=== PATIENT | female | born 1960 | race Caucasian/White ===

== ENCOUNTER 2021-02-01 15:35 | Emergency (ER) | payer MEDICAID, SELFPAY ==
[2021-02-01 15:39] VITALS: BP 164/86; PULSE 92; RESP 18; TEMP 36.6; O2SAT 98; BMI 28.1
--- NOTE | 2021-02-01 17:44 | ED_ITS ---
HPI - General Adult General Chief complaint: General Medical Stated complaint: Ear pain Time Seen by Provider: 02/01/21 17:18 Source: patient Mode of arrival: ambulatory Limitations: no limitations History of Present Illness HPI narrative: Patient presents to the ED for right ear earing being stuck in right ear for the past 6 months. patient states she put the wrong backing part into the earing and has been stuck ever since. patient denies any ear swelling, redness, fever, chills, loss of hearing, or ear pain. Related Data Allergies Allergy/AdvReac Type Severity Reaction Status Date / Time No Known Allergies Allergy Verified 02/01/21 17:23 Review of Systems Review of Systems: Yes all other systems are reviewed and are negative Constitutional: Constitutional: Reports as per HPI and Reports no additional constitutional complaints Eyes: Eyes: Reports as per HPI and Reports no additional eye complaints ENT: Reports system reviewed and no additional complaints, except as documented and Reports as per HPI Comments: RIgt earing stuck Cardiovascular: Cardiovascular: Reports as per HPI and Reports no additional cardiovascular complaints Respiratory: Respiratory: Reports as per HPI and Reports no additional respiratory complaints Gastrointestinal: Gastrointestinal: Reports as per HPI and Reports no additional gastrointestinal complaints Musculoskeletal: Musculoskeletal: Reports no additional musculoskeletal complaints and Reports as per HPI Integumentary/Breasts: Skin/Breast: Reports system reviewed and no additional complaints, except as docu and Reports as per HPI Neurologic: Reports system reviewed and no additional complaints, except as documented and Reports as per HPI Psychiatric: Psychiatric: Reports no additional psychiatric complaints and Reports as per HPI [facility] Past Medical History Medical History (Updated 02/01/21 @ 18:01 by MILY Marte) Diabetes Gastroparesis High cholesterol Tachycardia Social History Social History Advance Directives: No Advance Directives Information Provided: No Patient : No Physical Exam Vital Signs: Vital Signs: Last Vital Signs Temp 98 F 02/01/21 15:39 Pulse 92 02/01/21 15:39 Resp 18 02/01/21 15:39 BP 164/86 H 02/01/21 15:39 Pulse Ox 98 02/01/21 15:39 Body Mass Index 28.1 Const: General: cooperative, healthy appearing, comfortable, no acute distress, well developed, alert, awake and Physically active Orientation/consciousness: patient oriented x3 HENMT: Head: Yes normal to inspection, Yes No palpable skull fracture present, Yes normocephalic, Yes atraumatic and No abrasion Ears: hearing grossly normal bilaterally, external ears normal, TM's normal bilaterally, EAC's normal, mastoids normal and no periauricular adenopathy Outer ear/TM images: 1. Gold earing imbedded into ear. Back piece is visible. Negative for any erythema, swellling, tenderness, pus discharge, mastoid erythema/swelling, Eyes: General: appearance normal, both eyes and all related structures Neck: Neck: Yes normal visual inspection, Yes full ROM, Yes no lymphadenopathy , Yes no meningeal signs, Yes trachea midline, Yes supple and No tender Chest: Chest palpation & inspection: normal inspection of the chest and normal palpation of entire chest wall Resp: Effort & Inspection: normal respiratory effort and able to speak in complete sentences Auscultation: clear to auscultation bilaterally Cardio: Jugular venous distension: no JVD Heart sounds: S1 normal heart sound present and S2 normal heart sound present GI: Inspection: Yes normal to inspection and No abdominal wall ecchymosis Palpation (GI): Soft to palpation, not firm, nontender, no guarding and not rigid : General: No CVA tenderness and Yes no CVA tenderness Back/Spine/Pelvis: Back: no CVA tenderness, No CVA tenderness and No back tenderness Skin: General skin exam: no rashes or lesions noted and elasticity normal Neuro: General: patient oriented x3, gait normal, tone normal, no meningeal signs and CN's II-XI intact bilaterally Cranial nerves: Yes CN's II-XII intact bilaterally Extrem: General: Yes normal to inspection and Yes full ROM Psych: Appearance: grossly normal, well kempt and not disheveled Course Course Course Narrative: Earing stuck Reevaluation(s) Reevaluation #1: patient did not want any anesthesia injection. Earing and back piece was removed with foreceps. patient is satisfied. Medical Decision Making MDM Narrative Medical decision making narrative: earing removed Discharge Plan Discharge Clinical Impression: Embedded earring of right ear Patient Disposition: Home, Self-Care Instructions: Ear Foreign Body (ED) Additional Instructions: Your earring was successfully removed. Return to the ED immediately for any swelling, redness, pus discharge, foul odor, headache, fever, chills, ear pain, or any other concerning symptoms. Please follow-up with primary care provider Interventions: ED Discharge Assessment Last Done: 02/01/21 18:09 Discharge Date/Time: 02/01/21 18:19 Print Language: Azerbaijani
[2021-02-01] MEDS: Lidocaine HCl 2 % MPF 5 ML VIAL INFILTRATI ×2 (18:05→18:07)
--- NOTE | 2021-02-01 18:18 | PC.NURSE ---
RIGHT EAR EARING REMOVED BY MILY LOPES.
== END 2021-02-01 18:19 | disposition home or self-care (01) ==
PROVIDERS: Emergency Provider Emergency Medicine; PCP Internal Medicine
DX: T16.1XXA Foreign body in right ear, initial encounter (principal); M79.5 Residual foreign body in soft tissue; H92.01 Otalgia, right ear; X58.XXXA Exposure to other specified factors, initial encounter; Y93.9 Activity, unspecified; Y92.9 Unspecified place or not applicable; Y99.9 Unspecified external cause status
CPT/HCPCS: 69200; 99283

== ENCOUNTER 2024-02-04 18:59 | Emergency (ER) | payer MEDICARE, MEDICAID, SELFPAY ==
--- NOTE | ~2024-02-04 | CT_ITS ---
EXAMINATION: CT ABDOMEN AND PELVIS WITHOUT CONTRAST CLINICAL INFORMATION: Left-sided groin pain COMPARISON: None available. TECHNIQUE: Multidetector volumetric imaging was performed from the superior aspect of the liver through the pubic symphysis. Sagittal and coronal reformatted images were obtained on the technologist's workstation. This CT examination was performed using dose optimization techniques as appropriate, variously including the following: *Automated exposure control *Adjustment of mA and/or kV according to patient size (this includes techniques or standardized protocols for targeted exams where dose is matched to indication/reason for exam; i.e. extremities or head) *Use of iterative reconstruction technique DLP: 623 mGy-cm FINDINGS: LUNG BASES: The visualized lung bases are unremarkable. LIVER, GALLBLADDER, AND BILIARY TREE: The liver is enlarged measuring 19.4 cm in length with normal attenuation. No focal hepatic lesion or biliary ductal dilatation is present. Status post cholecystectomy PANCREAS: Unremarkable. SPLEEN: Unremarkable. ADRENAL GLANDS: Unremarkable. KIDNEYS AND URETERS: The kidneys are normal in size, shape, and attenuation. No hydronephrosis, hydroureter, or calculi seen. No perinephric stranding. BLADDER: Unremarkable. Tiny amount of air is seen in the bladder. There is no other evidence to suggest the presence of a colovesical fistula with a intact fat plane between the bladder and sigmoid best appreciated on coronal imaging. Please correlate with history of catheterization. GASTROINTESTINAL TRACT: In the proximal sigmoid colon there is an area of mucosal thickening, diverticula and pericolonic inflammatory change consistent with acute diverticulitis. No extraluminal air or pericolonic fluid collections are seen. The small and large bowel are otherwise unremarkable. The appendix is not seen but there is no evidence of appendicitis. ABDOMINAL WALL: No significant hernia is appreciated. LYMPH NODES: No retroperitoneal lymphadenopathy. VASCULAR: Unremarkable. PELVIC VISCERA: The uterus is not seen. An abnormal adnexal mass is not detected. No free intraperitoneal fluid is present. OSSEOUS STRUCTURES: Degenerative changes are seen at L3-L4. No bony destructive lesions. CT/CT abdomen pelvis wo IV con IMPRESSION: 1. Acute uncomplicated sigmoid diverticulitis. 2. Incidental note made of mild hepatomegaly, cholecystectomy and degenerative changes L3-L4. Fleischner guidelines were followed. Electronically signed by: Montrell Rashid MD 02/04/2024 08:55 PM EST RP
--- NOTE | 2024-02-04 19:14 | ED_ITS ---
HPI - Abdominal Pain General Chief Complaint: Abdominal Pain Stated Complaint: left side pain Time Seen by Provider: 02/04/24 19:41 Source: patient, family (Sister), RN notes reviewed and old records reviewed Mode of arrival: ambulatory Limitations: no limitations History of Present Illness ED Provider: Akilah HPI narrative: 63-year-old female with past medical history significant for poorly-controlled diabetes, history of pancreatitis, diverticulitis presents for evaluation of left lower abdominal pain. Patient reports her pain has been on and off for the last 3 days or so She denies any associated symptoms including nausea, vomiting, diarrhea. Denies any burning with urination, urinary frequency or blood in the urine. Her pain does radiate around to her left flank. Her pain is worse with lying down She denies any fevers, chills, sick contacts. Her pain is currently a 6/10 and is sharp The pain waxes and wanes Complaints or concerns at this time Related Data Allergies Allergy/AdvReac Type Severity Reaction Status Date / Time diazepam [From Valium] Allergy Anaphylaxis Verified 02/04/24 19:16 meperidine [From Demerol] Allergy Anaphylaxis Verified 02/04/24 19:16 Opioids - Morphine Analogues Allergy Anaphylaxis Verified 02/04/24 19:16 Penicillins [PCN] Allergy Unknown Verified 02/04/24 19:16 Sulfa (Sulfonamide Allergy Stomach Verified 02/04/24 19:16 Antibiotics) Upset Review of Systems Constitutional: Denies body ache(s), Denies chills and Denies headache(s) Eyes: Denies blurry vision Denies headache(s) and Denies sore throat Cardiovascular: Denies chest pain and Denies dyspnea Respiratory: Denies cough and Denies dyspnea Gastrointestinal: Reports abdominal pain, Denies nausea and Denies vomiting Musculoskeletal: Reports back pain Skin/Breast: Denies rash Denies headache(s) Psychiatric: Denies anxiety [facility] Past Medical History Medical History (Updated 02/04/24 @ 21:38 by Robin Isbell) High cholesterol Tachycardia Diabetes Gastroparesis Social History Social History Advance Directives: Yes Advance Directives Information Provided: No Advance Directives on File: No Do you have a plan to hurt others: No Plan Physical Exam ED Vital Signs: Vital Signs - 24 hr 02/04/24 19:16 02/04/24 20:04 Temperature 98.0 F 97.6 F Pulse Rate 113 H 111 H Respiratory Rate 20 16 Blood Pressure 178/90 H 173/72 H Pulse Oximetry 98 99 Oxygen Delivery Method Room Air Room Air BMI result Body Mass Index 28.9 Const General: healthy appearing, comfortable, no acute distress, alert and awake Nutritional Appearance: well nourished Orientation/consciousness: patient oriented x3 HENMT Head: Yes normocephalic and Yes atraumatic Eyes Eyelids: Yes eyelids normal Conjunctivae: conjunctivae normal Sclerae: sclerae normal Corneas: corneas normal Pupils: Equal, round and reactive pupils present EOM: EOMs intact bilaterally Neck Neck: Yes full ROM Resp Effort & Inspection: normal respiratory effort, able to speak in complete sentences and not labored Cardio Rate: regular rate Rhythm: regular rhythm GI Inspection: No distended Palpation (GI): Soft to palpation, not firm, Tenderness to palpation present (GI) (left flank tenderness) in the LLQ, no guarding and not rigid Auscultation: normoactive bowel sounds General: No CVA tenderness and Yes no CVA tenderness Back/Spine/Pelvis Other: There is tenderness in the left lumbosacral region. No vertebral tenderness, step-offs or deformities Back: no CVA tenderness and No CVA tenderness Skin General skin exam: elasticity normal Neuro General: patient oriented x3 Cranial nerves: Yes Equal, round and reactive pupils present and Yes Bilaterally intact EOM present Cognition (Neuro): normal cognition Extrem Other: Moving all extremities well without any obvious deformities Course Course Course Narrative: This is an RME done by MILY Hector: Additional HPI, ROS, PE not included below will be deferred to primary provider. 63 year old female hx DM, CKD, fibromyalgia, gastroparesis presents w/ left sided groin pain x 1 week worsening. Pain is sharp shooting, worse w/ laying down Plan- labs, urine, CT abd pelvis Reevaluation(s) Reevaluation #1: Patient's CT scan shows acute uncomplicated diverticulitis. The patient does have a history of this. She is quite well appearing with reassuring labs and vital signs. The patient was encouraged to treat with liquid diet and advance as tolerated. Antibiotics were discussed but ultimately deferred. Patient was given return precautions Time: 21:35 Medical Decision Making Medical Decision Making MDM Narrative: 63-year-old female with past medical history as documented above presents for evaluation of left lower abdominal pain. She denies associated his symptoms. The differential includes obstructive uropathy, UTI, inguinal hernia, constipation, diverticulitis. Plan for labs, urinalysis, CT scan of the abdomen pelvis without contrast Differential Diagnosis Differential Diagnoses: The differential diagnosis associated with the presentation includes As above Lab Data MDM Lab Attestation statement: I reviewed the patient's lab results. There is no leukocytosis. Have a mild normocytic anemia. He is, her BUN today is 30. Magnesium is low at 1.5 and will be repleted. The creatinine of 1.53, no labs for direct comparison. Her glucose is elevated to 537. There is no elevated anion gap and the CO2 is within normal limits. No evidence of DKA. Mild elevation of AST and ALT. 02/04/24 19:34 02/04/24 19:34 Labs: Lab Results 02/04/24 02/04/24 Range/Units 19:34 21:17 WBC 9.8 (4.8-10.8) X10*3/uL RBC 4.04 L (4.20-5.50) X10*6/uL Hgb 10.6 L (12.0-16.0) g/dl Hct 32.4 L (37.0-47.0) % MCV 80.2 (80.0-98.0) fL MCH 26.2 L (27.0-33.0) pg MCHC 32.7 (31.0-35.0) g/dl RDW 12.1 (11.0-16.0) % Plt Count 282 (160-400) X10*3/uL MPV 10.4 (9.4-12.3) fL Immature Gran % (Auto) 0.3 (0.0-0.4) % Neut % (Auto) 73.7 H (45-73) % Lymph % (Auto) 18.6 L (20-40) % Parke % (Auto) 5.8 (2-11) % Eos % (Auto) 1.3 (0-4) % Baso % (Auto) 0.3 (0-2) % Lymph # (Auto) 1.8 (1.2-4.9) X10*3/uL Parke # (Auto) 0.6 (0.1-1.2) X10*3/uL Eos # (Auto) 0.1 (0.0-0.4) X10*3/uL Baso # (Auto) 0.0 (0.0-0.2) X10*3/uL Abs Immat Gran (auto) 0.03 (0.00-0.03) X10*3/uL Absolute Neuts (auto) 7.2 (2.0-8.3) x10*3/uL Absolute Nucleated RBC 0.000 (0.0-0.012) X10*3/uL Nucleated RBC % (auto) 0.0 (0.0-0.2) /100WBC Sodium 139 (135-145) mmol/L Potassium 5.1 (3.3-5.1) mmol/L Chloride 100 (96-108) mmol/L Carbon Dioxide 27 (22-29) mmol/L Anion Gap 17 (12-20) BUN 33 H (9-16) mg/dL Creatinine 1.53 H (0.5-1.4) mg/dL Estim Creat Clear Calc 42.7 Estimated GFR 34 POC Glucose 389 H* (60-115) mg/dL Random Glucose 537 H* (60-115) mg/dL Calcium 9.6 (8.4-10.2) mg/dL Magnesium 1.5 L (1.6-2.6) mg/dL Total Bilirubin 0.1 (0.0-1.0) mg/dL AST 39 H (5-31) U/L ALT 57 H (0-31) U/L Alkaline Phosphatase 134 H (39-117) U/L Total Protein 7.2 (6.5-8.0) g/dL Albumin 4.3 (3.5-5.0) g/dL Lipase 14 (8-78) U/L Urine Color Yellow Urine Appearance Clear Urine pH 5.5 (5.0-9.0) Ur Specific [place] 1.025 (1.005-1.025) Urine Protein 30 (1+) H (Neg-Trace) mg/dL Urine Glucose (UA) >=1000 H (Negative) mg/dL Urine Ketones Negative (Negative) mg/dL Urine Blood Negative (Negative) Urine Nitrite Negative (Negative) Ur Leukocyte Esterase Negative (Negative) Urine RBC 0-2 (0-2) /HPF Urine WBC 0-5 (0-5) /HPF Ur Squamous Epith Cells 0-2 (0-2) /HPF Urine Bacteria None Seen (None Seen) Hyaline Casts 0-2 (0-2) /LPF Independent Interpretation I performed an independent interpretation of an: CT Scan Radiology Impression Discussion of test interpretation with radiology: I have reviewed the radiologist's reading. Radiologist Impression: FINDINGS: LUNG BASES: The visualized lung bases are unremarkable. LIVER, GALLBLADDER, AND BILIARY TREE: The liver is enlarged measuring 19.4 cm in length with normal attenuation. No focal hepatic lesion or biliary ductal dilatation is present. Status post cholecystectomy PANCREAS: Unremarkable. SPLEEN: Unremarkable. ADRENAL GLANDS: Unremarkable. KIDNEYS AND URETERS: The kidneys are normal in size, shape, and attenuation. No hydronephrosis, hydroureter, or calculi seen. No perinephric stranding. BLADDER: Unremarkable. Tiny amount of air is seen in the bladder. There is no other evidence to suggest the presence of a colovesical fistula with a intact fat plane between the bladder and sigmoid best appreciated on coronal imaging. Please correlate with history of catheterization. GASTROINTESTINAL TRACT: In the proximal sigmoid colon there is an area of mucosal thickening, diverticula and pericolonic inflammatory change consistent with acute diverticulitis. No extraluminal air or pericolonic fluid collections are seen. The small and large bowel are otherwise unremarkable. The appendix is not seen but there is no evidence of appendicitis. ABDOMINAL WALL: No significant hernia is appreciated. LYMPH NODES: No retroperitoneal lymphadenopathy. VASCULAR: Unremarkable. PELVIC VISCERA: The uterus is not seen. An abnormal adnexal mass is not detected. No free intraperitoneal fluid is present. OSSEOUS STRUCTURES: Degenerative changes are seen at L3-L4. No bony destructive lesions. CT/CT abdomen pelvis wo IV con IMPRESSION: 1. Acute uncomplicated sigmoid diverticulitis. 2. Incidental note made of mild hepatomegaly, cholecystectomy and degenerative changes L3-L4. Fleischner guidelines were followed. Electronically signed by: Montrell Rashid MD 02/04/2024 08:55 PM [facility] Medications Administered Discontinued Medications Generic Name Dose Route Start Last Admin Trade Name Freq PRN Reason Stop Dose Admin Hydromorphone HCl 0.5 mg 02/04/24 20:05 02/04/24 20:35 Hydromorphone Hcl 0.5 Mg/0.5 Ml Syringe IVPUSH 02/04/24 20:06 0.5 mg ONCE ONE Administration Protocol Sodium Chloride 1,000 mls @ 999 mls/hr 02/04/24 20:15 02/04/24 20:35 Ns IV 02/04/24 21:15 999 mls/hr .Q1H1M SCOTT Administration Insulin Human Regular 10 unit 02/04/24 20:05 02/04/24 20:34 Insulin Regular, Human 100 Unit/Ml 10 Ml Vial IVPUSH 02/04/24 20:06 10 unit ONCE ONE Administration Magnesium Oxide 800 mg 02/04/24 20:23 02/04/24 20:35 Magnesium Oxide 400 Mg Tablet PO 02/04/24 20:24 800 mg ONCE ONE Administration Ondansetron HCl 4 mg 02/04/24 20:05 02/04/24 20:35 Ondansetron Hcl 4 Mg/2 Ml Vial IVPUSH 02/04/24 20:06 4 mg ONCE ONE Administration Discharge Plan Discharge Clinical Impression: Diverticulitis Patient Disposition: Home, Self-Care Instructions: Diverticulitis (ED), Diverticulitis Diet (ED) Additional Instructions: Services your workup in the ER shows acute uncomplicated diverticulitis. You appear to have a mild case. I recommend a liquid diet for the next 2-3 days and You may advance as tolerated You may use ibuprofen/Tylenol for pain. Return for new or worsening symptoms, especially if you develop worsening pain, or unable to tolerate any oral intake or you develop a fever Follow-up with your primary doctor Print Language: Setswana
[2024-02-04 19:16] VITALS: BP 178/90; PULSE 113; RESP 20; TEMP 36.7; O2SAT 98; BMI 28.9
[2024-02-04 19:38] LABS: MANUAL DIFF FLAG NO
[2024-02-04 19:40] LABS: Appearance Urine Clear; Basophils Percent Auto 0.3 % (0-2); Color Urine Yellow; Eosinophils Absolute Auto 0.1 X10*3/uL (0.0-0.4); Eosinophils Percent Auto 1.3 % (0-4); Glucose Urine UA >=1000 mg/dL (Negative); Hematocrit 32.4 % (37.0-47.0); Hemoglobin 10.6 g/dl (12.0-16.0); Imm Gran Abs Auto 0.03 X10*3/uL (0.00-0.03); Imm Gran Pct Auto 0.3 % (0.0-0.4); Leukocyte Esterase Urine Negative (Negative); Lymphocytes Absolute Auto 1.8 X10*3/uL (1.2-4.9); Lymphocytes Percent Auto 18.6 % (20-40); Mean Corpuscular HGB Conc 32.7 g/dl (31.0-35.0); Mean Corpuscular Hemoglobin 26.2 pg (27.0-33.0); Mean Corpuscular Volume 80.2 fL (80.0-98.0); Mean Platelet Volume 10.4 fL (9.4-12.3); Monocytes Absolute Auto 0.6 X10*3/uL (0.1-1.2); Monocytes Percent Auto 5.8 % (2-11); Neutrophils Absolute Auto 7.2 x10*3/uL (2.0-8.3); Neutrophils Percent Auto 73.7 % (45-73); Nitrite Urine Negative (Negative); PH 5.5 (5.0-9.0); Platelet Count 282 X10*3/uL (160-400); Red Blood Count 4.04 X10*6/uL (4.20-5.50); Red Cell Distribution Width 12.1 % (11.0-16.0); Specific Gravity - Urine 1.025 (1.005-1.025); UMIC TRIGGER UACC YES; Urine Blood Negative (Negative); Urine Ketones Negative (Negative); Urine Protein 30 (1+) mg/dL (Neg-Trace); White Blood Count 9.8 X10*3/uL (4.8-10.8)
[2024-02-04 19:45] LABS: Bacteria Urine None Seen (None Seen); Hyaline Casts Urine 0-2 /LPF (0-2); RBC Urine 0-2 /HPF (0-2); Squamous Epithelial Cell Urine 0-2 /HPF (0-2); WBC Urine 0-5 /HPF (0-5)
[2024-02-04 19:55] LABS: Alanine Aminotransferase 57 U/L (0-31); Albumin Level 4.3 g/dL (3.5-5.0); Alkaline Phosphatase 134 U/L (39-117); Anion Gap 17 (12-20); Aspartate Amino Transferase 39 U/L (5-31); Bilirubin Total 0.1 mg/dL (0.0-1.0); Blood Urea Nitrogen 33 mg/dL (9-16); Calcium 9.6 mg/dL (8.4-10.2); Carbon Dioxide 27 mmol/L (22-29); Chloride 100 mmol/L (96-108); Creatinine Clr Calc Pharmacy 42.7; Estimated Glomerular Filt Rate 34; Glucose Random 537 mg/dL (60-115); Lipase 14 U/L (8-78); Magnesium 1.5 mg/dL (1.6-2.6); Potassium 5.1 mmol/L (3.3-5.1); Sodium 139 mmol/L (135-145); Total Protein 7.2 g/dL (6.5-8.0)
[2024-02-04 20:04] VITALS: BP 173/72; PULSE 111; RESP 16; TEMP 36.4; O2SAT 99
[2024-02-04] MEDS: Insulin Regular, Human 100 UNIT/ML 10 ML VIAL 10 UNIT IVPUSH (20:34)
[2024-02-04] MEDS: HYDROmorphone HCl 0.5 MG/0.5 ML SYRINGE IVPUSH (20:35)
[2024-02-04] MEDS: 0.9 % Sodium Chloride 1,000 ML 999 ML IV (20:35)
[2024-02-04] MEDS: ondansetron HCL 4 MG/2 ML VIAL IVPUSH (20:35)
[2024-02-04] MEDS: Magnesium Oxide 400 MG TABLET 800 MG PO (20:35)
--- NOTE | 2024-02-04 20:39 | PC.NURSE ---
Took over care from JACKSON Benton, medicated per may, pt awaiting CT Scan results
[2024-02-04 21:19] LABS: Glucose, Whole Blood 389 mg/dL (60-115)
[2024-02-04 21:39] VITALS: BP 142/65; PULSE 108; RESP 16; TEMP 36.6; O2SAT 99
--- NOTE | 2024-02-04 22:09 | PC.NURSE ---
Reviewed discharge instructions with pt, pt verbalized understanding, no sign of distress, Iv removed upon discharge , pt had a steady gait, discharged home.
[2024-02-04 22:11] VITALS: BP 142/65; PULSE 108; RESP 16; TEMP 36.6; O2SAT 99
== END 2024-02-04 22:12 | disposition home or self-care (01) ==
PROVIDERS: Physician Assistant; Emergency Provider Emergency Medicine; PCP Internal Medicine
DX: K57.92 Diverticulitis of intestine, part unspecified, without perforation or abscess without bleeding (principal); R10.32 Left lower quadrant pain; E11.9 Type 2 diabetes mellitus without complications; E78.5 Hyperlipidemia, unspecified
CPT/HCPCS: 36415; 74176; 80053; 81001; 82947; 83690; 83735; 85025; 96361; 96374; 96375; 99284; 99285; J1171; J2405

== ENCOUNTER 2024-07-18 11:10 | Outpatient (AMB) | payer MEDICARE, MEDICAID, SELFPAY ==
--- NOTE | 2024-07-18 11:23 | A.OFFVIS_ITS ---
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 Patient has neuropathy in her feet. She gets cramping , swelling, tiredness and pain. Right leg is worse. 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 She recounts episodes of leg weakness accompanied by dizziness, questioning if three past COVID-19 infections are contributory. There is significant hypoesthesia in her feet related to her 25-year history of Type 2 Diabetes Mellitus. The patient's ambulation is limited to 20 feet due to pain in both legs and feet, with the right leg typically giving out first. Previously believed to have strong pulses, recent assessments reveal diminished foot pulses. She has a documented family history of similar vascular issues, and her father's experience includes multiple surgical interventions. The patient denies smoking and confirms an allergy to aspirin. Current medication includes Lovastatin for lipid management. She now presents for vascular evaluation [facility] Medical History High cholesterol Tachycardia Diabetes Gastroparesis Review of Systems Const All systems reviewed & are unremarkable except as noted in HPI and below Reports no additional complaints ENT Reports Normal hearing present Card Denies chest pain, Denies chest pain at rest, Denies chest pain with activity and Denies pedal edema Resp Denies cough GI Denies abdominal pain Musc Denies abnormal gait, Denies muscle cramps and Denies radiating pain into limb Skin/Breast Denies skin ulcer and Denies wounds Neuro Reports Normal hearing present and Denies abnormal gait Psych Reports no additional complaints Physical Exam Const General: cooperative, healthy appearing and comfortable Orientation/consciousness: oriented to person, oriented to place and oriented to time HEENT Head: Yes normal to inspection Neck Neck: Yes normal visual inspection Carotids: no bruits Chest Chest palpation & inspection: normal inspection of the chest Resp Effort & Inspection: normal respiratory effort and able to speak in complete sentences Auscultation: clear to auscultation bilaterally, no crackles, no rales, no rhonchi and no wheezes Cardio Other: Palpable left lower extremity dorsalis pedis, right side DP signals Rate: regular rate Rhythm: regular rhythm Heart sounds: S1 normal heart sound present and S2 normal heart sound present Bruits: no carotid bruits GI Inspection: Yes normal to inspection Skin Wounds: no wounds Hair: normal Neuro General: oriented to person, oriented to place and oriented to time Cranial nerves: Yes CN's II-XII intact bilaterally and Yes Normal hearing present Cognition (Neuro): normal cognition Motor exam (neuro): 5/5 motor strength present throughout Extrem Other: venous exam: No significant superficial varicosities or spider telangiectasias, minimal edema General: No clubbing, No cyanosis and No edema Psych Appearance: grossly normal Mental Status: mental status grossly normal Speech and movement: Normal speech and movement present Assessment & Plan Assessment & Plan (1) PAD (peripheral artery disease): Code(s): I73.9 - Peripheral vascular disease, unspecified Category: Medical Plan: I discussed the importance of assessing the patient?s peripheral vascular status through a Doppler ultrasound, which will help determine the extent of any arterial compromise. Benefits of the ultrasound include its non-invasive nature and capacity to provide conclusive details regarding the vascular condition. The potential risks of delaying this investigation include deterioration in ambulation and potential complications related to ischemia. Plan Patient was informed and verbally consented to the use of an ambient scribe for clinic note documentation during this visit. Orders: Orders US arterial duplex LE BI 1 Week I73.9 - Peripheral vascular disease, unspecified Patient Instructions: - Follow up for an ultrasound of the lower extremities. - Continue taking Lovastatin for cholesterol management. - Monitor blood sugar levels regularly. - Report any worsening of symptoms or new symptoms promptly. Coding Level of Care Code New Pt Level 4 (80446) Complex EM visit Add On G2211 Diagnoses PAD (peripheral artery disease) I73.9
--- OUTSIDE RECORDS SUMMARY | 2024-07-18 13:26 | XMS_ITS | Clinical Summary ---
Author Organization [employer] Address [address] [place] [address] Care Team Providers Care Mortgage Underwriter Name Role Phone Massiel Jung MD Primary Care Provider [phone] Allergies Active Allergy Reactions Criticality Noted Date Comments Alcohol 01/08/2020 Other reaction(s): Unknown Aspirin Rash Low 02/07/2015 Other reaction(s): Unknown Bebtelovimab Rash,Angioedema Low 03/27/2022 Codeine Angioedema High 02/04/2015 Other reaction(s): Other (See Comments), Unknown Throat closing Throat closing Cyclopentolate 03/27/2022 Other reaction(s): prolonged eye dilation Diazepam Anaphylaxis,Angioede ma High 02/04/2015 Other reaction(s): Other (See Comments) Throat closing Throat closing Leann Anaphylaxis High 01/06/2019 Other reaction(s): Unknown Ibuprofen Rash Low 02/07/2015 Other reaction(s): Unknown Other reaction(s): unknown Ketorolac 03/27/2022 Other reaction(s): unknown Meperidine Angioedema High 02/04/2015 Other reaction(s): Other (See Comments) Throat closing Throat closing Other reaction(s): rash/throat closing Meperidine Hcl Angioedema,Rash Low 03/25/2022 Other reaction(s): Unknown Morphine 03/27/2022 Other reaction(s): rash, stomach pain, throat closing Naproxen 03/25/2022 Other reaction(s): Unknown Other reaction(s): unknown Oxycodone-Acetaminophen 03/27/2022 Other reaction(s): throat closing,rash Penicillins Rash Low 09/23/2017 Other reaction(s): Unknown Other reaction(s): hives Prochlorperazine Rash Low 02/07/2015 Other reaction(s): Unknown Salicylic Acid-Sulfur Nausea And Vomiting Low 12/27 Sulfa Antibiotics Rash,Shortness of breath,Anaphylaxis High 09/23/2017 Sulfadiazine 03/27/2022 Other reaction(s): rash Tropicamide 03/25/2022 Other reaction(s): Unknown Other reaction(s): unknown Medications * This document contains information received from the source organization and may not represent a complete record from that organization. cholecalciferol (Vitamin D-3) 25 MCG (1000 UT) tablet Take 1,000 Units by mouth in the morning. Active albuterol 108 (90 Base) MCG/ACT inhaler Inhale 2 puffs every 6 (six) hours if needed. Active metFORMIN XR (Glucophage-XR) 500 MG 24 hr tablet 2 tablets in the morning and 2 tablets in the evening. 0 Active esomeprazole (NexIUM) [address] capsule Take 40 mg by mouth in the morning and 40 mg in the evening. 2 Active cyanocobalamin (Vitamin B-12) 1000 MCG tablet Take 1,000 mcg by mouth in the morning. Active Multiple Vitamins-Minera ls (MULTIVITAMIN ADULT, MINERALS, PO) Take by mouth. A ctive glucose 4 g chewable tablet as directed Orally Active Continuous Blood Gluc Sensor (Dexcom G6 Sensor) [facility] [place] Active Insulin Disposable Pump (Omnipod 5 G6 Pod, Gen 5,) [facility] 2 Active BD Pen Needle Micro U/F 32G X 6 MM [facility] 2 Active ipratropium (Atrovent) 0.06 % nasal spray 2 Active melatonin 3 MG tablet Take 5 mg by mouth. 2 Active simethicone (Mylicon) 80 MG chewable tablet Chew 80 mg. 9 Active rosuvastatin (Crestor) 40 MG tablet 2 Active saccharomyces boulardii (Florastor) 250 MG capsule Take 250 mg by mouth. Active estradiol (Estrace) 0.1 MG/GM vaginal cream Insert 0.1 g into the vagina in the morning. 4 Active ezetimibe (Zetia) 10 MG tablet Take 10 mg by mouth in the morning. 3 Active fenofibrate micronized (Antara) 30 MG capsule Take 67 mg by mouth with breakfast. 2 Active Ferrous Fumarate 325 (106 Fe) MG tablet Take 325 mg by mouth in the morning. 0 Active HumaLOG 100 UNIT/ML solution Inject 30 mL under the skin. Has insulin pump 3 Active loratadine (Claritin) 5 MG chewable tablet Chew 5 mg in the morning. 3 Active anastrozole (Arimidex) 1 MG chemo tablet Take 1 mg by mouth in the morning. 4 Active Lantus SoloStar 100 UNIT/ML penIndications: Insulin dependent diabetes mellitus type IA (CMS/HCC) 36 units nightly 3 mL 11 4 Active buPROPion XL (Wellbutrin XL) 150 MG 24 hr tabletIndicatio ns:BMI 30.0-30.9,adult TAKE 1 TABLET BY MOUTH IN THE MORNING. DO NOT CRUSH, CHEW, OR SPLIT. 30 tablet 10 4 Active naltrexone (Depade) 50 MG tabletIndicatio ns:BMI 30.0-30.9,adult Take 1 tablet (50 mg) by mouth Once per day. 90 tablet 3 4 02/01/20 25 Active methocarbamol (Robaxin) 750 MG tablet TAKE ONE TABLET BY MOUTH TWO TIMES A DAY 52 tablet 5 Active Continuous Glucose Transmitter (Dexcom G6 transmitter) miscIndications :Insulin dependent diabetes mellitus type IA (CMS/HCC) USE DIRECTED CONTINUOUSLY 1 each 5 Active Continuous Glucose Detention Attendant (Dexcom G7 Detention Attendant) device 1 each Once per day. 5 Active Continuous Glucose Sensor (Dexcom G7 Sensor) mis Dexcom G7 Sensor, See Instructions, # 9 each, Refills 3, Tot. Refills 3, Maintenance, Use as directed for Diabetes Control. Change every 10 days, 05/24/24 3:23:00 PM EST, Supply, 173, cm, 04/20/24 9:13:00 EST, Height, 87.3, kg, 04/20/24 9:13:00 EST, Dry Weight 5 Active meclizine (Antivert) 25 MG tabletIndicatio ns:Vertigo TAKE 1 TABLET BY MOUTH EVERY MORNING, AT NOON TIME AND AT BEDTIME IF NEEDED FOR DIZZINESS 30 tablet 11 5 Active DULoxetine (Cymbalta) [address] capsule TAKE ONE CAPSULE BY MOUTH TWO TIMES A DAY, DO NOT CRUSH OR CHEW 60 capsule 10 5 Active Active Problems Problem Noted Date Diagnosed Date Situational depression 11/17/2023 Major depression 11/16/2023 Grief reaction with prolonged bereavement 2023 Abnormal MRI of the head 10/08/2023 Overview (10/08/2023): Impression: chronic small vessel disease, discussed with pt optimizing DM, HTN, HLD, no smoking no ETOH, pt aware that her PCP already referred her to neurology due to the double vision, also sees an Dr. Eliseo Verduzco opthalmalogist and recently got injections on Wed this d/t the diabetic retinopathy. Encouraged Laura to keep the phys therapy treatment referral visits that Dr. Jung referred for already as well as the neurologist. Pt agrees to plan and has no further questions/concerns at visit conclusion. Routed chart to PCP/referrals to please send the MRI report to the neurologist to inform patient's visit there, copying report to patient in her portal also. Type 2 diabetes mellitus, wi th long-term current use of insulin 10/08/2023 Assessment & Plan (10/08/2023 7:51 PM EDT): Laura encouraged to review her time in range history/graphs of glucose throughout the last several days regularly on her DEXCOM, all medication reviewed. Has multiple end organ effects of her longstanding diabetes including retinopathy, polyneuropathy, gastroparesis, CKD. Plans to f/up with neurologist as previously referred by her PCP as well as with physical therapy. Today we reviewed her MRI brain results with findings/impression of chronic small vessel disease with little progression since her last (2020) MRI. This was ordered by her PCP r/t recent double vision which Laura states has since improved a bit after getting her injections with her opthalmalogist on Wednesday this week. Chart routed to PCP and referrals r/t f/up with the neurologist and with physical therapy with request for imaging report to be shared with the specialists to inform Laura's followup care. Long COVID 07/05/2023 BMI 30.0-30.9,adult 07/05/2023 Class 1 obesity with serious comorbidity and body mass index (BMI) of 30.0 to 30.9 in adult 07/05/2023 Radiation dermatitis 05/28/2023 Assessment & Plan (05/28/2023 12:04 PM EST): No evidence of fungal infection at this time. Discussed typical course. Low-mid potency topical steroid cream BID for 14 days to reduce inflammation and irritation. Keep clean and dry. Return precautions advised COVID 01/07/2023 Assessment & Plan (01/12/2023 9:26 PM EDT): States is recovering, no fever/SOB but still fatigue, poor appetite cough and knows she is not drinking as much as she should with her diabetes and chronic kidney disease. Importance of staying well hydrated discussed and she will also be calling her manager android about insulin pump adjustments if needed during illness due to elevated glucose readings (see ER notes). Reviewed with Laura symptoms that warrant a return to ER rather than wait to see her specialist and she agrees to plan. Assessment & Plan (01/07/2023 6:34 PM EDT): PT with multiple chronic health conditions including uncontrolled insulin dependent diabetes, Stage 4 CKD per lab results in chart and current COVID 19 positive infection highly symptomatic, with adult daughter Verena present, encouraged to seek acute care setting evaluation now, this evening. Symptoms have persisted since last Wednesday and are not improving including productive cough, malaise, anosmia/ageusia, reports myalgias pain of 4 on 0-10 PAS, afebrile 02 sat RA of 90%. Pt and daughter agree to plan and state they are going to [facility] in [place] now. Daughter Verena will call [facility] in a.m. to report on her mother's status (if admitted or only treated in ER) and encouraged to have f/up with PCP once off COVID quarantine. See also new diagnosis of breast cancer for which pt is waiting to start treatment due to current COVID 19 infection. Skin lesions 01/07/2023 Overview (01/07/2023): Reports canker sores in mouth/tongue and now welts on buttocks near anus Is going to [facility] ER this evening for COVID 19 symptoms, likely labs and IV fluids and further evaluation/treatment. Advised to let the triage nurse know at intake about her concerns with the skin lesions that have developed during COVID 19 infection so provider in ER is aware, can examine. Infiltrating ductal carcinoma of left breast Overview (05/28/2023): Images from the original note were not included. 12/22/22 Jenelle SIMPSON S/p Radiation treatment, completed 04/16/23 On Arimidex 1 mg daily Assessment & Plan (01/12/2023 6:22 PM EDT): Going for imaging for evaluation of left breast known cancer - ordered by Dr. Montero and will be seeing her in early January 2023. Fibromyalgia 08/17/2022 Assessment & Plan (10/08/2023 7:40 PM EDT): Reviewed/reconciled all medications and allergies with pt and she states she thinks her diabetes is more disabling than her other conditions. Aware her PCP has already referred her to physical therapy r/t her dizziness but hasn't seen PT yet, would also like to be seen for help with strengthening/flexibility exercises within her ability as states doesn't get out to exercise. Referral entered and encouraged Laura to followup to be sure she schedules these phys therapy appointments for her benefit. Holosystolic murmur 03/25/2022 Small intestinal bacterial overgrowth 03/25/2022 Multinodular goiter 03/25/2022 Insomnia 03/25/2022 Ulcerative lesion 03/25/2022 Foot deformity 03/25/2022 Back pain with radiation 03/25/2022 Carpal tunnel syndrome 03/25/2022 Osteoarthritis 03/25/2022 Lipoma 03/25/2022 Hip pain 03/25/2022 Polyneuropathy in diseases classified elsewhere 03/25/2022 Alpha thalassemia trait 03/25/2022 Fecal urgency 03/25/2022 H/O abdominal hysterectomy 03/25/2022 Chronic fatigue 03/25/2022 History of NV (myocardial infarction) 03/25/2022 Female bladder prolapse 03/25/2022 Full incontinence of feces 03/25/2022 Hypercholesterolemia 06/18/2020 Diabetic neuropathy 06/18/2020 Insulin dependent diabetes mellitus type IA 05/28 Assessment & Plan (01/12/2023 6:20 PM EDT): Post COVID ER followup, per ER notes the readings on CGM were in the 500s but not in DKA per ER clinician - glucose at visit 319 - sees manager android at [facility] has Omnipod generation. States feeling better since ER but still extremely tired, poor appetite, trying to stay hydrated. States received call from nurse at ER and told Laura she had UTI and prescribed cephalexin. Will call her manager android to see if she can get in sooner than February 2023. Essential hypertension 04/10/2020 Assessment & Plan (01/12/2023 9:29 PM EDT): Encouraged Laura to take home daily bp/pulse readings and made her aware of how high her BP was at recent ER visit per notes, suboptimal HTN control and advised to discuss with PCP or audio recording engineer to address -- Laura states she has an appointment to see the lipidologist in early January. Encouraged her to start the bp/pulse self monitoring now and let her PCP know if readings are persistently elevated about 130/80 for initation of antihypertensive medication, especially since she also have diabetes and very high lipid levels, this is an enhanced CV risk. Laura agrees to plan. Assessment & Plan (05/07/2022 2:21 PM EST): Pt of Julieta Jung here today for BP recheck. Rx amlodipine was discontinued due to dizziness. Was initially started in the hospital. BP with home monitor 150s. Controlled in office and historically has been normal at prior visits. Will not restart antihypertensive and have pt do nurse BP next week to make sure it remains normal. Advised to call with any worsening sx Stage 3a chronic kidney disease 01/08/2020 Overview (03/25/2022): Update for Diagnosis Load Sleep apnea 02/03/2019 Overview (03/25/2022): CPAP nightly Hyperlipidemia 02/03/2019 Gastroparesis 02/03/2019 Diabetic retinopathy 02/03/2019 Anemia 02/03/2019 Non-alcoholic fatty liver disease 02/07/2015 Overview (03/25/2022): Non-alcoholic fatty liver Gastroesophageal reflux disease 02/07/2015 Overview (03/25/2022): Gastroesophageal reflux disease Irritable bowel syndrome 02/07/2015 Overview (03/25/2022): Irritable bowel syndrome Goiter 02/07/2015 Overview (03/25/2022): Goiter Colon polyp 02/07/2015 Overview (03/25/2022): Polyp of colon Coronary artery disease 02/07/2015 Overview (03/25/2022): Coronary arteriosclerosis Chronic diarrhea 02/07/2015 Overview (03/25/2022): Chronic diarrhea Abdominal pain 02/07/2015 Overview (02/19/2024): Patient with LLQ, RLQ abdominal pain. Nausea and vomiting, diarrhea. Seen in [facility] ED 02/04/24 and diagnosed with diverticulitis. No abx prescribed, clear liquid diet recommended. Symptoms initially got better but have worsened. Patient stable in office today, afebrile. Advised return to ED if symptoms worsen. Discussed low threshold for ED due to history of gastroparesis, colon polyp, risk for infection. Patient indicates understanding and is in agreement with plan. Discussed avoiding nuts, seeds for the time being. Advised clear liquid diet with advancement to soft foods if no nausea or vomiting x 24 hours. Peripheral vascular disease 02/07/2015 Overview (03/25/2022): Peripheral vascular disease Resolved Problems Problem Noted Date Diagnosed Date Resolved Date NV (myocardial infarction) 02/03/2019 1 Osteomyelitis 02/07/2015 03/27/2022 Overview (03/25/2022): Osteomyelitis Encounters * This document contains information received from the source organization and may not represent a complete record from that organization. Date Type Department Care Team Description 07/10/[address] [address] Massiel Jung MD [facility] program paperwork 07/06/2024 4:15 PM EDT Telemedicine [address] [address] Faviola Dill DO Acute diarrhea (Primary Dx) 06/26/2024 Orders Only [facility] [address] [place] [address] Massiel Jung MD 06/20/[address] [address] Massiel Jung MD Hospital Follow-up; stomach cramping 06/16/[address] [address] Massiel Jung MD Vertigo 06/09/2024 Orders Only [address] [address] Faviola Dill DO 06/09/[address] [address] Massiel Jung MD discuss x-ray results 06/09/2024 Population Health Risk Score [facility] ([facility]) Department [address] [place] [id number] Provider, Population Health Generic 06/08/2024 3:15 PM EDT Office Visit [address] [address] Faviola Dill DO Rib injury (Primary Dx); Fall, initial encounter 06/08/2024 Travel 05/12/[address] [address] Massiel Jung MD Insulin dependent diabetes mellitus type IA (CMS/HCC) 05/04/2024 11:30 AM EST Telemedicine [address] [address] Massiel Jnug MD Insulin dependent type 2 diabetes mellitus (CMS/HCC) (Primary Dx); Essential hypertension; Stage 3a chronic kidney disease (CMS/HCC); REA (obstructive sleep apnea); BMI 30.0-30.9,adult; Hyperlipidemia, unspecified hyperlipidemia type; Situational depression 05/04/[address] [address] Massiel Jung MD 05/04/[address] [address] Massiel Jung MD request for letter from PCP to personal gym 04/24/[address] [address] Massiel Jung MD Care Coordination; Paperwork/Forms from Last 3 Months Immunizations Name Administration Dates Next Due Influenza Injectable Quadriv alant Preservative Free IIV4 MDCK 03/18/2023 Influenza injectable quadriv alent preservative free 02/25/2022 Influenza, IIV3, injectable 12/27/2020,1 04/02/2019,04/08/2018,01/22,02/03/2016,02/08/2015,02/19/2014 ,01/20/2013 Influenza, Split (incl. jovanny fied surface antigen) 01/15/2012,01/21/2010 MMR 06/05/2015 Moderna Covid-19 Vaccine 12+ 02/01/2024,03/18/20 23 PPD Test 10/20/2023,04/08/2015,08/28/2009 Pfizer Covid-19 Vaccine 12+ 06/26/2021,0 06/26/2020,06/05/2020,05/29 Pneumococcal Polysaccharide PPSV23 04/08/2018,,12/28/2003 TD (adult), 2 Lf tetanus tox oid, preservative free, adsorbed 06/18/2021 Tdap 01/15/2012 Zoster, Recombinant 06/26/2023 Social History Tobacco Use Types Packs/Day Years Used Date Smoking Tobacco: Never Passive Smoke Exposure: Never Smokeless Tobacco: Never Tobacco Cessation:Counseling Given: Not Answered Alcohol Use Standard Drinks/Week Comments Never 0 (1 standard drink = 0.6 oz pur e alcohol) Alcohol Answer Date Recorded How often do you have a drink containing alcohol ? 0 05/28/2023 How many drinks containing a lcohol do you have on a typical day when you are drinking? 0 05/28/2023 How often do you have six or more drinks on one occasion? 0 05/28/2023 Depression Answer Date Recorded Patient Health Questionnaire-9 Score 4 11/16/2023 Patient Health Questionnaire-9 Score 4 11/16/2023 Last PHQ-9: Questionnaire Data Not on file 0 11/16/2023 Housing Stability Answer Date Recorded What is your housing situation today? I have reno chan 03/18/[address] you li ve. Do you have problems with any of the following? None of the above 03/18/2023 Food Insecurity Answer Date Recorded Within the past 12 months, y ou worried that your food would run out before you got money to buy more: Never True 03/18/2023 Within the past 12 months,th e food you bought just didn't last and you didn't have enough money to get more: Never True Transportation Answer Date Recorded In the past 12 months, has l ack of transportation kept you from medical appts, meetings, work or from getting things needed for daily living? No 03/18/2023 Intimate Partner Violence Answer Date R ecorded Within the last year, have y ou been afraid of your partner or ex-partner? 2 05/28/2023 Within the last year, have y ou been humiliated or emotionally abused in other ways by your partner or ex-partner? 2 Within the last year, have y ou been kicked, hit, slapped, or otherwise physically hurt by your partner or ex-partner? 2 05/28/2023 Within the last year, have y ou been raped or forced to have any kind of sexual activity by your partner or ex-partner? 2 05/28/2023 Utilities Answer Date Recorded In the past 12 months, has t he electric, gas, oil or water company threatened to shut off services in your home? No 03/18/2023 Depression Answer Date Recorded Patient Health Questionnaire-2 Score 1 11/16/2023 Internet Access Answer Date Recorded Internet Access Q1 Yes 02/19/2024 Internet Access Q2 I do not want or need it 01/28 Comments No Sex and Gender Information Value Date Recorded Sex Assigned at Female 03/26/2022 11:50 AM EST Legal Sex Female 8:36 PM EDT Gender Identity Female 03/26/2022 11:50 AM EST Sexual Orientation Don't know 04/29/2022 8: 18 AM EST Last Filed Vital Signs Vital Sign Reading Time Taken Comments Blood Pressure 101/65 06/08/2024 3:21 PM EDT Pulse 50 06/08/2024 3:21 PM EDT Temperature 36.3 ??C (97.3 ??F) 06/08/2024 3:21 PM ED T Respiratory Rate 16 02/01/2024 12:14 PM EST Oxygen Saturation 94% 06/08/2024 3:21 PM EDT Inhaled Oxygen Concentration - - Weight 80.7 kg (178 lb) 06/08/2024 3:21 PM EDT Height 172.7 cm (5' 8 ) 06/08/2024 3:21 PM EDT Body Mass Index 27.06 06/08/2024 3:21 PM EDT Plan of Treatment Upcoming Encounters Date Type Department Care Team (Late st Contact Info) Description 07/27/2024 2:00 PM EDT Office Visit [facility] [address] [place] [address] Massiel Jung MD [address] [place] [address] Health Maintenance Due Date Last Done Comments CT Colonography 1959 FIT DNA/Cologuard 1959 FIT 1959 FOBT 1959 HIV Screening 1959 Sigmoidoscopy 1959 Eye Exam 07/24/1969 Alcohol/Substance Use Screening 1971 Hepatitis C Screening 07/24/1977 Diabetes: Urine Protein Screening 07/24/1978 Hepatitis A Vaccines (1 of 2 - Risk 2-dose series) 07/24/1978 Pneumococcal Vaccine: 50+ Years (2 of 2 - PCV) 04/08/2019 04/08/2018, 03/13/2004, 12/28/2003 Hepatitis B Vaccines (1 of 3 - Risk 3-dose series) 2019 RSV Patients and Patients Aged 60 years or older (1 - Risk 60-74 years 1-dose series) 2019 Colonoscopy 04/25/2022 04/25/2012 Colorectal Cancer Screening 04/25/2022 Zoster Vaccines (2 of 2) 08/21/2023 06/26/2023 Influenza Vaccine (#1) 2023 , 02/25/2022, 12/27/2020, Additional history exists Mammogram 12/11/2023 12/10/2022, 11/27, 11/28/2022, Additional history exists Diabetes: Hemoglobin A1C 07/05/2024 025, 10/29/2023, 09/17/2023, Additional history exists Diabetes: Foot Exam 10/26/2024 10/27/2023 Lipid Panel 10/28/2024 10/29/2023, 09/26, 03/16/2023, Additional history exists Depression Screening 11/15/2024 11/16/2023, 11/16/19 24 SDOH Screening 02/18/2025 02/19/2024 Tobacco Screening 04/05/2025 04/05/2024 DTaP/Tdap/Td Vaccines (3 - Td or Tdap) 06/19/2031 06/18/2021, 01/15/2012 COVID-19 Vaccine Completed 02/01/2024, , 02/25/2022, Additional history exists HIB Vaccines Aged Out No longer eligi ble based on patient's age to complete this topic HPV Vaccines Aged Out No longer eligi ble based on patient's age to complete this topic IPV Vaccines Aged Out No longer eligi ble based on patient's age to complete this topic Meningococcal Vaccine Aged Out No pedro vivian eligible based on patient's age to complete this topic RSV under 20 months Aged Out No longe r eligible based on patient's age to complete this topic Rotavirus Vaccines Aged Out No longer eligible based on patient's age to complete this topic Procedures Procedure Name Priority Date/Time Associated Diagnosis Comments COMPREHENSIVE METABOLIC PANEL Routine 06/20/2024 9:[address] ABDOMEN PELVIS W CONTRAST Routine 06/20/2024 9:23 AM EDT XR CHEST 2 VIEWS Routine 06/20/2024 9:22 AM EDT XR RIBS W/ PA CHEST RIGHT Routine 06/09/2024 1:42 PM EDT XR RIBS 2 VIEWS RIGHT WITH CHEST ANTEROPOSTERIOR Routine 06/09/2024 Rib injury Fall, initial encounter HEMOGLOBIN A1C Routine 04/06/2024 4:51 PM EST Insulin dependent type 2 diabetes mellitus (CMS/HCC) LIPID PANEL, STANDARD Routine 10/29/2023 10:21 AM EDT Type 2 diabetes mellitus with other specified complication, with long-term current use of insulin (CMS/HCC) HP LINK DIABETIC FOOT EXAM Routine 10/27/2023 5:27 PM EDT BI US BREAST LIMITED LEFT Routine 12/10/2022 10:22 AM EDT COLONOSCOPY Routine 04/25/2012 12:00 AM EST from Last 3 Months or Most Recently Relevant to Health Maintenance Results * Comprehensive Metabolic Panel (06/20/2024 9:24 AM EDT) Blood Venous blood specimen / Unknown Massiel Jung MD LAB BLOOD ORDERABLES Final Resul t * CT Abdomen Pelvis w/ Contrast (06/20/2024 9:23 AM EDT) Anatomical Region Laterality Modality Body, Pelvis, Abdomen Computed T omography Massiel Jung MD IMG CT PROCEDURES Final Result * XR Chest 2 Views (06/20/2024 9:22 AM EDT) Anatomical Region Laterality Modality Chest Radiographic Marlen ging Massiel Jung MD IMG XR PROCEDURES Final Result * XR RIBS W/ PA CHEST RIGHT (06/09/2024 1:42 PM EDT) Anatomical Region Laterality Modality Rib, Abdomen Right Radiographic Marlen ging 06/09/2024 1:42 PM EDT Narrative 06/09/2024 7:41 PM EDT Ribs W/ PA Chest Right Reason: r o fracture COMPARISON: Chest x-ray 03/01/2023. TECHNIQUE: PA view of chest along with 4 views of the right ribs. FINDINGS: LINES AND TUBES: None. LUNGS AND PLEURA: The lungs are clear, and the pulmonary vascularity is normal. No effusion or pneumothorax. HEART, MEDIASTINUM AND JOSE: Heart size and mediastinal contours are normal. BONES: There is a marker placed at the site of clinical tenderness which is overlying the anterolateral aspects of the right eighth through 11th ribs. There is a subtle nondisplaced fracture involving the right eighth rib anteriorly on the fourth of 5 views. The fracture has been annotated. SOFT TISSUES: Status post left lumpectomy. Right upper quadrant cholecystectomy clips are present. IMPRESSION: Nondisplaced anterior right eighth rib fracture seen only on one view. No acute intrathoracic pathology. WSN: [id number] Ordering Physician: Faviola Dill Dictated By: ?Bronson SIMPSON, Daniel Kelley Dictated Date/Time: ?06/09/24 7:38 pm Reviewed By: ?Daniel Dobson MD Signed By: ? Daniel Dobson MD Signed Date/Time: ? 06/09/24 7:38 pm Transcribed By: ? CSB Transcribed Date/Time: ?06/09/24 7:30 pm Procedure Note Donotuseinterpreter, Image - 06/09/2024 Ribs W/ PA Chest Right Reason: r o fracture COMPARISON: Chest x-ray 03/01/2023. TECHNIQUE: PA view of chest along with 4 views of the right ribs. FINDINGS: LINES AND TUBES: None. LUNGS AND PLEURA: The lungs are clear, and the pulmonary vascularity is normal. No effusion or pneumothorax. HEART, MEDIASTINUM AND JOSE: Heart size and mediastinal contours are normal. BONES: There is a marker placed at the site of clinical tenderness which isoverlying the anterolateral aspects of the right eighth through 11th ribs. There is a subtle nondisplaced fracture involving the right eighth rib anteriorly on the fourth of 5 views. The fracture has been annotated. SOFT TISSUES: Status post left lumpectomy. Right upper quadrant cholecystectomy clips are present. IMPRESSION: Nondisplaced anterior right eighth rib fracture seen only on one view. No acute intrathoracic pathology. WSN: [id number] Ordering Physician: Faviola Dill Dictated By: Daniel Dobson MD Dictated Date/Time: 06/09/24 7:38 pm Reviewed By: Daniel Dobson MD Signed By: Daniel Dobson MD Signed Date/Time: 06/09/24 7:38 pm Transcribed By: NATHAN Transcribed Date/Time: 06/09/24 7:30 pm us Faviola Dill DO IMG XR PROCEDURES Final Result * XR Ribs 2 Views Right with Chest Anteroposterior (06/09/2024) Anatomical Region Laterality Modality Rib, Abdomen Right Radiographic Marlen ging Faviola Dill DO IMG XR PROCEDURES Final Result * (ABNORMAL) Hemoglobin A1c (04/06/2024 4:51 PM EST) Hemoglobin A1c 11.8(H) 4.8 - 5.6 % [facility] Comment: ? Prediabetes: 5.7 - 6.4 ? Diabetes: >6.4 ? Glycemic control for adults with diabetes: <7.0 Blood Venous blood specimen / Unknown 04/06/2024 4:51 PM EST 04/06/2024 Narrative [facility] - 04/07/2024 8:07 AM EST Performed at: ??01 - [facility] [address] ??[id number] Stunner And Shackler: Tierra Farmer MD, Phone: ??[phone] [facility] LAB BLOOD ORDERABLES Candelaria l Result [facility] * (ABNORMAL) Lipid Panel, Standard (10/29/2023 10:21 AM EDT) Cholesterol, Total 168 100 - 199 mg/dL [facility] Triglycerides 415(H) 0 - 149 mg/dL [facility] HDL Cholesterol 44 >39 mg/dL [facility] VLDL Cholesterol Hamzah 63(H) 5 - 40 mg/dL [facility] LDL Chol Calc (NIH) 61 0 - 99 mg/dL [facility] Blood Venous blood specimen / Unknown 10/29/2023 10:21 AM EDT 10/29/2023 Narrative [facility] - 10/30/2023 12:05 AM EDT Performed at: ??01 - [facility] [address] ??[id number] Stunner And Shackler: Tierra Farmer MD, Phone: ??[phone] Massiel Jung MD LAB BLOOD ORDERABLES Final Resul t [facility] * HP Diabetic Foot Exam (10/27/2023 5:27 PM EDT) us Historical Provider HEALTH MAINTENANCE Final Result * BI US Breast Limited Left (12/10/2022 10:22 AM EDT) Anatomical Region Laterality Modality Breast Left Ultrasound 12/10/2022 10:2 2 AM EDT Narrative 12/10/2022 10:53 AM EDT PROCEDURE: MM Digital Mammo Unilat Left, US Breast Left Limited INDICATION: Developing left breast mass COMPARISON: Prior mammograms dating back to 09/22/2012 TECHNIQUE: Digital diagnostic mammogram consisting of spot compression tomographic images of each breast in the CC and MLO projections. Computer-aided detection (CAD) was not utilized in the interpretation of this study. In addition, targeted high-resolution ultrasound of the left breast was performed FINDINGS: Support spot compression tomographic images of the left breast confirm the presence of a 0.7 x 1.0 x 1.0 cm noncalcified mass within the 1:00 axis of the central left breast which demonstrates irregular lobulated borders and mild surrounding architectural distortion. Targeted ultrasound evaluation of the left breast was performed centered from 12:30 to 1:00 at 5 cm from the nipple. In this location, a solid mass with lobulated borders and internal vascularity on color Doppler is seen which measures 1.0 x 0.8 x 0.7 cm and corresponds to the mammographic finding in terms of size and position. IMPRESSION: Suspicious mass in the 12:30-1:00 o'clock axis of the left breast Dr. Phillips discussed the findings and recommendations with the patient at the time of the exam. Patient was offered a biopsy appointment prior to leaving the facility. RECOMMENDATION: Ultrasound guided core biopsy left breast BI-RADS: 4 (Suspicious) Lay letter mailed to patient WSN: [id number] Ordering Physician: Massiel Jung Dictated By: ?Alan Patterson MD, Shay Patel Dictated Date/Time: ?12/10/22 10:50 a Reviewed By: ?Shay Phillips Jr, MD Signed By: ? Shay Phillips Jr, MD Signed Date/Time: ? 12/10/22 10:50 am Transcribed By: ? CSB Transcribed Date/Time: ?12/10/22 10:40 am Procedure Note Donotuseinterpreter, Image - 12/10/2022 PROCEDURE: MM Digital Mammo Unilat Left, US Breast Left Limited INDICATION: Developing left breast mass COMPARISON: Prior mammograms dating back to 09/22/2012 TECHNIQUE: Digital diagnostic mammogram consisting of spot compression tomographic images of each breast in the CC and MLO projections.Computer-aided detection (CAD) was not utilized in the interpretation of this study. In addition, targeted high-resolution ultrasound of the left breast was performed FINDINGS: Support spot compression tomographic images of the left breast confirmthe presence of a 0.7 x 1.0 x 1.0 cm noncalcified mass within the 1:00 axis ofthe central left breast which demonstrates irregular lobulated borders andmild surrounding architectural distortion. Targeted ultrasound evaluation of the left breast was performed centeredfrom 12:30 to 1:00 at 5 cm from the nipple. In this location, a solid masswith lobulated borders and internal vascularity on color Doppler is seenwhich measures 1.0 x 0.8 x 0.7 cm and corresponds to the mammographic finding interms of size and position. IMPRESSION: Suspicious mass in the 12:30-1:00 o'clock axis of the leftbreast Dr. Phillips discussed the findings and recommendations with the patientat the time of the exam. Patient was offered a biopsy appointment prior toleaving the facility. RECOMMENDATION: Ultrasound guided core biopsy left breast BI-RADS: 4 (Suspicious) Lay letter mailed to patient WSN: [id number] Ordering Physician: Massiel Jung Dictated By: Shay Phillips Jr, MD Dictated Date/Time: 12/10/22 10:50 a Reviewed By: Shay Phillips Jr, MD Signed By: Shay Phillips Jr, MD Signed Date/Time: 12/10/22 10:50 am Transcribed By: ANTHAN Transcribed Date/Time: 12/10/22 10:40 am Massiel Jung MD [facility] PROCEDURES Final Result * COLONOSCOPY (04/25/2012 12:00 AM EST) Anatomical Region Laterality Modality Endoscopy 04/25/2012 Narrative 04/25/2012 12:00 AM EST Refer to Fovea for result details [facility] Procedure: COLONOSCOPY Procedure Note ProviderRizwana MD - 07/23/2022 Refer to Fovea for result details Legacy Procedure: COLONOSCOPY Historical Provider ENDOSCOPY PROCEDURE ORDER EDUARDA Final Result from Last 3 Months or Most Recently Relevant to Health Maintenance Insurance [employer] MEDICARE REPLACEMENT [facility] Member Subscriber Plan / Payer (Ef fective 2024-Present) Name:Laura Lindsey Relation to Subscriber:Self Name:Laura Lindsey Payer ID:Not on file Group ID:Not on file Type:Medicaid Address: [facility] [id number] [place] [id number] Care Teams Mortgage Underwriter Relationship Specialty Start Date End Date Massiel Jung MD [address] [place] [id number] PCP - General Internal Medicine 03/04/22
--- OUTSIDE RECORDS SUMMARY | 2024-07-18 13:26 | XMS_ITS | Encounter Summary ---
Author Organization [employer] Address [address] 7[address] [place] [address] Care Team Providers Care Blending Coordinator Name Role Phone Massiel Jung MD Primary Care Provider [phone] Reason for Visit * Reason Onset Date Comments Referral 04/08/2023 Encounter Details Date Type Department Care Team (Late st Contact Info) Description 04/08/2023 Telephone [facility] MEDICAL [address] [place] [address] Massiel Jung MD [address] [place] [address] Referral Social History Tobacco Use Types Packs/Day Years Used Date Smoking Tobacco: Never Smokeless Tobacco: Never Alcohol Use Standard Drinks/Week Comments Never 0 (1 standard drink = 0.6 oz pur e alcohol) Housing Stability Answer Date Recorded What is your housing situation today? I have renodilan chan 03/18/[address] you [...] things needed for daily living? No 03/18/2023 Utilities Answer Date Recorded In the past 12 months, has t he electric, gas, oil or water [employer] threatened to shut off services in your home? No 03/18/2023 Depression Answer Date Recorded Patient Health Questionnaire-2 Score 1 03/18/2023 Comments Unknown Sex and Gender Information Value Date Recorded Sex Assigned at Female 03/26/2022 11:50 AM EST Legal Sex Female 8:36 PM EDT Gender Identity Female 03/26/2022 11:50 AM EST Sexual Orientation Don't know 04/29/2022 8: 18 AM EST documented as of this encounter Miscellaneous Notes * Telephone Encounter - Jayne Higgins - 04/09/2023 2:58 PM EST Faxed order with updated diagnosis: Bilateral Carpal Tunnel * Telephone Encounter - Allison Baeza - 04/08/2023 12:36 PM EST Julieth had called regarding patient requesting a diagnosis change on a referral. Instead of Elbow Pain it needs to be changed to: Bi-radial carpatanal Phone Number for any questions: [phone] documented in this encounter Plan of Treatment Upcoming Encounters Date Type Department Care Team (Late st Contact Info) Description 07/27/2024 2:00 PM EDT Office Visit [facility] MEDICAL [address] [place] [address] Massiel Jung MD [address] [place] [address] documented as of this encounter Visit Diagnoses Not on filedocumented in this encounter Care Teams Blending Coordinator Relationship Specialty Start Date End Date Massiel Jung MD [address] [place] [address] PCP - General Internal Medicine 03/04/22 documented as of this encounter
--- OUTSIDE RECORDS SUMMARY | 2024-07-18 13:26 | XMS_ITS | Encounter Summary ---
Author Organization [employer] Address [address] [facility] 7t [place] [address] Care Team Providers Care Outside Sales Advertising Executive Name Role Phone Massiel Jung MD Primary Care Provider [phone] Reason for Visit * Reason Onset Date Comments [facility] program paperwork 07/10/2024 Encounter Details Date Type Department Care Team (Late st Contact Info) Description 07/10/2024 Telephone [facility] MEDICAL [address] [place] [address] Massiel Jung MD [address] [place] [address] [facility] program paperwork Social History Tobacco Use Types Packs/Day Years Used Date Smoking Tobacco: Never Passive Smoke Exposure: Never Smokeless Tobacco: Never Alcohol Use Standard [...] encounter Miscellaneous Notes * Telephone Encounter - KOMAL Vasquez - 07/17/2024 1:57 PM EDT Completed paperwork faxed * Telephone Encounter - Massiel Jung MD - 07/14/2024 4:50 PM EDT E;ntered and danny.d * Telephone Encounter - KOMAL Vasquez - 07/10/2024 12:51 PM EDT Fax received from [facility] / annual PHS report for this patient - needs last physical exam and last ov Please review and enter dates documented in this encounter Plan of Treatment Upcoming Encounters Date Type Department Care Team (Late st Contact Info) Description 07/27/2024 2:00 PM EDT Office Visit [facility] MEDICAL [address] [place] [address] Massiel Jung MD [address] [place] [address] documented as of this encounter Visit Diagnoses Not on filedocumented in this encounter Additional Health Concerns Assessment Noted Time PHQ-9 Depression Total Score: 4 11/16/19 24 12:53 PM EDT documented as of this encounter Care Teams Outside Sales Advertising Executive Relationship Specialty Start Date End Date Massiel Jung MD [address] [place] [address] PCP - General Internal Medicine 03/04/22 documented as of this encounter
--- OUTSIDE RECORDS SUMMARY | 2024-07-18 13:26 | XMS_ITS | Encounter Summary ---
Author Organization [employer] Address [address] [facility] 7t [place] [address] Care Team Providers Care Heart Doctor Name Role Phone Massiel Jung MD Primary Care Provider [phone] Reason for Visit * Reason Onset Date Comments request for letter from PCP to [employer] 08/2024 Encounter Details Date Type Department Care Team (Late st Contact Info) Description 05/04/2024 Telephone [facility] MEDICAL [address] [place] [address] Massiel Jung MD [address] [place] [address] request for letter from PCP to [employer] Social History Tobacco Use Types Packs/Day Years [...] encounter Miscellaneous Notes * Telephone Encounter - Pat Velazquez LPN - 05/05/2024 12:06 PM EST Letter written and mailed per pt. Request. * Telephone Encounter - Rosalba Otto - 05/04/2024 2:52 PM EST Patient called stating she would like [facility] to write a letter to her personal gym [employer] in [place] to suspend membership due to health issues because I cannot walk or drive for at least 6 weeks plus follow up care until July 27, 2024. Patient states she would like a letter sent to [employer] at [address] [place] [phone]. TE sent to nursing. Please advise. Thank you! documented in this encounter Plan of Treatment Upcoming Encounters Date Type Department Care Team (Late st Contact Info) Description 07/27/2024 2:00 PM EDT Office Visit [facility] MEDICAL [address] [place] [address] Massiel Jung MD [address] [place] [address] documented as of this encounter Visit Diagnoses Not on filedocumented in this encounter Additional Health Concerns Assessment Noted Time PHQ-9 Depression Total Score: 4 11/16/19 24 12:53 PM EDT documented as of this encounter Care Teams Heart Doctor Relationship Specialty Start Date End Date Massiel Jung MD [address] [place] [address] PCP - General Internal Medicine 03/04/22 documented as of this encounter
--- OUTSIDE RECORDS SUMMARY | 2024-07-18 13:26 | XMS_ITS | Encounter Summary ---
Author Organization [employer] Address [address] 7[address] [place] [address] Care Team Providers Care Flooring Salesperson Name Role Phone Massiel Jung MD Primary Care Provider [phone] Encounter Details Date Type Department Care Team (Late st Contact Info) Description 04/05/2024 Orders Only [facility] [address] [place] [address] Massiel Jung MD [address] [place] [address] Social History Tobacco Use Types Packs/Day Years [...] the past 12 months, has t he [employer], gas, oil or water [employer] threatened to shut off services in your [...] AM EST documented as of this encounter Plan of Treatment Upcoming Encounters Date Type Department Care Team (Late st Contact Info) Description 07/27/2024 2:00 PM EDT Office Visit [facility] MEDICAL [address] [place] [address] Massiel Jung MD [address] [place] [address] documented as of this encounter Procedures Procedure Name Priority Date/Time Associated Diagnosis Comments CREATININE, SERUM Routine 03/02/2024 3:35 PM EST LIPID PANEL, STANDARD Routine 10/13/2023 3:36 PM EDT STRESS TEST WITH MYOCARDIAL PERFUSION Routine 06/14/2023 3:43 PM EDT documented in this encounter Results * Creatinine, Serum (03/02/2024 3:35 PM EST) Blood Result Kat Jung MD LAB BLOOD ORDERABLES Final Resul t * Lipid Panel, Standard (10/13/2023 3:36 PM EDT) Blood Venous blood specimen / Unknown Result Kat Jung MD LAB BLOOD ORDERABLES Final Resul t * Stress test with myocardial perfusion (06/14/2023 3:43 PM EDT) Result Kat Jung MD CV STRESS PROCEDURES Final Resul t documented in this encounter Visit Diagnoses Not on filedocumented in this encounter Additional Health Concerns Assessment Noted Time PHQ-9 Depression Total Score: 4 11/16/19 24 12:53 PM EDT documented as of this encounter Care Teams Flooring Salesperson Relationship Specialty Start Date End Date Massiel Jung MD [address] [place] [id number] PCP - General Internal Medicine 03/04/22 documented as of this encounter
--- OUTSIDE RECORDS SUMMARY | 2024-07-18 13:26 | XMS_ITS ---
Author Name [facility] Organization Unknown History of Medication Use Medication Directions Dispensed Refills Start Date End Date Stat us rivaroxaban (XARELTO) 10 MG tablet Take 1 tablet (10 mg total) by mouth daily. 04/24/2024 active traMADol (ULTRAM) 50 MG tablet Take 1 tablet (50 mg total) by mouth 3 times daily (every 8 hours) as needed for severe pain. 04/24/2024 active Problems Problem Status Onset Date Problem Type Date of Resoluti on Source Pain in right ankle and joints of right foot active EncounterDiagnosisAct CCT Encounters Encounter Type Encounter Reason Primary Diagnosis Location Date Ambulatory [facility] 06/02/2024 Ambulatory Pain in right ankle and joints of right foot Pain in right ankle and joints of right foot [facility] 06/02/2024 Ambulatory [facility] 05/16/2024 Ambulatory Pain in right ankle and joints of right foot Pain in right ankle and joints of right foot [facility] 05/16/2024 Ambulatory Post-op Post-op [facility] 05/02/2024 Ambulatory [facility] Pain due to inte rnal orthopedic prosthetic devices, implants and grafts, initial encounter [facility] 04/26/2024 Ambulatory Follow-up Follow-up [facility] 04/18/2024 Ambulatory [facility] 12/28/2023 Ambulatory Pain in right ankle and joints of right foot Pain in right ankle and joints of right foot [facility] 12/28/2023 Care Team Organization Name Specialty Phone Email Start Date End Da te [facility] 04/04/2024 [facility] Massiel Jung Primary Care 12/28/2023 [facility] Massiel Jung Primary Care 12/28/2023 [facility] 12/03/2023
--- OUTSIDE RECORDS SUMMARY | 2024-07-18 13:26 | XMS_ITS | Encounter Summary ---
Author Organization [facility] Address [address] [place] [phone] Phone Care Team Providers Care Industrial Waste Treatment Technician Name Role Phone Massiel Jung MD Primary Care Provider [phone] Encounter Details Date Type Department Care Team (Late Contact Info) Description 07/02/2021 Orders Only [facility] [address] [place] [address] Robin Ojeda MD Essential (primary) hypertension; Stage 3a chronic kidney disease (HCC) Social History Tobacco Use Types Packs/Day Years Used Date Smoking Tobacco: Never Smokeless Tobacco: Never Alcohol Use Standard Drinks/Week Comments Never 0 (1 standard drink = 0.6 oz pur e alcohol) AUDIT-C Answer Date Recorded Q1: How often do you have a drink containing alc ohol? Never 01/08/2020 Average Number of Drinks Not on file Frequency of Binge Drinking Not on file 12/27 Comments Unknown Sex and Gender Information Value Date Recorded Sex Assigned at Not on file Legal Sex Female 1:21 PM EDT Gender Identity Not on file Sexual Orientation Not on file documented as of this encounter Plan of Treatment Upcoming Encounters Date Type Department Care Team (Late st Contact Info) Description 01/17/2025 2:15 PM EDT Office Visit [facility] [address] [place] [address] Adin Stearns MD [address] [place] [address] [place] [address] documented as of this encounter Procedures Procedure Name Priority Date/Time Associated Diagnosis Comments RENAL FUNCTION PANEL Routine 06/24/2021 12:28 PM EDT Essential (primary) hypertension Stage 3a chronic kidney disease (HCC) documented in this encounter Results * (ABNORMAL) Renal function panel (06/24/2021 12:28 PM EDT) Glucose 95 (70-99) MG/DL [facility] BUN 31(H) (8-23) MG/DL [facility] Creatinine 1.2(H) (0.5-1.0) MG/DL [facility] Sodium 141 (133-145) MMOL/L [facility] Potassium 5.2 (3.6-5.2) MMOL/L [facility] Chloride 105 (98-107) MMOL/L [facility] Bicarbonate (CO2) 24 (22-29) MMOL/L [facility] Anion Gap 12 (4-17) [facility] Albumin 4.8 (3.4-4.8) GM/DL [facility] Calcium 9.8 (8.6-10.5) MG/DL [facility] Phosphorus, Serum 4.5 (2.5-4.5) MG/DL [facility] Est GFR Non 49 ML/MIN/1.7 3 M2 [facility] Comment: Creatinine based estimated glomerular filtration rate (eGFR) is calculated using the Chronic Kidney Disease Epidemiology Collaboration (CKD-EPI). The CKD-EPI calculation is not validated in children (<18 years), woman or in racial or ethnic subgroups. Testing performed or reported by [facility], a Service of [facility], [address] [place] [address] Carlene Vega MD, [employer] IA# [id number] Blood (Blood, Venous) 06/24/2021 12:28 PM EDT 06/24/2021 12:31 PM EDT us Robin Ojeda MD LAB BLOOD ORDERABLES Final Resul t [facility] documented in this encounter Visit Diagnoses Diagnosis Essential (primary) hypertension Stage 3a chronic kidney disease (HCC) documented in this encounter Care Teams Industrial Waste Treatment Technician Relationship Specialty Start Date End Date Massiel Jung MD [address] [place] [address] PCP - General Internal Medicine 12/11/19 documented as of this encounter
--- OUTSIDE RECORDS SUMMARY | 2024-07-18 13:26 | XMS_ITS | Encounter Summary ---
Author Organization [employer] Address [address] [place] [address] Care Team Providers Care Job Honer Name Role Phone Massiel Jung MD Primary Care Provider [phone] Encounter Details Date Type Department Care Team (Late st Contact Info) Description 03/24/2023 Orders Only [facility] [address] [place] [address] Massiel Jung MD [address] [place] [address] Social History Tobacco Use Types Packs/Day Years [...] Description 07/27/2024 2:00 PM EDT Office Visit [facility] MEDICAL [address] [place] [address] Massiel Jung MD [address] [place] [address] documented as of this encounter Procedures Procedure Name Priority Date/Time Associated Diagnosis Comments PATHOLOGY REPORT (HISTOPATHOLOGY) Routine 03/02/2023 documented in this encounter Results * Pathology Report (03/02/2023) Tissue us Massiel Jung MD LAB PATHOLOGY ORDERABLES Final R esult documented in this encounter Visit Diagnoses Not on filedocumented in this encounter Care Teams Job Honer Relationship Specialty Start Date End Date Massiel Jung MD [address] [place] [address] PCP - General Internal Medicine 03/04/22 documented as of this encounter
--- OUTSIDE RECORDS SUMMARY | 2024-07-18 13:26 | XMS_ITS | Encounter Summary ---
Author Organization [employer] Address [address] 7[address] [place] [address] Care Team Providers Care Concrete Engineer Name Role Phone Massiel Jung MD Primary Care Provider [phone] Encounter Details Date Type Department Care Team (Late st Contact Info) Description 06/26/2024 Orders Only [facility] [address] [place] [address] Massiel Jung MD [address] [place] [address] Social History Tobacco Use Types Packs/Day Years [...] the past 12 months, has t he [employer], gas, oil or water [employer] threatened to shut off services in your [...] Description 07/27/2024 2:00 PM EDT Office Visit [facility] [address] [place] [address] Massiel Jung MD [address] [place] [address] documented as of this encounter Procedures Procedure Name Priority Date/Time Associated Diagnosis Comments COMPREHENSIVE METABOLIC PANEL Routine 06/20/2024 9:[address] ABDOMEN PELVIS W CONTRAST Routine 06/20/2024 9:23 AM EDT XR CHEST 2 VIEWS Routine 06/20/2024 9:22 AM EDT documented in this encounter Results * Comprehensive Metabolic Panel (06/20/2024 9:24 AM EDT) Blood Venous blood specimen / Unknown us Massiel Jung MD LAB BLOOD ORDERABLES Final Resul t * CT Abdomen Pelvis w/ Contrast (06/20/2024 9:23 AM EDT) Anatomical Region Laterality Modality Body, Pelvis, Abdomen Computed T omography us Massiel Jung MD IMG CT PROCEDURES Final Result * XR Chest 2 Views (06/20/2024 9:22 AM EDT) Anatomical Region Laterality Modality Chest Radiographic Marlen ging us Massiel Jung MD IMG XR PROCEDURES Final Result documented in this encounter Visit Diagnoses Not on filedocumented in this encounter Additional Health Concerns Assessment Noted Time PHQ-9 Depression Total Score: 4 11/16/19 24 12:53 PM EDT documented as of this encounter Care Teams Concrete Engineer Relationship Specialty Start Date End Date Massiel Jung MD [address] [place] [id number] PCP - General Internal Medicine 03/04/22 documented as of this encounter
--- OUTSIDE RECORDS SUMMARY | 2024-07-18 13:26 | XMS_ITS | Clinical Summary ---
Author Organization [facility] Address [address] [place] [address] Care Team Providers Care Pocket Builder Name Role Phone Massiel Jung Primary Care Provider [phone] Allergies No known active allergies Family History Medical History Relation Name Comments Cancer (?Type) Father Cancer - Breast Other MAT COUSIN MATERNAL COU SIN - DIAGNOSED AT AGE 49 Relation Name Status Comments Father Other MAT COUSIN Alive M.COUSIN AGE 49 Social History Tobacco Use Types Packs/Day Years Used Date Smoking Tobacco: Never Assessed Comments No Sex and Gender Information Value Date Recorded Sex Assigned at Not on file Legal Sex Female 11:40 PM EDT Gender Identity Not on file Sexual Orientation Not on file Plan of Treatment Health Maintenance Due Date Last Done Comments Hepatitis C Screening 1960 Pap Smear 1975 DTaP/Tdap/Td (1 - Tdap) 07/24/1977 Pneumococcal 50+ years (1 of 1 - PCV) 07/24/2009 Zoster (Shingrix) (1 of 2) 07/24/2009 Mammogram/Breast Imaging 11/17/2015 015, 09/22/2012, 04/28/2012, Additional history exists COVID-19 Vaccine ( - 2023-25 season) 2023 Influenza (#1) 2023 RSV (1 - 1-dose 75+ series) 07/24/2034 HPV Vaccine Aged Out No longer eligi ble based on patient's age to complete this topic Hep A Aged Out No longer eligi ble based on patient's age to complete this topic Hep B Aged Out No longer eligi ble based on patient's age to complete this topic Hib Aged Out No longer eligi ble based on patient's age to complete this topic Meningococcal ACWY Aged Out No longer eligible based on patient's age to complete this topic Zoster (Zostavax) Discontinued Procedures * Due to [place] [employer] law, this organization might not be sharing negative HIV tests. Procedure Name Priority Date/Time Associated Diagnosis Comments MAMMOGRAM SCREENING TOMOSYNTHESIS, BILATERAL Routine 11/16/2014 11:19 AM EDT Other screening mammogram from Last 3 Months or Most Recently Relevant to Health Maintenance Results * Due to [place] [employer] law, this organization might not be sharing negative HIV tests. * MAMMOGRAM SCREENING TOMOSYNTHESIS, BILATERAL FC (11/16/2014 11:19 AM EDT) LETTER SENT A mammogram letter type B2 was mailed to patient Anatomical Region Laterality Modality BREAST Bilateral Mammography 11/19/2014 5:36 PM EDT Narrative 11/19/2014 5:36 PM EDT EXAMINATION: SCREENING MAMMOGRAM ??November 16, 2014: HISTORY: Screening. Family history, maternal cousin diagnosed age 49. TECHNIQUE: ??Digital Bilateral, CAD, tomosynthesis and generated 2D image. COMPARISON: ??Previous through August 2009. BREAST COMPOSITION: ??b. There are scattered areas of fibroglandular density. *#BDb#* FINDINGS: Two stable nodular densities are noted right breast. 1 probably benign intramammary lymph node. There is no dominant mass, new or enlarging density. There are no suspicious calcifications or developing architectural distortions. IMPRESSION: Benign findings. No evidence for malignancy. RECOMMENDATION: Annual screening mammography. BI-RADS: Category 2 - Benign Finding(s) *#B2#* RESULTS COMMUNICATED TO PATIENT: In a letter Procedure Note Montrell Tipton MD - 11/19/2014 EXAMINATION: SCREENING MAMMOGRAM November 16, 2014: HISTORY: Screening. Family history, maternal cousin diagnosed age 49. TECHNIQUE: Digital Bilateral, CAD, tomosynthesis and generated 2D image. COMPARISON: Previous through August 2009. BREAST COMPOSITION: b. There are scattered areas of fibroglandular density. *#BDb#* FINDINGS: Two stable nodular densities are noted right breast. 1 probably benign intramammary lymph node. There is no dominant mass, new or enlarging density. There are no suspicious calcifications or developing architectural distortions. IMPRESSION: Benign findings. No evidence for malignancy. RECOMMENDATION: Annual screening mammography. BI-RADS: Category 2 - Benign Finding(s) *#B2#* RESULTS COMMUNICATED TO PATIENT: In a letter Percy Valderrama MD IMG MAMMO ORDERABLES Final Re sult from Last 3 Months or Most Recently Relevant to Health Maintenance Insurance [facility] FEE FOR SERVICE O Care Teams Pocket Builder Relationship Specialty Start Date End Date Massiel Jung [facility] [address] [place] [id number] PCP - General Internal Medicine 09/19/14
--- OUTSIDE RECORDS SUMMARY | 2024-07-18 13:27 | XMS_ITS | Encounter Summary ---
Author Organization [employer] Address [address] [place] [address] Care Team Providers Care Etiology Teacher Name Role Phone Massiel Jung MD Primary Care Provider [phone] Encounter Details Date Type Department Care Team (Late st Contact Info) Description 11/01/2023 Orders Only [facility] [address] [place] [address] ProviderRizwana MD Social History Tobacco Use Types Packs/Day Years [...] Answer Date Recorded Patient Health Questionnaire-9 Score 13 07/13/2023 Patient Health Questionnaire-9 Score 13 07/13/2023 Last PHQ-9: Questionnaire Data Not on file 0 07/13/2023 Housing Stability Answer Date Recorded What is [...] Answer Date Recorded Patient Health Questionnaire-2 Score 4 07/13/2023 Comments No Sex and Gender Information Value [...] Description 07/27/2024 2:00 PM EDT Office Visit [facility] [address] [place] [address] Massiel Jung MD [address] [place] [address] documented as of this encounter Procedures Procedure Name Priority Date/Time Associated Diagnosis Comments HP LINK DIABETIC FOOT EXAM Routine 10/27/2023 5:27 PM EDT documented in this encounter Results * HP Diabetic Foot Exam (10/27/2023 5:27 PM EDT) Historical Provider HEALTH MAINTENANCE Final Result documented in this encounter Visit Diagnoses Not on filedocumented in this encounter Additional Health Concerns Assessment Noted Time PHQ-9 Depression Total Score: 13 024 2:55 PM EDT documented as of this encounter Care Teams Etiology Teacher Relationship Specialty Start Date End Date Massiel Jung MD [address] [place] [id number] PCP - General Internal Medicine 03/04/22 documented as of this encounter
--- OUTSIDE RECORDS SUMMARY | 2024-07-18 13:27 | XMS_ITS | Clinical Summary ---
Author Organization [facility], Address [address] [place] [address] [place] [address] Phone Care Team Providers Care Block Machine Operator Name Role Phone Massiel Jung MD Primary Care Provider [phone] Allergies Active Allergy Reactions Criticality Noted Date Comments Alcohol 01/08/2020 Aspirin Rash Low 02/07/2015 Codeine Other (see comments) High 02/04/2015 Throat closing Diazepam Other (see comments) High 02/04/2015 Throat closing Leann Anaphylaxis High 01/06/2019 Ibuprofen Rash Low 02/07/2015 Meperidine Other (see comments) High 02/04/2015 Throat closing Penicillins Rash Low 09/23/2017 Prochlorperazine Rash Low 02/07/2015 Sulfa Antibiotics Rash,Shortness of breath High 08/28 Medications insulin glargine (LANTUS) 100 UNIT/ML injection Inject under the skin every night Active insulin aspart (NovoLOG) 100 UNIT/ML injection Inject under the skin 3 (three) times a day before meals Active metFORMIN (GLUCOPHAGE) 500 MG tablet Take 500 mg by mouth 2 (two) times a day with meals Active cholestyramine (QUESTRAN) 4 g packet Take 1 packet by mouth 3 (three) times a day with meals Active Multiple Vitamins-Minera ls (MULTI FOR HER 50+ PO) Take by mouth Acti ve esomeprazole (NexIUM) [address] capsule Take 40 mg by mouth 1 (one) time each day before breakfast Do not open capsule. Active simethicone (MYLICON) 80 MG chewable tablet Chew 80 mg every 6 (six) hours if needed for flatulence Active Probiotic Product (PROBIOTIC DAILY PO) Take by mouth Active glucose blood test strip 1 each by Other route if needed Use as instructed Active glucose 4 g chewable tablet Chew 16 g if needed for low blood sugar Active meclizine (ANTIVERT) 25 MG tablet Take 25 mg by mouth 3 (three) times a day if needed for dizziness Active albuterol HFA (PROVENTIL HFA;VENTOLIN HFA) 108 (90 Base) MCG/ACT inhaler Inhale 2 puffs every 6 (six) hours if needed for wheezing Active traMADol (ULTRAM) 50 MG tablet Take 50 mg by mouth every 6 (six) hours if needed for moderate pain Active methocarbamol (ROBAXIN) 750 MG tablet Take 750 mg by mouth in the morning and 750 mg in the evening. Active rosuvastatin (CRESTOR) 20 MG tablet Take 20 mg by mouth daily 0 Active rosuvastatin (CRESTOR) 40 MG tablet Take 40 mg by mouth 1 (one) time each day 2 Active PARoxetine (PAXIL) 20 MG tablet Take 20 mg by mouth 1 (one) time each day 2 Active metFORMIN XR (GLUCOPHAGE-XR) 500 MG 24 hr tablet 2 Active Antara 30 MG capsule 2 Active nitrofurantoin (MACRODANTIN) 100 MG capsule Take 1 capsule by mouth in the morning and 1 capsule in the evening. Active Insulin Disposable Pump (Omnipod 5 G6 Pod, Gen 5,) [facility] 2 Active midodrine (PROAMATINE) 5 MG tablet Take 1 tablet (5 mg total) by mouth in the morning and 1 tablet (5 mg total) in the evening. 60 tablet 11 5 07/13/19 26 Active Active Problems Problem Noted Date Diagnosed Date Chronic kidney disease 06/17/2021 Essential (primary) hypertension 04/10/2020 Stage 3a chronic kidney disease 01/08/2020 Overview (04/01/2020): Update for Diagnosis Load Anemia 02/03/2019 Type 2 diabetes mellitus 02/07/2015 Overview (01/08/2020): Type 2 diabetes mellitus; retinopathy, insulin pump Encounters Date Type Department Care Team Description 07/12/2024 3:15 PM EDT Office Visit [facility], [address] [place] [phone] Adin Stearns MD 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); Persistent proteinuria; Hypertension; Stage 3a chronic kidney disease (HCC); Other iron deficiency anemia from Last 3 Months Social History Tobacco Use Types Packs/Day Years [...] on file Sexual Orientation Not on file Last Filed Vital Signs Vital Sign Reading Time Taken Comments Blood Pressure 98/50 07/12/2024 4:12 PM EDT Pulse - - Temperature - - Respiratory Rate - - Oxygen Saturation - - Inhaled Oxygen Concentration - - Weight - - Height - - Body Mass Index - - Plan of Treatment Upcoming Encounters Date Type Department Care Team (Late st Contact Info) Description 01/17/2025 2:15 PM EDT [facility] [address] [place] [phone] Adin Stearns MD [address] [place] [address] [place] [phone] Health Maintenance Due Date Last Done Comments Breast Cancer Screening 1960 Colorectal Cancer Screening: Annual FOBT 07/24/2008 Colorectal Cancer Screening: Colonoscopy 07/24/2008 Colorectal Cancer Screening: Sigmoidoscopy 07/24/2008 Pneumococcal Vaccine: 50+ Ye ars (3 of 3 - PCV) 04/08/2019 04/08/2018, 03/13/2004, 12/28/2003 Hepatitis B Vaccine (1 of 3 - Risk 3-dose series) 2019 Diabetes: Ophthalmology Exam 12/15/2019 Diabetes: Pedal Pulse Checked 12/15/2019 Diabetes: Sensory Foot Exam 12/15/2019 Diabetes: Visual Foot Exam 12/15/2019 Diabetes: Hemoglobin A1C 07/05/2024 025, 09/17/2023, 03/16/2023 Influenza Vaccine (Season Ended) 2024 03/18/2023, 02/25/2022, 01/15/2012, Additional history exists Pneumococcal Vaccine: Peds ( 0 to 5 Years) and At-Risk Patients (6 to 49 Years) Discontinued 04/08/2018, 03/13/2004, 12/28/2003 Insurance [employer] MCR Adv PPO ([id number]) Care Teams Block Machine Operator Relationship Specialty Start Date End Date Massiel Jung MD [address] [place] [address] PCP - General Internal Medicine 12/11/19
--- OUTSIDE RECORDS SUMMARY | 2024-07-18 13:27 | XMS_ITS | Encounter Summary ---
Author Organization [employer] Address [address] [facility] 7t [place] [address] Care Team Providers Care Physical Security Specialist Name Role Phone Massiel Jung MD Primary Care Provider [phone] Reason for Visit * Reason Comments Med Refill Encounter Details Date Type Department Care Team (Late st Contact Info) Description 02/25/[address] [facility] [address] [place] [address] Monie Eagle MD [address] [place] [address] Social History Tobacco Use Types Packs/Day Years [...] t he electric, gas, oil or water [employer] threatened to shut off services in your [...] encounter Miscellaneous Notes * Telephone Encounter - Lenny Mccartney CMA - 02/25/2024 4:29 PM EST Duplicate request documented in this encounter Plan of Treatment Upcoming Encounters Date Type Department Care Team (Late st Contact Info) Description 07/27/2024 2:00 PM EDT Office Visit [facility] [address] [place] [address] Massiel Jung MD [address] [place] [address] documented as of this encounter Visit Diagnoses Not on filedocumented in this encounter Additional Health Concerns Assessment Noted Time PHQ-9 Depression Total Score: 4 11/16/19 24 12:53 PM EDT documented as of this encounter Care Teams Physical Security Specialist Relationship Specialty Start Date End Date Massiel Jung MD [address] [place] [address] PCP - General Internal Medicine 03/04/22 documented as of this encounter
--- OUTSIDE RECORDS SUMMARY | 2024-07-18 13:27 | XMS_ITS | Clinical Summary ---
Author Organization [facility] Address [address] [place] [address] Care Team Providers Care Elementary Assistant Principal Name Role Phone Massiel Jung MD Primary Care Provider Allergies Active Allergy Reactions Criticality Noted Date Comments Aspirin GI Intolerance/Nausea/Vomiting Low 12/27 Meperidine Rash/Dermatitis Low 12/28/2023 Salicylic Acid-Sulfur GI Intolerance/Nausea/Vomiting Low 12/28/2023 Diazepam Rash/Dermatitis Low 12/28/2023 Medications traMADol (ULTRAM) 50 MG tabletIndication s:Pain in right ankle and joints of right foot Take 1 tablet (50 mg total) by mouth 3 times daily (every 8 hours) as needed for severe pain. 21 tablet 04/24/2024 Active rivaroxaban (XARELTO) 10 MG tabletIndication s:Pain in right ankle and joints of right foot Take 1 tablet (10 mg total) by mouth daily. 21 tablet 04/24/2024 Active Active Problems No known active problems Encounters Date Type Department Care Team Description 06/02/2024 1:15 PM EST [facility] [address] [address] 06/02/2024 1:00 PM [place] [address] Percy Kowalski MD Pain in right ankle and joints of right foot (Primary Dx) 05/16/2024 2:45 PM EST Office Visit [facility] [address] [address] Paola Villavicencio APRN Pain in right ankle and joints of right foot (Primary Dx) 05/16/2024 2:40 PM EST Ancillary Procedure [facility] [address] [address] 05/02/2024 1:45 PM EST [facility] [address] [address] Paola Villavicencio APRN Pain in right ankle and joints of right foot (Primary Dx) 04/26/2024 Scanned Document [facility] [address] [address] Percy Kowalski MD 04/24/2024 Orders Only [facility] [address] [address] Paola Villavicencio APRN Pain in right ankle and joints of right foot (Primary Dx); Serum potassium elevated from Last 3 Months Social History Tobacco Use Types Packs/Day Years Used Date Smoking Tobacco: Never Assessed Comments Unknown Sex and Gender Information Value Date Recorded Sex Assigned at Not on file Legal Sex Female 2:20 PM EDT Gender Identity Not on file Sexual Orientation Not on file Plan of Treatment Health Maintenance Due Date Last Done Comments Hepatitis C Virus Screening 1960 HIV Screening 07/24/1972 DTaP/Tdap/Td Vaccines (1 - Tdap) 07/24/1978 Pap Smear (Ages 21-65) 07/24/1980 Mammogram 1999 Colonoscopy 07/24/2004 Pneumococcal Vaccines 50+ (1 of 1 - PCV) 07/24/2009 Zoster (Shingles) Vaccine (1 of 2) 07/24/2009 RSV Vaccine 60 years and older and Patients (1 - Risk 60-74 years 1-dose series) 2019 Influenza Vaccine 10/28/2023 03/18/2023, , 12/27/2020, Additional history exists COVID-19 Vaccine Completed 02/01/2024, , 06/26/2021, Additional history exists Hepatitis B Vaccines Aged Out No long er eligible based on patient's age to complete this topic Procedures Procedure Name Priority Date/Time Associated Diagnosis Comments XR FOOT 3+ VIEWS-RIGHT Routine 06/02/2024 1:28 PM EST Pain in right ankle and joints of right foot XR FOOT 3+ VIEWS-RIGHT Routine 05/16/2024 2:50 PM EST Pain in right ankle and joints of right foot POTASSIUM Routine 04/24/2024 12:48 PM EST Serum potassium elevated from Last 3 Months Results * XR Foot 3+ views-Right (06/02/2024 1:28 PM EST) Only the most recent of2 resultswithin the time period is included. Narrative [facility] - 06/02/2024 1:28 PM EST This exam was performed in office at [facility] and images reviewed by orthopedic provider. ??Any findings are documented within ambulatory encounter note on date of service. us Percy Kowalski MD IMG DIAGNOSTIC IMAGING ORDERA BLES Final Result [facility] * Potassium (04/24/2024 12:48 PM EST) Potassium 5.0 3.5 - 5.3 mmol/L [employer] Blood Blood specimen / Unknown 04/24/2024 12:48 PM EST 04/24/2024 12:48 PM EST Narrative [facility] - 04/25/2024 5:29 AM EST FASTING:NO FASTING: NO Paola Villavicencio APRN LAB BLOOD ORDERABLES [facility] [employer] [address] [place] [phone] from Last 3 Months Insurance [employer] MGD MEDICARE Care Teams Elementary Assistant Principal Relationship Specialty Start Date End Date Massiel Jung MD [address] [place] [address] PCP - General Internal Medicine 12/28/23
--- OUTSIDE RECORDS SUMMARY | 2024-07-18 13:27 | XMS_ITS | Encounter Summary ---
Author Organization [employer] Address [address] [place] [address] Care Team Providers Care Group Chief Operator Name Role Phone Massiel Jung MD Primary Care Provider [phone] Encounter Details Date Type Department Care Team (Late st Contact Info) Description 02/02/2024 Orders Only [facility] [address] [place] [address] Massiel Jung MD [address] [place] [address] Social History Tobacco Use Types Packs/Day Years [...] Recorded Patient Health Questionnaire-2 Score 1 11/16/2023 Comments No Sex and Gender Information Value [...] Description 07/27/2024 2:00 PM EDT Office Visit [facility] [address] [place] [address] Massiel Jung MD [address] [place] [address] documented as of this encounter Procedures Procedure Name Priority Date/Time Associated Diagnosis Comments CBC WITH AUTO DIFFERENTIAL Routine 02/01/2024 2:54 PM EST documented in this encounter Results * CBC auto differential (02/01/2024 2:54 PM EST) Blood Venous blood specimen / Unknown us Massiel Jung MD LAB BLOOD ORDERABLES Final Resul t documented in this encounter Visit Diagnoses Not on filedocumented in this encounter Additional Health Concerns Assessment Noted Time PHQ-9 Depression Total Score: 4 11/16/19 24 12:53 PM EDT documented as of this encounter Care Teams Group Chief Operator Relationship Specialty Start Date End Date Massiel Jung MD [address] [place] [phone] PCP - General Internal Medicine 03/04/22 documented as of this encounter
--- OUTSIDE RECORDS SUMMARY | 2024-07-18 13:27 | XMS_ITS | Encounter Summary ---
Author Organization [employer] Address [address] [facility] 7t [place] [address] Care Team Providers Care Physician Name Role Phone Massiel Jung MD Primary Care Provider [phone] Encounter Details Date Type Department Care Team (Late st Contact Info) Description 11/02/2023 Orders Only [facility] [address] [place] [address] Massiel Jung MD [address] [place] [address] Loud snoring; Chronic fatigue Social History Tobacco Use Types Packs/Day Years [...] the past 12 months, has t he [employer], gas, oil or water company threatened to [...] 07/27/2024 2:00 PM EDT Office Visit [facility] [address] [place] [address] Massiel Jung MD [address] [place] [address] documented as of this encounter Procedures Procedure Name Priority Date/Time Associated Diagnosis Comments POLYSOMNOGRAM Routine 10/25/2023 Loud snoring Chronic fatigue documented in this encounter Results * Polysomnography (10/25/2023) us Massiel Jung MD [facility] ORDERABLES Final Re sult documented in this encounter Visit Diagnoses Diagnosis Loud snoring Chronic fatigue Other malaise and fatigue documented in this encounter Additional Health Concerns Assessment Noted Time PHQ-9 Depression Total Score: 13 024 2:55 PM EDT documented as of this encounter Care Teams Physician Relationship Specialty Start Date End Date Massiel Jung MD [address] [place] [phone] PCP - General Internal Medicine 03/04/22 documented as of this encounter
--- OUTSIDE RECORDS SUMMARY | 2024-07-18 13:27 | XMS_ITS | Clinical Summary ---
Author Organization [facility] Address [address] [place] [address] Care Team Providers Care Review Analyst Name Role Phone Massiel Jung MD Primary Care Provider [phone] Allergies Active Allergy Reactions Criticality Noted Date Comments Alcohol 01/08/2020 Other reaction(s): Unknown Aspirin Rash Low 02/07/2015 Other reaction(s): unknown Other reaction(s): Unknown Codeine High 02/04/2015 Other reaction(s): Angioedema, Other (See Comments), rash/vomiting Throat closing Throat closing Other reaction(s): Other (See Comments), Unknown Throat closing Throat closing rash/vomiting Cyclopentolate 03/27/2022 Other reaction(s): prolonged eye dilation Other reaction(s): prolonged eye dilation Diazepam Anaphylaxis High 02/04/2015 Other reaction(s): Angioedema, Other (See Comments), throat closing, upset stomach,rash Throat closing Throat closing Other reaction(s): Other (See Comments) Throat closing Throat closing Leann Anaphylaxis High 01/06/2019 Other reaction(s): Unknown Ibuprofen Rash Low 02/07/2015 Other reaction(s): unknown Other reaction(s): Unknown Other reaction(s): unknown Ketorolac 03/27/2022 Other reaction(s): unknown Other reaction(s): unknown Meperidine Rash High 02/04/2015 Other reaction(s): Angioedema, Other (See Comments), rash/throat closing Throat closing Throat closing Other reaction(s): Other (See Comments) Throat closing Throat closing Other reaction(s): rash/throat closing Other reaction(s): Unknown Morphine 03/27/2022 Other reaction(s): rash, stomach pain, throat closing Other reaction(s): rash, stomach pain, throat closing Naproxen 03/25/2022 Other reaction(s): unknown Other reaction(s): Unknown Other reaction(s): unknown Oxycodone-Acetaminophen 03/27/2022 Other reaction(s): throat closing,rash Other reaction(s): throat closing,rash Penicillins Rash Low 09/23/2017 Other reaction(s): hives Other reaction(s): Unknown Other reaction(s): hives Prochlorperazine Rash Low 02/07/2015 Other reaction(s): upset stomach Other reaction(s): Unknown Sulfa Antibiotics Anaphylaxis,Rash,Kinsey rtness Of Breath High 09/23/2017 Other reaction(s): rash Tropicamide 03/25/2022 Other reaction(s): unknown Other reaction(s): Unknown Other reaction(s): unknown Medications Medication Sig Dispensed Refills Start Date End Date Status albuterol 108 (90 Base) MCG/ACT inhaler Inhale 2 puffs into the lungs every 6 (six) hours as needed. 0 09/01/2021 Active anastrozole (ARIMIDEX) 1 MG tablet 0 04/13/2023 Active buPROPion (WELLBUTRIN XL) 150 MG 24 hr tablet 0 04/14/2023 Active Cholecalciferol 25 MCG (1000 UT) tablet Take 1,000 Units by mouth. 0 Active diphenhydrAMINE (BENADRYL) 25 mg capsule Take 1 capsule (25 mg total) by mouth. 0 09/01/2021 Active glucose 4 GM chewable tablet as directed Orally 0 Active DULoxetine (CYMBALTA) DR capsule 30 mg 0 04/14/2023 Active esomeprazole (NexIUM) 40 MG capsule Take 1 capsule (40 mg total) by mouth. 0 07/21/2021 Active ezetimibe (ZETIA) tablet 10 mg 0 04/16/2023 Active Fenofibrate Micronized 30 MG CAPS Take 67 mg by mouth. 0 05/27/2021 Active Ferrous Fumarate 325 (106 Fe) MG TABS Take 325 mg by mouth. 0 08/15/2019 Active insulin glargine (Lantus SoloStar) 100 UNIT/ML injection 0 02/13/2022 Active HumaLOG 100 UNIT/ML injection 0 03/19/2023 Active lidocaine (LMX) 4 % cream 0 03/19/2023 Active ipratropium (ATROVENT) 0.06 % nasal spray 0 09/01/2021 Active loratadine (Claritin) 5 MG chewable tablet 1 tablet (5 mg total). 0 01/27/2023 Active meclizine (ANTIVERT) 12.5 MG tablet 0 04/14/2023 Active melatonin 3 MG TABS tablet Take 5 mg by mouth. 0 09/01/2021 Activ e metFORMIN (GLUCOPHAGE-XR) ER 24 hr tablet 500 mg 0 04/14/2023 Active methocarbamol (ROBAXIN) 750 MG tablet 0 04/14/2023 Active metoprolol succinate (TOPROL-XL) 24 hr tablet 25 mg 0 04/14/2023 Active Multiple Vitamins-Minerals (Oncovite) TABS Take 1 tablet by mouth daily. 0 Active naltrexone (DEPADE) 50 MG tablet 0 04/14/2023 Active rosuvastatin (CRESTOR) tablet 40 mg 0 04/14/2023 Active saccharomyces boulardii (FLORASTOR) 250 MG capsule Take 1 capsule (250 mg total) by mouth. 0 Active Deep Sea Nasal [place] 0.65 % nasal spray 0 01/29/2023 Active simethicone (MYLICON) 80 MG chewable tablet Chew 1 tablet (80 mg total) by mouth. 0 05/20/2018 Active Vitamin E (Vitamin E/D-Alpha Natural) 268 MG (400 UNIT) CAPS Take 400 Units by mouth. 0 Active Active Problems Problem Noted Date Diagnosed Date Iron deficiency anemia 04/22/2023 Social History Tobacco Use Types Packs/Day Years Used Date Smoking Tobacco: Never Assessed Sex and Gender Information Value Date Recorded Sex Assigned at Female 04/19/2023 3:53 PM EST Gender Identity Not on file Sexual Orientation Not on file Job Start Date Occupation Industry Not on file Not on file Not on file Last Filed Vital Signs Vital Sign Reading Time Taken Comments Blood Pressure 134/75 04/29/2023 1:00 PM EST Pulse 103 04/29/2023 1:00 PM EST Temperature 36.1 ??C (97 ??F) 04/29/2023 1:00 PM EST Respiratory Rate 18 04/29/2023 1:00 PM EST Oxygen Saturation 99% 04/29/2023 1:00 PM EST Inhaled Oxygen Concentration - - Weight 87.1 kg (192 lb 0.3 oz) 04/23/2023 2:17 P M EST Height - - Body Mass Index - - Plan of Treatment Health Maintenance Due Date Last Done Comments Hepatitis C Screening 1959 Depression Screening 1971 Preventative Health Evaluation 07/24/1977 Cervical Cancer Screening (Pap Smear) 07/24/1980 Colon Cancer Screening (Colonoscopy) 07/24/2004 Breast Cancer Screening (Mammogram) 07/24/2009 Shingrix-Zoster Vaccine (1 of 2) 07/24/2009 DTap / Tdap / Td (2 - Td or Tdap) 01/14/2022 01/15/2012 COVID-19 Vaccine ( season) 2023 03/18/2023, 06/26/2021, 01/31/2021, Additional history exists Influenza Vaccine (#1) 2023 , 02/25/2022, 12/27/2020, Additional history exists Pneumococcal Vaccine (2 of 2 - PCV) 07/24/2024 04/08/2018, 03/13/2004, 12/28/2003 RSV Adult > 60+ Yrs or (1 - 1-dose 75+ series) 07/24/2034 Pneumococcal Vaccine Aged Out 04/08/2018, 03/13/2004, 12/28/2003 No longer eligible based on patient's age to complete this topic Hepatitis B Vaccines Aged Out No long er eligible based on patient's age to complete this topic RSV Ped < 20 months Aged Out No longe r eligible based on patient's age to complete this topic Care Teams Review Analyst Relationship Specialty Start Date End Date Massiel Jung MD [address] [place] [address] PCP - General Internal Medicine 05/21/16
--- OUTSIDE RECORDS SUMMARY | 2024-07-18 13:27 | XMS_ITS | Encounter Summary ---
Author Organization [facility] Address [address] [place] [phone] Phone Care Team Providers Care [place] Soundings Group Leader Name Role Phone Massiel Jung MD Primary Care Provider [phone] Encounter Details Date Type Department Care Team (Late Contact Info) Description 04/19/2023 Documentation Only [facility] [address] [place] [address] Iris Dotson [address] [place] [phone] Social History Tobacco Use Types Packs/Day Years Used Date Smoking Tobacco: Never Smokeless Tobacco: Never Alcohol Use Standard Drinks/Week Comments Never 0 (1 standard drink = 0.6 oz pur e alcohol) AUDIT-C Answer Date Recorded Q1: How often do you have a drink containing alc ohol? Never 01/08/2020 Average Number of Drinks Not on file 020 Frequency of Binge Drinking Not on file [...] Visit [facility] [address] [place] [phone] Adin Stearns MD [address] [place] [address] documented as of this encounter Visit Diagnoses Not on filedocumented in this encounter Care Teams [place] [employer] [place] [employer] Group Leader Relationship Specialty Start Date End Date Massiel Jung MD [address] [place] [address] PCP - General Internal Medicine 12/11/19 documented as of this encounter
--- OUTSIDE RECORDS SUMMARY | 2024-07-18 13:27 | XMS_ITS | Encounter Summary ---
Author Organization [facility] Address [address] [place] [address] Care Team Providers Care Core Analysis Operator Name Role Phone Massiel Jung MD Primary Care Provider [phone] Encounter Details Date Type Department Care Team ([facility] st Contact Info) Description 04/26/2024 Scanned Document [facility] [address] Percy Kowalski MD [address] [place] [address] Social History Tobacco Use Types Packs/Day Years Used Date Smoking Tobacco: Never Assessed Comments Unknown Sex and Gender Information Value Date Recorded Sex Assigned at Not on file Legal Sex Female 2:20 PM EDT Gender Identity Not on file Sexual Orientation Not on file documented as of this encounter Plan of Treatment Not on file documented as of this encounter Visit Diagnoses Not on filedocumented in this encounter Care Teams Core Analysis Operator Relationship Specialty Start Date End Date Massiel Jung MD [address] [place] [address] PCP - General Internal Medicine 12/28/23 documented as of this encounter
--- OUTSIDE RECORDS SUMMARY | 2024-07-18 13:27 | XMS_ITS | Encounter Summary ---
Author Organization [facility] Address [address] [place] [address] Care Team Providers Care Assembler Chassis Name Role Phone Massiel Jung MD Primary Care Provider [phone] Encounter Details Date Type Department Care Team (Late st Contact Info) Description 01/10/2024 Scanned Document [facility] [address] [place] [address] [address] [place] [address] Social History Tobacco Use Types Packs/Day Years [...] on filedocumented in this encounter Care Teams Assembler Chassis Relationship Specialty Start Date End Date Massiel Jung MD [address] [place] [address] PCP - General Internal Medicine 12/28/23 documented as of this encounter
--- OUTSIDE RECORDS SUMMARY | 2024-07-18 13:27 | XMS_ITS | Encounter Summary ---
Author Organization [employer] [facility] Address [address] [place] [address] Care Team Providers Care Internal Medicine Specialist Name Role Phone Massiel Jung MD Primary Care Provider [phone] Encounter Details Date Type Department Care Team (Late st Contact Info) Description 02/07/2024 Orders Only [facility] [address] [place] [address] Massiel Jung MD [address] [place] [address] Social History Tobacco Use Types Packs/Day Years [...] 07/27/2024 2:00 PM EDT Office Visit [facility] [address] [place] [address] Massiel Jung MD [address] [place] [address] documented as of this encounter Procedures Procedure Name Priority Date/Time Associated Diagnosis Comments CT ABDOMEN PELVIS WO CONTRAST Routine 02/04/2024 11:15 AM EST documented in this encounter Results * CT ABDOMEN PELVIS WO CONTRAST (02/04/2024 11:15 AM EST) Anatomical Region Laterality Modality Computed Tomogra phy Massiel Jung MD IMG CT PROCEDURES Final Result documented in this encounter Visit Diagnoses Not on filedocumented in this encounter Additional Health Concerns Assessment Noted Time PHQ-9 Depression Total Score: 4 11/16/19 24 12:53 PM EDT documented as of this encounter Care Teams Internal Medicine Specialist Relationship Specialty Start Date End Date Massiel Jung MD [address] [place] [address] PCP - General Internal Medicine 03/04/22 documented as of this encounter
--- OUTSIDE RECORDS SUMMARY | 2024-07-18 13:27 | XMS_ITS | Encounter Summary ---
Author Organization [facility] Address [address] [place] [phone] Phone Care Team Providers Care Store Associate Name Role Phone Massiel Jung MD Primary Care Provider [phone] Encounter Details Date Type Department Care Team (Late Contact Info) Description 04/19/2023 Documentation Only [facility] [address] [place] [address] [address]ris Dotson [address] [place] [phone] Social History Tobacco Use Types Packs/Day Years [...] Visit [facility] [address] [place] [phone] Adin Stearns MD [address] [place] [address] documented as of this encounter Visit Diagnoses Not on filedocumented in this encounter Care Teams Store Associate Relationship Specialty Start Date End Date Massiel Jung MD [address] [place] [address] PCP - General Internal Medicine 12/11/19 documented as of this encounter
== END 2024-07-18 11:59 | disposition home or self-care (01) ==
LOC: HO.HVS 11:11
PROVIDERS: PCP Internal Medicine; Visit Provider Surgery Vascular Surgery
DX: I73.9 Peripheral vascular disease, unspecified (principal)
CPT/HCPCS: 99204; G2211

== ENCOUNTER → 2024-07-18 11:10 | Outpatient (BNVA) | payer MEDICARE, MEDICAID, SELFPAY | PROVIDERS: PCP Internal Medicine; Visit Provider Surgery Vascular Surgery | DX: I73.9 Peripheral vascular disease, unspecified (principal) | CPT/HCPCS: 99202 ==

== ENCOUNTER 2024-08-16 13:06 | Outpatient (REF) | payer MEDICARE, SELFPAY ==
--- NOTE | ~2024-08-16 | US_ITS ---
EXAMINATION: Noninvasive assessment of the bilateral lower extremities with ARTERIAL DUPLEX, ANKLE BRACHIAL INDICES (ABIs), and PULSE VOLUME RECORDINGS (PVRs). CLINICAL INFORMATION: Peripheral vascular disease. TECHNIQUE: Duplex Doppler techniques with waveform analysis and measurement of velocities in the bilateral common femoral, profunda femoris, superficial femoral, popliteal and tibial arteries were performed. Additionally, ankle pulse volume recordings, ankle pressure measurements and ankle brachial indices were obtained of the lower extremity arterial system bilaterally. The study was performed only at rest. COMPARISON: None FINDINGS: DIRECT DUPLEX DOPPLER FINDINGS: RIGHT LEG: Common femoral artery: 100 cm/s, phasicity: Triphasic. Profunda femoris artery: 87 cm/s, phasicity: Triphasic. Superficial femoral artery (proximal): 56 cm/s, phasicity: Triphasic. Superficial femoral artery (mid): 75 cm/s, phasicity: Triphasic. Superficial femoral artery (distal): 90 cm/s, phasicity: [Triphasic. Popliteal artery: 104 cm/s, phasicity: Triphasic. Posterior tibial artery: 48 cm/s, phasicity: Biphasic. Peroneal artery: 71 cm/s, phasicity: Biphasic. Anterior tibial artery: 60 cm/s, phasicity: Biphasic. Dorsalis pedis artery: 57 cm/s, phasicity:Biphasic. LEFT LEG: Common femoral artery: 112 cm/s, phasicity: Triphasic. Profunda femoris artery: 60 cm/s, phasicity: Triphasic. Superficial femoral artery (proximal): 66 cm/s, phasicity: Biphasic. Superficial femoral artery (mid): 96 cm/s, phasicity: Biphasic. Superficial femoral artery (distal): 89 cm/s, phasicity: Biphasic. Popliteal artery: 63 cm/s, phasicity: Biphasic. Posterior tibial artery: 44 cm/s, phasicity: Biphasic. Peroneal artery: 46 cm/s, phasicity: Biphasic. Anterior tibial artery: 74 cm/s, phasicity: Biphasic. Dorsalis pedis artery: 33 cm/s, phasicity: Biphasic. BRACHIAL PRESSURES: Right: 182 Left: 169 ANKLE PRESSURES: Right: PT 180, DP 143 Left: PT 145, DP 137 ANKLE-BRACHIAL INDEX: Right: 0.99 Left: 0.80 ANKLE PVR WAVEFORMS: Right: Abnormal Left: Abnormal US/US arterial duplex BI w/ MATTHEW IMPRESSION: Right leg: Mild inflow disease below the knee to the ankle. Left leg: Mild inflow disease from the mid thigh to the ankle. MATTHEW Reference: - >1.4 = calcified vessels - 0.9 - 1.4 = normal - no significant arterial disease - 0.7 - 0.89 = mild peripheral arterial disease - 0.51 - 0.69 = moderate peripheral arterial disease - d 0.50 = severe peripheral arterial disease - < .30 = critical arterial disease Electronically signed by: Dandre Del Castillo MD 08/17/2024 07:47 AM EDT
--- OUTSIDE RECORDS SUMMARY | 2024-08-16 13:42 | XMS_ITS | Clinical Summary ---
Author Organization [facility] Address [address] [place] [address] Care Team Providers Care Locum Tenens Name Role Phone Massiel Jung MD Primary Care Provider [phone] Allergies Active Allergy Reactions Criticality Noted Date [...] 1:15 PM EST Ancillary [place] [address] 06/02/2024 1:00 PM EST [place] [address] Percy Kowalski MD Pain in right ankle and joints of right foot (Primary Dx) from Last 3 Months Social History Tobacco [...] - Risk 60-74 years 1-dose series) 2019 DXA Bone Density (Females,Ages 65 and older) 07/24/2024 COVID-19 Vaccine ( season) 2024 02/01/2024, 03/18/2023, 06/26/2021, Additional history exists Influenza Vaccine 10/27/2024 03/18/2023, , 12/27/2020, Additional history exists Hepatitis B Vaccines Aged Out No long er eligible based on patient's age to complete this topic Procedures Procedure Name Priority Date/Time Associated Diagnosis Comments XR FOOT 3+ VIEWS-RIGHT Routine 06/02/2024 1:28 PM EST Pain in right ankle and joints of right foot from Last 3 Months Results * XR Foot 3+ views-Right (06/02/2024 1:28 PM EST) Narrative OA - 06/02/2024 1:28 PM EST This exam was performed in office at [facility] and images reviewed by orthopedic provider. ??Any findings are documented within ambulatory encounter note on date of service. us Percy Kowalski MD IMG DIAGNOSTIC IMAGING ORDERA BLES Final Result [facility] from Last 3 Months Insurance [employer] MGD MEDICARE Care Teams Locum Tenens Relationship Specialty Start Date End Date Massiel Jung MD [address] [place] [address] PCP - General Internal Medicine 12/28/23
--- OUTSIDE RECORDS SUMMARY | 2024-08-16 13:42 | XMS_ITS | Encounter Summary ---
Author Organization [employer] Address [address] [place] [address] Care Team Providers Care Sales Engineering Manager Name Role Phone Massiel Jung MD Primary Care Provider [phone] Encounter Details Date Type Department Care Team (Late st Contact Info) Description 06/26/2024 Orders Only [facility] [address] [place] [address] Massiel Jung MD [address] [place] [address] Social History Tobacco Use Types Packs/Day Years [...] the past 12 months, has t he [employer], gas, oil or water company threatened to [...] Care Team (Late st Contact Info) Description 10/24/2024 12:00 PM EDT Office Visit [place] [facility] [address] [place] [address] Massiel Jung MD [address] [place] [address] documented as of this encounter Procedures Procedure [...] documented as of this encounter Care Teams Sales Engineering Manager Relationship Specialty Start Date End Date Massiel Jung MD [address] [place] [address] PCP - General Internal Medicine 03/04/22 documented as of this encounter
--- OUTSIDE RECORDS SUMMARY | 2024-08-16 13:42 | XMS_ITS | Encounter Summary ---
Author Organization [facility] Address [address] [place] [phone] Phone Care Team Providers Care Ophthalmic Technologist Name Role Phone Massiel Jung MD Primary Care Provider [phone] Encounter Details Date Type Department Care Team (Late Contact Info) Description 04/19/2023 Documentation Only [facility] [address] [place] [address] Iris Dotson [address] [place] [phone] Social History Tobacco Use Types Packs/Day Years [...] Visit [facility] [address] [place] [phone] Adin Stearns MD [address] [place] [address] documented as of this encounter Visit Diagnoses Not on filedocumented in this encounter Care Teams Ophthalmic Technologist Relationship Specialty Start Date End Date Massiel Jung MD [address] [place] [address] PCP - General Internal Medicine 12/11/19 documented as of this encounter
--- OUTSIDE RECORDS SUMMARY | 2024-08-16 13:42 | XMS_ITS | Encounter Summary ---
Author Organization [employer] Address [address] [facility] 7t [place] [address] Care Team Providers Care Certified Ophthalmic Medical Technician Name Role Phone Massiel Jung MD Primary Care Provider [phone] Encounter Details Date Type Department Care Team (Late st Contact Info) Description 11/02/2023 Orders Only [facility] [address] [place] [address] Massiel Jung MD [address] [place] [address] Loud snoring; Chronic fatigue Social History Tobacco [...] the past 12 months, has t he [employer], gas, oil or water [employer] threatened to shut off services in your [...] Description 10/24/2024 12:00 PM EDT Office Visit [facility] [address] [place] [address] Massiel Jung MD [address] [place] [address] documented as of this encounter Procedures Procedure [...] documented as of this encounter Care Teams Certified Ophthalmic Medical Technician Relationship Specialty Start Date End Date Massiel Jung MD [address] [place] [address] PCP - General Internal Medicine 03/04/22 documented as of this encounter
--- OUTSIDE RECORDS SUMMARY | 2024-08-16 13:42 | XMS_ITS | Continuity of Care Document ---
Author Organization [facility] Address [address] [place] [id number]- Care Team Providers Care Tele Marketing Executive Name Role Phone Massiel Jung MD Primary Care Physician [phone] En[place] [facility]): 04/19/24 - 08/11/24 [facility] [address] [place] [id number] Attending Physician: Rober Mendoza MD Encounter Type: Pre Office Visit Allergies, Adverse Reactions, Alerts Substance Criticality Severity Reaction Reaction Severity Status codeine 1 rash/vomiting Active sulfADIAZINE rash Active aspirin unknown Active ketorolac unknown Active morphine rash, stomach pain, throat closing Active penicillins hives Active sulfa drugs Unable to assess criticality Persistent Moderate Skin rash Active opioid-like analgesics upset stomach Active Motrin unknown Active Mydriacyl unknown Active Naprosyn unknown Active Cyclogyl prolonged eye dilation Active Valium throat closing, upset stomach,rash Active Compazine upset stomach Active Demerol HCl rash/throat closing Active Percocet 7.5/325 throat closing,rash Active Other Food Allergy throat cl osing Leann Active 1rash/vomiting Immunizations Given and Recorded Vaccine Date Status Refusal Reason SARS-CoV-2 (COVID-19) mRNA BNT-162b2 vac 01/31/21 Recorded SARS-CoV-2 (COVID-19) mRNA BNT-162b2 vac 06/26/20 Recorded SARS-CoV-2 (COVID-19) mRNA BNT-162b2 vac 06/05/20 Recorded Pneumococcal Vaccine (oldterm) 12/28/03 Given Medications anastrozole 1 mg oral tablet 1 tablet = 1 mg, By Mouth, Daily, # 90 tablet, 4 Refills, Maintenance, 06/28/23 11:36:00 AM EDT, Tablet, [facility], Partial fill upon patient request if the prescription is for a schedule II opioid drug., 171.9, cm, 06/24/23 11:20:00 EDT, Height, 85.6, kg, 06/24/23 11:20:00 EDT, DryWeight Start Date: 06/28/23 Stop Date: 09/20/24 Status: Ordered Quantity: 90.0 Unit: tablet Repeat number: 5 buPROPion 150 mg/24 hours (XL) oral tablet, extended release 1 tablet = 150 mg, By Mouth, Every 24 hours, # 30 tablet, 0 Refills, Maintenance, 04/20/24 9:33:00 AM EST, ER Tablet, Partial fill upon patient request if the prescription is for a schedule II opioid drug. Start Date: 04/20/24 Status: Ordered Quantity: 30.0 Unit: tablet Repeat number: 1 Dexcom G6 sensors Dexcom G6 sensors, See Instructions, # 3 each, Refills 5, Tot. Refills 5, Maintenance, Use to monitor blood sugars continuously for Type 2 DM E11.9, 06/22/24 9:36:00 AM EDT, Supply, 172, cm, 06/22/24 8:47:00 EDT, Height, 84.1, kg, 06/20/24 23:15:00 EDT, Dry Weight Start Date: 06/22/24 Status: Ordered Quantity: 3.0 Unit: each Repeat number: 6 duloxetine 30 mg oral enteric coated capsule 1 capsule = 30 mg, By Mouth, 2 times a day, 0 Refills, Maintenance, 01/27/23 11:25:00 AM EDT, Partial fill upon patient request if the prescription is for a schedule II opioid drug. Start Date: 01/27/23 Status: Ordered Repeat number: 1 Lantus Solostar Pen 100 units/mL subcutaneous solution See Instructions, INJECT 30 UNITS SUBCUTANEOUSLY AT BEDTIME IN CASE OF PUMP FAILURE, # 15 mL, 11 Refills, Maintenance, 03/10/24 3:49:00 PM EST, [facility], 173, cm, 03/02/24 16:10:00EST, Height, 86.5, kg, 01/25/24 14:38:00 EDT, Dry Weight Start Date: 03/10/24 Status: Ordered Quantity: 15.0 Unit: mL Repeat number: 1 meclizine 25 mg oral tablet 1 tablet = 25 mg, By Mouth, 3 times a day, # 12 tablet, 0 Refills, Maintenance, 04/20/24 9:32:00 AM EST, Tablet, Partial fill upon patient request if the prescription is for a schedule II opioid drug. Start Date: 04/20/24 Status: Ordered Quantity: 12.0 Unit: tablet Repeat number: 1 melatonin 3 mg oral tablet 3 tablet = 9 mg, By Mouth, Daily at bedtime, 0 Refills, Maintenance, 09/01/21 12:58:00 PM EDT, Partial fill upon patient request if the prescription is for a schedule II opioid drug. Start Date: 09/01/21 Status: Ordered Repeat number: 1 metFORMIN 500 mg oral tablet, extended release 2 tablet = 1,000 mg, By Mouth, 2 times a day, for diabetes controlled, # 360 tablet, 3 Refills, Maintenance, 01/13/24 3:13:00 PM EDT, [facility], Partial fill upon patient request ifthe prescription is for a schedule II opioid drug., 173, cm, 01/13/24 14:22:00 EDT, Height, 83.8, kg, 01/13/24 14:22:00 EDT, Dry Weight Start Date: 01/13/24 Stop Date: 01/07/25 Status: Ordered Quantity: 360.0 Unit: tablet Repeat number: 4 Indication: Type 2 diabetes mellitus without complications naltrexone 50 mg oral tablet 1 tablet = 50 mg, By Mouth, Daily, # 30 tablet, 0 Refills, Maintenance, 04/20/24 9:35:00 AM EST, Tablet, Partial fill upon patient request if the prescription is for a schedule II opioid drug. Start Date: 04/20/24 Status: Ordered Quantity: 30.0 Unit: tablet Repeat number: 1 NovoLOG 100 units/mL subcutaneous solution See Instructions, Subcutaneous Injection, For use in insulin pump via Subcutaneous Injection. MDD 65 units., # 30 mL, 5 Refills, Maintenance, 01/21/24 12:42:00 PM EDT, [facility], Partial fill upon patient request if the prescription is for a schedule II opioid drug., 173, cm, 01/13/24 14:22:00 EDT, Height, 83.8, kg, 01/13/24 14:22:00 EDT, Dry Weight Start Date: 01/21/24 Stop Date: 07/19/24 Status: Ordered Quantity: 30.0 Unit: mL Repeat number: 6 ProAir HFA 90 mcg/inh inhalation aerosol with adapter 1, puffs, Inhalation, Every 4 hours, PRN, # 8.5 Gm, Refills 0, Maintenance, 09/01/21 12:54:00 PM EDT,Aerosol Start Date: 09/01/21 Status: Ordered Quantity: 8.5 Unit: g Repeat number: 1 rosuvastatin 40 mg oral tablet 1 tablet, By Mouth, Daily, # 30 tablet, 11 Refills, Maintenance, 01/10/24 10:34:00 AM EDT, [facility], 173, cm, 12/01/23 14:00:00 EDT, Height, 82, kg, 12/01/23 14:00:00 EDT, Dry Weight Start Date: 01/10/24 Status: Ordered Quantity: 30.0 Unit: tablet Repeat number: 1 Vitamin B12 1000 mcg oral tablet 1 tablet = 1,000 mcg, By Mouth, Daily, # 30 tablet, 0 Refills, Maintenance, 04/20/24 9:34:00 AM EST,Tablet, Partial fill upon patient request if the prescription is for a schedule II opioid drug. Start Date: 04/20/24 Status: Ordered Quantity: 30.0 Unit: tablet Repeat number: 1 Vitamin D3 1000 intl units oral capsule 1 capsule = 25 mcg, By Mouth, Daily, # 75 capsule, 0 Refills, Maintenance, 09/01/21 12:57:00 PM EDT, Capsule, Partial fill upon patient request if the prescription is for a schedule II opioid drug. Start Date: 09/01/21 Status: Ordered Quantity: 75.0 Unit: capsule Repeat number: 1 Zetia 10 mg oral tablet 1 tablet = 10 mg, By Mouth, Daily, # 30 tablet, 11 Refills, Maintenance, 03/19/23 4:14:00 PM EST, Tablet, [facility], Partial fill upon patient request if the prescription is for a schedule II opioid drug., 173, cm, 03/17/23 11:08:00 EST, Height, 91.7, kg, 03/16/23 9:54:00 EST, DryWeight Start Date: 03/19/23 Status: Ordered Quantity: 30.0 Unit: tablet Repeat number: 12 Problem List Condition Confirmation Course Effective Dates Status H ealth Status Informant Anemia Confirmed Active CKD (chronic kidney disease) Confirmed Active COVID-19 1 Confirmed 01/08/23 Active Depression Confirmed Active Diabetes mellitus Confirmed Active Diverticulitis Confirmed Active Gastroparesis Confirmed Active Hyperlipidemia Confirmed Active HTN (hypertension) Confirmed Active Non-ulcer dyspepsia Confirmed Active REA (obstructive sleep apnea) Confirmed Active Pancreatitis Confirmed Active Thyroid nodule Confirmed Active URI (upper respiratory infection) Confirmed Active 1Problem added by Discern Expert Social History Social History Type Response Smoking Status Never (less than 100 in lifetime) entered on: 04/20/24 Sex Sex Representation Female (finding) Patient Care team information Care Team Personnel Name: Jazlyn Chen Position: [facility] Onco RN Member Role: Primary Care Nurse Name: Siri Tovar RN Position: [facility] RN Member Role: Primary Care Nurse Name: Jaki Loyd RN Position: [facility] RN Member Role: Primary Care Nurse Name: Massiel Jung MD Position: [facility] Physician - Pediatrics Member Role: PCP Address: [address] [place] [address] Telecom: Name: Frandy Downing RN Position: [facility] RN Member Role: Primary Care Nurse Name: Indigo Haro RN Position: [facility] RN Member Role: Primary Care Nurse Name: Jayne Dotson RN Position: [facility] RN Member Role: Primary Care Nurse Name: Rainer Mock RN Position: [facility] RN Member Role: Primary Care Nurse Name: Stephanie Marino RN Position: [facility] RN Member Role: Primary Care Nurse Name: Graciela Payne RN Position: [facility] AMB MA Member Role: Primary Care Nurse Name: Lissa Stover Position: [facility] Office Staff Member Role: Primary Care Nurse Name: Ladarius Sanabria Position: [facility] Outreach Member Role: Lifetime Consulting Physician Name: Monie Cardozo RN Position: [facility] RN Member Role: Primary Care Nurse Name: Pam Perry RN Position: [facility] RN Member Role: Primary Care Nurse Name: Estrella Ventura RN Position: [facility] RN Member Role: Primary Care Nurse Name: Viktoria Jennings RN Position: [facility] RN Member Role: Primary Care Nurse Name: Harish Schafer Position: [facility] Outreach Member Role: Lifetime Consulting Physician Name: Patrica Chambers RN Position: [facility] ED RN W/OE and Tasks Member Role: Primary Care Nurse Name: Anel Jacobson RN Position: [facility] AMB Nurse Member Role: Primary Care Nurse Name: Grisel Whalen RN Position: [facility] Onco RN Member Role: Primary Care Nurse Name: Lu Aguilar RN Position: [facility] Onco RN Member Role: Primary Care Nurse Name: Collin Appiah Position: [facility] RN Member Role: Primary Care Nurse Name: Maya Sotelo RN Position: [facility] RN Member Role: Primary Care Nurse Name: Johnson Ramos Position: [facility] Outreach Member Role: Lifetime Consulting Physician Name: Nancy Romano RN Position: [facility] RN Member Role: Primary Care Nurse Name: Estrella Hansen RN Position: [facility] Onco RN Member Role: Primary Care Nurse Name: Eli Vilchis RN Position: [facility] ED RN W/OE and Tasks Member Role: Primary Care Nurse Name: Selma Betancourt RN Position: [facility] RN Member Role: Primary Care Nurse Name: Ilene Mcdermott RN Position: [facility] RN Member Role: Primary Care Nurse Name: Leigha Lincoln RN Position: [facility] Onco RN Member Role: Primary Care Nurse Care Team Related Persons Name: TIMOTEO GOETZ Name: GRACE NAIR Name: JACOB RESENDIZ Name: JANIYA GOTTLIEB Name: DEMIAN LOPEZ Name: OSORIO SHORT Insurance Providers Guarantor name: BRAYAN SONIFREYAWALTER [facility] Information #: 2 Payer: [facility] Member Number: [id number] Policy Number: Group Number: Health Plan Information #: 1 Payer: NA Member Number: [id number] Policy Number: Group Number: [id number]
--- OUTSIDE RECORDS SUMMARY | 2024-08-16 13:42 | XMS_ITS | Encounter Summary ---
Author Organization [facility] Address [address] [place] [address] Care Team Providers Care Instructional Leader Name Role Phone Massiel Jung MD Primary Care Provider [phone] Encounter Details Date Type Department Care Team (Late st Contact Info) Description 01/10/2024 Scanned Document [facility] [address] [place] [address] Isaura Pires [address] [facility] [address] [place] [address] Social History Tobacco Use Types Packs/Day Years [...] on filedocumented in this encounter Care Teams Instructional Leader Relationship Specialty Start Date End Date Massiel Jung MD [address] [place] [address] PCP - General Internal Medicine 12/28/23 documented as of this encounter
--- OUTSIDE RECORDS SUMMARY | 2024-08-16 13:42 | XMS_ITS | Encounter Summary ---
Author Organization [employer] Address [address] [facility] 7t [place] [address] Care Team Providers Care Telephone Appointment Clerk Name Role Phone Massiel Jung MD Primary Care Provider [phone] Reason for Visit * Reason Comments Med Refill Encounter Details Date Type Department Care Team (Late st Contact Info) Description 02/25/2024 Refill [facility] [address] [place] [address] Monie Eagle MD [address] [place] [address] Social History Tobacco Use Types Packs/Day Years [...] t he electric, gas, oil or water [employer] threatened to shut off services in your [...] Description 10/24/2024 12:00 PM EDT Office Visit [facility] [address] [place] [address] Massiel Jung MD [address] [place] [address] documented as of this encounter Visit Diagnoses Not on filedocumented in this encounter Additional Health Concerns Assessment Noted Time PHQ-9 Depression Total Score: 4 11/16/19 24 12:53 PM EDT documented as of this encounter Care Teams Telephone Appointment Clerk Relationship Specialty Start Date End Date Massiel Jung MD [address] [place] [address] PCP - General Internal Medicine 03/04/22 documented as of this encounter
--- OUTSIDE RECORDS SUMMARY | 2024-08-16 13:42 | XMS_ITS | Encounter Summary ---
Author Organization [employer] Address [address] [facility] 7t [place] [address] Care Team Providers Care Methods Analyst Data Processing Name Role Phone Massiel Jung MD Primary Care Provider [phone] Encounter Details Date Type Department Care Team (Late st Contact Info) Description 02/07/2024 Orders Only [facility] [address] [place] [address] Massiel Jung MD [address] [place] [address] Social History Tobacco Use Types Packs/Day Years [...] your housing situation today? I have reno hcan 03/18/[address] you li [...] the past 12 months, has t he [employer], gas, oil or water company threatened to [...] Description 10/24/2024 12:00 PM EDT Office Visit [facility] [address] [place] [address] Massiel Jung MD [address] [place] [address] documented as of this encounter Procedures Procedure [...] documented as of this encounter Care Teams Methods Analyst Data Processing Relationship Specialty Start Date End Date Massiel Jung MD [address] [place] [address] PCP - General Internal Medicine 03/04/22 documented as of this encounter
--- OUTSIDE RECORDS SUMMARY | 2024-08-16 13:42 | XMS_ITS | Clinical Summary ---
Author Organization [employer] Address [address] [place] [address] 7t [place] [address] Care Team Providers Care Test Engine Mechanic Name Role Phone Massiel Jung MD Primary Care Provider [phone] Allergies Active Allergy Reactions Criticality Noted Date [...] Continuous Blood Gluc Sensor (Dexcom G6 Sensor) [facility] 2 Active Insulin Disposable Pump (Omnipod 5 G6 Pod, Gen 5,) [facility] 2 Active BD Pen Needle Micro U/F 32G X 6 MM [facility] 2 Active ipratropium (Atrovent) 0.06 % nasal [...] CONTINUOUSLY 1 each 5 Active Continuous Glucose Signaler (Dexcom G7 Signaler) device 1 each Once per day. 5 [...] OR CHEW 60 capsule 10 5 Active ondansetron (Zofran) 4 MG tabletIndicatio ns:Nausea Take 1 tablet (4 mg) by mouth every 8 (eight) hours if needed for nausea for up to 20 days. 20 tablet 2 5 08/17/19 25 Active Active Problems Problem Noted Date Diagnosed [...] and recently got injections on Wed this week d/t the diabetic retinopathy. Encouraged Laura to [...] and she will also be calling her motorcycle repair shop supervisor about insulin pump adjustments if needed during [...] plan and state they are going to [facility] in [place] now. Daughter Verena will call [facility] in a.m. to report on her mother's [...] on buttocks near anus Is going to [facility] ER this evening for COVID 19 [...] hysterectomy 03/25/2022 Chronic fatigue 03/25/2022 History of IL (myocardial infarction) 03/25/2022 Female bladder prolapse 03/25/2022 Full incontinence of feces 03/25/2022 Hypercholesterolemia 06/18/2020 Diabetic neuropathy 06/18/2020 Insulin dependent diabetes mellitus type IA 05/28 Assessment & Plan (01/12/2023 6:20 PM EDT): Post COVID ER followup, per ER notes the readings on CGM were in the 500s but not in DKA per ER clinician - glucose at visit 319 - sees motorcycle repair shop supervisor at [facility] has Omnipod generation. States feeling better since ER but still extremely tired, poor appetite, trying to stay hydrated. States received call from nurse at ER and told Laura she had UTI and prescribed cephalexin. Will call her motorcycle repair shop supervisor to see if she can get in sooner than February 2023. Essential hypertension 04/10/2020 Assessment & Plan (01/12/2023 9:29 PM EDT): Encouraged Laura to take home daily bp/pulse readings and made her aware of how high her BP was at recent ER visit per notes, suboptimal HTN control and advised to discuss with PCP or air transportation provider to address -- Laura states she has [...] pain. Nausea and vomiting, diarrhea. Seen in [facility] ED 02/04/24 and diagnosed with diverticulitis. No [...] Problem Noted Date Diagnosed Date Resolved Date IL (myocardial infarction) 02/03/2019 1 Osteomyelitis 02/07/2015 03/27/2022 Overview (03/25/2022): Osteomyelitis Encounters * This document contains information received from the source organization and may not represent a complete record from that organization. Date Type Department Care Team Description 07/28/[address] [address] Massiel Jung MD Medication Question 07/27/2024 2:00 PM EDT Telemedicine [address] [address] Massiel Jung MD Nausea (Primary Dx); Insulin dependent type 2 diabetes mellitus (CMS/HCC); BMI 30.0-30.9,adult; Essential hypertension; Stage 3a chronic kidney disease (CMS/HCC); Long COVID 07/10/[address] [address] Massiel Jung MD [facility] program paperwork 07/06/2024 4:15 PM EDT Telemedicine [address] [address] Faviola Dill DO Acute diarrhea (Primary Dx) 06/26/2024 Orders Only [facility] Information Management [address] [place] [address] Massiel Jung MD 06/20/[address] [address] Massiel Jung MD Hospital Follow-up; stomach cramping 06/16/[address] [address] Massiel Jung MD Vertigo 06/09/2024 Orders Only [address] [address] Faviola Dill DO 06/09/[address] [address] Massiel Jung MD discuss x-ray results 06/09/2024 Population Health Risk Score [facility] () Department [address] [place] [id number] Provider, Population Health Generic 06/08/2024 3:15 PM EDT Office Visit [address] [address] Faviola Dill DO Rib injury (Primary Dx); Fall, initial encounter 06/08/2024 Travel from Last 3 Months Immunizations Immunization Administration Dates Next Due Influenza Injectable Quadriv [...] 10/24/2024 12:00 PM EDT Office Visit [facility] [address] [place] [address] Massiel Jung MD [address] [place] [address] Health Maintenance Due Date Last Done Comments CT Colonography 1959 FIT DNA/Cologuard 1959 FIT 1959 FOBT 1959 Sigmoidoscopy 1959 Eye Exam 07/24/1969 Alcohol/Substance [...] 07/05/2024 025, 10/29/2023, 09/17/2023, Additional history exists COVID-19 Vaccine ( season) 2024 02/01/2024, 03/18/2023, 02/25/2022, Additional history exists Diabetes: Foot Exam 10/26/2024 10/27/2023 Lipid Panel 10/28/2024 10/29/2023, 09/26, 03/16/2023, Additional history exists Depression Screening 11/15/2024 11/16/2023, 11/16/19 24 SDOH Screening 02/18/2025 02/19/2024 Tobacco Screening 04/05/2025 04/05/2024 DTaP/Tdap/Td Vaccines (3 - Td or Tdap) 06/19/2031 06/18/2021, 01/15/2012 HIB Vaccines Aged Out No longer eligi ble based on patient's age to complete this topic HPV Vaccines Aged Out No longer eligi ble based on patient's age to complete this topic IPV Vaccines Aged Out No longer eligi ble based on patient's age to complete this topic Meningococcal B Vaccine Aged Out No l onger eligible based on patient's age to complete [...] one view. No acute intrathoracic pathology. WSN: [id number] Ordering Physician: Faviola Dill Dictated By: ?Daniel Dobson MD Dictated Date/Time: ?06/09/24 7:38 pm Reviewed By: ?Daniel Dobson MD Signed By: ? Daniel Dobson MD Signed Date/Time: ? 06/09/24 7:38 pm Transcribed By: ? NATHAN Transcribed Date/Time: ?06/09/24 7:30 pm Procedure Note [...] one view. No acute intrathoracic pathology. WSN: [id number] Ordering Physician: Faviola Dill Dictated By: Daniel [...] Modality Rib, Abdomen Right Radiographic Marlen ging us Faviola Dill DO IMG XR PROCEDURES [...] AM EST Performed at: ??01 - [facility] [address] ??[id number] Roll Former: Tierra Farmer MD, Phone: ??[phone] [facility] LAB BLOOD ORDERABLES Candelaria l Result Performing Organization Address [facility] de Phone Number [id number] * (ABNORMAL) Lipid Panel, Standard [...] AM EDT Performed at: ??01 - [facility] [address] ??[id number] Roll Former: Tierra Farmer MD, Phone: ??[phone] Massiel Jung MD LAB BLOOD ORDERABLES Final Resul t Performing Organization Address [facility] Co de Phone Number [id number] * HP Diabetic Foot Exam [...] (Suspicious) Lay letter mailed to patient WSN: [id number] Ordering Physician: Massiel Jung Dictated By: ?Shay Phillips Jr, MD Dictated Date/Time: ?12/10/22 10:50 a Reviewed By: ?Shay Phillips Jr, MD Signed By: ? Shay Phillips Jr, MD Signed Date/Time: ? 12/10/22 10:50 am Transcribed By: ? CSB Transcribed Date/Time: ?12/10/22 10:40 am Procedure Note Donotmacariointerpreter, Image - 12/10/2022 PROCEDURE: MM Digital Mammo [...] (Suspicious) Lay letter mailed to patient WSN: [id number] Ordering Physician: Massiel Jung Dictated By: Shay Phillips Jr, MD Dictated Date/Time: 12/10/22 10:50 a Reviewed By: Shay Phillips Jr, MD Signed By: Shay Phillips Jr, MD Signed Date/Time: 12/10/22 10:50 am Transcribed By: NATHAN Transcribed Date/Time: 12/10/22 10:40 am Massiel Jung MD [facility] [place] PROCEDURES Final Result * COLONOSCOPY (04/25/2012 12:00 AM EST) Anatomical Region Laterality Modality Endoscopy 04/25/2012 Narrative 04/25/2012 12:00 AM EST Refer to Fovea for result details [facility] Procedure: COLONOSCOPY Procedure Note Provider, MD Rizwana - 07/23/2022 Refer to Fovea for result details [facility] Procedure: COLONOSCOPY Historical Provider ENDOSCOPY PROCEDURE ORDER EDUARDA Final Result from Last 3 Months or Most Recently Relevant to Health Maintenance Insurance [place] [id number] Care Teams Test Engine Mechanic Relationship Specialty Start Date End Date Massiel Jung MD [address] [place] [address] PCP - General Internal Medicine 03/04/22
--- OUTSIDE RECORDS SUMMARY | 2024-08-16 13:42 | XMS_ITS | Encounter Summary ---
Author Organization [facility] Address [address] [place] [phone] Phone Care Team Providers Care Paraplanner Name Role Phone Massiel Jung MD Primary Care Provider [phone] Encounter Details Date Type Department Care Team (Late Contact Info) Description 07/02/2021 Orders Only [facility] [address] [place] [address] Robin Ojeda MD Essential (primary) [...] Visit [facility] [address] [place] [address] Adin Stearns MD [address] [place] [address] [place] [address] documented as of this encounter Procedures Procedure Name Priority Date/Time Associated Diagnosis Comments RENAL FUNCTION PANEL Routine 06/24/2021 12:28 PM EDT Essential (primary) hypertension Stage 3a chronic kidney disease (HCC) documented in this encounter Results * (ABNORMAL) Renal function panel (06/24/2021 12:28 PM EDT) Glucose 95 (70-99) MG/DL [facility] BUN 31(H) (8-23) MG/DL [facility] Creatinine 1.2(H) (0.5-1.0) MG/DL [facility] Sodium 141 (133-145) MMOL/L [facility] Potassium 5.2 (3.6-5.2) MMOL/L [facility] Chloride 105 (98-107) MMOL/L [facility] Bicarbonate (CO2) 24 (22-29) MMOL/L [facility] Anion Gap 12 (4-17) [facility] Albumin 4.8 (3.4-4.8) GM/DL [facility] Calcium 9.8 (8.6-10.5) MG/DL [facility] Phosphorus, Serum 4.5 (2.5-4.5) MG/DL [facility] Est GFR Non 49 ML/MIN/1.7 3 M2 [facility] Comment: Creatinine based estimated glomerular filtration rate (eGFR) is calculated using the Chronic Kidney Disease Epidemiology Collaboration (CKD-EPI). The CKD-EPI calculation is not validated in children (<18 years), woman or in racial or ethnic subgroups. Testing performed or reported by [facility], a Service of [facility], [address] [place] [address] Carlene Vega MD, [employer] Control Electronics Operator IA# [id number] Blood specimen (specimen) Venous blood / Unknown 06/24/2021 12:28 PM EDT 06/24/2021 12:31 PM EDT us Robin Ojeda MD LAB BLOOD ORDERABLES Final Resul t [facility] documented in this encounter Visit Diagnoses Diagnosis Essential (primary) hypertension Stage 3a chronic kidney disease (HCC) documented in this encounter Care Teams Paraplanner Relationship Specialty Start Date End Date Massiel Jung MD [address] [place] [address] PCP - General Internal Medicine 12/11/19 documented as of this encounter
--- OUTSIDE RECORDS SUMMARY | 2024-08-16 13:42 | XMS_ITS | Encounter Summary ---
Author Organization [email or web address] Address [address] [facility] 7t [place] [address] Care Team Providers Care River Rat Name Role Phone Massiel Jung MD Primary Care Provider [phone] Reason for Visit * Reason Onset Date Comments Referral 04/08/2023 Encounter Details Date Type Department Care Team (Late st Contact Info) Description 04/08/2023 Telephone [facility] [address] [place] [address] Massiel Jung MD [address] [place] [address] Referral Social History Tobacco Use Types Packs/Day Years Used Date Smoking Tobacco: Never Smokeless Tobacco: Never Alcohol Use Standard Drinks/Week Comments Never 0 (1 standard drink = 0.6 oz pur e alcohol) Housing Stability Answer Date Recorded What is your housing situation today? I have renodilan chna 03/18/[address] you li [...] Bi-radial carpatanal Phone Number for any questions: [phone] documented in this encounter Plan of Treatment Upcoming Encounters Date Type Department Care Team (Late st Contact Info) Description 10/24/2024 12:00 PM EDT Office Visit [facility] MED[facility] [address] [place] [address] Massiel Jung MD [address] [place] [address] documented as of this encounter Visit Diagnoses Not on filedocumented in this encounter Care Teams River Rat Relationship Specialty Start Date End Date Massiel Jung MD [address] [place] [address] PCP - General Internal Medicine 03/04/22 documented as of this encounter
--- OUTSIDE RECORDS SUMMARY | 2024-08-16 13:42 | XMS_ITS | Encounter Summary ---
Author Organization [employer] Address 75 [facility] 7t [place] [address] Care Team Providers Care Multicultural Manager Name Role Phone Massiel Jung MD Primary Care Provider [phone] Encounter Details Date Type Department Care Team (Late st Contact Info) Description 04/05/2024 Orders Only [place] [facility] [address] [place] [address] Massiel Jung MD [address] [place] [address] Social History Tobacco Use Types Packs/Day Years [...] the past 12 months, has t he [employer], gas, oil or water company threatened to [...] 10/24/2024 12:00 PM EDT Office Visit [facility] [address] [place] [address] Massiel Jung MD [address] [place] [address] documented as of this encounter Procedures Procedure [...] documented as of this encounter Care Teams Multicultural Manager Relationship Specialty Start Date End Date Massiel Jung MD [address] [place] [address] PCP - General Internal Medicine 03/04/22 documented as of this encounter
--- OUTSIDE RECORDS SUMMARY | 2024-08-16 13:42 | XMS_ITS | Encounter Summary ---
Author Organization [employer] Address 75 [facility] 7 [place] [address] Care Team Providers Care Rehabilitation Specialist Name Role Phone Massiel Jung MD Primary Care Provider [phone] Reason for Visit * Reason Onset Date Comments request for letter from PCP to [employer] 08/2024 Encounter Details Date Type Department Care Team (Late st Contact Info) Description 05/04/2024 Telephone [facility] [address] [place] [address] Massiel Jung MD [address] [place] [address] request for letter from PCP to [employer] Social History Tobacco Use Types Packs/Day Years [...] EST Patient called stating she would like [facility] to write a letter to her personal gym [employer] in [place] to suspend membership due to health issues because I cannot walk or drive for at least 6 weeks plus follow up care until July 27, 2024. Patient states she would like a letter sent to [employer] at [address] [place] [phone]. TE sent to nursing. Please advise. Thank you! documented in this encounter Plan of Treatment Upcoming Encounters Date Type Department Care Team (Late st Contact Info) Description 10/24/2024 12:00 PM EDT Office Visit [facility] MED[facility] [address] [place] [address] Massiel Jung MD [address] [place] [address] documented as of this encounter Visit Diagnoses Not on filedocumented in this encounter Additional Health Concerns Assessment Noted Time PHQ-9 Depression Total Score: 4 11/16/19 24 12:53 PM EDT documented as of this encounter Care Teams Rehabilitation Specialist Relationship Specialty Start Date End Date Massiel Jung MD [address] [place] [address] PCP - General Internal Medicine 03/04/22 documented as of this encounter
--- OUTSIDE RECORDS SUMMARY | 2024-08-16 13:42 | XMS_ITS | Encounter Summary ---
Author Organization [employer] Address 75 [facility] 7t [place] [address] Care Team Providers Care Research Computing Specialist Name Role Phone Massiel Jung MD Primary Care Provider [phone] Encounter Details Date Type Department Care Team (Late st Contact Info) Description 02/02/2024 Orders Only [place] [facility] [address] [place] [address] Massiel Jung MD [address] [place] [address] Social History Tobacco Use Types Packs/Day Years [...] the past 12 months, has t he [employer], gas, oil or water company threatened to [...] Description 10/24/2024 12:00 PM EDT Office Visit [facility] [address] [place] [address] Massiel Jung MD [address] [place] [address] documented as of this encounter Procedures Procedure [...] documented as of this encounter Care Teams Research Computing Specialist Relationship Specialty Start Date End Date Massiel Jung MD [address] [place] [address] PCP - General Internal Medicine 03/04/22 documented as of this encounter
--- OUTSIDE RECORDS SUMMARY | 2024-08-16 13:42 | XMS_ITS | Encounter Summary ---
Author Organization [facility] Address [address] [place] [phone] Phone Care Team Providers Care Sports Nutritionist Name Role Phone Massiel Jung MD Primary Care Provider [phone] Encounter Details Date Type Department Care Team (Late Contact Info) Description 04/19/2023 Documentation Only [facility] [address] [place] [address] Iris Dotson [address] [place] [phone] Social History Tobacco Use Types Packs/Day Years [...] Visit [facility] [address] [place] [phone] Adin Stearns MD [address] [facility] [place] [address] documented as of this encounter Visit Diagnoses Not on filedocumented in this encounter Care Teams Sports Nutritionist Relationship Specialty Start Date End Date Massiel Jung MD [address] [place] [address] PCP - General Internal Medicine 12/11/19 documented as of this encounter
--- OUTSIDE RECORDS SUMMARY | 2024-08-16 13:42 | XMS_ITS | Clinical Summary ---
Author Organization [facility] Address [address] [place] [address] Care Team Providers Care Manufacturer Agent Name Role Phone Massiel Jung Primary Care Provider [phone] Allergies No known active allergies Family History [...] Last Done Comments Hepatitis C Screening 1960 DTaP/Tdap/Td (1 - Tdap) 07/24/1977 Pneumococcal 50+ years (1 of 1 - PCV) 07/24/2009 Zoster (Shingrix) (1 of 2) 07/24/2009 Mammogram/Breast Imaging 11/17/2015 015, 09/22/2012, 04/28/2012, Additional history exists COVID-19 Vaccine ( - 2023-25 season) 2023 Influenza (#1) 2023 Bone Density 07/24/2024 RSV (1 - 1-dose 75+ series) 07/24/2034 [...] on patient's age to complete this topic Pap Smear Discontinued Zoster (Zostavax) Discontinued Procedures * Due to [place] [employer] law, this organization might not be sharing negative HIV tests. Procedure Name Priority Date/Time Associated Diagnosis Comments MAMMOGRAM SCREENING TOMOSYNTHESIS, BILATERAL Routine 11/16/2014 11:19 AM EDT Other screening mammogram from Last 3 Months or Most Recently Relevant to Health Maintenance Results * Due to [place] [employer] law, this organization might not be sharing [...] Most Recently Relevant to Health Maintenance Insurance [facility] FEE FOR SERVICE O Care Teams Manufacturer Agent Relationship Specialty Start Date End Date Massiel Jung [facility] [address] [place] [address] PCP - General Internal Medicine 09/19/14
--- OUTSIDE RECORDS SUMMARY | 2024-08-16 13:42 | XMS_ITS | Continuity of Care Document ---
Author Organization [facility] Address [address] [place] [address]- Care Team Providers Care Dry Chain Offbearer Name Role Phone Massiel Jung MD Primary Care Physician [phone] Encounter [facility] Date(s): 07/12/24 - 08/11/24 [facility] [address] [place] [address] Attending Physician: Guillermo Stewart Admitting Physician: AdmGuillermo davis Referring Physician: Admtr, [id number] Encounter Type: Triage Allergies, Adverse Reactions, Alerts Substance Criticality Severity [...] Refills, Maintenance, 06/28/23 11:36:00 AM EDT, Tablet, [facility], Partial fill upon patient request [...] 11 Refills, Maintenance, 03/10/24 3:49:00 PM EST, [facility], 173, cm, 03/02/24 16:10:00EST, [...] 3 Refills, Maintenance, 01/13/24 3:13:00 PM EDT, [facility], Partial fill upon patient request [...] 5 Refills, Maintenance, 01/21/24 12:42:00 PM EDT, [facility], Partial fill upon patient request [...] 11 Refills, Maintenance, 01/10/24 10:34:00 AM EDT, [facility], 173, cm, 12/01/23 14:00:00 EDT, Height, [...] Refills, Maintenance, 03/19/23 4:14:00 PM EST, Tablet, [facility], Partial fill upon patient request [...] Care Team Personnel Name: Jazlyn Chen Position: [facility] Onco RN Member Role: Primary Care Nurse Name: Siri Tovar RN Position: [facility] RN Member Role: Primary Care Nurse Name: Jaki Loyd RN Position: [facility] RN Member Role: Primary Care Nurse Name: Massiel Jung MD Position: [facility] Physician - Pediatrics Member Role: PCP Address: [address] [place] [address] Telecom: Name: Frandy Downing RN Position: [facility] RN Member Role: Primary Care Nurse Name: Indigo Haro RN Position: [facility] RN Member Role: Primary Care Nurse Name: Jayne Dotson RN Position: [facility] RN Member Role: Primary Care Nurse Name: Rainer Mock RN Position: [facility] RN Member Role: Primary Care Nurse Name: Stephanie Marino RN Position: [facility] RN Member Role: Primary Care Nurse Name: Graciela Payne RN Position: [facility] MA Member Role: Primary Care Nurse Name: Lissa Stover Position: [facility] Staff Member Role: Primary Care Nurse Name: Ladarius Sanabria Position: [facility] Outreach Member Role: Lifetime Consulting Physician Name: Monie Cardozo RN Position: [facility] RN Member Role: Primary Care Nurse Name: Pam [place] RN Position: [facility] RN Member Role: Primary Care Nurse Name: Estrella Ventura RN Position: [facility] RN Member Role: Primary Care Nurse Name: Viktoria Jennings RN Position: [facility] RN Member Role: Primary Care Nurse Name: Harish Schafer Position: [facility] Outreach Member Role: Lifetime Consulting Physician Name: Patrica Chambers RN Position: [facility] ED RN W/OE and Tasks Member Role: Primary Care Nurse Name: Anel Jacobson RN Position: [facility] AMB Nurse Member Role: Primary Care Nurse Name: Grisel Whalen RN Position: [facility] Onco RN Member Role: Primary Care Nurse Name: Lu Aguilar RN Position: [facility] Onco RN Member Role: Primary Care Nurse Name: Collin Appiah Position: [facility] RN Member Role: Primary Care Nurse Name: Maya Sotelo RN Position: [facility] RN Member Role: Primary Care Nurse Name: Johnson Ramos Position: [facility] Outreach Member Role: Lifetime Consulting Physician Name: Nancy Romano RN Position: [facility] RN Member Role: Primary Care Nurse Name: Estrella Hansen RN Position: [facility] Onco RN Member Role: Primary Care Nurse Name: Eli Vilchis RN Position: [facility] ED RN W/OE and Tasks Member Role: Primary Care Nurse Name: Selma Betancourt RN Position: [facility] RN Member Role: Primary Care Nurse Name: Ilene Mcdermott RN Position: [facility] RN Member Role: Primary Care Nurse Name: Leigha Lincoln RN Position: [facility] Onco RN Member Role: Primary Care Nurse Care Team Related Persons Name: TIMOTEO GOETZ Name: GRACE NAIR Name: JACOB RESENDIZ Name: JANIYA GOTTLIEB Name: DEMIAN LOPEZ Name: OSORIO SHORT Insurance Providers Guarantor name: BRAYAN RESENDIZ Health Plan Information #: 1 Payer: JOANA Member Number: NA Policy Number: NA Group Number: Health Plan Information #: 2 Payer: [employer] Member Number: NA Policy Number: NA Group Number: [id number]
--- OUTSIDE RECORDS SUMMARY | 2024-08-16 13:42 | XMS_ITS | Encounter Summary ---
Author Organization [employer] Address 75 [facility] 7t [place] [address] Care Team Providers Care Bending Machine Set Up Operator Name Role Phone Massiel Jung MD Primary Care Provider Encounter Details Date Type Department Care Team (Late st Contact Info) Description 03/24/2023 Orders Only [place] [facility] [address] [place] [address] Massiel Jung MD [address] [place] [address] Social History Tobacco Use Types Packs/Day Years [...] AM EST Sexual Orientation Don't know 04/29/2022 8 :18 AM EST documented as of this encounter Plan of Treatment Upcoming Encounters Date Type Department Care Team (Late st Contact Info) Description 10/24/2024 12:00 PM EDT Office Visit [facility] MED[facility] [address] [place] [address] Massiel Jung MD [address] [place] [address] documented as of this encounter Procedures Procedure Name Priority Date/Time Associated Diagnosis Comments PATHOLOGY REPORT (HISTOPATHOLOGY) Routine 03/02/2023 documented in this encounter Results * Pathology Report (03/02/2023) Tissue us Massiel Jung MD LAB PATHOLOGY ORDERABLES Final R esult documented in this encounter Visit Diagnoses Not on filedocumented in this encounter Care Teams Bending Machine Set Up Operator Relationship Specialty Start Date End Date Massiel Jung MD [address] [place] [address] PCP - General Internal Medicine 03/04/22 documented as of this encounter
--- OUTSIDE RECORDS SUMMARY | 2024-08-16 13:42 | XMS_ITS | Encounter Summary ---
Author Organization [employer] Address [address] [facility] [address] 7t [place] [address] Care Team Providers Care Health Care Marketing Manager Name Role Phone Massiel Jung MD Primary Care Provider [phone] Encounter Details Date Type Department Care Team (Late st Contact Info) Description 11/01/2023 Orders Only [facility] MEDICAL [address] [place] [address] ProviderRizwana MD Social History Tobacco Use Types [...] Description 10/24/2024 12:00 PM EDT Office Visit [facility] MED[facility] [address] [place] [address] Massiel Jung MD [address] [place] [address] documented as of this encounter Procedures Procedure Name Priority Date/Time Associated Diagnosis Comments HP LINK DIABETIC FOOT EXAM Routine 10/27/2023 5:27 PM EDT documented in this encounter Results * HP Diabetic Foot Exam (10/27/2023 5:27 PM EDT) us Historical Provider HEALTH MAINTENANCE Final Result documented in this encounter Visit Diagnoses Not on filedocumented in this encounter Additional Health Concerns Assessment Noted Time PHQ-9 Depression Total Score: 13 024 2:55 PM EDT documented as of this encounter Care Teams Health Care Marketing Manager Relationship Specialty Start Date End Date Massiel Jung MD [address] [place] [address] PCP - General Internal Medicine 03/04/22 documented as of this encounter
--- OUTSIDE RECORDS SUMMARY | 2024-08-16 13:42 | XMS_ITS | Clinical Summary ---
Author Organization [facility] [place], Address [address] [place] [address] [place] [address] Phone Care Team Providers Care Filler In Name Role Phone Massiel Jung MD Primary Care Provider [phone] Allergies Active Allergy Reactions Criticality Noted Date [...] Pump (Omnipod 5 G6 Pod, Gen 5,) [facility] 2 Active midodrine (PROAMATINE) 5 MG tablet [...] Visit [facility] [place], [address] [facility] [place] [phone] Adin Stearns MD Type 2 diabetes mellitus [...] Visit [facility] [address] [place] [phone] Adin Stearns MD [address] [place] [address] [place] [phone] Health Maintenance Due Date Last Done Comments [...] 03/13/2004, 12/28/2003 Insurance [employer] MCR Adv PPO ([id number]) Care Teams Filler In Relationship Specialty Start Date End Date Massiel Jung MD [address] [place] [address] PCP - General Internal Medicine 12/11/19
--- OUTSIDE RECORDS SUMMARY | 2024-08-16 13:42 | XMS_ITS | Encounter Summary ---
Author Organization [facility] Address [address] [place] [address] Care Team Providers Care Registered Nurse Teacher Name Role Phone Massiel Jung MD Primary Care Provider [phone] Encounter Details Date Type Department Care Team ([facility] st Contact Info) Description 04/26/2024 Scanned Document [facility] [place] [address] Percy Kowalski MD [address] [place] [address] Social History Tobacco Use Types Packs/Day Years [...] on filedocumented in this encounter Care Teams Registered Nurse Teacher Relationship Specialty Start Date End Date Massiel Jung MD [address] [place] [address] PCP - General Internal Medicine 12/28/23 documented as of this encounter
--- OUTSIDE RECORDS SUMMARY | 2024-08-16 13:42 | XMS_ITS | Clinical Summary ---
Author Organization [facility] Address [address] [place] [address] Care Team Providers Care Vault Cashier Name Role Phone Massiel Jung MD Primary Care Provider [phone] Allergies Active Allergy Reactions Criticality Noted Date [...] by mouth. 0 Active Deep Sea Nasal [place]ck Kill 0.65 % nasal spray 0 01/29/2023 Active [...] 2023 , 02/25/2022, 12/27/2020, Additional history exists Fall Risk Assessment 07/24/2024 Osteoporosis Screening (DEXA Scan) 07/24/2024 Pneumococcal Vaccine (2 of 2 - PCV) [...] age to complete this topic Care Teams Vault Cashier Relationship Specialty Start Date End Date Massiel Jung MD [address] [place] [address] PCP - General Internal Medicine 05/21/16
== END 2024-08-16 13:07 | disposition home or self-care (01) ==
LOC: HO.US 13:06
PROVIDERS: PCP Internal Medicine; Visit Provider Surgery Vascular Surgery
DX: I73.9 Peripheral vascular disease, unspecified (principal)
CPT/HCPCS: 93922; 93925

== ENCOUNTER → 2024-08-16 13:08 | Outpatient (BNV) | payer MEDICARE, SELFPAY | PROVIDERS: PCP Internal Medicine; Visit Provider Radiology Diagnostic Radiology | DX: I73.9 Peripheral vascular disease, unspecified (principal) | CPT/HCPCS: 93922; 93925 ==

== ENCOUNTER 2024-09-05 13:40 | Outpatient (AMB) | payer MEDICARE, SELFPAY ==
--- NOTE | 2024-09-05 13:54 | MHC.OFFVIS ---
Vital Signs 09/05/24 13:55 Height 5 ft 8 in Weight 189 lb BMI 28.7 Intake Visit Reasons: Follow up Art US 08/16/24 Intake Note: follow up Arterial US 08/16/24 for bilateral LE cramping, swelling and tiredness, right LE worse than Left LE. Accompanied by: Self / Same As Patient Allergies diazepam [From Valium] Allergy (Verified 09/05/24 13:56) Anaphylaxis meperidine [From Demerol] Allergy (Verified 09/05/24 13:56) Anaphylaxis Opioids - Morphine Analogues Allergy (Verified 09/05/24 13:56) Anaphylaxis Penicillins [PCN] Allergy (Verified 09/05/24 13:56) Unknown Sulfa (Sulfonamide Antibiotics) Allergy (Verified 09/05/24 13:56) Stomach Upset HPI HPI Follow up Art US 08/16/24: Details: The patient is a 64-year-old female presenting with routine arterial surveillance. The patient noted weakness in the right leg but recent testing confirmed instead that the right leg function is close to normal, outperforming the left. The patient?s symptoms are potentially attributable to long-standing Type 2 Diabetes Mellitus, diagnosed since 1998. MATTHEW results show near-normal blood flow for both limbs, with 0.99 on the right and 0.8 on the left. The patient's diabetic status is acknowledged as a contributing factor to possible vascular stiffening, experienced through symptoms such as leg cramping and numbness, while her overall blood flow tests suggest sufficient arterial supply. [facility] Medical History High cholesterol Tachycardia Diabetes Gastroparesis Review of Systems Const All systems reviewed & are unremarkable except as noted in HPI and below Reports no additional complaints ENT Reports Normal hearing present Card Denies chest pain, Denies chest pain at rest, Denies chest pain with activity and Denies pedal edema Resp Denies cough GI Denies abdominal pain Musc Denies abnormal gait, Denies muscle cramps and Denies radiating pain into limb Skin/Breast Denies skin ulcer and Denies wounds Neuro Reports Normal hearing present and Denies abnormal gait Psych Reports no additional complaints Physical Exam Vital Signs: BMI result Body Mass Index 28.7 Const General: cooperative, healthy appearing and comfortable Orientation/consciousness: oriented to person, oriented to place and oriented to time HEENT Head: Yes normal to inspection Neck Neck: Yes normal visual inspection Carotids: no bruits Chest Chest palpation & inspection: normal inspection of the chest Resp Effort & Inspection: normal respiratory effort and able to speak in complete sentences Auscultation: clear to auscultation bilaterally, no crackles, no rales, no rhonchi and no wheezes Cardio Rate: regular rate Rhythm: regular rhythm Heart sounds: S1 normal heart sound present and S2 normal heart sound present Bruits: no carotid bruits Peripheral pulses: Peripheral pulses 2+ throughout GI Inspection: Yes normal to inspection Skin Wounds: no wounds Hair: normal Neuro General: oriented to person, oriented to place and oriented to time Cranial nerves: Yes CN's II-XII intact bilaterally and Yes Normal hearing present Cognition (Neuro): normal cognition Motor exam (neuro): 5/5 motor strength present throughout Extrem Other: venous exam: No significant superficial varicosities or spider telangiectasias, minimal edema General: No clubbing, No cyanosis and No edema Psych Appearance: grossly normal Mental Status: mental status grossly normal Speech and movement: Normal speech and movement present Results Reviewed Results Reviewed: Noninvasive arterial testing dated 08/16/2024 demonstrates MATTHEW on the right of 0.99 and on the left of 0.80. Written report and images were reviewed. Assessment & Plan Assessment & Plan (1) PAD (peripheral artery disease): Code(s): I73.9 - Peripheral vascular disease, unspecified Category: Medical Plan: In short patient has stable claudication. I did review the pathophysiology of peripheral vascular disease with the patient. In addition we did discuss routine conservative measures including a healthy diet and the importance of exercise and ambulation. We did discuss risk factor modification. The patient will continue to to follow-up with surveillance follow-up in approximately 1 year. Thank you for allowing us to participate in this patient's care. If there are any questions or concerns please do not hesitate to contact us. Orders: Orders US arterial duplex LE BI 1 Year I73.9 - Peripheral vascular disease, unspecified Coding Level of Care Code Est Pt Level 4 (32278) Complex EM visit Add On G2211 Diagnoses PAD (peripheral artery disease) I73.9
[2024-09-05 13:55] VITALS: BMI 28.7
--- OUTSIDE RECORDS SUMMARY | 2024-09-05 16:11 | XMS_ITS | Encounter Summary ---
Author Organization [employer] Address [address] [facility] 7 [place] [address] Care Team Providers Care Grain Drier Operator Name Role Phone Massiel Jung MD Primary Care Provider [phone] Reason for Visit * Reason Onset Date Comments request for letter from PCP to [employer] 08/2024 Encounter Details Date Type Department Care Team (Late st Contact Info) Description 05/04/2024 Telephone [facility] MEDICAL [address] [place] [address] Massiel Jung MD [address] [place] [address] request for letter from PCP to [employer] Social History Tobacco Use Types Packs/Day Years [...] EST Patient called stating she would like [facility] to write a letter to her personal gym [employer] in [place] to suspend membership due to health issues because I cannot walk or drive for at least 6 weeks plus follow up care until July 27, 2024. Patient states she would like a letter sent to [employer] at [address] [place] [phone]. TE sent to nursing. Please advise. Thank you! documented in this encounter Plan of Treatment Upcoming Encounters Date Type Department Care Team (Late st Contact Info) Description 10/24/2024 12:00 PM EDT Office Visit [facility] MEDICAL [address] [place] [address] Massiel Jung MD [address] [place] [address] documented as of this encounter Visit Diagnoses Not on filedocumented in this encounter Additional Health Concerns Assessment Noted Time PHQ-9 Depression Total Score: 4 11/16/19 24 12:53 PM EDT documented as of this encounter Care Teams Grain Drier Operator Relationship Specialty Start Date End Date Massiel Jung MD [address] [place] [address] PCP - General Internal Medicine 03/04/22 documented as of this encounter
== END 2024-09-05 14:15 | disposition home or self-care (01) ==
LOC: HO.HVS 13:41
PROVIDERS: PCP Internal Medicine; Visit Provider Surgery Vascular Surgery
DX: I73.9 Peripheral vascular disease, unspecified (principal)
CPT/HCPCS: 99214; G2211

== ENCOUNTER → 2024-09-05 13:40 | Outpatient (BNVA) | payer MEDICARE, SELFPAY | PROVIDERS: PCP Internal Medicine; Visit Provider Surgery Vascular Surgery | DX: I73.9 Peripheral vascular disease, unspecified (principal) | CPT/HCPCS: 99212 ==

== ENCOUNTER 2024-10-05 13:01 | Outpatient (AMB) | payer MEDICARE, SELFPAY ==
--- OUTSIDE RECORDS SUMMARY | 2024-10-05 13:04 | XMS_ITS | Encounter Summary ---
Author Organization [employer] Address [address] [facility] 7 [place] [address] Care Team Providers Care Service Center Appraiser Name Role Phone Massiel Jung MD Primary Care Provider [phone] Reason for Visit * Reason Onset Date Comments request for letter from PCP to [employer] 08/2024 Encounter Details Date Type Department Care Team (Late st Contact Info) Description 05/04/2024 Telephone [facility] MEDICAL [address] [place] [address] Massiel Jung MD [address] [place] [address] request for letter from PCP to [employer] Social History Tobacco Use Types Packs/Day Years [...] EST Patient called stating she would like [facility] to write a letter to her personal gym [employer] in [place] to suspend membership due to health issues because I cannot walk or drive for at least 6 weeks plus follow up care until July 27, 2024. Patient states she would like a letter sent to [employer] at [address] [place] [phone]. TE sent to nursing. Please advise. Thank you! documented in this encounter Plan of Treatment Upcoming Encounters Date Type Department Care Team (Late st Contact Info) Description 10/24/2024 12:00 PM EDT Office Visit [facility] MEDICAL [address] [place] [address] Massiel Jung MD [address] [place] [address] documented as of this encounter Visit Diagnoses Not on filedocumented in this encounter Additional Health Concerns Assessment Noted Time PHQ-9 Depression Total Score: 4 11/16/19 24 12:53 PM EDT documented as of this encounter Care Teams Service Center Appraiser Relationship Specialty Start Date End Date Massiel Jung MD [address] [place] [address] PCP - General Internal Medicine 03/04/22 documented as of this encounter
--- OUTSIDE RECORDS SUMMARY | 2024-10-05 13:04 | XMS_ITS | Clinical Summary ---
Author Organization [facility] Address [address] [place] [address] Care Team Providers Care Ball Sorter Name Role Phone Massiel Jung Primary Care Provider [phone] Allergies No known active allergies Family History [...] COVID-19 Vaccine ( - 2023-25 season) 2023 Bone Density 07/24/2024 Influenza (#1) 2024 RSV (1 - 1-dose 75+ series) 07/24/2034 [...] Zoster (Zostavax) Discontinued Procedures * Due to [place] mCASH law, this organization might not be sharing negative HIV tests. Procedure Name Priority Date/Time Associated Diagnosis Comments MAMMOGRAM SCREENING TOMOSYNTHESIS, BILATERAL Routine 11/16/2014 11:19 AM EDT Other screening mammogram from Last 3 Months or Most Recently Relevant to Health Maintenance Results * Due to [place] mCASH law, this organization might not be sharing negative HIV tests. * MAMMOGRAM SCREENING TOMOSYNTHESIS, BILATERAL FC (11/16/2014 11:19 AM EDT) LETTER SENT A mammogram letter type B2 was mailed to patient Anatomical Region Laterality Modality BREAST Bilateral Mammography 11/19/2014 5:36 PM EDT Narrative 11/19/2014 5:36 PM EDT EXAMINATION: SCREENING MAMMOGRAM November 16, 2014: HISTORY: [...] PATIENT: In a letter Percy Valderrama MD IM MAMMO ORDERABLES Final Re sult from Last 3 Months or Most Recently Relevant to Health Maintenance Insurance [facility] FEE FOR SERVICE O Care Teams Ball Sorter Relationship Specialty Start Date End Date Massiel Jung [address] [address] PCP - General Internal Medicine 09/19/14
[2024-10-05 13:05] VITALS: BP 138/86; PULSE 103
--- NOTE | 2024-10-05 13:05 | A.OFFVIS_ITS ---
Vital Signs 10/05/24 13:05 10/05/24 13:23 Height 5 ft 8 in BP 138/86 116/68 Position Sitting Standing Pulse 103 H 104 H Intake Visit Reasons: 3 PAD Allergies aspirin Allergy (Verified 10/05/24 13:17) Unknown codeine Allergy (Verified 10/05/24 13:17) Unknown diazepam (From Valium) Allergy (Verified 10/05/24 13:17) Anaphylaxis meperidine (From Demerol) Allergy (Verified 10/05/24 13:17) Anaphylaxis Opioids - Morphine Analogues Allergy (Verified 10/05/24 13:17) Anaphylaxis Penicillins (PCN) Allergy (Verified 10/05/24 13:17) Unknown Sulfa (Sulfonamide Antibiotics) Allergy (Verified 10/05/24 13:17) Stomach Upset Medication List - Last Reconciled 10/05/24 by Elizabeth Britton, SONI bupropion HCl XL 150 mg PO DAILY duloxetine 30 mg PO BID ezetimibe 10 mg PO DAILY insulin glargine (Lantus Solostar U-100 Insulin) units subcut insulin lispro (Humalog U-100 Insulin) subcut insulin pump cart,auto,BT,G6/7 (Omnipod 5 G6-G7 Pods (Gen 5) subcutaneous cartridge) As directed meclizine 25 mg PO TID PRN metformin ER 1,000 mg PO BID methocarbamol 750 mg PO BID rosuvastatin 40 mg PO DAILY HPI Comments Details: 64-year-old woman with insulin-dependent diabetes since 1998 on an insulin pump, fibromyalgia, 3 bouts of COVID (2019, 2020, 2021), who has had multiple symptoms since last bout of COVID in 2021 including dizziness, both vertigo as well as lightheadedness and off balance feeling, tremulousness that comes and goes for a few seconds in hands about 3 times a week, generalized weakness in arms and legs, neuropathy with numbness in her feet and sometimes hands, and feeling that her balance is not normal. Episodes of vertigo can last about 5 minutes or so with nausea. Lightheadedness and off-balance feeling happens multiple times a day, as many as 20 times, lasting few seconds each time. She has classical symptoms of leg claudication on walking short distances and has to stop frequently before she can continue. She had work up with vascular surgery and will follow up in 1 year. Her father developed MS in his 60s. She had bilateral CTS release at [facility] in 01/2024 and had R hammer toe surgery [place] in 03/2024. She fell and fractured rib on 06/05/2024. Episodes of dizziness, both vertigo and lightheadedness, are unchanged, but may be happening slightly less often since blood sugar control has improved. However, she reports most recent A1c >15. Blood sugar was 115 this morning. Episodes of dizziness may be triggered by changing positions or when walking. Balance is off at times, but no recent falls. Starting at the gym for strength training. Has some numbness and burning-type pain in feet that is controlled with duloxetine. [facility] Medical History (Updated 10/05/24 @ 13:09 by Elizabeth Britton CNP) Liver function abnormality Chronic kidney disease, stage 3 Diabetic retinopathy Depression Fibromyalgia PAD (peripheral artery disease) Peripheral neuropathy High cholesterol Tachycardia Diabetes Gastroparesis Review of Systems Const Denies chills, Denies daytime sleepiness, Reports difficulty sleeping, Denies fatigue, Denies fever(s), Denies frequent falls, Denies headache(s), Denies increased appetite, Denies poor appetite, Denies snoring, Denies weakness, Denies weight gain and Denies weight loss Eyes Denies loss of vision ENT Denies vertigo, Reports dizziness, Denies headache(s) and Reports neck pain Card Denies chest pain at rest, Denies chest pain with activity, Denies syncope, Denies leg edema, Denies palpitations, Denies dyspnea and Denies dyspnea on exertion Resp Denies cough, Denies dyspnea, Denies dyspnea on exertion and Denies snoring GI Denies abdominal pain, Denies constipation, Denies heartburn, Denies diarrhea and Denies nausea Denies urinary frequency, Denies urinary incontinence and Denies urinary urgency Musc Reports abnormal gait (balance difficulty), Reports back pain, Reports myalgias, Reports arthralgias, Reports neck pain, Reports numbness, Denies stiffness and Reports tingling Neuro Reports abnormal gait (balance difficulty), Denies vertigo, Reports dizziness, Denies syncope, Denies frequent falls, Denies headache(s), Denies lack of coordination, Denies loss of vision, Reports memory loss, Reports numbness, Denies Other visual disturbances, Denies restless legs, Denies seizure-like activity, Reports tingling, Denies paresthesias, Reports tremor(s) and Denies weakness Psych Reports anxiety, Reports depression, Denies auditory hallucinations, Reports memory loss, Denies visual hallucinations and Denies hallucinations Endo Denies fatigue and Denies palpitations Physical Exam Const Other: General Appearance:? normal, in no acute distress. Heart:? S1, S2 normal, no murmurs. Lungs:? clear anteriorly and posteriorly. Musculoskeletal:? normal. Extremities:? no edema. Psych:? alert, oriented, cognitive function intact, cooperative with exam. Neuro Other: Abnormal Neurological Findings:?slight tremor of extended UE. Mental Status: alert and oriented X 3. Normal attention, orientation, memory, and affect. Cranial Nerves: Pupils are equal, round, and reactive to light. External ocular muscles are intact. Visual palma are full, no ptosis. Face is symmetrical, no facial weakness or droop. Facial sensations are normal. Tongue protrudes in midline. Palate elevates symmetrically. Shoulder shrugging is normal Motor Examination: Normal muscle tone, bulk and strength. No atrophy or fasciculations. No drift of the extended upper extremities. DTR 2+. Plantars are flexor. Straight Leg Raisin degrees. Sensory Exam: Normal light touch, temperature, pinprick, vibration, and joint- position sensations. Rhomberg sign is absent. Coordination: No ataxia. No titubation. Xcvfpu-qz-uung, abpx-xfbv-sjaw test, and rapid alternating movements were normal. Gait Exam: Within normal limits. Cerebellar Signs: Vbtdsh-bv-nuuh and nuse-pc-fzsw is normal. No dysdiadochokinesia. Extrapyramidal System: Tremor as above. No rigidity with normal facial expressions. No bradykinesia. No bradyphrenia. Normal arm swing and posture. No propulsion or retropulsion. Speech: Normal. No dysphasia or dysarthria. 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 EMG in the right L4-S1 innervated muscles is consistent with neuropathic changes. 10/01/23 MRI brain: mild white matter microvascular change sincluding montserrat. slightly more than 2020 Assessment & Plan Assessment & Plan (1) Peripheral neuropathy: Code(s): G62.9 - Polyneuropathy, unspecified Category: Medical Qualifiers: Peripheral neuropathy type: polyneuropathy, unspecified Qualified Code(s): G62.9 - Polyneuropathy, unspecified Plan: Symptoms managed with duloxetine 30mg twice a day. Control blood sugar and stay physically active. (2) Vertigo: Code(s): R42 - Dizziness and giddiness Category: Medical Plan: Change positions slowly, stay hydrated. (3) PAD (peripheral artery disease): Code(s): I73.9 - Peripheral vascular disease, unspecified Category: Medical Plan: Following with vascular. Plan . Coding Level of Care Code Est Pt Level 4 (16008) Diagnoses Peripheral polyneuropathy G62.9 Peripheral neuropathy type: polyneuropathy, unspecified Vertigo R42 PAD (peripheral artery disease) I73.9
--- OUTSIDE RECORDS SUMMARY | 2024-10-05 13:05 | XMS_ITS | Patient Health Record ---
Author Organization [facility] Address [address] [place] [address] Care Team Providers Care Paper Mill Superintendent Name Role Phone Fabiana SIMPSON, Massiel Primary Care Provider UnavailEarnest Parr Unavailable [phone] Allergies Allergen (clinical drug ingredient) Drug/Non Drug Allergy documented on EMR Reaction Allergy Type Onset Date Status Emprin (uncoded) Unknown Allergy Act jovi Muscle relaxers (uncoded) Unknown Allergy Active Opiates (uncoded) Unknown Allergy Ac tive ketorolac Toradol (uncoded) Unknown Allergy Ac tive acetaminophen Acetaminophen Unknown Drug Allergy Active ibuprofen Advil Unknown Drug Allergy Active Alcohol Unknown Drug Allergy Active Aleve Unknown Drug Allergy Active aspirin Aspirin Unknown Drug Allergy Active cyclopentolate Cyclogyl Unknown Drug Allergy Ac tive meperidine Demerol Unknown Drug Allergy Active Motrin Unknown Drug Allergy Active tropicamide Mydriacyl Unknown Drug Allergy Activ e naproxen Naprosyn Unknown Drug Allergy Active Sulfur Unknown Drug Allergy Active tramadol Tramadol HCl Unknown Drug Allergy Acti ve acetaminophen Tylenol Unknown Drug Allergy Act jovi tramadol Ultram Unknown Drug Allergy Active diazepam Valium Unknown Drug Allergy Active sulfa Unknown Drug Allergy Active Penicillin rash Drug Allergy Active codeine Codeine Unknown Drug Allergy Active morphine Morphine Unknown Drug Allergy Active Compazine Unknown Drug Allergy Active Reason For Referral No Information Medications Medication SIG (Take, Route, Frequency, Duration) Notes Start Date End Date Status Clindamycin HCl 150 MG Orally 3 times a day Active Extra-Depth Diabetic Shoes with 3 Pair Custom heat-molded multi-density innersoles . for 1 year . Dx: 250.61,735.4,701,707.15; Duration: . Active Regranex 0.01 % 1 application to aff ected area Externally Once a day as directed to ulcer site; Duration: 30 days 08/06/2014 Active Probiotic Active Gas-X Active Hair/Skin/Nails/Biotin Active HumaLOG pump Active Multivitamin Active NexIUM Active Lactic Acid E 10-3500 %-UNT/30GM as directed Externally Apply twice a day to feet; Duration: 30 days 10/18/2014 Active Nortriptyline HCl Ac tive Lactic Acid E 10-3500 %-UNT/30GM as directed Externally Bid to feet; Duration: 30 days 10/22/2014 Active Gabapentin 600 MG Orally twice a day Active Cranberry Active Meloxicam Active Insulin Active Social History Tobacco use other than smoking: Question Answer Notes Are you an other tobacco user? No Problems No Known Problems Plan Of Treatment Pending Test Test Name Order Date Hemoglobin A1c 08/06/2014 [id number] NAIL, 6 OR MORE 08/06/2014 [id number] NAIL, 6 OR MORE 10/18/2014 41209- Debride <25 sq cm 08/06/2014 02999-XVUL SKIN LESIONS, OVER 4 10/19/19 15 [id number] SKIN LESIONS, 2 TO 4 08/07/19 15 Insurance Providers Payer Name Payer Address Payer Phone Subscriber Number Group Number Insured Name Patient Relationship to Insured Coverage Start Date Coverage End Date [facility] [address] [place] [address] [phone] [id number] Laura Chrales Self - patient is the insured Medical (General) History Medical History History ICD Code Back,Hip,and Knee pain Chicken pox Crohns disease Diverticulosis Liver disease - Fatty Measles Mumps Reflux Retinopathy Diabetic Surgical History Surgery Date(Month/Year) tonsillectomy appendectomy gall bladder hysterectomy bladder suspension breast surgery pelvis - tumor Hospitalization History Reason Date(Month/Year) [facility]- colitis 03/29/14 [facility] -Infection bilateral feet, osteomyli tis 08/23/14-08/28/14
--- OUTSIDE RECORDS SUMMARY | 2024-10-05 13:05 | XMS_ITS ---
[...] as needed for severe pain. 04/24/2024 active Allergies Allergen Reaction Severity Comment Documented Date Source Statu s DIAZEPAM RASH/DERMATITIS 12/28/2023 [facility] acti ve ASPIRIN GI INTOLERANCE/NAUSEA /VOMITING [facility] MEPERIDINE RASH/DERMATITIS [facility] SALICYLIC ACID-SULFUR GI INTOLERANCE/NAUSEA /VOMITING [facility] Problems Problem Status Onset Date Problem Type Date of Resoluti on Source Pain in right ankle and joints of right foot active EncounterDiagnosisAct [facility] Encounters Encounter Type Encounter Reason Primary Diagnosis Location Date Ambulatory [facility] 06/02/2024 Ambulatory Pain in right ankle and joints of right foot Pain in right ankle and joints of right foot [facility] 06/02/2024 Ambulatory [facility] 05/16/2024 Ambulatory Pain in right ankle and joints of right foot Pain in right ankle and joints of right foot [facility] 05/16/2024 Ambulatory Post-op Post-op [facility] 05/02/2024 Ambulatory MODIFY Pain due to inte rnal orthopedic prosthetic devices, implants and grafts, initial encounter [facility] [place] 04/26/2024 Ambulatory Follow-up Follow-up [facility] 04/18/2024 Ambulatory [facility] 12/28/2023 Ambulatory Pain in right ankle and joints of right foot Pain in right ankle and joints of right foot [facility] 12/28/2023 Care Team Organization Name Specialty Phone Email Start Date End Da te [facility] 04/04/2024 [facility] 12/28/2023 [facility] 12/28/2023 [facility] 12/03/2023
--- OUTSIDE RECORDS SUMMARY | 2024-10-05 13:05 | XMS_ITS | Clinical Summary ---
Author Organization [facility] Address [address] [place] [address] Care Team Providers Care Marine Structural Welder Name Role Phone Massiel Jung MD Primary Care Provider [phone] Allergies Active Allergy Reactions Criticality Noted Date [...] by mouth. 0 Active Deep Sea Nasal Peoa 0.65 % nasal spray 0 01/29/2023 Active [...] 103 04/29/2023 1:00 PM EST Temperature 36.1 C (97 F) 04/29/2023 1:00 PM EST Respiratory Rate 18 [...] 2023 03/18/2023, 06/26/2021, 01/31/2021, Additional history exists Fall Risk Assessment 07/24/2024 Osteoporosis Screening (DEXA Scan) 07/24/2024 Pneumococcal Vaccine (2 of 2 - PCV) 07/24/2024 04/08/2018, 03/13/2004, 12/28/2003 Influenza Vaccine (#1) 2024 , 02/25/2022, 12/27/2020, Additional history exists RSV Adult > 60+ Yrs or (1 [...] age to complete this topic Care Teams Marine Structural Welder Relationship Specialty Start Date End Date Massiel Jung MD [address] [place] [address] PCP - General Internal Medicine 05/21/16
--- OUTSIDE RECORDS SUMMARY | 2024-10-05 13:05 | XMS_ITS | Clinical Summary ---
Author Organization [facility] Address [address] [place] [address] Care Team Providers Care Grain Processor Name Role Phone Massiel Jung MD Primary Care Provider [phone] Allergies Active Allergy Reactions Criticality Noted Date [...] Active Active Problems No known active problems Social History Tobacco Use Types Packs/Day Years [...] (Females,Ages 65 and older) 07/24/2024 COVID-19 Vaccine (2023- season) 2024 02/01/2024, 03/18/2023, 06/26/2021, Additional history exists Influenza Vaccine 10/27/2024 03/18/2023, , 12/27/2020, Additional history exists Hepatitis B Vaccines Aged Out No long er eligible based on patient's age to complete this topic Insurance [employer] MEDICARE Care Teams Grain Processor Relationship Specialty Start Date End Date Massiel Jung MD [address] [place] [address] PCP - General Internal Medicine 12/28/23
--- OUTSIDE RECORDS SUMMARY | 2024-10-05 13:05 | XMS_ITS | Encounter Summary ---
Author Organization [facility] Address [address] [place] [id number] Phone Care Team Providers Care Special Events Assistant Name Role Phone Massiel Jung MD Primary Care Provider [phone] Encounter Details Date Type Department Care Team (Late Contact Info) Description 07/02/2021 Orders Only [facility] [address] [place] [address] Robin Ojeda MD Essential (primary) [...] Visit [facility] [address] [place] [address] Adin Stearns MD [address] [place] [address] [place] [address] documented as of this encounter Procedures Procedure Name Priority Date/Time Associated Diagnosis Comments RENAL FUNCTION PANEL Routine 06/24/2021 12:28 PM EDT Essential (primary) hypertension Stage 3a chronic kidney disease (HCC) documented in this encounter Results * (ABNORMAL) Renal function panel (06/24/2021 12:28 PM EDT) Glucose 95 (70-99) MG/DL [facility] BUN 31(H) (8-23) MG/DL [facility] Creatinine 1.2(H) (0.5-1.0) MG/DL [facility] Sodium 141 (133-145) MMOL/L [facility] Potassium 5.2 (3.6-5.2) MMOL/L [facility] Chloride 105 (98-107) MMOL/L [facility] Bicarbonate (CO2) 24 (22-29) MMOL/L [facility] Anion Gap 12 (4-17) [facility] Albumin 4.8 (3.4-4.8) GM/DL [facility] Calcium 9.8 (8.6-10.5) MG/DL [facility] Phosphorus, Serum 4.5 (2.5-4.5) MG/DL [facility] Est GFR Non 49 ML/MIN/1.7 3 M2 [facility] Comment: Creatinine based estimated glomerular filtration rate (eGFR) is calculated using the Chronic Kidney Disease Epidemiology Collaboration (CKD-EPI). The CKD-EPI calculation is not validated in children (<18 years), woman or in racial or ethnic subgroups. Testing performed or reported by [facility], a Service of [facility], [address] [place] [address] Carlene Vega MD, [employer] Super[employer] [place]# [id number] Blood specimen (specimen) Venous blood / Unknown 06/24/2021 12:28 PM EDT 06/24/2021 12:31 PM EDT us Robin Ojeda MD LAB BLOOD ORDERABLES Final Resul t [facility] documented in this encounter Visit Diagnoses Diagnosis Essential (primary) hypertension Stage 3a chronic kidney disease (HCC) documented in this encounter Care Teams Special Events Assistant Relationship Specialty Start Date End Date Massiel Jung MD [address] [place] [address] PCP - General Internal Medicine 12/11/19 documented as of this encounter
[2024-10-05 13:23] VITALS: BP 116/68; PULSE 104
== END 2024-10-05 13:31 | disposition home or self-care (01) ==
LOC: HO.HSM 13:02
PROVIDERS: PCP Internal Medicine; Referring Provider Internal Medicine; Visit Provider Registered Nurse
DX: G62.9 Polyneuropathy, unspecified (principal); R42 Dizziness and giddiness; I73.9 Peripheral vascular disease, unspecified
CPT/HCPCS: 99214

== ENCOUNTER → 2024-10-05 13:01 | Outpatient (BNVA) | payer MEDICARE, SELFPAY | PROVIDERS: PCP Internal Medicine; Referring Provider Internal Medicine; Visit Provider Registered Nurse | DX: E11.51 Type 2 diabetes mellitus with diabetic peripheral angiopathy without gangrene (principal); E11.42 Type 2 diabetes mellitus with diabetic polyneuropathy; R42 Dizziness and giddiness; Z79.4 Long term (current) use of insulin; Z79.84 Long term (current) use of oral hypoglycemic drugs; Z96.41 Presence of insulin pump (external) (internal) | CPT/HCPCS: 99212 ==

== ENCOUNTER 2025-02-06 16:51 | Emergency (ER) | payer MEDICARE, SELFPAY ==
--- NOTE | ~2025-02-06 | XR_ITS ---
CLINICAL HISTORY: chest pain 2 view chest x-ray Comparison: None provided Findings: No consolidation or effusion. There is no pneumothorax. Heart size is normal. No acute fracture. There are surgical clips in the region of the left breast and left axilla. IMPRESSION: 1. No acute findings. This document has been electronically signed by: Jesús Gibbs MD on 02/06/2025 19:55:21
[2025-02-06 17:05] VITALS: BP 112/65; PULSE 130; RESP 20; TEMP 35.8; O2SAT 98; BMI 28.0
--- NOTE | 2025-02-06 17:08 | ED.GENADULT ---
HPI - General Adult General Chief complaint: General Medical Stated complaint: General Medical Time Seen by Provider: 02/06/25 20:47 Source: patient Limitations: no limitations History of Present Illness ED Provider: Michaelle Redd PA-C HPI narrative: 64-year-old female with a history of diabetes, hyperlipidemia, peripheral neuropathy, P VAD, vertigo who presents with a numerous complaints. Patient states she has not felt well received her COVID and influenza vaccine. Associated nausea vomiting diarrhea at times, productive cough, hyperglycemia, bilateral ear pressure, and generalized malaise. Denies back pain, abdominal pain, flank pain, dysuria, hematuria or fever. Related Data Home Medications ?Medication ?Instructions ?Recorded ?Confirmed bupropion HCl 150 mg 24 hr tablet, 150 mg PO DAILY 09/05/24 10/05/24 extended release duloxetine 30 mg capsule,delayed 30 mg PO BID 09/05/24 10/05/24 release ezetimibe 10 mg tablet 10 mg PO DAILY 09/05/24 10/05/24 insulin glargine 100 unit/mL (3 unit subcut 09/05/24 10/05/24 mL) subcutaneous pen (Lantus Solostar U-100 Insulin) insulin lispro 100 unit/mL subcut 09/05/24 10/05/24 subcutaneous solution (Humalog U-100 Insulin) insulin pump cart,auto,BT,G6/7 #5 ea 09/05/24 (Omnipod 5 G6-G7 Pods (Gen 5) subcutaneous cartridge) meclizine 25 mg tablet 25 mg PO TID PRN 09/05/24 10/05/24 metformin 500 mg tablet,extended 1,000 mg PO BID 09/05/24 10/05/24 release 24 hr methocarbamol 750 mg tablet 750 mg PO BID 09/05/24 10/05/24 rosuvastatin 40 mg tablet 40 mg PO DAILY 09/05/24 10/05/24 Previous Rx's ?Medication ?Instructions ?Recorded cephalexin 500 mg capsule 500 mg PO Q12H #13 caps 02/06/25 ondansetron 4 mg disintegrating 4 mg PO Q8H PRN nausea and 02/06/25 tablet vomiting #10 tabs Allergies Allergy/AdvReac Type Severity Reaction Status Date / Time aspirin Allergy Unknown Verified 02/06/25 17:12 codeine Allergy Unknown Verified 02/06/25 17:12 diazepam (From Valium) Allergy Anaphylaxis Verified 02/06/25 17:12 meperidine (From Demerol) Allergy Anaphylaxis Verified 02/06/25 17:12 Opioids - Morphine Analogues Allergy Anaphylaxis Verified 02/06/25 17:12 Penicillins (PCN) Allergy Unknown Verified 02/06/25 17:12 Sulfa (Sulfonamide Allergy Stomach Verified 02/06/25 17:12 Antibiotics) Upset PMFSH Past Medical History Medical History (Updated 02/07/25 @ 00:00 by Background Daemon) Liver function abnormality Chronic kidney disease, stage 3 Diabetic retinopathy Depression Fibromyalgia PAD (peripheral artery disease) Peripheral neuropathy High cholesterol Tachycardia Diabetes Gastroparesis Physical Exam ED Vital Signs: Vital Signs - 24 hr 02/06/25 17:05 02/06/25 19:13 02/06/25 21:36 Temperature 96.5 F L 98.3 F 97.7 F Pulse Rate 130 H 107 H 95 Respiratory Rate 20 16 16 Blood Pressure 112/65 169/90 H 168/85 H Pulse Oximetry 98 98 98 Oxygen Delivery Method Room Air Room Air BMI result Body Mass Index 28.0 Course Course Course Narrative: This is a rapid medical exam performed by Lorena Menezes NP: Additional HPI, ROS, PE not included below will be deferred to primary provider. Patient is a 64y/o F referred to the ED from urgent care for poc glucose of 372, pt was unable to provide urine specimen there. CXR neg for pna. Reports since getting flu and covid shots on 01/25 she has had vomiting, diarrhea, and productive cough, chest pain. Tachycardic at 132 in triage. Plan: EKG, labs, viral serology Medications Administered Discontinued Medications Generic Name Dose Route Start Last Admin Trade Name Freq PRN Reason Stop Dose Admin Cephalexin HCl 500 mg 02/06/25 21:21 02/06/25 21:38 Cephalexin 500 Mg Capsule PO 02/06/25 21:22 500 mg ONCE ONE Administration Sodium Chloride 1,000 mls @ 999 mls/hr 02/06/25 21:00 02/06/25 22:13 Ns IV 02/06/25 22:00 Infused .Q1H1M [facility] Infusion Ondansetron HCl 4 mg 02/06/25 21:21 02/06/25 21:38 Ondansetron Hcl 4 Mg/2 Ml Vial IVPUSH 02/06/25 21:22 4 mg ONCE ONE Administration Medical Decision Making Medical Decision Making [facility] Narrative: 64-year-old female with a history of diabetes, hyperlipidemia, peripheral neuropathy, PAD, vertigo who presents with a numerous complaints. Patient states she has not felt well received her COVID and influenza vaccine. Associated nausea vomiting diarrhea at times, productive cough, hyperglycemia, bilateral ear pressure, and generalized malaise. Denies back pain, abdominal pain, flank pain, dysuria, hematuria or fever. Problem: Age, diabetes History: Per patient I have considered the following differential diagnoses: Hyperglycemia, HHS, DKA, infection, pneumonia, UTI, viral syndrome, serous otitis, om, OE Plan: Basic screening labs, viral panel, chest x-ray and urinalysis collected. The patient's labs are not suggestive of DKA, her sugars are elevated to 400, we will give IV fluids. She does have a urinary tract infection, which would explain her hyperglycemia. No other source of infection identified. She likely has underlying viral syndrome as well, she does have serous otitis on exam. In regard to her GI symptoms, they have resolved, she is only having intermittent nausea at this time. No indication for abdominal imaging. I have independently reviewed the following tests: Labs: No leukocytosis, not anemic, no electrolyte abnormality, no gap, beta hydroxy 0.15, viral panel negative, urine is infected Chest x-ray:Findings: No consolidation or effusion. There is no pneumothorax. Heart size is normal. No acute fracture. There are surgical clips in the region of the left breast and left axilla. IMPRESSION: 1. No acute findings. Differential Diagnosis Differential Diagnoses: The differential diagnosis associated with the presentation includes See [facility] Admission/Observation Consideration of admission/observation: Escalation of care including admission/observation considered Not applicable Lab Data [facility] Lab Attestation statement: I reviewed the patient's lab results. 02/06/25 17:37 02/06/25 17:37 Labs: Lab Results 02/06/25 02/06/25 02/06/25 Range/Units 17:32 17:37 17:41 WBC 7.5 (4.8-10.8) X10*3/uL RBC 4.11 L (4.20-5.50) X10*6/uL Hgb 10.4 L (12.0-16.0) g/dl Hct 32.2 L (37.0-47.0) % MCV 78.3 L (80.0-98.0) fL MCH 25.3 L (27.0-33.0) pg MCHC 32.3 (31.0-35.0) g/dl RDW 12.1 (11.0-16.0) % Plt Count 339 (160-400) X10*3/uL MPV 10.1 (9.4-12.3) fL Immature Gran % (Auto) 0.5 H (0.0-0.4) % Neut % (Auto) 60.3 (45-73) % Lymph % (Auto) 31.6 (20-40) % [place] % (Auto) 5.7 (2-11) % Eos % (Auto) 1.6 (0-4) % Baso % (Auto) 0.3 (0-2) % Lymph # (Auto) 2.4 (1.2-4.9) X10*3/uL [place] # (Auto) 0.4 (0.1-1.2) X10*3/uL Eos # (Auto) 0.1 (0.0-0.4) X10*3/uL Baso # (Auto) 0.0 (0.0-0.2) X10*3/uL Abs Immat Gran (auto) 0.04 H (0.00-0.03) X10*3/uL Absolute Neuts (auto) 4.5 (2.0-8.3) x10*3/uL Absolute Nucleated RBC 0.000 (0.0-0.012) X10*3/uL Nucleated RBC % (auto) 0.0 (0.0-0.2) /100WBC PT 12.3 (11.2-13.5) SEC INR 1.0 (0.9-1.1) VBG pH 7.38 (7.32-7.43) VBG pCO2 48 mmHg VBG pO2 38 mmHg VBG HCO3 29 H (22-26) mmol/L VBG O2 Saturation 36.0 % VBG Base Excess 3.2 mmol/L Sodium 133 L (135-145) mmol/L Potassium 4.8 (3.3-5.1) mmol/L Chloride 96 (96-108) mmol/L Carbon Dioxide 27 (22-29) mmol/L Anion Gap 15 (12-20) BUN 53 H (9-16) mg/dL Creatinine 1.67 H (0.5-1.4) mg/dL Estim Creat Clear Calc 38.0 Estimated GFR 31 POC Glucose (60-115) mg/dL Random Glucose 417 H* (60-115) mg/dL Calcium 9.5 (8.4-10.2) mg/dL Total Bilirubin 0.1 (0.0-1.0) mg/dL AST 22 (5-31) U/L ALT 25 (0-31) U/L Alkaline Phosphatase 105 (39-117) U/L Troponin I High Sens 5.5 (<3.5-17.0) ng/L Total Protein 7.5 (6.5-8.0) g/dL Albumin 4.5 (3.5-5.0) g/dL Beta-Hydroxybutyrate 0.15 (0.02-0.27) mmol/L Urine Color Urine Appearance Urine pH (5.0-9.0) Ur Specific [place] (1.005-1.025) Urine Protein (Neg-Trace) mg/dL Urine Glucose (UA) (Negative) mg/dL Urine Ketones (Negative) mg/dL Urine Blood (Negative) Urine Nitrite (Negative) Ur Leukocyte Esterase (Negative) Urine RBC (0-2) /HPF Urine WBC (0-5) /HPF Ur Squamous Epith Cells (0-2) /HPF Urine Bacteria (None Seen) Hyaline Casts (0-2) /LPF Influenza Type A (PCR) NEGATIVE (Negative) Influenza Type B (PCR) NEGATIVE (Negative) RSV RNA Qual (PCR) NEGATIVE (Negative) SARS-CoV-2 RNA (RT-PCR) NEGATIVE (Negative) 02/06/25 02/06/25 Range/Units 21:05 22:06 WBC (4.8-10.8) X10*3/uL RBC (4.20-5.50) X10*6/uL Hgb (12.0-16.0) g/dl Hct (37.0-47.0) % MCV (80.0-98.0) fL MCH (27.0-33.0) pg MCHC (31.0-35.0) g/dl RDW (11.0-16.0) % Plt Count (160-400) X10*3/uL MPV (9.4-12.3) fL Immature Gran % (Auto) (0.0-0.4) % Neut % (Auto) (45-73) % Lymph % (Auto) (20-40) % [place] % (Auto) (2-11) % Eos % (Auto) (0-4) % Baso % (Auto) (0-2) % Lymph # (Auto) (1.2-4.9) X10*3/uL [place] # (Auto) (0.1-1.2) X10*3/uL Eos # (Auto) (0.0-0.4) X10*3/uL Baso # (Auto) (0.0-0.2) X10*3/uL Abs Immat Gran (auto) (0.00-0.03) X10*3/uL Absolute Neuts (auto) (2.0-8.3) x10*3/uL Absolute Nucleated RBC (0.0-0.012) X10*3/uL Nucleated RBC % (auto) (0.0-0.2) /100WBC PT (11.2-13.5) SEC INR (0.9-1.1) VBG pH (7.32-7.43) VBG pCO2 mmHg VBG pO2 mmHg VBG HCO3 (22-26) mmol/L VBG O2 Saturation % VBG Base Excess mmol/L Sodium (135-145) mmol/L Potassium (3.3-5.1) mmol/L Chloride (96-108) mmol/L Carbon Dioxide (22-29) mmol/L Anion Gap (12-20) BUN (9-16) mg/dL Creatinine (0.5-1.4) mg/dL Estim Creat Clear Calc Estimated GFR POC Glucose 376 H* (60-115) mg/dL Random Glucose (60-115) mg/dL Calcium (8.4-10.2) mg/dL Total Bilirubin (0.0-1.0) mg/dL AST (5-31) U/L ALT (0-31) U/L Alkaline Phosphatase (39-117) U/L Troponin I High Sens (<3.5-17.0) ng/L Total Protein (6.5-8.0) g/dL Albumin (3.5-5.0) g/dL Beta-Hydroxybutyrate (0.02-0.27) mmol/L Urine Color Yellow Urine Appearance Clear Urine pH 5.0 (5.0-9.0) Ur Specific [place] 1.025 (1.005-1.025) Urine Protein 30 (1+) H (Neg-Trace) mg/dL Urine Glucose (UA) >=1000 H (Negative) mg/dL Urine Ketones Negative (Negative) mg/dL Urine Blood Trace H (Negative) Urine Nitrite Positive H (Negative) Ur Leukocyte Esterase Small (1+) H (Negative) Urine RBC 0-2 (0-2) /HPF Urine WBC >50 H (0-5) /HPF Ur Squamous Epith Cells 3-5 (0-2) /HPF Urine Bacteria 4+ (None Seen) Hyaline Casts 0-2 (0-2) /LPF Influenza Type A (PCR) (Negative) Influenza Type B (PCR) (Negative) RSV RNA Qual (PCR) (Negative) SARS-CoV-2 RNA (RT-PCR) (Negative) Radiology Impression Discussion of test interpretation with radiology: I have reviewed the radiologist's reading. Discharge Plan Discharge Clinical Impression: Urinary tract infection, Hyperglycemia Patient Disposition: Home, Self-Care Instructions: Urinary Tract Infection in Women (ED) Additional Instructions: Overall, your screening labs were normal for you, your blood sugar was elevated, however you did not have any associated electrolyte abnormalities. You were tested for influenza a and B, COVID and RSV, the viral panel was negative. The chest x-ray is clear you do not have pneumonia. You were found to have a urinary tract infection. See home care instructions. Take the cephalexin as directed. Uses Zofran as needed for nausea. Follow up with your primary care provider as needed. Prescriptions: New cephalexin 500 mg capsule 500 mg PO Q12H Qty: 13 0RF ondansetron 4 mg tablet,disintegrating 4 mg PO Q8H PRN (Reason: nausea and vomiting) Qty: 10 0RF No Action insulin glargine [Lantus Solostar U-100 Insulin] 100 unit/mL (3 mL) insulin pen subcut bupropion HCl 150 mg tablet extended release 24 hr 150 mg PO DAILY duloxetine 30 mg capsule,delayed release(DR/EC) 30 mg PO BID rosuvastatin 40 mg tablet 40 mg PO DAILY ezetimibe 10 mg tablet 10 mg PO DAILY metformin 500 mg tablet extended release 24 hr 1,000 mg PO BID meclizine 25 mg tablet 25 mg PO TID PRN (DME) Omnipod 5 G6-G7 Pods (Gen 5) Cartridge See Rx Instructions subcut .MEDSUPPLY Qty: 5 Rx Instructions: As directed methocarbamol 750 mg tablet 750 mg PO BID insulin lispro [Humalog U-100 Insulin] 100 unit/mL solution subcut Interventions: ED Discharge Assessment Last Done: 02/06/25 22:37 Discharge Date/Time: 02/06/25 22:37 Print Language: Swedish
--- NOTE | 2025-02-06 17:11 | ECG_ITS ---
Test Reason : CP Blood Pressure : */* mmHG Vent. Rate : 112 BPM Atrial Rate : 112 BPM P-R Int : 138 ms QRS Dur : 70 ms QT Int : 326 ms P-R-T Axes : 61 -13 71 degrees QTcB Int : 444 ms Sinus tachycardia Otherwise normal ECG No previous ECGs available Referred By: Paz Menezes Electronically Signed By: JAKE SARMIENTO MD
--- NOTE | 2025-02-06 17:22 | MHC.EDTECH ---
EKG delayed, Pt is in restroom.
[2025-02-06 17:43] LABS: MANUAL DIFF FLAG NO
[2025-02-06 17:44] LABS: VBG HCO3 29 mmol/L (22-26); VBG O2 % Saturation 36.0 %
[2025-02-06 17:45] LABS: Venous Blood Gas Refer to POC result
[2025-02-06 17:47] LABS: Hematocrit 32.2 % (37.0-47.0); Hemoglobin 10.4 g/dl (12.0-16.0); Imm Gran Abs Auto 0.04 X10*3/uL (0.00-0.03); Imm Gran Pct Auto 0.5 % (0.0-0.4); Lymphocytes Absolute Auto 2.4 X10*3/uL (1.2-4.9); Mean Corpuscular HGB Conc 32.3 g/dl (31.0-35.0); Mean Corpuscular Hemoglobin 25.3 pg (27.0-33.0); Mean Corpuscular Volume 78.3 fL (80.0-98.0); NRBC Abs Auto 0.000 X10*3/uL (0.0-0.012); NRBC Pct Auto 0.0 /100WBC (0.0-0.2); Platelet Count 339 X10*3/uL (160-400); Red Blood Count 4.11 X10*6/uL (4.20-5.50); White Blood Count 7.5 X10*3/uL (4.8-10.8)
[2025-02-06 18:04] LABS: INTERNATIONAL NORM RATIO 1.0 (0.9-1.1); Prothrombin Time 12.3 SEC (11.2-13.5)
[2025-02-06 18:08] LABS: Troponin-I High Sensitivity 5.5 ng/L (<3.5-17.0)
[2025-02-06 18:11] LABS: Alanine Aminotransferase 25 U/L (0-31); Albumin Level 4.5 g/dL (3.5-5.0); Alkaline Phosphatase 105 U/L (39-117); Anion Gap 15 (12-20); Aspartate Amino Transferase 22 U/L (5-31); Blood Urea Nitrogen 53 mg/dL (9-16); Calcium 9.5 mg/dL (8.4-10.2); Carbon Dioxide 27 mmol/L (22-29); Chloride 96 mmol/L (96-108); Creatinine Clr Calc Pharmacy 38.0; Estimated Glomerular Filt Rate 31; Potassium 4.8 mmol/L (3.3-5.1); Sodium 133 mmol/L (135-145); Total Protein 7.5 g/dL (6.5-8.0)
[2025-02-06 18:40] LABS: Resp Syncy Virus RNA Qual PCR NEGATIVE (Negative); SARS COV2 PCR INHOUSE NEGATIVE (Negative)
--- OUTSIDE RECORDS SUMMARY | 2025-02-06 19:07 | XMS_ITS | Encounter Summary ---
Author Organization [employer] Address [address] [facility] 7t [place] [address] Care Team Providers Care Lead Cargoman Name Role Phone Massiel Jung MD Primary Care Provider [phone] Reason for Visit * Reason Onset Date Comments RTT 02/06/2025 Encounter Details Date Type Department Care Team (Late st Contact Info) Description 02/06/2025 Telephone [facility] MED[facility] [address] [place] [address] Massiel Jung MD [address] [place] [address] RTT Social History Tobacco Use Types Packs/Day Years Used Date Smoking Tobacco: Never Passive Smoke Exposure: Never Smokeless Tobacco: Never Alcohol Use Standard Drinks/Week Comments Not Currently 0 (1 standard drink = 0.6 oz [...] Answer Date Recorded Patient Health Questionnaire-9 Score 14 01/26/2025 Patient Health Questionnaire-9 Score 14 01/26/2025 Last PHQ-9: Questionnaire Data Not on file 1 Housing Stability Answer Date Recorded What is your housing situation today? I have reno chan 03/18/[address] you li ve. Do you have problems with any of the following? None of the above 03/18/2023 Food Insecurity Answer Date Recorded Within the past 12 months, y ou worried that your food would run out before you got money to buy more: Often true 01/26/2025 Within the past 12 months,th e food you bought just didn't last and you didn't have enough money to get more: Often true Transportation Answer Date Recorded In the past [...] the past 12 months, has t he [employer], gas, oil or water [employer] threatened to shut off services in your home? Yes 01/26/2025 Depression Answer Date Recorded Patient Health Questionnaire-2 Score 3 01/26/2025 Internet Access Answer Date Recorded Internet Access [...] encounter Miscellaneous Notes * Telephone Encounter - Isa Huntley RN - 02/06/2025 3:33 PM EST LMOM for patient to call back or [id number] message us back to discuss symptoms * Telephone Encounter - Rosalba Otto - 02/06/2025 11:58 AM EST Patient called stating she has been sick since she got the COVID vaccine (01/26/25) and she is coughing up junk. Patient states she doesn't have a fever but feels achy, diarrhea, threw up, and overall very sick. Patient states she would like a call back with advice. documented in this encounter Plan of Treatment Upcoming Encounters Date Type Department Care Team (Late st Contact Info) Description 05/01/2025 12:00 PM EST Office Visit [facility] MED[facility] [address] [place] [address] Massiel Jung MD [address] [place] [address] documented as of this encounter Visit Diagnoses Not on filedocumented in this encounter Additional Health Concerns Assessment Noted Time PHQ-9 Depression Total Score: 14 025 12:58 PM EDT documented as of this encounter Care Teams Lead Cargoman Relationship Specialty Start Date End Date Massiel Jung MD [address] [place] [address] PCP - General Internal Medicine 03/04/22 documented as of this encounter
--- OUTSIDE RECORDS SUMMARY | 2025-02-06 19:07 | XMS_ITS | Encounter Summary ---
Author Organization [employer] Address [address] [facility] 7t [place] [address] Care Team Providers Care Finance Professor Name Role Phone Massiel Jung MD Primary Care Provider [phone] Encounter Details Date Type Department Care Team (Late st Contact Info) Description 06/26/2024 Orders Only [facility] [address] [place] [address] Massiel Jung MD [address] [place] [address] Social History Tobacco Use Types Packs/Day Years [...] the past 12 months, has t he [employer], gas, oil or water company threatened to [...] Description 05/01/2025 12:00 PM EST Office Visit [facility] [address] [place] [address] Massiel Jung MD [address] [place] [address] documented as of this encounter Procedures Procedure [...] documented as of this encounter Care Teams Finance Professor Relationship Specialty Start Date End Date Massiel Jung MD [address] [place] [address] PCP - General Internal Medicine 03/04/22 documented as of this encounter
--- OUTSIDE RECORDS SUMMARY | 2025-02-06 19:08 | XMS_ITS | Encounter Summary ---
Author Organization [employer] Address [address] [facility] 7t [place] [address] Care Team Providers Care Keymodule Assembly Supervisor Name Role Phone Massiel Jung MD Primary Care Provider Encounter Details Date Type Department Care Team (Late st Contact Info) Description 03/24/2023 Orders Only [facility] [address] [place] [address] Massiel Jung MD [address] [place] [address] Social History Tobacco Use Types Packs/Day Years [...] Description 05/01/2025 12:00 PM EST Office Visit [facility] MED[facility] [address] [place] [address] Massiel Jung MD [address] [place] [address] documented as of this encounter Procedures Procedure Name Priority Date/Time Associated Diagnosis Comments PATHOLOGY REPORT (HISTOPATHOLOGY) Routine 03/02/2023 documented in this encounter Results * Pathology Report (03/02/2023) Tissue us Massiel Jung MD LAB PATHOLOGY ORDERABLES Final R esult documented in this encounter Visit Diagnoses Not on filedocumented in this encounter Care Teams Keymodule Assembly Supervisor Relationship Specialty Start Date End Date Massiel Jung MD [address] [place] [address] PCP - General Internal Medicine 03/04/22 documented as of this encounter
--- OUTSIDE RECORDS SUMMARY | 2025-02-06 19:08 | XMS_ITS | Clinical Summary ---
Author Organization [employer] Address [address] [place] [address] 7t [place] [address] Care Team Providers Care Supervisor Boarding Name Role Phone Massiel Jung MD Primary Care Provider [phone] Allergies Active Allergy Reactions Criticality Noted Date [...] represent a complete record from that organization. cholecalcifer ol (Vitamin D-3) 25 MCG (1000 UT) tablet Take 1,000 Units by mouth in the morning. Active albuterol 108 (90 Base) MCG/ACT inhaler Inhale 2 puffs every 6 (six) hours if needed. Active metFORMIN XR (Glucophage-X R) 500 MG 24 hr tablet 2 tablets in the morning and 2 tablets in the evening. 08/22/19 20 Active esomeprazole (NexIUM) [address] capsule Take 40 mg by mouth in the morning and 40 mg in the evening. 07/22/19 22 Active Multiple Vitamins-Mine rals (MULTIVITAMIN ADULT, MINERALS, PO) Take by mouth. A ctive glucose 4 g chewable tablet as directed Orally Active Insulin Disposable Pump (Omnipod 5 G6 Pod, Gen 5,) [facility] 01/01/20 22 Active BD Pen Needle Micro U/F 32G X 6 MM [facility] 10/23/19 22 Active ipratropium (Atrovent) 0.06 % nasal spray 11/23/19 22 Active melatonin 3 MG tablet Take 5 mg by mouth. 09/02/19 22 Active simethicone (Mylicon) 80 MG chewable tablet Chew 80 mg. 05/20/19 19 Active rosuvastatin (Crestor) 40 MG tablet 08/22/19 22 Active estradiol (Estrace) 0.1 MG/GM vaginal cream Insert 0.1 g into the vagina in the morning. 05/12/19 24 Active ezetimibe (Zetia) 10 MG tablet Take 10 mg by mouth in the morning. 03/19/20 23 Active fenofibrate micronized (Antara) 30 MG capsule Take 67 mg by mouth with breakfast. 05/28/19 22 Active Ferrous Fumarate 325 (106 Fe) MG tablet Take 325 mg by mouth in the morning. 08/15/19 Active HumaLOG 100 UNIT/ML solution Inject 30 mL under the skin. Has insulin pump 03/16/20 Active anastrozole (Arimidex) 1 MG chemo tablet Take 1 mg by mouth in the morning. 03/30/19 Active Lantus SoloStar 100 UNIT/ML penIndication s:Insulin dependent diabetes mellitus type IA (HCC) 36 units nightly 3 mL 11 09/17/19 Active Continuous Glucose Global Sales Manager (Dexcom G7 Global Sales Manager) device 1 each Once per day. 05/24/19 Active Continuous Glucose Sensor (Dexcom G7 Sensor) [facility] Dexcom G7 Sensor, See Instructions, # 9 each, Refills 3, Tot. Refills 3, Maintenance, Use as directed for Diabetes Control. Change every 10 days, 05/24/24 3:23:00 PM EST, Supply, 173, cm, 04/20/24 9:13:00 EST, Height, 87.3, kg, 04/20/24 9:13:00 EST, Dry Weight 04/21/19 Active meclizine (Antivert) 25 MG tabletIndicat ions:Vertigo TAKE 1 TABLET BY MOUTH EVERY MORNING, AT NOON TIME AND AT BEDTIME IF NEEDED FOR DIZZINESS 30 tablet 06/17/19 Active DULoxetine (Cymbalta) [address] capsule TAKE ONE CAPSULE BY MOUTH TWO TIMES A DAY, DO NOT CRUSH OR CHEW 60 capsule 10 06/17/19 Active buPROPion XL (Wellbutrin XL) 150 MG 24 hr tabletIndicat ions:BMI 30.0-30.9,nicky lt TAKE 1 TABLET BY MOUTH IN THE MORNING. DO NOT CRUSH, CHEW, OR SPLIT. 30 tablet 10/07/19 Active glucose blood test strip See Instructions, # 120 each, Refills 11, Tot. Refills 11, Maintenance, Use to test blood sugar up to 4x daily in case of Dexcom CGM failure. E11.65, 09/05/24 2:38:00 PM EDT, Supply, 172, cm, 08/29/24 16:07:00 EDT, Height, 84.1, kg, 06/20/24 23:15:00 EDT, Dry Weight 09/06/19 Active OneTouch Ultra test strip 09/23/19 Active midodrine (Proamatine) 5 MG tablet Take 1 tablet (5 mg) by mouth 2 times daily. 60 tablet 11 5 1:21 PM EDT 10/25/19 Active Additional Information Patient taking differently: 10 mgOral 2 times daily,Per Dr Stearns - renal, Reported on 01/26/2025 gabapentin (Neurontin) 300 MG capsule Take 1 capsule (300 mg) by mouth 3 times daily. 90 capsule 11 5 1:21 PM EDT 10/25/19 25 Active ondansetron (Zofran) 4 MG tablet TAKE 1 TABLET (4 MG) BY MOUTH EVERY 8 (EIGHT) HOURS IF NEEDED FOR NAUSEA FOR UP TO 20 DAYS. 20 tablet 2 5 1:07 PM EDT 11/14/19 Active methocarbamol (Robaxin) 750 MG tabletIndicat ions:Back pain with radiation Take 1 tablet (750 mg) by mouth 2 times daily. 60 tablet 01/27/20 25 026 Active phentermine 15 MG capsuleIndica tions:BMI 30.0-30.9,nicky lt Take 1 capsule (15 mg) by mouth before breakfast. 30 capsule 2 01/27/20 Active naltrexone (Depade) 50 MG tabletIndicat ions:BMI 30.0-30.9,nicky lt Take 1 tablet (50 mg) by mouth Once per day. 90 tablet 3 02/01/20 24 025 Discontinued methocarbamol (Robaxin) 750 MG tabletIndicat ions:Back pain with radiation Take 1 tablet (750 mg) by mouth 2 times daily. 52 tablet 12/27/19 25 025 Discontinued(Re order (will not trigger notification to Pharmacy)) Active Problems Problem Noted Date Diagnosed Date [...] and she will also be calling her instructor weaving about insulin pump adjustments if needed during [...] plan and state they are going to [facility] in [place] now. Daughter Verena will call [facility] in a.m. to report on her [...] on buttocks near anus Is going to [facility] ER this evening for COVID 19 symptoms, likely labs and IV fluids and further evaluation/treatment. Advised to let the triage nurse know at intake about her concerns with the skin lesions that have developed during COVID 19 infection so provider in ER is aware, can examine. Infiltrating ductal carcinoma of left breast (CM S/HCC) 12/23/2022 Overview (05/28/2023): Images from the original note [...] hysterectomy 03/25/2022 Chronic fatigue 03/25/2022 History of LA (myocardial infarction) 03/25/2022 Female bladder prolapse 03/25/2022 Full incontinence of feces 03/25/2022 Hypercholesterolemia 06/18/2020 Diabetic neuropathy 06/18/2020 Insulin dependent diabetes mellitus type IA /2 05/2020 Assessment & Plan (01/12/2023 6:20 PM EDT): Post COVID ER followup, per ER notes the readings on CGM were in the 500s but not in DKA per ER clinician - glucose at visit 319 - sees instructor weaving at [facility] Endocrinology has Omnipod generation. States feeling better since ER but still extremely tired, poor appetite, trying to stay hydrated. States received call from nurse at ER and told Laura she had UTI and prescribed cephalexin. Will call her instructor weaving to see if she can get in sooner than February 2023. Essential hypertension 04/10/2020 Assessment & Plan (01/12/2023 9:29 PM EDT): Encouraged Laura to take home daily bp/pulse readings and made her aware of how high her BP was at recent ER visit per notes, suboptimal HTN control and advised to discuss with PCP or finisher accordion to address -- Laura states she has [...] worsening sx Stage 3a chronic kidney disease (CMS/HCC) 2019 Overview (03/25/2022): Update for Diagnosis Load Sleep [...] pain. Nausea and vomiting, diarrhea. Seen in [facility] ED 02/04/24 and diagnosed [...] Problem Noted Date Diagnosed Date Resolved Date LA (myocardial infarction) 02/03/2019 1 Osteomyelitis 02/07/2015 03/27/2022 Overview (03/25/2022): Osteomyelitis Encounters * This document contains information received from the source organization and may not represent a complete record from that organization. Date Type Department Care Team Description 02/06/[address] [address] Massiel Jung MD RTT 01/29/[address] [address] Massiel Jung MD 01/26/2025 12:00 PM EDT Office Visit [address] [address] Massiel Jung MD Insulin dependent type 2 diabetes mellitus (HCC) (Primary Dx); Back pain with radiation; BMI 30.0-30.9,adult; Tremor; Bilateral hearing loss, unspecified hearing loss type; Immunization due 01/03/[address] [address] Massiel Jung MD patient update, fall 12/20/[address] [address] Massiel Jung MD Methocarbamol needs a PA 12/11/[address] [address] Massiel Jung MD RTT 11/14/[address] [address] Massiel Jung MD request patient info 11/11/[address] [address] Massiel Jung MD from Last 3 Months Immunizations Immunization Administration Dates Next Due Influenza Injectable Quadriv alant Preservative Free IIV4 MDCK 03/18/2023 Influenza injectable quadriv alent preservative free 02/25/2022 Influenza, IIV3, injectable 12/27/2020,1 04/02/2019,04/08/2018,01/22,02/03/2016,02/08/2015,02/19/2014 ,01/20/2013 Influenza, Split (incl. jovanny fied surface antigen) 01/15/2012,01/21/2010 Influenza, trivalent, adjuvanted 01/26/2025 MMR 06/05/2015 Moderna Covid-19 Vaccine 12+ 01/26/2025,02/01/20 24,03/18/2023 PPD Test 10/20/2023,04/08/2015,08/28/2009 Pfizer Covid-19 Vaccine 12+ 06/26/2021,0 06/26/2020,06/05/2020,05/29 Pneumococcal Conjugate PCV 21 10/24/2024 Pneumococcal Polysaccharide PPSV23 04/08/2018,,12/28/2003 TD (adult), 2 Lf tetanus tox oid, preservative free, adsorbed 06/18/2021 Tdap 01/15/2012 Zoster, Recombinant 06/26/2023 Social History Tobacco Use Types Packs/Day Years Used Date Smoking Tobacco: Never Passive Smoke Exposure: Never Smokeless Tobacco: Never Tobacco Cessation:Counseling Given: Not Answered Alcohol Use Standard Drinks/Week Comments Not Currently [...] Sign Reading Time Taken Comments Blood Pressure 118/74 01/26/2025 12:51 PM EDT Pulse 75 01/26/2025 12:51 PM EDT Temperature 36.3 C (97.3 F) 01/26/2025 12:51 PM EDT Respiratory Rate 16 01/26/2025 12:51 PM EDT Oxygen Saturation 94% 06/08/2024 3:21 PM EDT Inhaled Oxygen Concentration - - Weight 84.8 kg (187 lb) 01/26/2025 12:51 PM EDT Height 172.7 cm (5' 8 ) 10/24/2024 12:10 PM EDT Body Mass Index 28.43 10/24/2024 12:10 PM EDT Plan of Treatment Upcoming Encounters Date Type Department Care Team (Late st Contact Info) Description 05/01/2025 12:00 PM EST Office Visit [facility] MED[facility] [address] [place] [address] Massiel Jung MD [address] [place] [address] Health Maintenance Due Date Last Done Comments CT Colonography 1959 FIT DNA/Cologuard 1959 FIT 1959 FOBT 1959 Sigmoidoscopy 1959 Eye Exam 07/24/1969 Alcohol/Substance Use Screening 1971 Hepatitis C Screening 07/24/1977 Diabetes: Urine Protein Screening 07/24/1978 Hepatitis A Vaccines (1 of 2 - Risk 2-dose series) 07/24/1978 Hepatitis B Vaccines (1 of 3 - Risk 3-dose series) 2019 RSV Patients and Patients Aged 60 years or older (1 - Risk 60-74 years 1-dose series) 2019 Colonoscopy 04/25/2022 04/25/2012 Colorectal Cancer Screening 04/25/2022 Zoster Vaccines (2 of 2) 08/21/2023 06/26/2023 Mammogram 12/11/2023 12/10/2022, 11/27, 11/28/2022, Additional history exists Diabetes: Hemoglobin A1C 07/05/2024 025, 10/29/2023, 09/17/2023, Additional history exists Diabetes: Foot Exam 10/26/2024 10/27/2023 Depression Monitoring 07/26/2025 01/26/2025, 025 Lipid Panel 01/26/2026 01/26/2025, 08/0 04/2023, 10/13/2023, Additional history exists SDOH Screening 01/26/2026 01/26/2025 Tobacco Screening 01/26/2026 01/26/2025 DTaP/Tdap/Td Vaccines (3 - Td or Tdap) 06/19/2031 06/18/2021, 01/15/2012 Pneumococcal Vaccine: 50+ Years Completed 10/24/2024, 04/08/2018, 03/13/2004, Additional history exists COVID-19 Vaccine Completed 01/26/2025, 07/2023, 03/18/2023, Additional history exists Influenza Vaccine Completed 01/26/2025, , 02/25/2022, Additional history exists HIB Vaccines [...] Procedure Name Priority Date/Time Associated Diagnosis Comments TSH W/REFLEX TO FT4 Routine 01/26/2025 2 :04 PM EDT Tremor LIPID PANEL, STANDARD Routine 01/26/2025 2:04 PM EDT Insulin dependent type 2 diabetes mellitus (HCC) COMPREHENSIVE METABOLIC PANEL Routine 01/26/2025 2:04 PM EDT Insulin dependent type 2 diabetes mellitus (HCC) AMB REFERRAL TO PHYSICAL MEDICINE REHAB/PHYSIATRY Routine 01/12/2025 Neck pain HEMOGLOBIN A1C Routine 04/06/2024 4:51 PM EST Insulin dependent type 2 diabetes mellitus (CMS/HCC) HP LINK DIABETIC FOOT EXAM Routine 10/27/2023 5:27 PM EDT BI US BREAST LIMITED LEFT Routine 12/10/2022 10:22 AM EDT COLONOSCOPY Routine 04/25/2012 12:00 AM EST from Last 3 Months or Most Recently Relevant to Health Maintenance Results * TSH with Reflex to Free T4 (01/26/2025 2:04 PM EDT) Pathologist [facility] TSH 1.540 0.450 - 4.500 uIU/mL [facility] Blood 01/26/2025 2:04 PM EDT 01/26/2025 Narrative Resulting Agency Comment Performed at: - [address] [id number] Cmo & President: Tierra Farmer MD, Phone: [phone] Massiel Jung MD LAB BLOOD ORDERABLES Final Resul t Performing Organization Address [facility]/ZIP Co de Phone Number [facility] 1 [facility] [address] [place] [address] * (ABNORMAL) Lipid Panel, Standard (01/26/2025 2:04 PM EDT) Pathologist [facility] Cholesterol, Total 193 100 - 199 mg/dL [facility] Triglycerides 240(H) 0 - 149 mg/dL [facility] HDL Cholesterol 62 >39 mg/dL [facility] VLDL Cholesterol Hamzah 40 5 - 40 mg/dL [facility] LDL Chol Calc (NIH) 91 0 - 99 mg/dL [facility] Blood Venous blood specimen / Unknown 01/26/2025 2:04 PM EDT 01/26/2025 Narrative Resulting Agency Comment Performed at: - [address] [id number] Cmo & President: Tierra Farmer MD, Phone: [phone] Massiel Jung MD LAB BLOOD ORDERABLES Final Resul t Performing Organization Address [facility]/ZIP Co de Phone Number [facility] 1 [facility] [address] [place] [address] * (ABNORMAL) Comprehensive metabolic panel (01/26/2025 2:04 PM EDT) Pathologist [facility] Glucose 272(H) 70 - 99 mg/dL [facility] Urea Nitrogen (BUN) 49(H) 8 - 27 mg/dL [facility] Creatinine, Serum 1.45(H) 0.57 - 1.00 mg/dL [facility] eGFR 40(L) >59 mL/min/1.7 3 [facility] BUN/Creatinine Ratio 34(H) 12 - 28 [facility] Sodium 139 134 - 144 mmol/L [facility] Potassium 5.2 3.5 - 5.2 mmol/L [facility] Chloride 97 96 - 106 mmol/L [facility] Anion Gap 20.0(H) 10.0 - 18.0 mmol/L [facility] Carbon Dioxide 22 20 - 29 mmol/L [facility] Calcium 10.6(H) 8.7 - 10.3 mg/dL [facility] Comment:Verified by repeat analysis Protein, Total 7.5 6.0 - 8.5 g/dL [facility] Albumin 4.9 3.9 - 4.9 g/dL [facility] Globulin 2.6 1.5 - 4.5 g/dL [facility] Bilirubin, Total <0.2 0.0 - 1.2 mg/dL [facility] Alkaline Phosphatase 115 49 - 135 IU/L [facility] AST 18 0 - 40 IU/L [facility] ALT 29 0 - 32 IU/L [facility] Blood Venous blood specimen / Unknown 01/26/2025 2:04 PM EDT 01/26/2025 Narrative Resulting Agency Comment Performed at: - [facility] [address] [place], [place] [id number] Cmo & President: Tierra Farmer MD, Phone: [phone] us Massiel Jung MD LAB BLOOD ORDERABLES Final Resul t [facility] [address] [place] [address] * Referral to Physical Medicine Rehab (01/12/2025) us Massiel Jung MD OUTPATIENT REFERRAL ORDERABLES F inal Result * (ABNORMAL) Hemoglobin A1c (04/06/2024 4:51 PM EST) Hemoglobin A1c 11.8(H) 4.8 - 5.6 % [facility] 1 Comment: Prediabetes: 5.7 - 6.4 Diabetes: >6.4 Glycemic control for adults with diabetes: <7.0 Blood Venous blood specimen / Unknown 04/06/2024 4:51 PM EST 04/06/2024 Narrative [facility] 1 - 04/07/2024 8:07 AM EST Performed at: - [facility] [address] [id number] Cmo & President: Tierra Farmer MD, Phone: [phone] [facility] LAB BLOOD ORDERABLES Candelaria l Result [facility] 1 * HP Diabetic Foot Exam (10/27/2023 5:27 PM EDT) Historical Provider HEALTH MAINTENANCE Final Result * [...] (Suspicious) Lay letter mailed to patient WSN: [id number] Ordering Physician: Massiel Jung Dictated By: Shay Phillips Jr, MD Dictated Date/Time: 12/10/22 10:50 a Reviewed By: Shay Phillips Jr, MD Signed By: Shay Phillips Jr, MD Signed Date/Time: 12/10/22 10:50 am Transcribed By: NATHAN Transcribed Date/Time: 12/10/22 10:40 am Procedure Note Donotuseinterpreter, Image - [...] (Suspicious) Lay letter mailed to patient WSN: [id number] Ordering Physician: Massiel Jung Dictated By: Shay Phillips Jr, MD Dictated Date/Time: 12/10/22 10:50 a Reviewed By: Shay Phillips Jr, MD Signed By: Shay Phillips Jr, MD Signed Date/Time: 12/10/22 10:50 am Transcribed By: NATHAN Transcribed Date/Time: 12/10/22 10:40 am Massiel Jung MD [facility] PROCEDURES Final Result * COLONOSCOPY (04/25/2012 [...] to Health Maintenance Insurance [employer] MEDICARE REPLACEMENT [facility] FULL Care Teams Supervisor Boarding Relationship Specialty Start Date End Date Massiel Jung MD [address] [place] [id number] PCP - General Internal Medicine 03/04/22
--- OUTSIDE RECORDS SUMMARY | 2025-02-06 19:08 | XMS_ITS | Encounter Summary ---
Author Organization [facility] Address [address] [facility] [address] [place] [phone] Phone Care Team Providers Care Insurance Analyst Name Role Phone Massiel Jung MD Primary Care Provider [phone] Encounter Details Date Type Department Care Team (Late st Contact Info) Description 02/03/2019 Procedure Pass [facility]O DEPT [address] [facility] 4th [place] [address] Social History Tobacco Use Types Packs/Day Years Used Date Smoking Tobacco: Never Smokeless Tobacco: Never Alcohol Use Standard Drinks/Week Comments No 0 (1 standard drink = 0.6 oz pur e alcohol) Comments No Sex and Gender Information Value Date Recorded Sex Assigned at Not on file Legal Sex Female 3:04 PM EST Gender Identity Not on file Sexual Orientation Not on file documented as of this encounter Plan of Treatment Not on file documented as of this encounter Visit Diagnoses Not on filedocumented in this encounter Care Teams Insurance Analyst Relationship Specialty Start Date End Date Massiel Jung MD [address] [place] [address] [email or web address] PCP - General Internal Medicine 04/26/14 documented as of this encounter Additional Source Comments The information contained in this document represents components of the legal health record. It is not the complete legal health record.[facility]
--- OUTSIDE RECORDS SUMMARY | 2025-02-06 19:08 | XMS_ITS | Clinical Summary ---
Author Organization [facility] Address [address] [place] [address] Care Team Providers Care Protective Services Social Worker Name Role Phone Massiel Jung MD Primary Care Provider [phone] Allergies Active Allergy Reactions Criticality Noted Date [...] by mouth. 0 Active Deep Sea Nasal [place] 0.65 % nasal spray 0 01/29/2023 Active [...] (2 - Td or Tdap) 01/14/2022 01/15/2012 Fall Risk Assessment 07/24/2024 Osteoporosis Screening (DEXA Scan) 07/24/2024 Pneumococcal Vaccine (2 of 2 - PCV) 07/24/2024 04/08/2018, 03/13/2004, 12/28/2003 COVID-19 Vaccine ( - season) 2024 03/18/2023, 06/26/2021, 01/31/2021, Additional history exists Influenza Vaccine (#1) 2024 , 02/25/2022, 12/27/2020, [...] age to complete this topic Care Teams Protective Services Social Worker Relationship Specialty Start Date End Date Massiel Jung MD [address] [place] [address] PCP - General Internal Medicine 05/21/16
--- OUTSIDE RECORDS SUMMARY | 2025-02-06 19:08 | XMS_ITS | Clinical Summary ---
Author Organization [facility] Address [address] [place] [id number] Phone Care Team Providers Care Tieing Machine Operator Name Role Phone Massiel Jung MD Primary Care Provider [phone] Allergies Active Allergy Reactions Criticality Noted Date Comments Aspirin Rash 02/07/2015 Codeine Other (See Comments),Angioedema High 02/04/2015 Throat closing Diazepam Other (See Comments),Angioedema High 02/04/2015 Throat closing Leann Anaphylaxis High 01/06/2019 Meperidine Other (See Comments),Angioedema High 02/04/2015 Throat closing Motrin (Ibuprofen) Rash 02/07/2015 Penicillins Rash Low 09/23/2017 Prochlorperazine Rash Low 02/07/2015 Sulfa (Sulfonamide Antibiotics) Shortness Of Breath,Rash High 09/23/2017 Medications MULTIVITAMIN WITH MINERALS/LUT (MULTI-YOLA 50 AND OVER ORAL) Take by mouth. Active metFORMIN (GLUCOPHAGE) 500 MG tablet Take 1,000 mg by mouth 2 (two) times a day with meals. Active Saccharomyces boulardii (FLORASTOR) 250 mg capsule Take 250 mg by mouth daily. Active insulin aspart U-100 (NOVOLOG) 100 unit/mL (3 mL) injection penIndications:O mni pod pump Inject under the skin. Indications: Omni pod pump Active ferrous sulfate, dried (IRON, DRIED, ORAL)Indications :dose unknown Take by mouth 2 (two) times a day. Indications: dose unknown Active fenofibrate micronized (ANTARA) 30 mg capsule Take 67 mg by mouth daily before breakfast. Active rosuvastatin (CRESTOR) 40 MG tablet Take 40 mg by mouth daily. Active PARoxetine (PAXIL) 30 MG tablet Take 30 mg by mouth every morning. Active lisinopril (PRINIVIL,ZESTRI L) 10 MG tablet Take 10 mg by mouth daily. Active zinc 50 mg Tab tablet Take 50 mg by mouth daily. Active vitamin E 400 UNIT capsule Take 400 Units by mouth daily. Active doxylamine succinate (SLEEP AID, DOXYLAMINE, ORAL) Take 5 mg by mouth nightly at bedtime. Active melatonin 1 mg Tab Take by mouth nightly at bedtime. Active cholecalciferol (VITAMIN D3) 25 MCG (1,000 unit) tablet Take 1,000 Units by mouth daily. Active cyanocobalamin, vitamin B-12, 1000 MCG tablet Take 1,000 mcg by mouth daily. Active therapeutic multivitamin tablet Take 1 tablet by mouth daily. Active blood-glucose transmitter (DEXCOM G6 TRANSMITTER MISC) by Miscellaneous route. Active esomeprazole (NEXIUM) 40 MG capsuleIndicatio ns:Gastroesophag eal reflux disease without esophagitis Take 1 capsule (40 mg total) by mouth 2 (two) times a day. 60 capsule 6 07/22/19 22 Active cholestyramine (QUESTRAN) 4 gram packetIndication s:Diarrhea, unspecified type Take 2 packets (8 g total) by mouth 3 (three) times a day with meals. Please provide sugar/artifical sugar free: Take 2 packets daily 20 min before a meal 60 packet 5 07/22/19 22 Active gabapentin (NEURONTIN) 100 MG capsuleIndicatio ns:Gastroparesis Take 1 capsule (100 mg total) by mouth as directed. Take 100 mg at lunch, 100 mg at dinner, and 200 mg before bed. 180 capsule 4 10/21/19 22 Active Active Problems Problem Noted Date Diagnosed Date IN (myocardial infarction) 02/03/2019 Hyperlipidemia 02/03/2019 Anemia 02/03/2019 Gastroparesis 02/03/2019 Sleep apnea 02/03/2019 Overview (02/03/2019): CPAP nightly Diabetic retinopathy 02/03/2019 Neuropathy 02/03/2019 Overview (02/03/2019): feet Type 2 diabetes mellitus 02/07/2015 Overview (03/05/2015): Type 2 diabetes mellitus; retinopathy, insulin pump Uncoded Non-alcoholic fatty liver 02/07/2015 Overview (03/05/2015): Non-alcoholic fatty liver Gastroesophageal reflux disease 02/07/2015 Overview (03/05/2015): Gastroesophageal reflux disease Irritable bowel syndrome 02/07/2015 Overview (03/05/2015): Irritable bowel syndrome Peripheral vascular disease 02/07/2015 Overview (03/05/2015): Peripheral vascular disease Coronary artery disease 02/07/2015 Overview (03/05/2015): Coronary arteriosclerosis Colon polyp 02/07/2015 Overview (03/05/2015): Polyp of colon Goiter 02/07/2015 Overview (03/05/2015): Goiter Osteomyelitis 02/07/2015 Overview (03/05/2015): Osteomyelitis Chronic abdominal pain 02/07/2015 Overview (03/05/2015): Chronic abdominal pain Chronic diarrhea 02/07/2015 Overview (03/05/2015): Chronic diarrhea Family History Medical History Relation Comments Type 2 Diabetes Father Diabetes Mellitu s Type 2 Relation Status Comments Father Social History Tobacco Use Types Packs/Day Years Used Date Smoking Tobacco: Never Smokeless Tobacco: Never Alcohol Use Standard Drinks/Week Comments No 0 (1 standard drink = 0.6 oz pur e alcohol) Education Answer Date Recorded Are you interested in more education? Not on [place] e 07/24/2022 Are you concerned about learning? Not on file 07/24/2022 No 07/24/2022 No 07/24/2022 Digital Access Answer Date Recorded No 08/21/2022 No 08/21/2022 Reliable internet access at home? Not on file 08/21/2022 Device with a working camera? Not on file Comments No Sex and Gender Information Value Date Recorded Sex Assigned at Not on file Legal Sex Female 3:04 PM EST Gender Identity Not on file Sexual Orientation Not on file Last Filed Vital Signs Vital Sign Reading Time Taken Comments Blood Pressure 103/74 07/21/2021 9:17 AM EDT Pulse 103 07/21/2021 9:17 AM EDT Temperature 36.1 C (97 F) 07/21/2021 9:17 AM EDT Respiratory Rate 8 02/03/2019 4:41 PM EST Oxygen Saturation 98% 07/21/2021 9:17 AM EDT Inhaled Oxygen Concentration - - Weight 86.2 kg (190 lb) 07/21/2021 9:17 AM EDT Height 175.3 cm (5' 9.02 ) 02/17/2019 8:48 AM ES T Body Mass Index 28.05 02/17/2019 8:48 AM EST Plan of Treatment Health Maintenance Due Date Last Done Comments BLOOD PRESSURE 1960 DEPRESSION SCREENING 1971 HEPATITIS C SCREENING 07/24/1977 HIV ONE-TIME SCREENING (18-65 YEARS) 07/24/1977 COLOGUARD 07/24/2004 FIT TEST 07/24/2004 FOBT 07/24/2004 SIGMOIDOSCOPY 07/24/2004 VIRTUAL COLONOSCOPY 07/24/2004 RSV VACCINE (1 - Risk 50-74 years 1-dose series) 07/24/2009 ZOSTER VACCINES (1 of 2) 07/24/2009 DIABETIC EYE EXAM 03/05/2015 PNEUMOCOCCAL VACCINES (50+ years) (2 of 2 - PCV) 04/08/2019 04/08/2018, 03/13/2004, 12/28/2003 CREATININE LEVEL 03/01/2020 03/01/2019 POTASSIUM LEVEL 03/01/2020 03/01/2019 HEMOGLOBIN A1C 04/28/2023 01/26/2023, 03/3 03/2021, 01/23/2021, Additional history exists COLONOSCOPY 02/04/2024 02/03/2019, 09/23/2017 COLORECTAL CANCER SCREENING 02/04/2024 OSTEOPOROSIS SCREENING INITIAL (ONE-TIME) 07/24/2024 INFLUENZA VACCINE (#1) 2024 2, 12/27/2020, 02/01/2020, Additional history exists COVID-19 VACCINE ( season) 2024 02/25/2022, 06/26/2021, 01/31/2021, Additional history exists MAMMOGRAM 11/28/2024 11/28/2022, 04/2022, 11/16/2014 Adult Td,Tdap Booster 06/19/2031 06/18/2021, 012 SMOKING STATUS SCREENING (Once After 26 Yrs) Completed 02/06/2022 HEPATITIS A VACCINES Aged Out No long er eligible based on patient's age to complete this topic HIB VACCINES Aged Out No longer eligi ble based on patient's age to complete this topic IPV VACCINES Aged Out No longer eligi ble based on patient's age to complete this topic MENINGOCOCCAL VACCINES (ACWY) Aged Out No longer eligible based on patient's age to complete this topic MENINGOCOCCAL VACCINES (B) Aged Out N o longer eligible based on patient's age to complete this topic Medical Devices Not on file Procedures Procedure Name Priority Date/Time Associated Diagnosis Comments HEMOGLOBIN A1C Routine 01/26/2023 7:54 AM EDT Research subject COMPREHENSIVE METABOLIC PANEL (CMP) Routine 03/01/2019 7:41 AM EST Research subject ENDOSCOPY, COLON 02/03/2019 2:59 PM EST from Last 3 Months or Most Recently Relevant to Health Maintenance Results * (ABNORMAL) Hemoglobin A1c (01/26/2023 7:54 AM EDT) HEMOGLOBIN A1C 13.4(H) 4.3 - 5.6 % [facility] Comment:HbA1c levels 5.7-6.4 % represent pre-diabetes, indicating impaired glucose control and an increased risk of developing diabetes compared with lower HbA1c levels. The diagnostic HbA1c level for diabetes is 6.5% or greater. CALC MEAN BLD GLUC NOT DONE mg/dL [facility] Comment: A1C >12.0 There is no established normal range for the Calculated Mean Blood Glucose (CMBG), however a HbA1c of 5.6% (upper limit of normal) represents a CMBG of 114 mg/dL. The diagnostic hemoglobin A1c level for diabetes is greater than or equal to 6.5% which represents a CMBG greater than or equal to 140 mg/dL. 01/26/2023 7:54 AM EDT 01/26/2023 10:10 AM EDT Rogelio Zabala MD LAB BLOOD BKR ORDERABLES Final R esult Performing Organization Address City/[facility]/ZIP Co de Phone Number [address] [address] * (ABNORMAL) Comprehensive metabolic panel (03/01/2019 7:41 AM EST) SODIUM 136 135 - 145 mmol/L [facility] POTASSIUM 5.0 3.4 - 5.0 mmol/L [facility] CHLORIDE 96(L) 98 - 108 mmol/L [facility] CO2 25 23 - 32 mmol/L [facility] BUN 43(H) 8 - 25 mg/dL [facility] CREATININE 1.19 0.60 - 1.50 mg/dL [facility] GLUCOSE 227(H) 70 - 110 mg/dL [facility] ALBUMIN 4.5 3.3 - 5.0 g/dL [facility] TOTAL PROTEIN 7.6 6.0 - 8.3 g/dL [facility] CALCIUM 10.2 8.5 - 10.5 mg/dL [facility] ALKALINE PHOSPHATASE 124(H) 30 - 100 U/L [facility] TOTAL BILIRUBIN 0.2 0.0 - 1.0 mg/dL [facility] AST 15 9 - 32 U/L [facility] ALT 19 7 - 33 U/L [facility] GLOBULIN 3.1 1.9 - 4.1 g/dL [facility] EGFR 50(L) >59 mL/min/1. 73m2 [facility] Comment:If patient is black, multiply result by 1.159. Estimated glomerular filtration rate calculated using the CKD-EPI equation. ANION GAP 15 3 - 17 mmol/L [facility] 03/01/2019 7:41 AM EST 03/01/2019 8:12 AM EST Rogelio Zabala MD LAB BLOOD BKR ORDERABLES Final R esult [facility] [address] [address] * ENDOSCOPY, COLON (02/03/2019 2:59 PM EST) 02/03/2019 2:59 PM EST Narrative Transcriptions Ellie Henriquez MD - 02/03/2019 2:59 PM EST Gastrointestinal Endoscopy Unit Patient Name: Laura Lindsey Exam Date: 02/03/2019 2:59 PM Date of : 1960 Admit Type: Outpatient Age: 58 Room: [place] [address] Gender: Female Note Status: Finalized Attending MD: Danya Henriquez MD Procedure: Colonoscopy Indications: Diarrhea, Family history of colon cancer Providers: Danya Henriquez MD Referring MD: Rogelio Zabala MD (Referring MD) Medicines: Monitored Anesthesia Care Complications: No immediate complications. Procedure: After obtaining informed consent, the endoscope was passed under direct vision. Throughout the procedure, the patient's blood pressure, pulse, and oxygen saturations were monitored continuously . The Colonoscope was introduced through the anus and advanced to the the cecum, identified by appendiceal orifice and ileocecal valve. The colonoscopy was somewhat difficult due to restricted mobility of the colon. Successful completion of the procedure was aided by withdrawing the scope and replacing with the pediatric colonoscope. The patient tolerated the procedure well. The quality of the bowel preparation was evaluated using the BBPS ([place] Bowel Preparation Scale) with scores of: Right Colon = 2 (minor amount of residual staining, small fragments of stool and/or opaque liquid, but mucosa seen well), Transverse Colon = 3 (entire mucosa seen well with no residual staining, small fragments of stool or opaque liquid) and Left Colon = 3 (entire mucosa seen well with no residual staining, small fragments of stool or opaque liquid). The total BBPS score equals 8. Findings: A patchy area of mild melanosis was found in the entire colon. Biopsies for histology were taken with a cold forceps from the entire colon for evaluation of microscopic colitis. Verification of patient identification for the specimen was done by the physician and nurse using the patient's name and medical record number. Estimated blood loss was minimal. A single diverticulum was found in the ascending colon. A few small-mouthed diverticula were found in the sigmoid colon. Internal hemorrhoids were found. A 2 mm polyp was found in the transverse colon. The polyp was sessile. The polyp was removed with a cold biopsy forceps. Resection and retrieval were complete. Impression: - Melanosis in the colon. Biopsied. - Diverticulosis in the ascending colon. - Diverticulosis in the sigmoid colon. - Internal hemorrhoids. - One diminutive polyp in the transverse colon, removed with a cold biopsy forceps. Resected and retrieved. Recommendation: - Await pathology results. - Return to referring physician. Attending Participation: I was personally present throughout the entire procedure. Anesthesia administered sedation. V Eddi Henriquez MD, [id number] 02/03/2019 3:40:02 PM The attending physician was present throughout the entire procedure. Number of Addenda: 0 Note Initiated On: 02/03/2019 2:59 PM Rogelio Zabala MD GI PROCEDURE ORDERABLES Final Re sult from Last 3 Months or Most Recently Relevant to Health Maintenance Insurance [facility] MEDICARE PART A & [place] [address] [place] [id number] MEDICARE PART A & [facility] & [facility] B HEALTH MEDICARE PART A & B [facility] [place] [address] MEDICARE PART A & [place] [id number] Care Teams Tieing Machine Operator Relationship Specialty Start Date End Date Massiel Jung MD [address] [place] [address] [email or web address] PCP - General Internal Medicine 04/26/14 Additional Source Comments The information contained in this document represents components of the legal health record. It is not the complete legal health record.[facility]
--- OUTSIDE RECORDS SUMMARY | 2025-02-06 19:08 | XMS_ITS | Encounter Summary ---
Author Organization [employer] Address [address] [facility] 7t [place] [address] Care Team Providers Care Briquetter Operator Name Role Phone Massiel Jung MD Primary Care Provider [phone] Encounter Details Date Type Department Care Team (Late st Contact Info) Description 02/07/2024 Orders Only [facility] [address] [place] [address] Massiel Jung MD [address] [place] [address] Social History Tobacco Use Types Packs/Day Years [...] the past 12 months, has t he [employer], gas, oil or water company threatened to [...] Description 05/01/2025 12:00 PM EST Office Visit [facility] [address] [place] [address] Massiel Jung MD [address] [place] [address] documented as of this encounter Procedures Procedure [...] documented as of this encounter Care Teams Briquetter Operator Relationship Specialty Start Date End Date Massiel Jung MD [address] [place] [id number] PCP - General Internal Medicine 03/04/22 documented as of this encounter
--- OUTSIDE RECORDS SUMMARY | 2025-02-06 19:08 | XMS_ITS | Clinical Summary ---
Author Organization [facility] Address [address] [place] [address] Care Team Providers Care River Cross[place] Supervisor Name Role Phone Massiel Jung Primary Care Provider [phone] Allergies No known active allergies Family History [...] 11/17/2015 015, 09/22/2012, 04/28/2012, Additional history exists Bone Density 07/24/2024 COVID-19 Vaccine ( - 2024- season) 2024 Influenza (#1) 2024 RSV (1 - 1-dose 75+ series) 07/24/2034 HPV Vaccine (No Doses Required) Completed Hep A Aged Out No longer eligi [...] Zoster (Zostavax) Discontinued Procedures * Due to [place] [employer] law, this organization might not be sharing negative HIV tests. Procedure Name Priority Date/Time Associated Diagnosis Comments MAMMOGRAM SCREENING TOMOSYNTHESIS, BILATERAL Routine 11/16/2014 11:19 AM EDT Other screening mammogram from Last 3 Months or Most Recently Relevant to Health Maintenance Results * Due to [place] Empower Futures law, this organization might not be sharing [...] Most Recently Relevant to Health Maintenance Insurance [employer] H[employer] Care Teams [place] Cross[place] Supervisor Relationship Specialty Start Date End Date Massiel Jung [address] [address] PCP - General Internal Medicine 09/19/14
--- OUTSIDE RECORDS SUMMARY | 2025-02-06 19:08 | XMS_ITS | Encounter Summary ---
Author Organization [employer] Address [address] [facility] [address] [place] [address] Care Team Providers Care Bead Flipper Name Role Phone Massiel Jung MD Primary Care Provider [phone] Reason for Visit * Reason Onset Date Comments Referral 04/08/2023 Encounter Details Date Type Department Care Team (Late st Contact Info) Description 04/08/2023 Telephone [facility] [address] [place] [address] Massiel Jung MD [address] [place] [address] Referral Social History Tobacco Use Types Packs/Day [...] Bi-radial carpatanal Phone Number for any questions: [phone] documented in this encounter Plan of Treatment Upcoming Encounters Date Type Department Care Team (Late st Contact Info) Description 05/01/2025 12:00 PM EST Office Visit [facility] [address] [place] [address] Massiel Jung MD [address] [place] [address] documented as of this encounter Visit Diagnoses Not on filedocumented in this encounter Care Teams Bead Flipper Relationship Specialty Start Date End Date Massiel Jung MD [address] [place] [address] PCP - General Internal Medicine 03/04/22 documented as of this encounter
--- OUTSIDE RECORDS SUMMARY | 2025-02-06 19:08 | XMS_ITS | Encounter Summary ---
Author Organization [employer] Address [address] [facility] 7t [place] [address] Care Team Providers Care Airport Clerk Name Role Phone Massiel Jung MD Primary Care Provider Encounter Details Date Type Department Care Team (Late st Contact Info) Description 08/17/2024 Orders Only [facility] [address] [place] [address] Massiel Jung MD [address] [place] [address] Social History Tobacco Use Types Packs/Day Years [...] the past 12 months, has t he [employer], gas, oil or water company threatened to [...] 05/01/2025 12:00 PM EST Office Visit [facility] [address] [place] [address] Massiel Jung MD [address] [place] [address] documented as of this encounter Procedures Procedure Name Priority Date/Time Associated Diagnosis Comments [facility] BILATERAL WITH [place] Routine 08/16/2024 10:19 AM EDT documented in this encounter Results * VASC US Lower Extremity Arterial Duplex Bilateral With K[place] (08/16/2024 10:19 AM EDT) us Massiel Jung MD CV VASCULAR PROCEDURES Final Res ult documented in this encounter Visit Diagnoses Not on filedocumented in this encounter Additional Health Concerns Assessment Noted Time PHQ-9 Depression Total Score: 4 11/16/19 24 12:53 PM EDT documented as of this encounter Care Teams Airport Clerk Relationship Specialty Start Date End Date Massiel Jung MD [address] [place] [address] PCP - General Internal Medicine 03/04/22 documented as of this encounter
--- OUTSIDE RECORDS SUMMARY | 2025-02-06 19:08 | XMS_ITS | Encounter Summary ---
Author Organization [employer] Address [address] [facility] 7t [place] [address] Care Team Providers Care Acoustical Tile Drill Press Operator Name Role Phone Massiel Jung MD Primary Care Provider [phone] Encounter Details Date Type Department Care Team (Late st Contact Info) Description 11/02/2023 Orders Only [facility] [address] [place] [address] Massiel Jung MD [address] [place] [address] Loud snoring; Chronic fatigue Social History Tobacco [...] the past 12 months, has t he [employer], gas, oil or water [employer] threatened to shut off services in your [...] 05/01/2025 12:00 PM EST Office Visit [facility] [address] [place] [address] Massiel Jung MD [address] [place] [address] documented as of this encounter Procedures Procedure [...] documented as of this encounter Care Teams Acoustical Tile Drill Press Operator Relationship Specialty Start Date End Date Massiel Jung MD [address] [place] [id number] PCP - General Internal Medicine 03/04/22 documented as of this encounter
--- OUTSIDE RECORDS SUMMARY | 2025-02-06 19:08 | XMS_ITS | Clinical Summary ---
Author Organization [facility] Address [address] [place] [address] Care Team Providers Care Packing Room Supervisor Name Role Phone Massiel Jung MD Primary Care Provider [phone] Allergies Active Allergy Reactions Criticality Noted Date [...] Health Maintenance Due Date Last Done Comments Advance Care Planning 1960 Hepatitis C Virus Screening 1960 HIV Screening 07/24/1972 DTaP/Tdap/Td Vaccines (1 - Tdap) 07/24/1978 Pap Smear (Ages 21-65) 07/24/1980 Pneumococcal Vaccines 50+ (1 of 1 - PCV) 07/24/2009 RSV Vaccine 50 years and older and Patients (1 - Risk 50-74 years 1-dose series) 07/24/2009 Zoster (Shingles) Vaccine (1 of 2) 07/24/2009 Mammogram 11/16/2016 11/16/2014 Colonoscopy 04/25/2022 04/25/2012 DXA Bone Density (Females,Ages 65 and older) 07/24/2024 Influenza Vaccine 10/27/2024 03/18/2023, , 12/27/2020, Additional history exists COVID-19 Vaccine ( season) 2024 02/01/2024, 03/18/2023, 06/26/2021, Additional history exists Hepatitis B Vaccines Aged Out No long er eligible based on patient's age to complete this topic Insurance [employer] MEDICARE Care Teams Packing Room Supervisor Relationship Specialty Start Date End Date Massiel Jung MD [address] [place] [address] PCP - General Internal Medicine 12/28/23
--- OUTSIDE RECORDS SUMMARY | 2025-02-06 19:08 | XMS_ITS | Encounter Summary ---
Author Organization [employer] Address [address] [facility] 7t [place] [address] Care Team Providers Care Lawn Care Professional Name Role Phone Massiel Jung MD Primary Care Provider [phone] Encounter Details Date Type Department Care Team (Late st Contact Info) Description 02/02/2024 Orders Only [facility] [address] [place] [address] Massiel Jung MD [address] [place] [address] Social History Tobacco Use Types Packs/Day Years [...] the past 12 months, has t he [employer], gas, oil or water company threatened to [...] Description 05/01/2025 12:00 PM EST Office Visit [facility] [address] [place] [address] Massiel Jung MD [address] [place] [address] documented as of this encounter Procedures Procedure [...] documented as of this encounter Care Teams Lawn Care Professional Relationship Specialty Start Date End Date Massiel Jung MD [address] [place] [address] PCP - General Internal Medicine 03/04/22 documented as of this encounter
--- OUTSIDE RECORDS SUMMARY | 2025-02-06 19:08 | XMS_ITS | Encounter Summary ---
Author Organization [employer] Address [address] [place] [address] Care Team Providers Care Center Hole Reamer Name Role Phone Massiel Jung MD Primary Care Provider Encounter Details Date Type Department Care Team (Late st Contact Info) Description 11/01/2023 Orders Only [facility] MEDICAL [address] [place] [address] ProviderRizwana MD Social History Tobacco Use Types [...] Description 05/01/2025 12:00 PM EST Office Visit [place] [facility] MEDICAL [address] [place] [address] Massiel Jung MD [address] [place] [address] documented as of this encounter Procedures Procedure [...] documented as of this encounter Care Teams Center Hole Reamer Relationship Specialty Start Date End Date Massiel Jung MD [address] [place] [address] PCP - General Internal Medicine 03/04/22 documented as of this encounter
--- OUTSIDE RECORDS SUMMARY | 2025-02-06 19:08 | XMS_ITS | Encounter Summary ---
Author Organization [facility] Address [address] [facility] [address] [place] [address] Phone Care Team Providers Care Hull Grinder Name Role Phone Massiel Jung MD Primary Care Provider [phone] Encounter Details Date Type Department Care Team (Late st Contact Info) Description 09/23/2017 Procedure Pass [facility] JAYLA 4 ENDO DEPT [address] [facility], 4th [place] [address] Social History Tobacco Use Types Packs/Day Years Used Date Smoking Tobacco: Never Smokeless Tobacco: Never Alcohol Use Standard Drinks/Week Comments No 0 (1 standard drink = 0.6 oz pur e alcohol) Comments Unknown Sex and Gender Information Value Date Recorded Sex Assigned at Not on file Legal Sex Female 3:04 PM EST Gender Identity Not on file Sexual Orientation Not on file documented as of this encounter Plan of Treatment Not on file documented as of this encounter Visit Diagnoses Not on filedocumented in this encounter Care Teams Hull Grinder Relationship Specialty Start Date End Date Massiel Jung MD [address] [place] [address] [email or web address] PCP - General Internal Medicine 04/26/14 documented as of this encounter Additional Source Comments The information contained in this document represents components of the legal health record. It is not the complete legal health record.[facility]
--- OUTSIDE RECORDS SUMMARY | 2025-02-06 19:08 | XMS_ITS | Patient Health Record ---
Author Organization [facility] Address [address] [place] [address] Care Team Providers Care Word Processing Specialist Name Role Phone Fabiana SIMPSON, Massiel Primary Care Provider UnavailEarnest Parr Unavailable [phone] Allergies Allergen (clinical drug ingredient) Drug/Non Drug [...] Test Name Order Date Hemoglobin A1c 08/06/2014 [id number] NAIL, 6 OR MORE 08/06/2014 [id number] NAIL, 6 OR MORE 10/18/2014 54720- Debride <25 sq cm 08/06/2014 [id number] SKIN LESIONS, OVER 4 10/19/19 15 [id number] SKIN LESIONS, 2 TO 4 08/07/19 15 Insurance Providers Payer Name Payer Address Payer Phone Subscriber Number Group Number Insured Name Patient Relationship to Insured Coverage Start Date Coverage End Date [facility] [address] [place] [address] [id number] Charles Self - patient is the insured Medical [...]
--- OUTSIDE RECORDS SUMMARY | 2025-02-06 19:09 | XMS_ITS | Encounter Summary ---
Author Organization [facility] Address [address] [place] [address] Care Team Providers Care Manager Background Name Role Phone Massiel Jung MD Primary Care Provider [phone] Encounter Details Date Type Department Care Team ([facility] st Contact Info) Description 04/26/2024 Scanned Document [facility] [address] Percy Kowalski MD [address] [place] [address] Social History Tobacco Use Types Packs/Day Years [...] on filedocumented in this encounter Care Teams Manager Background Relationship Specialty Start Date End Date Massiel Jung MD [address] [place] [address] PCP - General Internal Medicine 12/28/23 documented as of this encounter
--- OUTSIDE RECORDS SUMMARY | 2025-02-06 19:09 | XMS_ITS | Encounter Summary ---
Author Organization [employer] Address [address] [facility] 7t [place] [address] Care Team Providers Care Hog Ringer Name Role Phone Massiel Jung MD Primary Care Provider [phone] Reason for Visit * Reason Comments Med Refill Encounter Details Date Type Department Care Team (Late st Contact Info) Description 02/25/2024 Refill [facility] MEDICAL [address] [place] [address] Monie Eagle MD [address] [place] [address] Social History Tobacco Use Types Packs/Day Years [...] t he electric, gas, oil or water [employer] threatened to shut off services in your [...] Description 05/01/2025 12:00 PM EST Office Visit [facility] MEDICAL [address] [place] [address] Massiel Jung MD [address] [place] [address] documented as of this encounter Visit Diagnoses Not on filedocumented in this encounter Additional Health Concerns Assessment Noted Time PHQ-9 Depression Total Score: 4 11/16/19 24 12:53 PM EDT documented as of this encounter Care Teams Hog Ringer Relationship Specialty Start Date End Date Massiel Jung MD [address] [place] [address] PCP - General Internal Medicine 03/04/22 documented as of this encounter
--- OUTSIDE RECORDS SUMMARY | 2025-02-06 19:09 | XMS_ITS | Encounter Summary ---
Author Organization [employer] Address [address] [facility] 7t [place] [address] Care Team Providers Care Medical Office Asst Name Role Phone Massiel Jung MD Primary Care Provider [phone] Encounter Details Date Type Department Care Team (Late st Contact Info) Description 04/05/2024 Orders Only [facility] [address] [place] [address] Massiel Jung MD [address] [place] [address] Social History Tobacco Use Types Packs/Day Years [...] the past 12 months, has t he [employer], gas, oil or water company threatened to [...] 05/01/2025 12:00 PM EST Office Visit [facility] MEDICAL [address] [place] [address] Massiel Jung MD [address] [place] [address] documented as of this encounter Procedures Procedure Name Priority Date/Time Associated Diagnosis Comments CREATININE, SERUM Routine 03/02/2024 3:35 PM EST LIPID PANEL, STANDARD Routine 10/13/2023 3:36 PM EDT STRESS TEST WITH MYOCARDIAL PERFUSION Routine 06/14/2023 3:43 PM EDT documented in this encounter Results * Creatinine, Serum (03/02/2024 3:35 PM EST) Blood us Massiel Jung MD LAB BLOOD ORDERABLES [...] documented as of this encounter Care Teams Medical Office Asst Relationship Specialty Start Date End Date Massiel Jung MD [address] [place] [address] PCP - General Internal Medicine 03/04/22 documented as of this encounter
--- OUTSIDE RECORDS SUMMARY | 2025-02-06 19:09 | XMS_ITS | Encounter Summary ---
Author Organization [facility] Address [address] [place] [address] Care Team Providers Care Car Painter Name Role Phone Massiel Jung MD Primary Care Provider [phone] Encounter Details Date Type Department Care Team (Late st Contact Info) Description 01/10/2024 Scanned Document [facility] [address] [place] [address] Isaura Pires [address] [facility] [address] [place] [address] Social History Tobacco Use Types Packs/Day Years [...] on filedocumented in this encounter Care Teams Car Painter Relationship Specialty Start Date End Date Massiel Jung MD [address] [place] [address] PCP - General Internal Medicine 12/28/23 documented as of this encounter
--- OUTSIDE RECORDS SUMMARY | 2025-02-06 19:09 | XMS_ITS | Encounter Summary ---
Author Organization [facility] Address [address] [employer] [facility] [address] [place] [address] Phone Care Team Providers Care Pesticide Applicator Name Role Phone Massiel Jung MD Primary Care Provider [phone] Encounter Details Date Type Department Care Team (Late st Contact Info) Description 01/05/[address] [facility] JAYLA 4 ENDO DEPT [address] [facility], 4th [place] [address] Social History Tobacco Use Types Packs/Day Years [...] on filedocumented in this encounter Care Teams Pesticide Applicator Relationship Specialty Start Date End Date Massiel Jung MD [address] [place] [address] [email or web address] PCP - General Internal Medicine 04/26/14 documented as of this encounter Additional Source Comments The information contained in this document represents components of the legal health record. It is not the complete legal health record.[facility]
[2025-02-06 19:13] VITALS: BP 169/90; PULSE 107; RESP 16; TEMP 36.8; O2SAT 98
[2025-02-06 21:12] LABS: Appearance Urine Clear; Glucose Urine UA >=1000 mg/dL (Negative); PH 5.0 (5.0-9.0); Specific Gravity - Urine 1.025 (1.005-1.025); UMIC TRIGGER UACC YES
[2025-02-06 21:15] LABS: UACC Culture Trigger YES
[2025-02-06 21:36] VITALS: BP 168/85; PULSE 95; RESP 16; TEMP 36.5; O2SAT 98
[2025-02-06 22:14] LABS: Glucose, Whole Blood 376 mg/dL (60-115)
[2025-02-06 22:37] VITALS: BP 168/85; PULSE 95; RESP 16; TEMP 36.5; O2SAT 98
== END 2025-02-06 22:37 | disposition home or self-care (01) ==
PROVIDERS: Registered Nurse Emergency; Emergency Provider Emergency Medicine; PCP Internal Medicine
DX: N39.0 Urinary tract infection, site not specified (principal); Z03.818 Encounter for observation for suspected exposure to other biological agents ruled out; E11.65 Type 2 diabetes mellitus with hyperglycemia; E78.5 Hyperlipidemia, unspecified; R07.9 Chest pain, unspecified; R00.0 Tachycardia, unspecified
CPT/HCPCS: 36415; 71046; 80053; 81001; 82010; 82803; 82947; 84484; 85025; 85610; 87086; 87088; 87186; 87637; 93005; 96361; 96374; 99284; J2405

== ENCOUNTER → 2025-02-06 17:11 | Outpatient (BNV) | payer MEDICARE, SELFPAY | PROVIDERS: Emergency Provider Emergency Medicine; PCP Internal Medicine; Visit Provider Internal Medicine Cardiovascular Disease | DX: R00.0 Tachycardia, unspecified (principal) | CPT/HCPCS: 93010 ==

== ENCOUNTER → 2025-02-06 19:28 | Outpatient (BNV) | payer MEDICARE, SELFPAY | PROVIDERS: PCP Internal Medicine; Visit Provider Radiology Diagnostic Radiology | DX: R07.9 Chest pain, unspecified (principal) | CPT/HCPCS: 71046 ==

== ENCOUNTER 2025-02-17 12:25 | Inpatient (IN) | payer MEDICARE, SELFPAY ==
--- OUTSIDE RECORDS SUMMARY | 2025-02-14 23:59 | XMS_ITS | Continuity of Care Document ---
Author Organization [facility] Address [address] [place] [address]- Care Team Providers Care Rock Climbing Instructor Name Role Phone Massiel Jung MD Primary Care Physician [phone] Encounter 02/13/25 - 02/14/[address] [address] Attending Physician: Not on Staff, Attending MD Referring Physician: Yue Lee Encounter Type: [facility] Allergies, Adverse Reactions, Alerts Substance Criticality Severity Reaction Reaction Severity Status codeine 1 rash/vomiting Active aspirin unknown Active ketorolac unknown Active sulfADIAZINE rash Active morphine rash, stomach pain, throat closing Active opioid-like analgesics upset stomach Active Motrin unknown Active Mydriacyl unknown Active Naprosyn unknown Active penicillins hives Active sulfa drugs Unable to assess criticality Persistent Moderate Skin rash Active Cyclogyl prolonged eye dilation Active Valium [...] Medications anastrozole 1 mg oral tablet 1 tablet, By Mouth, Daily, # 90 tablet, 3 Refills, Maintenance, 08/24/24 3:08:00 PM EDT, [facility], 172, cm, 06/23/24 8:32:00 EDT, Height, 84.1, kg, 06/20/24 23:15:00 EDT, Dry Weight Start Date: 08/24/24 Status: Ordered Medication Dispense Status: Completed Quantity: 90.0 Unit: tablet Total Allowed Fills: 1 Fills Dispensed: 0 buPROPion 150 mg/24 hours (XL) oral tablet, extended release 1 tablet = 150 mg, By Mouth, Every 24 hours, # 30 tablet, 0 Refills, Maintenance, 04/20/24 9:33:00 AM EST, ER Tablet, Partial fill upon patient request if the prescription is for a schedule II opioid drug. Start Date: 04/20/24 Status: Ordered Medication Dispense Status: Completed Quantity: 30.0 Unit: tablet Total Allowed Fills: 1 Fills Dispensed: 0 Dexcom G6 sensors Dexcom G6 sensors, See Instructions, # 3 each, Refills 5, Tot. Refills 5, Maintenance, Use to monitor blood sugars continuously for Type 2 DM E11.9, 06/22/24 9:36:00 AM EDT, Supply, 172, cm, 06/22/24 8:47:00 EDT, Height, 84.1, kg, 06/20/24 23:15:00 EDT, Dry Weight Start Date: 06/22/24 Status: Ordered Medication Dispense Status: Completed Quantity: 3.0 Unit: each Total Allowed Fills: 6 Fills Dispensed: 0 DEXCOM G7 SENSOR MISC Miscellaneous DEXCOM G7 SENSOR MISC Miscellaneous, See Instructions, # 9 Unknown, 3 Refills, Maintenance, USE DIRECTED FOR DIABETES CONTROL. CHANGE EVERY 10 DAYS, 01/30/25 3:11:00 PM EST, 172, cm, 11/15/24 14:35:00 EDT, Height, 82, kg, 11/15/24 14:35:00 EDT, Dry Weight Start Date: 01/30/25 Status: Ordered Medication Dispense Status: Completed Quantity: 9.0 Unit: Unknown Total Allowed Fills: 1 Fills Dispensed: 0 duloxetine 30 mg oral enteric coated capsule 1 capsule = 30 mg, By Mouth, 2 times a day, 0 Refills, Maintenance, 01/27/23 11:25:00 AM EDT, Partial fill upon patient request if the prescription is for a schedule II opioid drug. Start Date: 01/27/23 Status: Ordered Medication Dispense Status: Completed Total Allowed Fills: 1 Fills Dispensed: 0 Lantus Solostar Pen 100 units/mL subcutaneous solution See Instructions, INJECT 30 UNITS SUBCUTANEOUSLY AT BEDTIME IN CASE OF PUMP FAILURE, # 15 mL, 11 Refills, Maintenance, 03/10/24 3:49:00 PM EST, [facility], 173, cm, 03/02/24 16:10:00EST, Height, 86.5, kg, 01/25/24 14:38:00 EDT, Dry Weight Start Date: 03/10/24 Status: Ordered Medication Dispense Status: Completed Quantity: 15.0 Unit: mL Total Allowed Fills: 1 Fills Dispensed: 0 meclizine 25 mg oral tablet 1 tablet = 25 mg, By Mouth, 3 times a day, # 12 tablet, 0 Refills, Maintenance, 04/20/24 9:32:00 AM EST, Tablet, Partial fill upon patient request if the prescription is for a schedule II opioid drug. Start Date: 04/20/24 Status: Ordered Medication Dispense Status: Completed Quantity: 12.0 Unit: tablet Total Allowed Fills: 1 Fills Dispensed: 0 melatonin 3 mg oral tablet 3 tablet = 9 mg, By Mouth, Daily at bedtime, 0 Refills, Maintenance, 09/01/21 12:58:00 PM EDT, Partial fill upon patient request if the prescription is for a schedule II opioid drug. Start Date: 09/01/21 Status: Ordered Medication Dispense Status: Completed Total Allowed Fills: 1 Fills Dispensed: 0 metFORMIN 500 mg oral tablet, extended release See Instructions, TAKE TWO TABLETS BY MOUTH TWO TIMES A DAY FOR DIABETES CONTROLLED, # 120 tablet, 11 Refills, Maintenance, 12/12/24 7:57:00 AM EDT, [facility], 172, cm, 11/15/24 14:35:00 EDT, Height, 82, kg, 11/15/24 14:35:00 EDT, Dry Weight Start Date: 12/12/24 Status: Ordered Medication Dispense Status: Completed Quantity: 120.0 Unit: tablet Total Allowed Fills: 1 Fills Dispensed: 0 naltrexone 50 mg oral tablet 1 tablet = 50 mg, By Mouth, Daily, # 30 tablet, 0 Refills, Maintenance, 04/20/24 9:35:00 AM EST, Tablet, Partial fill upon patient request if the prescription is for a schedule II opioid drug. Start Date: 04/20/24 Status: Ordered Medication Dispense Status: Completed Quantity: 30.0 Unit: tablet Total Allowed Fills: 1 Fills Dispensed: 0 NovoLOG 100 units/mL injectable solution See Instructions, FOR USE IN INSULIN PUMP VIA SUBCUTANEOUS INJECTION. MAX DAILY DOSE: 65 UNITS., # 30 mL, 5 Refills, Maintenance, 10/02/24 10:37:00 AM EDT, [facility], 172, cm, 09/25/24 11:52:00 EDT, Height, 81.7, kg, 09/25/24 11:52:00 EDT, Dry Weight Start Date: 10/02/24 Status: Ordered Medication Dispense Status: Completed Quantity: 30.0 Unit: mL Total Allowed Fills: 1 Fills Dispensed: 0 One Touch Ultra 2 Glucose Meter See Instructions, # 1 each, Refills 0, Tot. Refills 0, Maintenance, Use to test blood sugar up to 4x daily in case of Dexcom CGM failure. E11.65, 09/05/24 2:38:00 PM EDT, Supply, 172, cm, 08/29/24 16:07:00 EDT, Height, 84.1, kg, 06/20/24 23:15:00 EDT, Dry Weight Start Date: 09/05/24 Status: Ordered Medication Dispense Status: Completed Quantity: 1.0 Unit: each Total Allowed Fills: 1 Fills Dispensed: 0 One Touch Ultra Test Strips See Instructions, # 120 each, Refills 11, Tot. Refills 11, Maintenance, Use to test blood sugar up to 4x daily in case of Dexcom CGM failure. E11.65, 09/05/24 2:38:00 PM EDT, Supply, 172, cm, 08/30/2515:07:00 EDT, Height, 84.1, kg, 06/20/24 23:15:00 EDT, Dry Weight Start Date: 09/05/24 Status: Ordered Medication Dispense Status: Completed Quantity: 120.0 Unit: each Total Allowed Fills: 12 Fills Dispensed: 0 One Touch UltraSoft Lancets See Instructions, # 120 each, Refills 11, Tot. Refills 11, Maintenance, Use as instrcuted to test blood sugar up to 4x daily in case of Dexcom CGM failure. E11.65, 09/05/24 2:38:00 PM EDT, Supply, 172, cm, 08/29/24 16:07:00 EDT, Height, 84.1, kg, 06/20/24 23:15:00 EDT, Dry Weight Start Date: 09/05/24 Status: Ordered Medication Dispense Status: Completed Quantity: 120.0 Unit: each Total Allowed Fills: 12 Fills Dispensed: 0 ProAir HFA 90 mcg/inh inhalation aerosol with adapter 1, puffs, Inhalation, Every 4 hours, PRN, # 8.5 Gm, Refills 0, Maintenance, 09/01/21 12:54:00 PM EDT,Aerosol Start Date: 09/01/21 Status: Ordered Medication Dispense Status: Completed Quantity: 8.5 Unit: g Total Allowed Fills: 1 Fills Dispensed: 0 rosuvastatin 40 mg oral tablet 1 tablet, By Mouth, Daily, # 30 tablet, 3 Refills, Maintenance, 12/12/24 1:36:00 PM EDT, [facility], 172, cm, 11/15/24 14:35:00 EDT, Height, 82, kg, 11/15/24 14:35:00 EDT, Dry Weight Start Date: 12/12/24 Status: Ordered Medication Dispense Status: Completed Quantity: 30.0 Unit: tablet Total Allowed Fills: 1 Fills Dispensed: 0 Vitamin B12 1000 mcg oral tablet 1 tablet = 1,000 mcg, By Mouth, Daily, # 30 tablet, 0 Refills, Maintenance, 04/20/24 9:34:00 AM EST,Tablet, Partial fill upon patient request if the prescription is for a schedule II opioid drug. Start Date: 04/20/24 Status: Ordered Medication Dispense Status: Completed Quantity: 30.0 Unit: tablet Total Allowed Fills: 1 Fills Dispensed: 0 Vitamin D3 1000 intl units oral capsule 1 capsule = 25 mcg, By Mouth, Daily, # 75 capsule, 0 Refills, Maintenance, 09/01/21 12:57:00 PM EDT, Capsule, Partial fill upon patient request if the prescription is for a schedule II opioid drug. Start Date: 09/01/21 Status: Ordered Medication Dispense Status: Completed Quantity: 75.0 Unit: capsule Total Allowed Fills: 1 Fills Dispensed: 0 Zetia 10 mg oral tablet 1 tablet = 10 mg, By Mouth, Daily, # 30 tablet, 11 Refills, Maintenance, 03/19/23 4:14:00 PM EST, Tablet, [facility], Partial fill upon patient request if the prescription is for a schedule II opioid drug., 173, cm, 03/17/23 11:08:00 EST, Height, 91.7, kg, 03/16/23 9:54:00 EST, DryWeight Start Date: 03/19/23 Status: Ordered Medication Dispense Status: Completed Quantity: 30.0 Unit: tablet Total Allowed Fills: 12 Fills Dispensed: 0 Problem List Condition Confirmation Course Effective Dates [...] Expert Social History Social History Type Response Sexual Preferred pronoun: S he/her. Smoking Status Never (less than 100 in lifetime) entered on: 04/20/24 Sex Sex Representation Female (finding) Patient Care team information Care Team Personnel Name: Jazlyn Chen Position: [facility] Onco RN Member Role: Primary Care Nurse Name: Siri Tovar RN Position: [facility] RN Member Role: Primary Care Nurse Name: Adin Mercado RN Position: [facility] ED RN W/OE and Tasks Member Role: Primary Care Nurse Name: Jaki Loyd RN Position: [facility] AMB Nurse Member Role: Primary Care Nurse Name: Massiel Jung MD Position: [facility] Physician - Pediatrics Member Role: PCP Address: [address] [place] [address]- Telecom: Name: Frandy Downing RN Position: [facility] RN Member Role: Primary Care Nurse Name: Indigo Haro RN Position: [facility] RN Member Role: Primary Care Nurse Name: Jayne Dotson RN Position: [facility] RN Member Role: Primary Care Nurse Name: Rainer Mock RN Position: [facility] RN Member Role: Primary Care Nurse Name: Stephanie Marino RN Position: [facility] RN Member Role: Primary Care Nurse Name: Graciela Payne RN Position: [facility] AMB MA Member Role: Primary Care Nurse Name: Lissa Stover Position: [facility] Office Staff Member Role: Primary Care Nurse Name: Ladarius Sanabria Position: [facility] Outreach Member Role: Lifetime Consulting Physician Name: Monie Cardozo RN Position: [facility] OB RN Member Role: Primary Care Nurse Name: Pam Perry RN Position: [facility] RN Member Role: Primary Care Nurse Name: Margaret Wilkinson RN Position: [facility] RN Member Role: Primary Care Nurse Name: Estrella Ventura RN Position: [facility] RN Member Role: Primary Care Nurse Name: Viktoria Jennings RN Position: [facility] RN Member Role: Primary Care Nurse Name: Harish Schafer Position: [facility] Outreach Member Role: Lifetime Consulting Physician Name: Patrica Chambers RN Position: [facility] ED RN W/OE and Tasks Member Role: Primary Care Nurse Name: Anel Jacobson RN Position: [facility] AMB Nurse Member Role: Primary Care Nurse Name: Grisel Whalen RN Position: [facility] Onco RN Member Role: Primary Care Nurse Name: Lu Aguilar RN Position: [facility] Onco RN Member Role: Primary Care Nurse Name: Collin Appiah Position: [facility] RN Member Role: Primary Care Nurse Name: Maya Sotelo RN Position: [facility] RN Member Role: Primary Care Nurse Name: Johnson Ramos Position: [facility] Outreach Member Role: Lifetime Consulting Physician Name: Nancy Romano RN Position: [facility] RN Member Role: Primary Care Nurse Name: Estrella Hansen RN Position: [facility] Onco RN Member Role: Primary Care Nurse Name: Eli Vilchis RN Position: [facility] ED RN W/OE and Tasks Member Role: Primary Care Nurse Name: Selma Betancourt RN Position: S RN Member Role: Primary Care Nurse Name: Ilene Mcdermott RN Position: S RN Member Role: Primary Care Nurse Name: Leigha Lincoln RN Position: [facility] Onco RN Member Role: Primary Care Nurse Care Team Related Persons Name: TIMOTEO GOETZ Name: GRACE NAIR Name: JACOB RESENDIZ Name: JANIYA GOTTLIEB Name: DEMIAN LOPEZ Name: OSORIO SHORT Insurance Providers Guarantor name: BRAYAN RESENDIZ Health Plan Information #: 1 Payer: [facility] MEDICARE ADV PPO Payer Identifier: JOANA Member Number: [id number] Group Number: [id number] Subscriber Identifier: NA Relationship to Subscriber: self Coverage Type: Medicare PPO Coverage Verification Date: Telecom: Address: [facility] Information #: 2 Payer: [facility] [employer] Payer Identifier: NA Member Number: [id number] Group Number: [id number] Subscriber Identifier: NA Relationship to Subscriber: self Coverage Type: MEDICAID Coverage Verification Date: Telecom: Address:
--- NOTE | ~2025-02-17 | CT_ITS ---
CLINICAL HISTORY: abd pain CT abdomen and pelvis with IV contrast. COMPARISON: CT abdomen and pelvis dated 02/04/24 at 19:50 EST FINDINGS: Partially visualized lung bases are unremarkable. Liver is enlarged with right lobe measuring 19.6 cm. No focal hepatic lesion. Cholecystectomy. Normal spleen. Normal pancreas. Normal adrenal glands. Symmetric renal enhancement. No hydronephrosis. Appendix is not seen. No right lower quadrant or Rima cecal inflammatory changes. Moderate colonic stool burden. No bowel obstruction. Mild distal colonic diverticulosis without evidence of diverticulitis. Interval resolution of previously seen diverticulitis along the proximal sigmoid colon. No mesenteric or retroperitoneal lymphadenopathy. Mild aortoiliac atherosclerotic vascular calcifications. Punctate gas present within the urinary bladder. No adnexal mass. Moderate spondylosis. Small fat containing umbilical hernia. IMPRESSION: 1. No evidence of appendicitis or diverticulitis. 2. Punctate gas present within the urinary bladder. Nonspecific finding can be associated with cystitis. Recommend correlation clinically. 3. Moderate colonic stool burden. No bowel obstruction. This document has been electronically signed by: Kentrell Mondragon MD on 02/17/2025 15:07:00
--- OUTSIDE RECORDS SUMMARY | 2025-02-17 11:00 | XMS_ITS | Encounter Summary ---
Author Organization [employer] Address [address] [facility] 7[address] [place] [address] Care Team Providers Care Motor Racer Name Role Phone Massiel Jung MD Primary Care Provider [phone] Reason for Visit * Reason Comments ER Follow-up Encounter Details Date Type Department Care Team (Late st Contact Info) Description 02/17/2025 11:00 AM EST Office Visit [facility] MEDICAL [address] [place] [address] Massiel Jung MD [address] [place] [address] Dehydration (Primary Dx) Social History Tobacco Use Types Packs/Day Years [...] AM EST documented as of this encounter Last Filed Vital Signs Vital Sign Reading Time Taken Comments Blood Pressure 100/67 02/17/2025 10:59 AM EST Pulse 113 02/17/2025 10:59 AM EST Temperature - - Respiratory Rate - - Oxygen Saturation 96% 02/17/2025 10:59 AM EST Inhaled Oxygen Concentration - - Weight 81.2 kg (179 lb) 02/17/2025 10:59 AM EST Height 172.7 cm (5' 8 ) 02/17/2025 10:59 AM EST Body Mass Index 27.22 02/17/2025 10:59 AM EST documented in this encounter Progress Notes * Massiel Jung MD - 02/17/2025 11:00 AM EST Subjective Patient ID: Laura Lindsye is a 64 y.o. female who presents for ER Follow-up. ER Follow-up Pt feels sick. 12/06. Pt seen in ED on 02/06, diagnosed with dehyrdation and a UTI. Given keflex and zofran. Completed the course. Never really felt better. She had cough/headache/flu-like sympoms which is what had her to to the ED. Chest xrays looked ok. Feeling short of breath. Not using inhalers, think they . The cough/sputum is actually better, but now flare up of diverticulitis, has severe LLQ pain which just happened this morning. Has beeen vomiting, last time was 2 days ago. Hydrating. Sugars are high: 300-400's and eating a lot of sugar. Just feels horrible. Daughter here with her and agrees she looks worse than she has . Review of Systems Objective Physical Exam Constitutional: Appearance: She is well-developed. She is ill-appearing (pale). HENT: Head: Normocephalic. Nose: Nose normal. Mouth/Throat: Mouth: Mucous membranes are dry. Eyes: Pupils: Pupils are equal, round, and reactive to light. Cardiovascular: Rate and Rhythm: Regular rhythm. Tachycardia present. Heart sounds: Normal heart sounds. Pulmonary: Effort: Pulmonary effort is normal. Breath sounds: Normal breath sounds. Abdominal: General: Bowel sounds are normal. There is distension. Palpations: Abdomen is soft. Tenderness: There is abdominal tenderness. There is no guarding or rebound. Musculoskeletal: Cervical back: Normal range of motion and neck supple. Skin: Findings: No lesion or rash. Neurological: General: No focal deficit present. Psychiatric: Mood and Affect: Mood normal. Assessment/Plan Diagnoses and all orders for this visit: Dehydration Comments: needs IV hydration and likely imaging to look for diverticulitis; advise ED; pt will to to [place]. * Isa Huntley RN - 02/17/2025 11:00 AM EST Faxed office visit note to [facility] ER, spoke with Wen to advise her of incoming fax regarding patient. documented in this encounter Plan of Treatment Upcoming Encounters Date Type Department Care Team (Late st Contact Info) Description 05/01/2025 12:00 PM EST Office Visit [facility] MED[facility] [address] [place] [address] Massiel Jung MD [address] [place] [address] documented as of this encounter Visit Diagnoses Diagnosis Dehydration- Primary documented in this encounter Additional Health Concerns Assessment Noted Time PHQ-9 Depression Total Score: 14 025 12:58 PM EDT documented as of this encounter Care Teams Motor Racer Relationship Specialty Start Date End Date Massiel Jung MD [address] [place] [address] PCP - General Internal Medicine 03/04/22 documented as of this encounter
--- NOTE | 2025-02-17 12:29 | ED_ITS ---
HPI - General Adult General Chief complaint: Abdominal Pain Stated complaint: Diverticulitis flare up, dehydrated Time Seen by Provider: 02/17/25 12:40 Source: patient and family (patient's daughter) Mode of arrival: ambulatory Limitations: no limitations History of Present Illness ED Provider: Martha Jonas PA-C HPI narrative: Patient is a 64 year old assigned female at with a history of vertigo, peripheral neuropathy, PAD, CKD stage 3, depression, DM, and fibromyalgia presenting to the emergency department today with abdominal pain, nausea, vomiting, and diarrhea. Patient states that on 02/06/2025 she was seen for similar symptoms and diagnosed with a UTI for which she completed her medication. Patient states that she has never felt better and now she is having lower abdominal pain with nausea, vomiting, and diarrhea. Patient denies any other complaints at this time. Related Data Home Medications ?Medication ?Instructions ?Recorded ?Confirmed bupropion HCl 150 mg 24 hr tablet, 150 mg PO DAILY 01/2010/05/24 extended release duloxetine 30 mg capsule,delayed 30 mg PO BID 09/05/24 10/05/24 release ezetimibe 10 mg tablet 10 mg PO DAILY 09/05/2409/26 insulin glargine 100 unit/mL (3 unit subcut 09/05/24 0 10/05/24 mL) subcutaneous pen (Lantus Solostar U-100 Insulin) insulin lispro 100 unit/mL subcut 09/05/24 10/05/24 subcutaneous solution (Humalog U-100 Insulin) insulin pump cart,auto,BT,G6/7 #5 ea 09/05/24 (Omnipod 5 G6-G7 Pods (Gen 5) subcutaneous cartridge) meclizine 25 mg tablet 25 mg PO TID PRN 09/05/24 metformin 500 mg tablet,extended 1,000 mg PO BID 09/0510/05/24 release 24 hr methocarbamol 750 mg tablet 750 mg PO BID 09/05/2401/20 rosuvastatin 40 mg tablet 40 mg PO DAILY 09/05/2409/26 anastrozole 1 mg tablet mg PO 02/17/25 benzonatate 100 mg capsule 100 mg PO TID 02/17/25 Previous Rx's ?Medication ?Instructions ?Recorded cephalexin 500 mg capsule 500 mg PO Q12H #13 caps 01/27 04/22 ondansetron 4 mg disintegrating 4 mg PO Q8H PRN nausea and 02/06/25 tablet vomiting #10 tabs Allergies Allergy/AdvReac Type Severity Reaction Status Date / Time aspirin Allergy Unknown Verified 02/17/25 12:35 codeine Allergy Unknown Verified 02/17/25 12:35 diazepam (From Valium) Allergy Anaphylaxis Verified 02/17/25 12:35 meperidine (From Demerol) Allergy Anaphylaxis Verified 02/17/25 12:35 Opioids - Morphine Analogues Allergy Anaphylaxis Verified 02/17/25 12:35 Penicillins (PCN) Allergy Unknown Verified 02/17/25 12:35 Sulfa (Sulfonamide Allergy Stomach Verified 02/17/25 12:35 Antibiotics) Upset Review of Systems 2 Constitutional: Constitutional: Reports as per HPI Eyes: Eyes: Reports as per HPI ENT: Reports as per HPI Cardiovascular: Cardiovascular: Reports as per HPI Respiratory: Respiratory: Reports as per HPI Gastrointestinal: Gastrointestinal: Reports as per HPI Genitourinary: Genitourinary: Reports as per HPI Musculoskeletal: Musculoskeletal: Reports as per HPI Integumentary/Breasts: Skin/Breast: Reports as per HPI Neurologic: Reports as per HPI Psychiatric: Psychiatric: Reports as per HPI Endocrine: Endocrine: Reports as per HPI Hematologic/Lymphatic: Hematologic/Lymphatic: Reports as per HPI Allergic/Immunologic: Allergic/Immunologic: Reports as per HPI PMF Past Medical History Attestation statement: The following information was validated with the patient. (all information validated with the patient's daughter) Source: old records reviewed, obtained from family (patient's daughter provided additional history and confirmed the history provided by the patient. ) and nursing notes reviewed Medical History Liver function abnormality Chronic kidney disease, stage 3 Diabetic retinopathy Depression Fibromyalgia PAD (peripheral artery disease) Peripheral neuropathy High cholesterol Tachycardia Diabetes Gastroparesis Social History Social History Advance Directives: No Advance Directives Information Provided: No Physical Exam ED Vital Signs: Vital Signs - 24 hr 02/17/25 12:30 02/17/25 13:18 02/17/25 14:32 Temperature 96.6 F L 98.0 F 98.0 F Pulse Rate 114 H 113 H Respiratory Rate 16 16 Blood Pressure 174/81 H 128/72 Pulse Oximetry 94 Oxygen Delivery Method Room Air Room Air BMI result Body Mass Index 27.2 Const General: cooperative, no acute distress, alert and awake Nutritional Appearance: well nourished Orientation/consciousness: patient oriented x3 HENMT Head: Yes normal to inspection and Yes atraumatic Ears: hearing grossly normal bilaterally and external ears normal General nose exam: Normal external nose present, no nasal discharge noted and no epistaxis Face and sinus: Yes normal facial exam, No abrasion and No laceration Mouth: Normal oral and palatal mucosa present, no drooling and no muffled voice Eyes General: appearance normal, both eyes and all related structures Periorbital: periorbital findings normal Eyelids: Yes eyelids normal Conjunctivae: conjunctivae normal Pupils: Equal, round and reactive pupils present EOM: EOMs intact bilaterally Neck Neck: Yes normal visual inspection and Yes full ROM Resp Effort & Inspection: normal respiratory effort and able to speak in complete sentences Cardio Rate: tachycardic Rhythm: regular rhythm Neuro General: patient oriented x3, moves all extremities and CN's II-XI intact bilaterally Cranial nerves: Yes Equal, round and reactive pupils present Cognition (Neuro): normal cognition Extrem General: Yes normal to inspection, Yes full ROM and Yes capillary refill normal Psych Appearance: grossly normal Mental Status: mental status grossly normal Affect: normal affect Attitude: cooperative Thought process: Normal thought process present Thought content: Normal thought content present Insight: Good insight present (Psych) Course Course Course Narrative: RME, this is a rapid medical exam performed by Alfonso Isbell please refer to primary provider for complete H&P- 64-year-old female presents for evaluation of UTI symptoms shortness he reports history diverticulitis and feels as though she is having a flare. Plan for labs and urinalysis. Will defer any potential advanced imaging to primary ER provider. Medications Administered Discontinued Medications Generic Name Dose Route Start Last Admin Trade Name Freq PRN Reason Stop Dose Admin Diphenhydramine HCl 25 mg 02/17/25 13:46 02/17/25 15:14 Diphenhydramine Hcl 50 Mg/Ml Vial IVPUSH 02/17/25 13:47 25 mg ONCE ONE Administration Hydromorphone HCl 0.5 mg 02/17/25 12:55 02/17/25 13:06 Hydromorphone Hcl 0.5 Mg/0.5 Ml Syringe IVPUSH 02/17/25 12:56 0.5 mg ONCE ONE Administration Protocol Lactated Ringer's 1,000 mls @ 999 mls/hr 02/17/25 13:15 02/17/25 15:14 Lr IV 02/17/25 15:15 999 mls/hr .Q1H1M SCOTT Administration Ceftriaxone Sodium 2 gm/ 50 mls @ 100 mls/hr 02/17/25 13:44 02/17/25 15:18 Sodium Chloride IV 02/17/25 14:13 Infused ONCE ONE Infusion Iohexol 100 ml 02/17/25 13:37 02/17/25 13:39 Iohexol 350 Mg/Ml 100 Ml Infus..Btl IV 02/17/25 13:38 85 ml ONCE ONE Administration Metoclopramide HCl 10 mg 02/17/25 13:46 02/17/25 15:14 Metoclopramide Hcl 10 Mg/2 Ml Vial IVPUSH 02/17/25 13:47 10 mg ONCE ONE Administration Ondansetron HCl 4 mg 02/17/25 12:55 02/17/25 13:06 Ondansetron Hcl 4 Mg/2 Ml Vial IVPUSH 02/17/25 12:56 4 mg ONCE ONE Administration Sodium Zirconium Cyclosilicate 10 gm 02/17/25 13:39 02/17/25 15:14 Sodium Zirconium Cyclosilicate 10 Gm Powd.Pack PO 02/17/25 13:40 10 gm ONCE ONE Administration Medical Decision Making Medical Decision Making [facility] Narrative: Patient is a 64 year old assigned female at with a history of vertigo, peripheral neuropathy, PAD, CKD stage 3, depression, DM, and fibromyalgia presenting to the emergency department today with abdominal pain, nausea, vomiting, and diarrhea. Patient's physical exam was as noted in the physical exam portion of this note. Patient was tachycardic on exam. Patient's blood work showed a potassium of 5.8, BUN of 36, CR of 1.39, glucose of 665, AST of 35, ALT of 32, alk phos of 137, and lipase of 92. Patient's urine showed evidence of infection. Patient's EKG showed sinus tachycardia. Patient's CT abd/pelvis showed punctate gas in the bladder which may be cystitis as well as moderate colonic stool burden. I was suspicious this patient was septic at 1344. Patient was given IV ceftriaxone. Patient received IV dilaudid, reglan, zofran, and benadryl which, upon re- evaluation, she stated it helped her symptoms some. Patient was given IV fluids and her repeat blood sugar was 470. I spoke with the hospitalist team who agreed to admission for UTI failing outpatient treatment and hypekalemia with hyperglycemia. I explained my physical exam findings as well as all test results to the patient and the patient's daughter. I answered all questions asked by the patient and the patient's daughter. Patient and the patient's daughter verbalized agreement and understanding with this treatment plan and admission. Differential Diagnosis Differential Diagnoses: The differential diagnosis associated with the presentation includes UTI Hyperkalemia Hyperglycemia Constipation Abdominal pain Pancreatitis Admission/Observation Consideration of admission/observation: Escalation of care including admission/observation considered Patient admitted as noted in the MDM Rationale portion of this note. Consult Healthcare Provider Management of the patient was discussed with: Hospitalist (agreed to admission as noted in the MDM Rationale portion of this note. ) Lab Data [facility] Lab Attestation statement: I reviewed the patient's lab results. My interpretation of these results are in the MDM Rationale portion of this note. 02/17/25 12:46 02/17/25 12:46 Labs: Lab Results 02/17/25 02/17/25 02/17/25 Range/Units 12:46 12:56 13:19 WBC 9.1 (4.8-10.8) X10*3/uL RBC 4.88 (4.20-5.50) X10*6/uL Hgb 12.3 (12.0-16.0) g/dl Hct 37.4 (37.0-47.0) % MCV 76.6 L (80.0-98.0) fL MCH 25.2 L (27.0-33.0) pg MCHC 32.9 (31.0-35.0) g/dl RDW 12.3 (11.0-16.0) % Plt Count 250 D (160-400) X10*3/uL MPV 11.3 (9.4-12.3) fL Immature Gran % (Auto) 0.4 (0.0-0.4) % Neut % (Auto) 68.6 (45-73) % Lymph % (Auto) 24.8 (20-40) % [place] % (Auto) 4.8 (2-11) % Eos % (Auto) 1.0 (0-4) % Baso % (Auto) 0.4 (0-2) % Lymph # (Auto) 2.3 (1.2-4.9) X10*3/uL [place] # (Auto) 0.4 (0.1-1.2) X10*3/uL Eos # (Auto) 0.1 (0.0-0.4) X10*3/uL Baso # (Auto) 0.0 (0.0-0.2) X10*3/uL Abs Immat Gran (auto) 0.04 H (0.00-0.03) X10*3/uL Absolute Neuts (auto) 6.2 (2.0-8.3) x10*3/uL Absolute Nucleated RBC 0.000 (0.0-0.012) X10*3/uL Nucleated RBC % (auto) 0.0 (0.0-0.2) /100WBC Smear Tech's Comments VERIFIED Hold Purple Top SEE NOTE Sodium 128 L (135-145) mmol/L Potassium 5.8 H D (3.3-5.1) mmol/L Chloride 95 L (96-108) mmol/L Carbon Dioxide 20 L (22-29) mmol/L Anion Gap 19 (12-20) BUN 36 H (9-16) mg/dL Creatinine 1.39 (0.5-1.4) mg/dL Estim Creat Clear Calc 45.1 Estimated GFR 38 POC Glucose (60-115) mg/dL Random Glucose 665 H* (60-115) mg/dL Lactic Acid 1.9 (0.5-2.0) mmol/L Calcium 9.6 (8.4-10.2) mg/dL Total Bilirubin 0.3 (0.0-1.0) mg/dL AST 35 H (5-31) U/L ALT 32 H (0-31) U/L Alkaline Phosphatase 137 H (39-117) U/L Troponin I High Sens 3.3 (<3.5-17.0) ng/L NT-Pro-B Natriuret Pep 86.3 (<300) pg/mL Total Protein 8.3 H (6.5-8.0) g/dL Albumin 4.8 (3.5-5.0) g/dL Lipase 92 H (8-78) U/L Urine Color Yellow Urine Appearance Cloudy Urine pH 5.0 (5.0-9.0) Ur Specific [place] >= 1.030 H (1.005-1.025) Urine Protein 100 (2+) H (Neg-Trace) mg/dL Urine Glucose (UA) >=1000 H (Negative) mg/dL Urine Ketones Negative (Negative) mg/dL Urine Blood Trace H (Negative) Urine Nitrite Negative (Negative) Ur Leukocyte Esterase Small (1+) H (Negative) Urine RBC 0-2 (0-2) /HPF Urine WBC >50 H (0-5) /HPF Urine WBC Clumps Present Ur Squamous Epith Cells 0-2 (0-2) /HPF Urine Bacteria Trace (None Seen) Hyaline Casts 0-2 (0-2) /LPF 02/17/ Range/Units 15:47 WBC (4.8-10.8) X10*3/uL RBC (4.20-5.50) X10*6/uL Hgb (12.0-16.0) g/dl Hct (37.0-47.0) % MCV (80.0-98.0) fL MCH (27.0-33.0) pg MCHC (31.0-35.0) g/dl RDW (11.0-16.0) % Plt Count (160-400) X10*3/uL MPV (9.4-12.3) fL Immature Gran % (Auto) (0.0-0.4) % Neut % (Auto) (45-73) % Lymph % (Auto) (20-40) % [place] % (Auto) (2-11) % Eos % (Auto) (0-4) % Baso % (Auto) (0-2) % Lymph # (Auto) (1.2-4.9) X10*3/uL [place] # (Auto) (0.1-1.2) X10*3/uL Eos # (Auto) (0.0-0.4) X10*3/uL Baso # (Auto) (0.0-0.2) X10*3/uL Abs Immat Gran (auto) (0.00-0.03) X10*3/uL Absolute Neuts (auto) (2.0-8.3) x10*3/uL Absolute Nucleated RBC (0.0-0.012) X10*3/uL Nucleated RBC % (auto) (0.0-0.2) /100WBC Smear Tech's Comments Hold Purple Top Sodium (135-145) mmol/L Potassium (3.3-5.1) mmol/L Chloride (96-108) mmol/L Carbon Dioxide (22-29) mmol/L Anion Gap (12-20) BUN (9-16) mg/dL Creatinine (0.5-1.4) mg/dL Estim Creat Clear Calc Estimated GFR POC Glucose 470 H* (60-115) mg/dL Random Glucose (60-115) mg/dL Lactic Acid (0.5-2.0) mmol/L Calcium (8.4-10.2) mg/dL Total Bilirubin (0.0-1.0) mg/dL AST (5-31) U/L ALT (0-31) U/L Alkaline Phosphatase (39-117) U/L Troponin I High Sens (<3.5-17.0) ng/L NT-Pro-B Natriuret Pep (<300) pg/mL Total Protein (6.5-8.0) g/dL Albumin (3.5-5.0) g/dL Lipase (8-78) U/L Urine Color Urine Appearance Urine pH (5.0-9.0) Ur Specific [place] (1.005-1.025) Urine Protein (Neg-Trace) mg/dL Urine Glucose (UA) (Negative) mg/dL Urine Ketones (Negative) mg/dL Urine Blood (Negative) Urine Nitrite (Negative) Ur Leukocyte Esterase (Negative) Urine RBC (0-2) /HPF Urine WBC (0-5) /HPF Urine WBC Clumps Ur Squamous Epith Cells (0-2) /HPF Urine Bacteria (None Seen) Hyaline Casts (0-2) /LPF Independent Interpretation I performed an independent interpretation of an: EKG and CT Scan Interpretation: My interpretation is in agreement with the radiologist's impression of this imaging study as written below. CLINICAL HISTORY: abd pain CT abdomen and pelvis with IV contrast. COMPARISON: CT abdomen and pelvis dated 02/04/24 at 19:50 EST FINDINGS: Partially visualized lung bases are unremarkable. Liver is enlarged with right lobe measuring 19.6 cm. No focal hepatic lesion. Cholecystectomy. Normal spleen. Normal pancreas. Normal adrenal glands. Symmetric renal enhancement. No hydronephrosis. Appendix is not seen. No right lower quadrant or Rima cecal inflammatory changes. Moderate colonic stool burden. No bowel obstruction. Mild distal colonic diverticulosis without evidence of diverticulitis. Interval resolution of previously seen diverticulitis along the proximal sigmoid colon. No mesenteric or retroperitoneal lymphadenopathy. Mild aortoiliac atherosclerotic vascular calcifications. Punctate gas present within the urinary bladder. No adnexal mass. Moderate spondylosis. Small fat containing umbilical hernia. IMPRESSION: 1. No evidence of appendicitis or diverticulitis. 2. Punctate gas present within the urinary bladder. Nonspecific finding can be associated with cystitis. Recommend correlation clinically. 3. Moderate colonic stool burden. No bowel obstruction. This document has been electronically signed by: Kentrell Mondragon MD on 02/17/2025 15:07:00 Dictated By: Kentrell Mondragon MD Signed By: Electronically signed by Kentrell Mondragon MD 02/17/25 1507 I independently interpreted this EKG and am in agreement with the below findings: Vent. Rate: 109 BPM Atrial Rate: 109 BPM P-R Int: 140 ms QRS Dur: 74 ms QT Int: 342 ms P-R-T Axes: 69 -20 69 degrees QTcB Int: 460 ms Sinus tachycardia When compared with ECG of 06-Feb-2025 17:26, No significant change was found DD/ 1322 Radiology Impression Discussion of test interpretation with radiology: I have reviewed the radiologist's reading. Independent Historian Clinical information obtained from an independent historian. History obtained from or confirmed by: Other (patient's daughter provided additional history and confirmed the history provided by the patient. ) Chronic Conditions Patient?s care impacted by: Diabetes Critical Care Time Critical Care Time Critical Care Time: Yes Total Critical Care Time: 38 Attestation: I spent 38 minutes of Critical Care Time with this patient. This does not include time spent on separately reported billable procedures. Discharge Plan Discharge Clinical Impression: Acute UTI, Acute hyperglycemia, Acute hyperkalemia Patient Disposition: Admitted As Inpatient Print Language: Serbian
[2025-02-17 12:30] VITALS: BP 174/81; PULSE 114; RESP 16; TEMP 35.9; BMI 27.2
--- OUTSIDE RECORDS SUMMARY | 2025-02-17 12:57 | XMS_ITS | Encounter Summary ---
Author Organization [employer] Address [address] [facility] 7t [place] [address] Care Team Providers Care Roving Changer Name Role Phone Massiel Jung MD Primary Care Provider [phone] Reason for Visit * Reason Comments Med Refill Encounter Details Date Type Department Care Team (Late st Contact Info) Description 02/25/2024 Refill [facility] MED[facility] [address] [place] [address] Monie Eagle MD [address] [place] [address] Social History Tobacco Use Types Packs/Day Years [...] t he electric, gas, oil or water Imp[employer] threatened to shut off services in your [...] Description 05/01/2025 12:00 PM EST Office Visit [facility] MEDICAL [address] [place] [address] Massiel Jung MD [address] [place] [address] documented as of this encounter Visit Diagnoses Not on filedocumented in this encounter Additional Health Concerns Assessment Noted Time PHQ-9 Depression Total Score: 4 11/16/19 24 12:53 PM EDT documented as of this encounter Care Teams Roving Changer Relationship Specialty Start Date End Date Massiel Jung MD [address] [place] [address] PCP - General Internal Medicine 03/04/22 documented as of this encounter
--- OUTSIDE RECORDS SUMMARY | 2025-02-17 12:57 | XMS_ITS | Clinical Summary ---
Author Organization [facility] Address [address] [place] [address] Care Team Providers Care Director Corporate Compliance Name Role Phone Massiel Jung MD Primary Care Provider [phone] Allergies Active Allergy Reactions Criticality Noted Date [...] by mouth. 0 Active Deep Sea Nasal [place] 0.65 % nasal spray 0 01/29/2023 Active [...] age to complete this topic Care Teams Director Corporate Compliance Relationship Specialty Start Date End Date Massiel Jung MD [address] [place] [address] PCP - General Internal Medicine 05/21/16
--- OUTSIDE RECORDS SUMMARY | 2025-02-17 12:57 | XMS_ITS | Encounter Summary ---
Author Organization [facility] Address [address] [employer] [facility] [address] [place] [phone] Phone Care Team Providers Care Tire Trimmer Hand Name Role Phone Massiel Jung MD Primary Care Provider [phone] Encounter Details Date Type Department Care Team (Late st Contact Info) Description 02/03/2019 Procedure Pass [facility] 4 ENDO DEPT [address] [facility] 4th [place] [address] Social History Tobacco Use Types Packs/Day Years [...] on filedocumented in this encounter Care Teams Tire Trimmer Hand Relationship Specialty Start Date End Date Massiel Jung MD [address] [place] [address] [email or web address] PCP - General Internal Medicine 04/26/14 documented as of this encounter Additional Source Comments The information contained in this document represents components of the legal health record. It is not the complete legal health record.[facility]
--- OUTSIDE RECORDS SUMMARY | 2025-02-17 12:57 | XMS_ITS | Encounter Summary ---
Author Organization [facility] Address [address] [facility] [address] [place] [address] Care Team Providers Care Director Style Name Role Phone Massiel Jung MD Primary Care Provider [phone] Encounter Details Date Type Department Care Team (Late st Contact Info) Description 11/01/2023 Orders Only [facility] MEDICAL [address] [place] [address] ProviderRizwana MD Social History Tobacco Use Types [...] Description 05/01/2025 12:00 PM EST Office Visit [facility] MED[facility] [address] [place] [address] Massiel Jung MD [address] [place] [address] documented as of this encounter Procedures Procedure [...] documented as of this encounter Care Teams Director Style Relationship Specialty Start Date End Date Massiel Jung MD [address] [place] [id number] PCP - General Internal Medicine 03/04/22 documented as of this encounter
--- OUTSIDE RECORDS SUMMARY | 2025-02-17 12:57 | XMS_ITS | Clinical Summary ---
Author Organization [employer] Address [address] [place] [address] 7t [place] [address] Care Team Providers Care Music Copyist Name Role Phone Massiel Jung MD Primary Care Provider [phone] Allergies Active Allergy Reactions Criticality Noted Date [...] morning and 2 tablets in the evening. Active esomeprazole (NexIUM) [address] capsule Take 40 mg by mouth in the morning and 40 mg in the evening. 022 Active Multiple Vitamins-Minerals (MULTIVITAMIN ADULT, MINERALS, PO) Take by mouth. Activ e glucose 4 g chewable tablet as directed Orally Active Insulin Disposable Pump (Omnipod 5 G6 Pod, Gen 5,) [facility] Active BD Pen Needle Micro U/F 32G X 6 MM [facility] Active ipratropium (Atrovent) 0.06 % nasal spray Active melatonin 3 MG tablet Take 5 mg by mouth. Active simethicone (Mylicon) 80 MG chewable tablet Chew 80 mg. 019 Active rosuvastatin (Crestor) 40 MG tablet Active estradiol (Estrace) 0.1 MG/GM vaginal cream Insert 0.1 g into the vagina in the morning. 024 Active ezetimibe (Zetia) 10 MG tablet Take 10 mg by mouth in the morning. 023 Active fenofibrate micronized (Antara) 30 MG capsule Take 67 mg by mouth with breakfast. Active Ferrous Fumarate 325 (106 Fe) MG tablet Take 325 mg by mouth in the morning. 020 Active HumaLOG 100 UNIT/ML solution Inject 30 mL under the skin. Has insulin pump 023 Active anastrozole (Arimidex) 1 MG chemo tablet Take 1 mg by mouth in the morning. Active Lantus SoloStar 100 UNIT/ML penIndications:In sulin dependent diabetes mellitus type IA (HCC) 36 units nightly 3 mL 11 024 Active Continuous Glucose Ancient Art Curator (Dexcom G7 Ancient Art Curator) device 1 each Once per day. 025 Active Continuous Glucose Sensor (Dexcom G7 Sensor) [facility] Dexcom G7 Sensor, See Instructions, # 9 each, Refills 3, Tot. Refills 3, Maintenance, Use as directed for Diabetes Control. Change every 10 days, 05/24/24 3:23:00 PM EST, Supply, 173, cm, 04/20/24 9:13:00 EST, Height, 87.3, kg, 04/20/24 9:13:00 EST, Dry Weight 025 Active meclizine (Antivert) 25 MG tabletIndications :Vertigo TAKE 1 TABLET BY MOUTH EVERY MORNING, AT NOON TIME AND AT BEDTIME IF NEEDED FOR DIZZINESS 30 tablet 11 025 Active DULoxetine (Cymbalta) [address] capsule TAKE ONE CAPSULE BY MOUTH TWO TIMES A DAY, DO NOT CRUSH OR CHEW 60 capsule 10 025 Active buPROPion XL (Wellbutrin XL) 150 MG 24 hr tabletIndications :BMI 30.0-30.9,adult TAKE 1 TABLET BY MOUTH IN THE MORNING. DO NOT CRUSH, CHEW, OR SPLIT. 30 tablet 10 025 Active glucose blood test strip See Instructions, # 120 each, Refills 11, Tot. Refills 11, Maintenance, Use to test blood sugar up to 4x daily in case of Dexcom CGM failure. E11.65, 09/05/24 2:38:00 PM EDT, Supply, 172, cm, 08/29/24 16:07:00 EDT, Height, 84.1, kg, 06/20/24 23:15:00 EDT, Dry Weight 025 Active OneTouch Ultra test strip 025 Active midodrine (Proamatine) 5 MG tablet Take 1 tablet (5 mg) by mouth 2 times daily. 60 tablet 11 10/26/19 1:21 PM EDT 2025 Active Additional Information Patient taking differently: 10 mgOral 2 times daily,Per Dr Stearns - renal, Reported on 02/17/2025 gabapentin (Neurontin) 300 MG capsule Take 1 capsule (300 mg) by mouth 3 times daily. 90 capsule 11 10/26/19 1:21 PM EDT 2025 Active ondansetron (Zofran) 4 MG tablet TAKE 1 TABLET (4 MG) BY MOUTH EVERY 8 (EIGHT) HOURS IF NEEDED FOR NAUSEA FOR UP TO 20 DAYS. 20 tablet 2 11/21/19 1:07 PM EDT Active methocarbamol (Robaxin) 750 MG tabletIndications :Back pain with radiation Take 1 tablet (750 mg) by mouth 2 times daily. 60 tablet 2025 Active phentermine 15 MG capsuleIndication s:BMI 30.0-30.9,adult Take 1 capsule (15 mg) by mouth before breakfast. 30 capsule 2 2025 Active benzonatate (Tessalon) 100 MG capsule Take 1 capsule (100 mg) by mouth if needed in the morning, at noon, and at bedtime for cough. Do not crush or chew. 42 capsule 02/09/20 3:03 PM EST 2024 Active naltrexone (Depade) 50 MG tabletIndications :BMI 30.0-30.9,adult Take 1 tablet (50 mg) by mouth Once per day. 90 tablet 3 2025 Active Blood Glucose Monitoring Suppl (ONE TOUCH ULTRA 2) w/Device kit Active NovoLOG 100 UNIT/ML solution See Instructions, FOR USE IN INSULIN PUMP VIA SUBCUTANEOUS INJECTION. MAX DAILY DOSE: 65 UNITS., # 30 mL, 5 Refills, Maintenance, 10/02/24 10:37:00 AM EDT, [facility], 172, cm, 09/25/24 11:52:00 EDT, Height, 81.7, kg, 09/25/24 11:52:00 EDT, Dry Weight Active Lancets (OneTouch Delica Plus [id number]) misc Active ondansetron ODT (Zofran-ODT) 4 MG disintegrating tablet Take 4 mg by mouth every 8 (eight) hours if needed for nausea. Active naltrexone (Depade) 50 MG tabletIndications :BMI 30.0-30.9,adult Take 1 tablet (50 mg) by mouth Once per day. 90 tablet 3 024 2024 Discontinued methocarbamol (Robaxin) 750 MG tabletIndications :Back pain with radiation Take 1 tablet (750 mg) by mouth 2 times daily. 52 tablet 2024 Discontinued(R eorder (will not trigger notification to Pharmacy)) Active [...] and she will also be calling her routing clerk about insulin pump adjustments if needed during [...] plan and state they are going to [facility] in [place] now. Daughter Verena will call [facility] in a.m. to report on her [...] on buttocks near anus Is going to [facility] ER this evening for COVID 19 [...] these phys therapy appointments for her benefit. Garethsystolic murmur 03/25/2022 Small intestinal bacterial overgrowth 03/25/2022 Multinodular goiter 03/25/2022 Insomnia 03/25/2022 Ulcerative lesion 03/25/2022 Foot deformity 03/25/2022 Back pain with radiation 03/25/2022 Carpal tunnel syndrome 03/25/2022 Osteoarthritis 03/25/2022 Lipoma 03/25/2022 Hip pain 03/25/2022 Polyneuropathy in diseases classified elsewhere 03/25/2022 Alpha thalassemia trait 03/25/2022 Fecal urgency 03/25/2022 H/O abdominal hysterectomy 03/25/2022 Chronic fatigue 03/25/[address] (myocardial infarction) 03/25/2022 Female bladder prolapse 03/25/2022 Full incontinence of feces 03/25/2022 Hypercholesterolemia 06/18/2020 Diabetic neuropathy 06/18/2020 Insulin dependent diabetes mellitus type IA 05/28 Assessment & Plan (01/12/2023 6:20 PM EDT): Post COVID ER followup, per ER notes the readings on CGM were in the 500s but not in DKA per ER clinician - glucose at visit 319 - sees routing clerk at [facility] has Omnipod generation. States feeling better since ER but still extremely tired, poor appetite, trying to stay hydrated. States received call from nurse at ER and told Laura she had UTI and prescribed cephalexin. Will call her routing clerk to see if she can get in sooner than February 2023. Essential hypertension 04/10/2020 Assessment & Plan (01/12/2023 9:29 PM EDT): Encouraged Laura to take home daily bp/pulse readings and made her aware of how high her BP was at recent ER visit per notes, suboptimal HTN control and advised to discuss with PCP or oil heaterman to address -- Laura states she has [...] (05/07/2022 2:21 PM EST): Pt of Julieta Fabiana here today for BP recheck. Rx amlodipine [...] pain. Nausea and vomiting, diarrhea. Seen in [facility] [place] [facility] 02/04/24 and diagnosed with diverticulitis. No [...] Problem Noted Date Diagnosed Date Resolved Date CT (myocardial infarction) 02/03/2019 1 Osteomyelitis 02/07/2015 03/27/2022 Overview (03/25/2022): Osteomyelitis Encounters * This document contains information received from the source organization and may not represent a complete record from that organization. Date Type Department Care Team Description 02/17/2025 11:00 AM EST Office Visit [address] [address] Massiel Jung MD Dehydration (Primary Dx) 02/16/[address] [address] Massiel Jung MD BMI 30.0-30.9,adult (Primary Dx) 02/15/[address] [address] Massiel Jung MD 02/08/[address] [place] [address] Massiel Jung MD [employer]. fax received re: CPAP 02/08/2025 Orders Only [facility] [address] [place] [address] Massiel Jung MD 02/07/2025 Orders Only [facility] [address] [place] [address] Massiel Jung MD 02/06/[address] [address] Massiel Jung MD RTT 01/29/[address] [address] Massiel Jung MD 01/26/2025 12:00 PM EDT Office Visit [address] [address] Massiel Jung MD Insulin dependent type 2 diabetes mellitus (HCC) (Primary Dx); Back pain with radiation; BMI 30.0-30.9,adult; Tremor; Bilateral hearing loss, unspecified hearing loss type; Immunization due 01/03/[address] [address] Massiel Jung MD patient update, fall 12/20/[address] [address] Massiel Jung MD Methocarbamol needs a PA 12/11/[address] [address] Massiel Jung MD RTT from Last 3 Months Immunizations Immunization Administration [...] Pulse 113 02/17/2025 10:59 AM EST Temperature 36.3 C (97.3 F) 01/26/2025 12:51 PM EDT Respiratory Rate 16 01/26/2025 12:51 PM EDT Oxygen Saturation 96% 02/17/2025 10:59 AM EST Inhaled Oxygen Concentration - - Weight 81.2 kg (179 lb) 02/17/2025 10:59 AM EST Height 172.7 cm (5' 8 ) 02/17/2025 10:59 AM EST Body Mass Index 27.22 02/17/2025 10:59 AM EST Plan of Treatment Upcoming Encounters Date Type Department Care Team (Late st Contact Info) Description 05/01/2025 12:00 PM EST Office Visit [facility] [address] [place] [address] Massiel Jung MD [address] [place] [address] Health Maintenance Due Date Last Done Comments CT Colonography 1959 FIT DNA/Cologuard 1959 FIT 1959 FOBT 1959 Sigmoidoscopy 1959 Eye Exam 07/24/1969 Alcohol/Substance Use Screening 1971 Hepatitis C Screening 07/24/1977 Hepatitis A Vaccines (1 of 2 - Risk 2-dose series) 07/24/1978 RSV Patients and Patients Aged 60 years or older (1 - Risk 50-74 years 1-dose series) 07/24/2009 Hepatitis B Vaccines (1 of 3 - Risk 3-dose series) 2019 Colonoscopy 04/25/2022 04/25/2012 Colorectal Cancer Screening 04/25/2022 Zoster Vaccines (2 of 2) 08/21/2023 06/26/2023 Mammogram 12/11/2023 12/10/2022, 11/27, 11/28/2022, Additional history exists Diabetes: Hemoglobin A1C 07/05/2024 025, 10/29/2023, 09/17/2023, Additional history exists Diabetes: Foot Exam 10/26/2024 10/27/2023 COVID-19 Vaccine ( season) 2025 01/26/2025, 02/01/2024, 03/18/2023, Additional history exists Depression Monitoring 07/26/2025 01/26/2025, 025 Diabetes: Urine Protein Screening 01/26/2026 01/26/2025 Lipid Panel 01/26/2026 01/26/2025, 08/0 04/2023, 10/13/2023, Additional history exists SDOH Screening 01/26/2026 01/26/2025 Tobacco Screening 01/26/2026 01/26/2025 DTaP/Tdap/Td Vaccines (3 - Td or Tdap) 06/19/2031 06/18/2021, 01/15/2012 Pneumococcal Vaccine: 50+ Years Completed 10/24/2024, 04/08/2018, 03/13/2004, Additional history exists Influenza Vaccine Completed 01/26/2025, [...] Procedure Name Priority Date/Time Associated Diagnosis Comments ECG 12-LEAD Routine 02/06/2025 URINALYSIS, COMPLETE Routine 02/06/2025 CBC WITH AUTO DIFFERENTIAL Routine 02/06/2025 XR CHEST 2 VIEWS Routine 02/06/2025 TSH W/REFLEX TO FT4 Routine 01/26/2025 2 [...] Recently Relevant to Health Maintenance Results * CBC auto differential (02/06/2025) Blood Venous blood specimen / Unknown Result Kat Jung MD LAB BLOOD ORDERABLES Final Resul t * XR Chest 2 Views (02/06/2025) Anatomical Region Laterality Modality Chest Radiographic Marlen ging Result Kat Jung MD IMG XR PROCEDURES Final Result * Urinalysis Complete (02/06/2025) Urine (Urine, Random) Result Kat Jung MD LAB URINE ORDERABLES Final Resul t * ECG 12 lead (02/06/2025) Result Kat Jung MD ECG ORDERABLES Final Result * TSH with Reflex to Free T4 (01/26/2025 2:04 PM EDT) Pathologist [facility] TSH 1.540 0.450 - 4.500 uIU/mL [facility] Blood 01/26/2025 2:04 PM EDT 01/26/2025 Narrative Resulting Agency Comment Performed at: - [address] [id number] Warehouse Analyst: Tierra Farmer MD, Phone: [phone] us Massiel Jung MD LAB BLOOD ORDERABLES Final Resul t [facility] [address] [place] [address] * (ABNORMAL) Lipid Panel, Standard (01/26/2025 2:04 PM EDT) Cholesterol, Total 193 100 - 199 mg/dL [facility] Triglycerides 240(H) 0 - 149 mg/dL [facility] HDL Cholesterol 62 >39 mg/dL [facility] VLDL Cholesterol Hamzah 40 5 - 40 mg/dL [facility] LDL Chol Calc (NIH) 91 0 - 99 mg/dL [facility] Blood Venous blood specimen / Unknown 01/26/2025 2:04 PM EDT 01/26/2025 Narrative Resulting Agency Comment Performed at: 01 - [facility] [address] [place], [place] [id number] Warehouse Analyst: Tierra Farmer MD, Phone: [phone] us Massiel Jung MD LAB BLOOD ORDERABLES Final Resul t [facility] [address] [place] [address] * (ABNORMAL) Comprehensive metabolic panel (01/26/2025 2:04 PM EDT) Glucose 272(H) 70 - 99 mg/dL [facility] Urea Nitrogen (BUN) 49(H) 8 - 27 mg/dL [facility] Creatinine, Serum 1.45(H) 0.57 - 1.00 mg/dL [facility] eGFR 40(L) >59 mL/min/1.7 3 [facility] BUN/Creatinine Ratio 34(H) 12 - 28 [facility] Sodium 139 134 - 144 mmol/L [facility] Potassium 5.2 3.5 - 5.2 mmol/L [facility] Chloride 97 96 - 106 mmol/L [facility] Anion Gap 20.0(H) 10.0 - 18.0 mmol/L [facility] Carbon Dioxide 22 20 - 29 mmol/L [facility] Calcium 10.6(H) 8.7 - 10.3 mg/dL [facility] Comment:Verified by repeat analysis Protein, Total 7.5 6.0 - 8.5 g/dL [facility] Albumin 4.9 3.9 - 4.9 g/dL [facility] Globulin 2.6 1.5 - 4.5 g/dL [facility] Bilirubin, Total <0.2 0.0 - 1.2 mg/dL [facility] Alkaline Phosphatase 115 49 - 135 IU/L [facility] AST 18 0 - 40 IU/L [facility] ALT 29 0 - 32 IU/L [facility] Blood Venous blood specimen / Unknown 01/26/2025 2:04 PM EDT 01/26/2025 Narrative Resulting Agency Comment Performed at: [facility] [id number] Warehouse Analyst: Tierra Farmer MD, Phone: [phone] Massiel Jung MD LAB BLOOD ORDERABLES Final Resul t [facility] [address] [address] * Referral to Physical Medicine Rehab (01/12/2025) Result [facility] Massiel Jung MD OUTPATIENT REFERRAL ORDERABLES F inal Result * (ABNORMAL) Hemoglobin A1c (04/06/2024 4:51 PM EST) [facility] Hemoglobin A1c 11.8(H) 4.8 - 5.6 % [facility] Comment: Prediabetes: 5.7 - 6.4 Diabetes: >6.4 Glycemic control for adults with diabetes: <7.0 Blood Venous blood specimen / Unknown 04/06/2024 4:51 PM EST 04/06/2024 Narrative [facility] 1 - 04/07/2024 8:07 AM EST Performed at: [address] [id number] Warehouse Analyst: Tierra Farmer MD, Phone: [phone] [facility] LAB BLOOD ORDERABLES Candelaria l Result [facility] * HP Diabetic Foot Exam (10/27/2023 5:27 PM EDT) Rizwana Modi MD HEALTH MAINTENANCE Final Result * BI US [...] (Suspicious) Lay letter mailed to patient WSN: [id number] Ordering Physician: Massiel Jung Dictated By: Shay [...] (Suspicious) Lay letter mailed to patient WSN: [id number] Ordering Physician: Massiel Jung Dictated By: Shay Phillips Jr, MD Dictated Date/Time: 12/10/22 10:50 a Reviewed By: Shay Phillips Jr, MD Signed By: Shay Phillips Jr, MD Signed Date/Time: 12/10/22 10:50 am Transcribed By: NATHAN Transcribed Date/Time: 12/10/22 10:40 am Massiel Jung MD [facility] US PROCEDURES Final Result * COLONOSCOPY (04/25/2012 12:00 AM EST) Anatomical Region Laterality Modality Endoscopy 04/25/2012 Narrative 04/25/2012 12:00 AM EST Refer to Fovea for result details Legacy Procedure: COLONOSCOPY Procedure Note ProviderRizwana MD - 07/23/2022 Refer to Poppy for result details Legacy Procedure: COLONOSCOPY Historical Provider ENDOSCOPY PROCEDURE ORDER EDUARDA Final Result from Last 3 Months or Most Recently Relevant to Health Maintenance Insurance AETNA MEDICARE REPLACEMENT [facility] FULL Care Teams Music Copyist Relationship Specialty Start Date End Date Massiel Jung MD [address] [place] [id number] PCP - General Internal Medicine 03/04/22
--- OUTSIDE RECORDS SUMMARY | 2025-02-17 12:57 | XMS_ITS | Encounter Summary ---
Author Organization [facility] Address [address] [place] [phone] Phone Care Team Providers Care Electoral Officer Name Role Phone Massiel Jung MD Primary Care Provider [phone] Encounter Details Date Type Department Care Team (Late Contact Info) Description 04/19/2023 Documentation Only [facility] [address] [place] [address] Iris D[address]on [address] [place] [phone] Social History Tobacco Use Types Packs/Day Years [...] Care Team (Late st Contact Info) Description 2025 2:30 PM EDT Office Visit [facility] [address] [place] [phone] Adin Stearns MD [address] [place] [address] documented as of this encounter Visit Diagnoses Not on filedocumented in this encounter Care Teams Electoral Officer Relationship Specialty Start Date End Date Massiel Jung MD [address] [place] [address] PCP - General Internal Medicine 12/11/19 documented as of this encounter
--- OUTSIDE RECORDS SUMMARY | 2025-02-17 12:57 | XMS_ITS | Encounter Summary ---
Author Organization [employer] Address [address] [facility] [address]t [place] [address] Care Team Providers Care Shading Painter Name Role Phone Massiel Jung MD Primary Care Provider [phone] Encounter Details Date Type Department Care Team (Late st Contact Info) Description 02/08/2025 Orders Only [facility] [address] [place] [address] Massiel Jung MD [address] [place] [address] Social History Tobacco Use Types Packs/Day Years [...] the past 12 months, has t he [employer], gas, oil or water [employer] threatened to shut off services in your [...] Description 05/01/2025 12:00 PM EST Office Visit [place] [facility] [address] [place] [address] Massiel Jung MD [address] [place] [address] documented as of this encounter Procedures Procedure Name Priority Date/Time Associated Diagnosis Comments CBC WITH AUTO DIFFERENTIAL Routine 02/06/2025 XR CHEST 2 VIEWS Routine 02/06/2025 URINALYSIS, COMPLETE Routine 02/06/2025 ECG 12-LEAD Routine 02/06/2025 documented in this encounter Results * Urinalysis Complete (02/06/2025) Urine (Urine, Random) Result Kat Jung MD LAB URINE ORDERABLES Final Resul t * CBC auto differential (02/06/2025) Blood Venous blood specimen / Unknown Result Kat Jung MD LAB BLOOD ORDERABLES Final Resul t * XR Chest 2 Views (02/06/2025) Anatomical Region Laterality Modality Chest Radiographic Marlen ging Result Kat Jung MD IMG XR PROCEDURES Final Result * ECG 12 lead (02/06/2025) Result Kat Jung MD ECG ORDERABLES Final Result documented in this encounter Visit Diagnoses Not on filedocumented in this encounter Additional Health Concerns Assessment Noted Time PHQ-9 Depression Total Score: 14 025 12:58 PM EDT documented as of this encounter Care Teams Shading Painter Relationship Specialty Start Date End Date Massiel Jung MD [address] [place] [address] PCP - General Internal Medicine 03/04/22 documented as of this encounter
--- OUTSIDE RECORDS SUMMARY | 2025-02-17 12:57 | XMS_ITS | Encounter Summary ---
Author Organization [employer] Address [address] [facility] 7t [place] [address] Care Team Providers Care Professor Of Literacy Name Role Phone Massiel Jung MD Primary Care Provider [phone] Encounter Details Date Type Department Care Team (Late st Contact Info) Description 06/26/2024 Orders Only [place] [facility] [address] [place] [address] Massiel Jung MD [address] [place] [address] Social History Tobacco Use Types Packs/Day Years [...] the past 12 months, has t he [employer], gas, oil or water company threatened to [...] 05/01/2025 12:00 PM EST Office Visit [facility] [address] [place] [address] Massiel Jung MD [address] [place] [address] documented as of this encounter Procedures Procedure [...] documented as of this encounter Care Teams Professor Of Literacy Relationship Specialty Start Date End Date Massiel Jung MD [address] [place] [phone] PCP - General Internal Medicine 03/04/22 documented as of this encounter
--- OUTSIDE RECORDS SUMMARY | 2025-02-17 12:57 | XMS_ITS | Encounter Summary ---
Author Organization [employer] Address [address] [facility] [address]t [place] [address] Care Team Providers Care Hotel Front Office Manager Name Role Phone Massiel Jung MD Primary Care Provider [phone] Encounter Details Date Type Department Care Team (Late st Contact Info) Description 08/17/2024 Orders Only [place] [facility] [address] [place] [address] Massiel Jung MD [address] [place] [address] Social History Tobacco Use Types Packs/Day Years [...] the past 12 months, has t he [employer], gas, oil or water company threatened to [...] 05/01/2025 12:00 PM EST Office Visit [facility] [address] [place] [address] Massiel Jung MD [address] [place] [address] documented as of this encounter Procedures Procedure Name Priority Date/Time Associated Diagnosis Comments [facility] US LOWER EXTREMITY ARTERIAL DUPLEX BILATERAL WITH [...] documented as of this encounter Care Teams Hotel Front Office Manager Relationship Specialty Start Date End Date Massiel Jung MD [address] [place] [id number] PCP - General Internal Medicine 03/04/22 documented as of this encounter
--- OUTSIDE RECORDS SUMMARY | 2025-02-17 12:57 | XMS_ITS | Encounter Summary ---
Author Organization [employer] Address [address] [facility] 7 [place] [address] Care Team Providers Care Senior Auditor Name Role Phone Massiel Jung MD Primary Care Provider [phone] Reason for Visit * Reason Onset Date Comments [employer] fax received re: CPAP 02/08/2025 Encounter Details Date Type Department Care Team (Late st Contact Info) Description 02/08/2025 Telephone [facility] [address] [place] [address] Massiel Jung MD [address] [place] [address] [employer] fax received re: CPAP Social History Tobacco Use Types Packs/Day Years [...] * Telephone Encounter - KOMAL Vasquez - 02/12/2025 8:21 AM EST 01/26/25 office notes printed and faxed with O for CPAP compliance. Paper work to supervisor front for scanning. * Telephone Encounter - Grisel KOMAL Menezes - 02/08/2025 2:15 PM EST Provider needs to sign off on last ov notes, re: compliance and benefits of her CPAP documented in this encounter Plan of Treatment Upcoming Encounters Date Type Department Care Team (Late st Contact Info) Description 05/01/2025 12:00 PM EST Office Visit [facility] [address] [place] [address] Massiel Jung MD [address] [place] [address] documented as of this encounter Visit Diagnoses Not on filedocumented in this encounter Additional Health Concerns Assessment Noted Time PHQ-9 Depression Total Score: 14 025 12:58 PM EDT documented as of this encounter Care Teams Senior Auditor Relationship Specialty Start Date End Date Massiel Jung MD [address] [place] [address] PCP - General Internal Medicine 03/04/22 documented as of this encounter
--- OUTSIDE RECORDS SUMMARY | 2025-02-17 12:57 | XMS_ITS | Clinical Summary ---
Author Organization [facility] Address [address] [place] [address] Phone Care Team Providers Care Sample Driller Name Role Phone Massiel Jung MD Primary [...] Active Problems Problem Noted Date Diagnosed Date [place] (myocardial infarction) 02/03/2019 Hyperlipidemia 02/03/2019 Anemia 02/03/2019 [...] HEMOGLOBIN A1C 13.4(H) 4.3 - 5.6 % [facility] Comment:HbA1c levels 5.7-6.4 % represent pre-diabetes, indicating impaired glucose control and an increased risk of developing diabetes compared with lower HbA1c levels. The diagnostic HbA1c level for diabetes is 6.5% or greater. CALC MEAN BLD GLUC NOT DONE mg/dL [facility] Comment: A1C >12.0 There is no [...] LAB BLOOD BKR ORDERABLES Final R esult [address] [address] * (ABNORMAL) Comprehensive metabolic panel (03/01/2019 7:41 AM EST) SODIUM 136 135 - 145 mmol/L [facility] POTASSIUM 5.0 3.4 - 5.0 mmol/L [facility] CHLORIDE 96(L) 98 - 108 mmol/L [facility] CO2 25 23 - 32 mmol/L [facility] BUN 43(H) 8 - 25 mg/dL [facility] CREATININE 1.19 0.60 - 1.50 mg/dL [facility] GLUCOSE 227(H) 70 - 110 mg/dL [facility] ALBUMIN 4.5 3.3 - 5.0 g/dL [facility] TOTAL PROTEIN 7.6 6.0 - 8.3 g/dL [facility] CALCIUM 10.2 8.5 - 10.5 mg/dL [facility] ALKALINE PHOSPHATASE 124(H) 30 - 100 U/L [facility] TOTAL BILIRUBIN 0.2 0.0 - 1.0 mg/dL [facility] AST 15 9 - 32 U/L [facility] ALT 19 7 - 33 U/L [facility] GLOBULIN 3.1 1.9 - 4.1 g/dL [facility] EGFR 50(L) >59 mL/min/1. 73m2 [facility] Comment:If patient is black, multiply result by 1.159. Estimated glomerular filtration rate calculated using the CKD-EPI equation. ANION GAP 15 3 - 17 mmol/L [facility] 03/01/2019 7:41 AM EST 03/01/2019 8:12 AM EST us Rogelio Zabala MD LAB BLOOD BKR ORDERABLES Final R esult Performing Organization Address City/[facility]/ZIP Co de Phone Number [address] [address] * ENDOSCOPY, COLON (02/03/2019 2:59 PM EST) 02/03/2019 2:59 PM EST Narrative Transcriptions Ellie Henriquez MD - 02/03/2019 2:59 PM EST Gastrointestinal Endoscopy Unit Patient Name: Laura Lindsey Exam Date: 02/03/2019 2:59 PM Date of : 1960 Admit Type: Outpatient Age: 58 Room: [place] [address] Gender: Female Note Status: Finalized Attending MD: [...] bowel preparation was evaluated using the BBPS ([place] Bowel Preparation Scale) with scores of: Right [...] Anesthesia administered sedation. V Eddi Henriquez MD, [id number] 02/03/2019 3:40:02 PM The attending physician was present throughout the entire procedure. Number of Addenda: 0 Note Initiated On: 02/03/2019 2:59 PM Rogelio Zabala MD GI PROCEDURE ORDERABLES Final Re sult from Last 3 Months or Most Recently Relevant to Health Maintenance Insurance [facility] MEDICARE PART A & [place] [facility] & [facility] MEDIC[facility] PART A & B HEALTH MEDICARE PART A & [place] [facility] MEDICARE PART A & B Care Teams Sample Driller Relationship Specialty Start Date End Date Massiel Jung MD [address] [place] [address] [email or web address] PCP - General Internal Medicine 04/26/14 Additional Source Comments The information contained in this document represents components of the legal health record. It is not the complete legal health record.[facility]
--- OUTSIDE RECORDS SUMMARY | 2025-02-17 12:57 | XMS_ITS | Encounter Summary ---
Author Organization [facility] Address [address] [place] [address] Care Team Providers Care Airline Mechanic Name Role Phone Community, Pcp Primary Care Provider Unavailabl e Encounter Details Date Type Department Care Team Description 03/25/2021 SCAN [facility] [address] [place] [phone] Bong Chahal PA-C Social History Tobacco Use Types Packs/Day Years Used Date Smoking Tobacco: Never Smokeless Tobacco: Never Sex Assigned at Date Recorded Not on file documented as of this encounter Plan of Treatment Not on file documented as of this encounter Visit Diagnoses Not on filedocumented in this encounter Care Teams Airline Mechanic Relationship Specialty Start Date End Date Community, Pcp PCP - General Internal Medicine 02/20/20 documented as of this encounter
--- OUTSIDE RECORDS SUMMARY | 2025-02-17 12:57 | XMS_ITS | Encounter Summary ---
Author Organization [facility] Address [address] [place] [phone] Phone Care Team Providers Care Automobile Engine Assembler Name Role Phone Massiel Jung MD Primary Care Provider [phone] Encounter Details Date Type Department Care Team (Late Contact Info) Description 07/02/2021 Orders Only [facility] [address] [place] [address] Robin Ojeda MD Essential (primary) [...] Visit [facility] [address] [place] [address] Adin Stearns MD [address] [place] [address] [place] [place] [address] documented as of this encounter Procedures Procedure Name Priority Date/Time Associated Diagnosis Comments RENAL FUNCTION PANEL Routine 06/24/2021 12:28 PM EDT Essential (primary) hypertension Stage 3a chronic kidney disease (HCC) documented in this encounter Results * (ABNORMAL) Renal function panel (06/24/2021 12:28 PM EDT) Glucose 95 (70-99) MG/DL [facility] BUN 31(H) (8-23) MG/DL [facility] Creatinine 1.2(H) (0.5-1.0) MG/DL [facility] Sodium 141 (133-145) MMOL/L [facility] Potassium 5.2 (3.6-5.2) MMOL/L [facility] Chloride 105 (98-107) MMOL/L [facility] Bicarbonate (CO2) 24 (22-29) MMOL/L [facility] Anion Gap 12 (4-17) [facility] Albumin 4.8 (3.4-4.8) GM/DL [facility] Calcium 9.8 (8.6-10.5) MG/DL [facility] Phosphorus, Serum 4.5 (2.5-4.5) MG/DL [facility] Est GFR Non 49 ML/MIN/1.7 3 M2 [facility] Comment: Creatinine based estimated glomerular filtration rate (eGFR) is calculated using the Chronic Kidney Disease Epidemiology Collaboration (CKD-EPI). The CKD-EPI calculation is not validated in children (<18 years), woman or in racial or ethnic subgroups. Testing performed or reported by [facility], a Service of [facility], [address] [place] [address] Carlene Vega MD, Drill Operator Automatic IA# [id number] Blood specimen (specimen) Venous blood / Unknown 06/24/2021 12:28 PM EDT 06/24/2021 12:31 PM EDT us Robin Ojeda MD LAB BLOOD ORDERABLES Final Resul t [facility] documented in this encounter Visit Diagnoses Diagnosis Essential (primary) hypertension Stage 3a chronic kidney disease (HCC) documented in this encounter Care Teams Automobile Engine Assembler Relationship Specialty Start Date End Date Massiel Jung MD [address] [place] [address] PCP - General Internal Medicine 12/11/19 documented as of this encounter
--- OUTSIDE RECORDS SUMMARY | 2025-02-17 12:57 | XMS_ITS | Encounter Summary ---
Author Organization [facility] Address [address] [facility] [address] [place] [address] Phone Care Team Providers Care Contact Lens Fitter Name Role Phone Massiel Jung MD Primary Care Provider [phone] Encounter Details Date Type Department Care Team (Late st Contact Info) Description 09/23/2017 Procedure Pass [facility] JAYLA [address] [facility], 4th [place] [address] Social History Tobacco Use Types Packs/Day Years [...] on filedocumented in this encounter Care Teams Contact Lens Fitter Relationship Specialty Start Date End Date Massiel Jung MD [address] [place] [address] [email or web address] PCP - General Internal Medicine 04/26/14 documented as of this encounter Additional Source Comments The information contained in this document represents components of the legal health record. It is not the complete legal health record.[facility]
--- OUTSIDE RECORDS SUMMARY | 2025-02-17 12:57 | XMS_ITS | Encounter Summary ---
Author Organization [employer] Address [address] [facility] 7t [place] [address] Care Team Providers Care Head Of English Name Role Phone Massiel Jung MD Primary Care Provider Encounter Details Date Type Department Care Team (Late st Contact Info) Description 04/05/2024 Orders Only [facility] [address] [place] [address] Massiel Jung MD [address] [place] [address] Social History Tobacco Use Types Packs/Day Years [...] the past 12 months, has t he [employer], gas, oil or water company threatened to [...] 05/01/2025 12:00 PM EST Office Visit [facility] [address] [place] [address] Massiel Jung MD [address] [place] [address] documented as of this encounter Procedures Procedure [...] documented as of this encounter Care Teams Head Of English Relationship Specialty Start Date End Date Massiel Jung MD [address] [place] [address] PCP - General Internal Medicine 03/04/22 documented as of this encounter
--- OUTSIDE RECORDS SUMMARY | 2025-02-17 12:57 | XMS_ITS | Encounter Summary ---
Author Organization [employer] Address [address] [facility] 7t [place] [address] Care Team Providers Care Manager Of Application Development Name Role Phone Massiel Jung MD Primary Care Provider [phone] Reason for Visit * Reason Onset Date Comments Referral 04/08/2023 Encounter Details Date Type Department Care Team (Late st Contact Info) Description 04/08/2023 Telephone [facility] [address] [place] [address] Massiel Jung MD [address] [place] [address] Referral Social History Tobacco Use Types Packs/Day [...] Bi-radial carpatanal Phone Number for any questions: [phone] documented in this encounter Plan of Treatment Upcoming Encounters Date Type Department Care Team (Late st Contact Info) Description 05/01/2025 12:00 PM EST Office Visit [facility] [address] [place] [address] Massiel Jung MD [address] [place] [address] documented as of this encounter Visit Diagnoses Not on filedocumented in this encounter Care Teams Manager Of Application Development Relationship Specialty Start Date End Date Massiel Jung MD [address] [place] [address] PCP - General Internal Medicine 03/04/22 documented as of this encounter
--- OUTSIDE RECORDS SUMMARY | 2025-02-17 12:57 | XMS_ITS | Clinical Summary ---
Author Organization [facility] Address [address] [place] [address] Care Team Providers Care Pediatric Nurse Name Role Phone Massiel Jung Primary Care Provider Allergies No known active allergies Family History [...] Zoster (Zostavax) Discontinued Procedures * Due to [place] [employer] law, this organization might not be sharing negative HIV tests. Procedure Name Priority Date/Time Associated Diagnosis Comments MAMMOGRAM SCREENING TOMOSYNTHESIS, BILATERAL Routine 11/16/2014 11:19 AM EDT Other screening mammogram from Last 3 Months or Most Recently Relevant to Health Maintenance Results * Due to [place] [employer] law, this organization might not be sharing [...] BC FEE FOR SERVICE HMO Care Teams Pediatric Nurse Relationship Specialty Start Date End Date Massiel Jung [address] [address] PCP - General Internal Medicine 09/19/14
--- OUTSIDE RECORDS SUMMARY | 2025-02-17 12:57 | XMS_ITS | Encounter Summary ---
Author Organization [employer] Address [address] [facility] 7t [place] [address] Care Team Providers Care Mechanical Handyman Name Role Phone Massiel Jung MD Primary Care Provider [phone] Encounter Details Date Type Department Care Team (Late st Contact Info) Description 02/15/2025 Telephone [facility] [address] [place] [address] Massiel Jung MD [address] [place] [address] Social History Tobacco Use Types Packs/Day Years [...] the past 12 months, has t he [employer], gas, oil or water company threatened to [...] encounter Miscellaneous Notes * Telephone Encounter - Rosalba Otto - 02/15/2025 12:02 PM EST Error documented in this encounter Plan of Treatment Upcoming Encounters Date Type Department Care Team (Late st Contact Info) Description 05/01/2025 12:00 PM EST Office Visit [facility] [address] [place] [address] Massiel Jung MD [address] [place] [address] documented as of this encounter Visit Diagnoses Not on filedocumented in this encounter Additional Health Concerns Assessment Noted Time PHQ-9 Depression Total Score: 14 025 12:58 PM EDT documented as of this encounter Care Teams Mechanical Handyman Relationship Specialty Start Date End Date Massiel Jung MD [address] [place] [address] PCP - General Internal Medicine 03/04/22 documented as of this encounter
--- OUTSIDE RECORDS SUMMARY | 2025-02-17 12:57 | XMS_ITS | Encounter Summary ---
Author Organization [employer] Address [address] [facility] 7t [place] [address] Care Team Providers Care Chemist Biological Name Role Phone Sheeba Tejeda MD Primary Care Provider [phone] Reason for Visit * Reason Onset Date Comments RTT 02/06/2025 Encounter Details Date Type Department Care Team (Late st Contact Info) Description 02/06/2025 Telephone [facility] MED[facility] [address] [place] [address] Sheeba Tejeda MD [address] [place] [address] RTT Social History Tobacco Use Types Packs/Day [...] the past 12 months, has t he [employer], gas, oil or water [employer] threatened to shut off services in your [...] Telephone Encounter - Isa Huntley RN - 02/16/2025 4:09 PM EST Spoke with patient who accepts appointment tomorrow with [facility]. * Telephone Encounter - Rosalba Otto - 02/15/2025 12:05 PM EST Patient called stating she went to urgent care in [place] on [facility] last week and they told her to go to [facility] since she was dehydrated. Patient states they did an x-ray raul urine sample because she had a UTI. Patient states she has a headache, throat hurts, horse, worn out, and was taking Musinex. Patient states she doesn't have a fever or been around anyone sick. Patient states she got sick right after she saw [facility] on 01/25/25. Patient states she would like a call back. * Addendum Note - Sheeba Tejeda MD - 02/08/2025 12:39 PM ESTAddended by: SHEEBA TEJEDA on: 02/08/2025 12:39 PM Modules accepted: Orders * Telephone Encounter - Sheeba Tejeda MD - 02/08/2025 12:39 PM EST Prescription for tessalon perles sent * Telephone Encounter - Herlidna Victoria LPN - 02/07/2025 4:18 PM EST Spoke with patient who reports she went to urgent care yesterday who advised her to go to ER. Patient received fluids at ER. Patient is also being treated for ER. Patient reports ER was going to sendTessalon pearls however this did not happen. Patient is requesting a script. Patient seen at [facility] urgent care [facility]. Please obtain records. To PCP for script if agreeable. * Telephone Encounter - Isa Huntley RN - 02/06/2025 3:33 PM EST LMOM for patient to call back or [employer] message us back to discuss symptoms * [...] Description 05/01/2025 12:00 PM EST Office Visit [facility] [address] [place] [address] Sheeba Tejeda MD [address] [place] [address] documented as of this encounter Visit Diagnoses Not on filedocumented in this encounter Additional Health Concerns Assessment Noted Time PHQ-9 Depression Total Score: 14 025 12:58 PM EDT documented as of this encounter Care Teams Chemist Biological Relationship Specialty Start Date End Date Sheeba Tejeda MD [address] [place] [address] PCP - General Internal Medicine 03/04/22 documented as of this encounter
--- OUTSIDE RECORDS SUMMARY | 2025-02-17 12:57 | XMS_ITS | Encounter Summary ---
Author Organization [facility] Address [address] [facility] [address] [place] [address] Phone Care Team Providers Care Auto Electrical Technician Name Role Phone Massiel Jung MD Primary Care Provider [phone] Encounter Details Date Type Department Care Team (Late st Contact Info) Description 01/05/2021 Procedure Pass [facility] JAYLA 4 ENDO DEPT [address] [facility], 4th [place] [address] Social History Tobacco Use Types Packs/Day Years [...] on filedocumented in this encounter Care Teams Auto Electrical Technician Relationship Specialty Start Date End Date Massiel Jung MD [address] [place] [address] [email or web address] PCP - General Internal Medicine 04/26/14 documented as of this encounter Additional Source Comments The information contained in this document represents components of the legal health record. It is not the complete legal health record.[facility]
--- OUTSIDE RECORDS SUMMARY | 2025-02-17 12:57 | XMS_ITS | Encounter Summary ---
Author Organization [employer] Address [address] [facility] 7t [place] [address] Care Team Providers Care Staff Therapist Name Role Phone Massiel Jung MD Primary Care Provider [phone] Reason for Visit * Reason Comments Med Refill Encounter Details Date Type Department Care Team (Late st Contact Info) Description 02/16/2025 Refill [facility] MEDICAL [address] [place] [address] Massiel Jung MD [address] [place] [address] BMI 30.0-30.9,adult (Primary Dx) Social History Tobacco Use Types [...] 05/01/2025 12:00 PM EST Office Visit [facility] [address] [place] [address] Massiel Jung MD [address] [place] [address] documented as of this encounter Visit Diagnoses Diagnosis BMI 30.0-30.9,adult- Primary documented in this encounter Additional Health Concerns Assessment Noted Time PHQ-9 Depression Total Score: 14 025 12:58 PM EDT documented as of this encounter Care Teams Staff Therapist Relationship Specialty Start Date End Date Massiel Jung MD [address] [place] [address] PCP - General Internal Medicine 03/04/22 documented as of this encounter
--- OUTSIDE RECORDS SUMMARY | 2025-02-17 12:57 | XMS_ITS | Clinical Summary ---
Author Organization [facility], Address [address] [place] [address] [place] [address] Phone Care Team Providers Care Emt Name Role Phone Massiel Jung MD Primary Care Provider [phone] Allergies Active Allergy Reactions Criticality Noted Date [...] Pump (Omnipod 5 G6 Pod, Gen 5,) misc 2 Active midodrine (PROAMATINE) 10 MG tablet Take 1 tablet (10 mg total) by mouth in the morning and 1 tablet (10 mg total) in the evening. 180 tablet 3 5 01/18/20 26 Active Active Problems Problem Noted Date Diagnosed Date Chronic kidney disease 06/17/2021 Essential (primary) hypertension 04/10/2020 Stage 3a chronic kidney disease 01/08/2020 Overview (04/01/2020): Update for Diagnosis Load Anemia 02/03/2019 Type 2 diabetes mellitus 02/07/2015 Overview (01/08/2020): Type 2 diabetes mellitus; retinopathy, insulin pump Encounters Date Type Department Care Team Description 01/17/2025 2:00 PM EDT Office Visit [facility] [address] [place] [address] Adin Stearns MD Type 2 diabetes mellitus with diabetic chronic kidney disease, 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 [place] [place] [address] Health Maintenance Due Date Last Done Comments Breast Cancer Screening 1960 Colorectal Cancer Screening: Annual FOBT 07/24/2008 Colorectal Cancer Screening: Colonoscopy 07/24/2008 Colorectal Cancer Screening: Sigmoidoscopy 07/24/2008 Hepatitis B Vaccine (1 of 3 - Risk 3-dose series) 2019 Diabetes: Ophthalmology Exam 12/15/2019 Diabetes: Pedal Pulse Checked 12/15/2019 Diabetes: Sensory Foot Exam 12/15/2019 Diabetes: Visual Foot Exam 12/15/2019 Diabetes: Hemoglobin A1C 07/05/2024 025, 09/17/2023, 03/16/2023 Influenza Vaccine (#1) 2024 3, 02/25/2022, 01/15/2012, Additional history exists Pneumococcal Vaccine: 50+ Ye ars (3 of 3 - PCV) 10/24/2025 10/24/2024, 04/08/2018, 03/13/2004, Additional history exists Pneumococcal Vaccine: Peds ( 0 to 5 Years) and At-Risk Patients (6 to 49 Years) Discontinued 10/24/2024, 04/08/2018, 03/13/2004, Additional history exists Procedures Procedure Name Priority Date/Time Associated Diagnosis Comments URINE ALBUMIN / CREATININE RATIO Routine 01/26/2025 2:03 PM EDT Type 2 diabetes mellitus with diabetic chronic kidney disease, 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) Persistent proteinuria URINALYSIS WITH MICROSCOPIC Routine 01/26/2025 2:03 PM EDT Type 2 diabetes mellitus with diabetic chronic kidney disease, 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) Persistent proteinuria CBC Routine 01/26/2025 2:03 PM EDT Type 2 diabetes mellitus with diabetic chronic kidney disease, 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) Persistent proteinuria RENAL FUNCTION PANEL Routine 01/26/2025 2:03 PM EDT Type 2 diabetes mellitus with diabetic chronic kidney disease, 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 Co de Phone Number [facility] [address] [place] [address] * (ABNORMAL) Urine Albumin / Creatinine Ratio (01/26/2025 2:03 PM EDT) Pathologist [facility] Creatinine, Ur 69.1 Not Estab. mg/dL [facility] Albumin, Urine 678.5 Not Estab. ug/mL [facility] Comment: Results confirmed on dilution. Albumin/Creatin ine Ratio 982(H) 0 - 29 mg/g creat [facility] Comment: Normal: 0 - 29 Moderately increased: 30 - 300 Severely increased: >300 Urine Urine specimen obtained by clean catch procedure / Unknown 01/26/2025 2:03 PM EDT 01/26/2025 Adin Stearns MD LAB URINE ORDERABLES Final Result Performing Organization Address City/[facility]/ZIP Co de Phone Number [facility] [address] [place] [address] * (ABNORMAL) Urinalysis with microscopic (01/26/2025 2:03 PM EDT) Specific [place], Urine 1.022 1.005 - 1.030 [facility] pH Urine 5.5 5.0 - 7.5 [facility] Color, Urine Yellow Yellow [facility] Appearance Urine Cloudy(A) Clear [facility] [phone] WBC Esterase Urine 2+(A) Negative [facility] Protein, Ur 2+(A) Negative/Tra ce [facility] Glucose, Ur 3+(A) Negative [facility] Ketones, Urine Negative Negative [facility] Blood Urine Negative Negative [facility] Bilirubin Urine Negative Negative [facility] Urobilinogen Urine 0.2 0.2 - 1.0 mg/dL [facility] [phone] Nitrite, Urine Negative Negative [facility] Microscopic Examination See below: [facility] [phone] Comment:Microscopic was rayray cated and was performed. Urine Urine specimen obtained by clean catch procedure / Unknown 01/26/2025 2:03 PM EDT 01/26/2025 us Adin Stearns MD LAB URINE ORDERABLES Final Result [facility] [address] [place] [address] * (ABNORMAL) CBC (01/26/2025 2:03 PM EDT) Pathologist [facility] WBC 10.2 3.4 - 10.8 x10E3/uL [facility] RBC 4.37 3.77 - 5.28 x10E6/uL [facility] Hemoglobin 11.2 11.1 - 15.9 g/dL [facility] Hematocrit 35.9 34.0 - 46.6 % [facility] MCV 82 79 - 97 fL [facility] MCH 25.6(L) 26.6 - 33.0 pg [facility] MCHC 31.2(L) 31.5 - 35.7 g/dL [facility] RDW 12.7 11.7 - 15.4 % [facility] Platelets 315 150 - 450 x10E3/uL [facility] Blood Venous blood / Unknown 01/26/2025 2:03 PM EDT 01/26/2025 us Adin Stearns MD LAB BLOOD ORDERABLES Final Result [facility] [address] [place] [address] * (ABNORMAL) Renal function panel (01/26/2025 2:03 PM EDT) Glucose 275(H) 70 - 99 mg/dL [facility] BUN 49(H) 8 - 27 mg/dL [facility] Creatinine 1.43(H) 0.57 - 1.00 mg/dL [facility] eGFR CKD-EPI CR 2020 41(L) >59 mL/min/1.7 3 [facility] BUN/Creatinine Ratio 34(H) 12 - 28 [facility] Sodium 137 134 - 144 mmol/L [facility] Potassium 5.3(H) 3.5 - 5.2 mmol/L [facility] Chloride 97 96 - 106 mmol/L [facility] Bicarbonate (CO2) 23 20 - 29 mmol/L [facility] Calcium 10.6(H) 8.7 - 10.3 mg/dL [facility] Comment:Verified by repeat analysis Albumin 5.0(H) 3.9 - 4.9 g/dL [facility] Phosphorus 4.4(H) 3.0 - 4.3 mg/dL [facility] Blood Venous blood / Unknown 01/26/2025 2:03 PM EDT 01/26/2025 Adin Stearns MD LAB BLOOD ORDERABLES Final Result [facility] [address] [place] [address] from Last 3 Months Insurance Medicaid [place] Aetna MCR Adv PPO ([id number]) Care Teams Emt Relationship Specialty Start Date End Date Massiel Jung MD [address] [place], [place] [address] PCP - General Internal Medicine 12/11/19
--- OUTSIDE RECORDS SUMMARY | 2025-02-17 12:57 | XMS_ITS | Encounter Summary ---
Author Organization [employer] Address [address] [facility] 7t [place] [address] Care Team Providers Care Assembly Stock Supervisor Name Role Phone Massiel Jung MD Primary Care Provider [phone] Encounter Details Date Type Department Care Team (Late st Contact Info) Description 03/24/2023 Orders Only [facility] [address] [place] [address] Massiel Jung MD [address] [place] [address] Social History Tobacco Use Types Packs/Day Years [...] 12:00 PM EST Office Visit [facility] [address] [place] [address] Massiel Jung MD [address] [place] [address] documented as of this encounter Procedures Procedure Name Priority Date/Time Associated Diagnosis Comments PATHOLOGY REPORT (HISTOPATHOLOGY) Routine 03/02/2023 documented in this encounter Results * Pathology Report (03/02/2023) Tissue us Massiel Jung MD LAB PATHOLOGY ORDERABLES Final R esult documented in this encounter Visit Diagnoses Not on filedocumented in this encounter Care Teams Assembly Stock Supervisor Relationship Specialty Start Date End Date Massiel Jung MD [address] [place] [address] PCP - General Internal Medicine 03/04/22 documented as of this encounter
--- OUTSIDE RECORDS SUMMARY | 2025-02-17 12:57 | XMS_ITS | Encounter Summary ---
Author Organization [employer] Address [address] [facility] 7t [place] [address] Care Team Providers Care Wire Straightening Machine Operator Name Role Phone Massiel Jung MD Primary Care Provider [phone] Encounter Details Date Type Department Care Team (Late st Contact Info) Description 02/07/2025 Orders Only [facility] [address] [place] [address] Massiel Jung MD [address] [place] [address] Social History Tobacco Use Types Packs/Day Years [...] the past 12 months, has t he [employer], gas, oil or water [employer] threatened to shut off services in your [...] 05/01/2025 12:00 PM EST Office Visit [facility] [address] [place] [address] Massiel Jung MD [address] [place] [address] documented as of this encounter Visit Diagnoses Not on filedocumented in this encounter Additional Health Concerns Assessment Noted Time PHQ-9 Depression Total Score: 14 10/31/2 025 12:58 PM EDT documented as of this encounter Care Teams Wire Straightening Machine Operator Relationship Specialty Start Date End Date Massiel Jung MD [address] [place] [address] PCP - General Internal Medicine 03/04/22 documented as of this encounter
--- OUTSIDE RECORDS SUMMARY | 2025-02-17 12:57 | XMS_ITS | Encounter Summary ---
Author Organization [facility] Address [address] [place] [phone] Phone Care Team Providers Care Recreation Supervisor Name Role Phone Massiel Jung MD Primary Care Provider [phone] Encounter Details Date Type Department Care Team (Late Contact Info) Description 04/19/2023 Documentation Only [facility] [address] [address] [address]on [address] [place] [phone] Social History Tobacco Use Types Packs/Day Years [...] Visit [facility] [address] [place] [phone] Adin Stearns MD [address] [facility] [place] [address] documented as of this encounter Visit Diagnoses Not on filedocumented in this encounter Care Teams Recreation Supervisor Relationship Specialty Start Date End Date Massiel Jung MD [address] [place] [address] PCP - General Internal Medicine 12/11/19 documented as of this encounter
--- OUTSIDE RECORDS SUMMARY | 2025-02-17 12:58 | XMS_ITS | Encounter Summary ---
Author Organization [employer] Address [address] [facility] 7t [place] [address] Care Team Providers Care Wicker Worker Name Role Phone Massiel Jung MD Primary Care Provider [phone] Encounter Details Date Type Department Care Team (Late st Contact Info) Description 02/07/2024 Orders Only [facility] [address] [place] [address] Massiel Jung MD [address] [place] [address] Social History Tobacco Use Types Packs/Day Years [...] the past 12 months, has t he [employer], gas, oil or water company threatened to [...] Description 05/01/2025 12:00 PM EST Office Visit [place] [facility] [address] [place] [address] Massiel Jung MD [address] [place] [address] documented as of this encounter Procedures Procedure [...] documented as of this encounter Care Teams Wicker Worker Relationship Specialty Start Date End Date Massiel Jung MD [address] [place] [address] PCP - General Internal Medicine 03/04/22 documented as of this encounter
--- OUTSIDE RECORDS SUMMARY | 2025-02-17 12:58 | XMS_ITS | Clinical Summary ---
Author Organization [facility] Address [address] [place] [address] Care Team Providers Care Building Admin Name Role Phone Massiel Jung MD Primary Care Provider [phone] Allergies Active Allergy Reactions Criticality Noted Date [...] topic Insurance AETNA MGD MEDICARE Care Teams Building Admin Relationship Specialty Start Date End Date Massiel Jung MD [address] [place] [address] PCP - General Internal Medicine 12/28/23
--- OUTSIDE RECORDS SUMMARY | 2025-02-17 12:58 | XMS_ITS | Encounter Summary ---
Author Organization [employer] Address [address] [facility] 7t [place] [address] Care Team Providers Care Quoter Name Role Phone Massiel Jung MD Primary Care Provider [phone] Encounter Details Date Type Department Care Team (Late st Contact Info) Description 02/02/2024 Orders Only [facility] [address] [place] [address] Massiel Jung MD [address] [place] [address] Social History Tobacco Use Types Packs/Day Years [...] the past 12 months, has t he [employer], gas, oil or water company threatened to [...] Description 05/01/2025 12:00 PM EST Office Visit [facility] [address] [place] [address] Massiel Jung MD [address] [place] [address] documented as of this encounter Procedures Procedure [...] documented as of this encounter Care Teams Quoter Relationship Specialty Start Date End Date Massiel Jung MD [address] [place] [address] PCP - General Internal Medicine 03/04/22 documented as of this encounter
--- OUTSIDE RECORDS SUMMARY | 2025-02-17 12:58 | XMS_ITS | Encounter Summary ---
Author Organization [employer] Address [address] [facility] 7t [place] [address] Care Team Providers Care Artillery Specialist Name Role Phone Massiel Jung MD Primary Care Provider [phone] Encounter Details Date Type Department Care Team (Late st Contact Info) Description 11/02/2023 Orders Only [facility] [address] [place] [address] Massiel Jung MD [address] [place] [address] Loud snoring; Chronic fatigue Social History Tobacco [...] the past 12 months, has t he [employer], gas, oil or water [employer] threatened to shut off services in your [...] 05/01/2025 12:00 PM EST Office Visit [facility] [address] [place] [address] Massiel Jung MD [address] [place] [address] documented as of this encounter Procedures Procedure [...] documented as of this encounter Care Teams Artillery Specialist Relationship Specialty Start Date End Date Massiel Jung MD [address] [place] [address] PCP - General Internal Medicine 03/04/22 documented as of this encounter
--- OUTSIDE RECORDS SUMMARY | 2025-02-17 12:58 | XMS_ITS | Encounter Summary ---
Author Organization [facility] Address [address] [place] [address] Care Team Providers Care Lap Grinder Name Role Phone Massiel Jung MD Primary Care Provider Encounter Details Date Type Department Care Team ([facility] st Contact Info) Description 04/26/2024 Scanned Document [facility] [address] Percy Kowalski MD [address] [place] [address] Social History Tobacco Use Types Packs/Day Years [...] on filedocumented in this encounter Care Teams Lap Grinder Relationship Specialty Start Date End Date Massiel Jung MD [address] [place] [address] PCP - General Internal Medicine 12/28/23 documented as of this encounter
--- OUTSIDE RECORDS SUMMARY | 2025-02-17 12:58 | XMS_ITS | Encounter Summary ---
Author Organization [facility] Address [address] [place] [address] Care Team Providers Care Wire Worker Name Role Phone Massiel Jung MD Primary Care Provider [phone] Encounter Details Date Type Department Care Team (Late st Contact Info) Description 01/10/2024 Scanned Document [facility] [address] [place] [address] Isaura Pires [address] [facility] [address] [place] [address] Social History Tobacco Use Types Packs/Day Years [...] on filedocumented in this encounter Care Teams Wire Worker Relationship Specialty Start Date End Date Massiel Jung MD [address] [place] [address] PCP - General Internal Medicine 12/28/23 documented as of this encounter
--- OUTSIDE RECORDS SUMMARY | 2025-02-17 12:58 | XMS_ITS | Patient Health Record ---
Author Organization [facility] Address [address] [place] [address] Care Team Providers Care Lead Carpenter Name Role Phone Fabiana SIMPSON, Massiel Primary Care Provider UnavailEarnest Parr Unavailable [phone] Allergies Allergen (clinical drug ingredient) Drug/Non Drug [...] Test Name Order Date Hemoglobin A1c 08/06/2014 [id number] NAIL, 6 OR MORE 08/06/2014 [id number] NAIL, 6 OR MORE 10/18/2014 [id number]- Debride <25 sq cm 08/06/2014 [id number] SKIN LESIONS, OVER 4 10/19/19 15 [id number] SKIN LESIONS, 2 TO 4 08/07/19 15 Insurance Providers Payer Name Payer Address Payer Phone Subscriber Number Group Number Insured Name Patient Relationship to Insured Coverage Start Date Coverage End Date [facility] [address] [place] [address] [phone] [id number] Self - patient is [...]
[2025-02-17 13:00] LABS: Hematocrit 37.4 % (37.0-47.0); Hemoglobin 12.3 g/dl (12.0-16.0); Imm Gran Abs Auto 0.04 X10*3/uL (0.00-0.03); Imm Gran Pct Auto 0.4 % (0.0-0.4); Lymphocytes Absolute Auto 2.3 X10*3/uL (1.2-4.9); MANUAL DIFF FLAG SCAN; Mean Corpuscular HGB Conc 32.9 g/dl (31.0-35.0); Mean Corpuscular Hemoglobin 25.2 pg (27.0-33.0); Mean Corpuscular Volume 76.6 fL (80.0-98.0); NRBC Abs Auto 0.000 X10*3/uL (0.0-0.012); NRBC Pct Auto 0.0 /100WBC (0.0-0.2); PLT CLUMP 1; Red Blood Count 4.88 X10*6/uL (4.20-5.50); SCAN SMEAR FLAG 1
[2025-02-17 13:12] LABS: Alanine Aminotransferase 32 U/L (0-31); Albumin Level 4.8 g/dL (3.5-5.0); Alkaline Phosphatase 137 U/L (39-117); Anion Gap 19 (12-20); Aspartate Amino Transferase 35 U/L (5-31); Blood Urea Nitrogen 36 mg/dL (9-16); Calcium 9.6 mg/dL (8.4-10.2); Carbon Dioxide 20 mmol/L (22-29); Chloride 95 mmol/L (96-108); Creatinine Clr Calc Pharmacy 45.1; Estimated Glomerular Filt Rate 38; Lipase 92 U/L (8-78); Potassium 5.8 mmol/L (3.3-5.1); Sodium 128 mmol/L (135-145); Total Protein 8.3 g/dL (6.5-8.0)
--- NOTE | 2025-02-17 13:13 | ECG_ITS ---
Test Reason : HYPERKALEMIA Blood Pressure : */* mmHG Vent. Rate : 109 BPM Atrial Rate : 109 BPM P-R Int : 140 ms QRS Dur : 74 ms QT Int : 342 ms P-R-T Axes : 69 -20 69 degrees QTcB Int : 460 ms Sinus tachycardia Otherwise normal ECG When compared with ECG of 06-Feb-2025 17:26, No significant change was found Referred By: Martha Jonas Electronically Signed By: JOON KELLER
[2025-02-17 13:18] VITALS: TEMP 36.7
[2025-02-17 13:22] LABS: Platelet Count 250 X10*3/uL (160-400); White Blood Count 9.1 X10*3/uL (4.8-10.8)
[2025-02-17 13:26] LABS: Appearance Urine Cloudy; Glucose Urine UA >=1000 mg/dL (Negative); PH 5.0 (5.0-9.0); Specific Gravity - Urine >= 1.030 (1.005-1.025); UMIC TRIGGER UACC YES
[2025-02-17] MEDS: Lactated Ringers 1,000 ML 999 ML IV ×2 (13:39→15:14)
[2025-02-17] MEDS: iohexoL 350 MG/ML 100 ML INFUS..BTL IV (13:39)
[2025-02-17 13:42] LABS: UACC Culture Trigger YES
[2025-02-17 13:51] LABS: NT Pro B Type Natriuretic Pept 86.3 pg/mL (<300); Troponin-I High Sensitivity 3.3 ng/L (<3.5-17.0)
[2025-02-17 14:32] VITALS: BP 128/72; PULSE 113; RESP 16; TEMP 36.7; O2SAT 94
--- NOTE | 2025-02-17 15:41 | PM.IMHP ---
History of Present Illness Date of Service: 02/17/25 Chief Complaint: fever 64-year-old presented to the ER with complaints of abdominal pain, nausea, vomiting and diarrhea. Patient was recently treated for Klebsiella pneumoniae urinary tract infection and completed antibiotic medications. Patient stated that she did not feel better after being treated. She reported that she has not been eating and drinking as diffuse body pain. In the ED, Sodium 128, potassium 5.8, glucose 665, UA mildly positive, hypothermia, tachycardia. Patient given IV Rocephin in the ER along with Lokelma, 1 L of IV fluid. She will be admitted for further management and treatment of UTI and multiple electrolyte abnormalities. Review of Systems Review of Systems: Denies any recent fever chills or decrease in appetite respiratory denies any shortness of breath or cough cardiovascular denied chest pain gastrointestinal denies any dysphagia abdominal pain nausea vomiting or diarrhea genitourinary denies any dysuria frequency or hematuria musculoskeletal reports back pain neuropsych denies any weakness or seizures all other systems reviewed are negative [facility] Medical History Liver function abnormality Chronic kidney disease, stage 3 Diabetic retinopathy Depression Fibromyalgia PAD (peripheral artery disease) Peripheral neuropathy High cholesterol Tachycardia Diabetes Gastroparesis Social History Advance Directives: No Advance Directives Information Provided: No Meds Allergies Allergy/AdvReac Type Severity Reaction Status Date / Time aspirin Allergy Unknown Verified 02/17/25 12:35 codeine Allergy Unknown Verified 02/17/25 12:35 diazepam (From Valium) Allergy Anaphylaxis Verified 02/17/25 12:35 meperidine (From Demerol) Allergy Anaphylaxis Verified 02/17/25 12:35 Opioids - Morphine Analogues Allergy Anaphylaxis Verified 02/17/25 12:35 Penicillins (PCN) Allergy Unknown Verified 02/17/25 12:35 Sulfa (Sulfonamide Allergy Stomach Verified 02/17/25 12:35 Antibiotics) Upset Home Medications ?Medication ?Instructions ?Recorded ?Confirmed ?Last Taken ?Type bupropion HCl 150 mg 24 hr tablet, 150 mg PO DAILY 09/05/24 10/05/24 Unknown History extended release duloxetine 30 mg capsule,delayed 30 mg PO BID 09/05/24 10/05/24 Unknown History release ezetimibe 10 mg tablet 10 mg PO DAILY 09/05/24 10/05/24 Unknown History insulin glargine 100 unit/mL (3 unit subcut 09/05/24 10/05/24 Unknown History mL) subcutaneous pen (Lantus Solostar U-100 Insulin) insulin lispro 100 unit/mL subcut 09/05/24 10/05/24 Unknown History subcutaneous solution (Humalog U-100 Insulin) insulin pump cart,auto,BT,G6/7 #5 ea 09/05/24 Unknown History (Omnipod 5 G6-G7 Pods (Gen 5) subcutaneous cartridge) meclizine 25 mg tablet 25 mg PO TID PRN 09/05/24 10/05/24 Unknown History metformin 500 mg tablet,extended 1,000 mg PO BID 09/05/24 10/05/24 Unknown History release 24 hr methocarbamol 750 mg tablet 750 mg PO BID 09/05/24 10/05/24 Unknown History rosuvastatin 40 mg tablet 40 mg PO DAILY 09/05/24 10/05/24 Unknown History acetaminophen 500 mg tablet 1,000 mg PO Q6H PRN Pain 02/17/25 02/17/25 02/15/25 20:00 History anastrozole 1 mg tablet mg PO 02/17/25 Unknown History benzonatate 100 mg capsule 100 mg PO TID 02/17/25 Unknown History cholecalciferol (vitamin D3) 25 25 mcg PO DAILY 02/17/25 02/17/25 02/16/25 History mcg (1,000 unit) tablet (Vitamin D3) melatonin 5 mg tablet 5 mg PO BEDTIME PRN Sleep 02/17/25 02/17/25 Unknown History eoohumcn-rjo-gqiu-FA-Ca carb-vit K 1 tab PO BEDTIME 02/17/25 02/17/25 02/16/25 History 18 mg iron-400 mcg-500 mg tablet Physical Exam Vital Signs and Narrative: Vital Signs: Last Vital Signs Temp 98.0 F 02/17/25 14:32 Pulse 113 H 02/17/25 14:32 Resp 16 02/17/25 14:32 BP 128/72 02/17/25 14:32 Pulse Ox 94 02/17/25 14:32 O2 Del Method Room Air 02/17/25 14:32 BMI result Body Mass Index 27.2 Appearing in no acute distress head is normocephalic atraumatic eyes pupils are PERRLA sclera is anicteric mouth throat mucous membranes are intact and moist neck is supple no lymphadenopathy, no JVD noted lung sounds are clear to auscultation heart regular rate rhythm, clear S1, S2 positive bowel sounds, abdomen is soft, nontender neuro patient is alert x3, no focal deficits Results Labs 02/17/25 12:46 02/17/25 12:46 Labs: Laboratory Results - last 24 hr 02/17/25 02/17/25 02/17/25 12:46 12:56 13:19 MCV 76.6 L MCH 25.2 L MCHC 32.9 RDW 12.3 Plt Count 250 D MPV 11.3 Immature Gran % (Auto) 0.4 Neut % (Auto) 68.6 Lymph % (Auto) 24.8 [place] % (Auto) 4.8 Eos % (Auto) 1.0 Baso % (Auto) 0.4 Lymph # (Auto) 2.3 [place] # (Auto) 0.4 Eos # (Auto) 0.1 Baso # (Auto) 0.0 Abs Immat Gran (auto) 0.04 H Absolute Neuts (auto) 6.2 Absolute Nucleated RBC 0.000 Nucleated RBC % (auto) 0.0 Smear Tech's Comments VERIFIED Hold Purple Top SEE NOTE Anion Gap 19 Estim Creat Clear Calc 45.1 Estimated GFR 38 Random Glucose 665 H* Lactic Acid 1.9 Calcium 9.6 Total Bilirubin 0.3 AST 35 H ALT 32 H Alkaline Phosphatase 137 H Troponin I High Sens 3.3 NT-Pro-B Natriuret Pep 86.3 Total Protein 8.3 H Albumin 4.8 Lipase 92 H Urine Color Yellow Urine Appearance Cloudy Urine pH 5.0 Ur Specific [place] >= 1.030 H Urine Protein 100 (2+) H Urine Glucose (UA) >=1000 H Urine Ketones Negative Urine Blood Trace H Urine Nitrite Negative Ur Leukocyte Esterase Small (1+) H Urine RBC 0-2 Urine WBC >50 H Urine WBC Clumps Present Ur Squamous Epith Cells 0-2 Urine Bacteria Trace Hyaline Casts 0-2 Assessment and Plan (1) Urinary tract infection: Status: Inactive Plan 64-year-old woman admitted with UTI and hyperglycemia UTI Mildly positive UA Recent Klebsiella pneumoniae UTI start IV Rocephin Follow urine culture Diabetes mellitus 2 with hyperglycemia Normal anion gap Normal beta hydroxybutyrate Sliding scale, Lantus Proteinurea Likely secondary to hyperglycemia Hypokalemia Treated with Lokelma in the ED Recheck BMP Hyponatremia Likely secondary to dehydration and hyperglycemia IV fluids Transaminitis Mild Repeat in the morning DVT prophylaxis with heparin Full code Quality Stroke Does the patient have a stroke diagnosis?: No VTE Prior VTE?: No VTE Risk Level:: Medical - moderate - high VTE Device Contraindication: Treatment Not Indicated VTE Drug Contraindication: N/A - Med Ordered
[2025-02-17 15:52] LABS: Glucose, Whole Blood 470 mg/dL (60-115)
--- NOTE | 2025-02-17 16:54 | PC.NURSE ---
ambulates to the bathroom with standby assist, states she is chronically dizzy with ambulation.
--- NOTE | 2025-02-17 17:01 | PHA.MEDREC ---
Addendum entered by Naga Jj PharmD 02/17/25 17:17: reviewed, will make provider aware of insulin pump and strange Lantus instructions Original Note: Pharmacy Consult ? Medication Reconciliation Pharmacy has completed the medication reconciliation. Confirmed medication list with patient and claims history. patient states they take Meclizine 25 mg tablet TID every day not PRN. Patient also states they use Insulin Glargine (lantus) 16 units TID PRN, and has not had to use in roughly a month. Patient uses Insulin lispro (humalog) BID on a sliding scale dose given via omnipod pump device at home. Patient states they monitor blood pressure at home using Dexcom G7 device. Patient takes OTC Multivitamin, D3 supplement, and Melatonin to help with sleep.
[2025-02-17 17:23] VITALS: BP 174/94; PULSE 116; RESP 16; TEMP 36.7; O2SAT 96
--- NOTE | 2025-02-17 17:52 | HO.NURTONUR ---
coming from home for abdominal pain w/ n/v/d. recently treated for UTI and completed the antibiotics however continues to have symptoms. has had no n/v/d while in the emergency department. being admitted for mild UTI w/ IV antibiotics. 20IV LAC, fluids infusing. ambulates independently w/ standby assistance d/t persistent dizziness upon ambulation. alert and oriented x4.
[2025-02-17 18:55] LABS: Anion Gap 15 (12-20); Blood Urea Nitrogen 31 mg/dL (9-16); Calcium 8.7 mg/dL (8.4-10.2); Carbon Dioxide 26 mmol/L (22-29); Chloride 98 mmol/L (96-108); Creatinine Clr Calc Pharmacy 55.9; Estimated Glomerular Filt Rate 49; Potassium 4.8 mmol/L (3.3-5.1); Sodium 134 mmol/L (135-145)
[2025-02-17 19:48] LABS: Glucose, Whole Blood 463 mg/dL (60-115)
--- NOTE | 2025-02-17 19:48 | PC.NURSE ---
pt poc noted to be 463 MD White contacted at this time and states to cover pt at 9pm per sliding scale. oncoming JACKSON Castillo contacted with plan via [facility] connect
[2025-02-17 20:37] VITALS: BMI 28.9
[2025-02-17 20:51] LABS: Glucose, Whole Blood 541 mg/dL (60-115)
[2025-02-17 20:54] VITALS: BP 137/72; PULSE 107; RESP 18; TEMP 36.3; O2SAT 97
--- NOTE | 2025-02-17 22:47 | PC.NURSE ---
2044 pt's blood sugar was 541.Elyse MINOR notified. 5 units regular insulin IV ordered and lispro insulin held also BMP ordered.
[2025-02-17 23:09] LABS: Anion Gap 15 (12-20); Blood Urea Nitrogen 35 mg/dL (9-16); Calcium 8.7 mg/dL (8.4-10.2); Carbon Dioxide 27 mmol/L (22-29); Chloride 96 mmol/L (96-108); Creatinine Clr Calc Pharmacy 51.6; Estimated Glomerular Filt Rate 43; Potassium 4.6 mmol/L (3.3-5.1); Sodium 133 mmol/L (135-145)
--- NOTE | 2025-02-17 23:27 | PC.NURSE ---
Addendum entered by Anna Mancuso RN 02/18/25 01:39: repeat blood sugar at 0130 was 289. Original Note: blood sugar 528 5 units of lispro sq given and blood sugar to be repeated in 2hrs.per Elyse MINOR.
[2025-02-18] VITALS (8 sets, daily range): BP systolic 111–194; BP diastolic 59–92; PULSE 84–128; RESP 18; TEMP 36.1–37; O2SAT 96–98
[2025-02-18 01:32] LABS: Glucose, Whole Blood 289 mg/dL (60-115)
[2025-02-18 03:14] LABS: Glucose, Whole Blood 340 mg/dL (60-115)
--- NOTE | 2025-02-18 03:21 | PC.NURSE ---
pt nauseous and vomited 200cc yellow liquid.Pt medicated at 0124 with zofran 4mg IV and nothing else ordered for nausea.Elyse MINOR notified and reglan 5mg IV x1 ordered.repeat blood sugar was 340 pt given 8 units lispro insulin per sliding scale per Elyse MINOR.
[2025-02-18 06:43] LABS: Hematocrit 31.4 % (37.0-47.0); Hemoglobin 10.2 g/dl (12.0-16.0); Mean Corpuscular HGB Conc 32.5 g/dl (31.0-35.0); Mean Corpuscular Hemoglobin 24.9 pg (27.0-33.0); Mean Corpuscular Volume 76.8 fL (80.0-98.0); NRBC Abs Auto 0.000 X10*3/uL (0.0-0.012); NRBC Pct Auto 0.0 /100WBC (0.0-0.2); Platelet Count 285 X10*3/uL (160-400); Red Blood Count 4.09 X10*6/uL (4.20-5.50); White Blood Count 6.0 X10*3/uL (4.8-10.8)
[2025-02-18 07:03] LABS: Anion Gap 14 (12-20); Blood Urea Nitrogen 24 mg/dL (9-16); Calcium 8.9 mg/dL (8.4-10.2); Carbon Dioxide 26 mmol/L (22-29); Chloride 101 mmol/L (96-108); Creatinine Clr Calc Pharmacy 65.8; Estimated Glomerular Filt Rate 57; Magnesium 1.7 mg/dL (1.6-2.6); Potassium 4.3 mmol/L (3.3-5.1); Sodium 137 mmol/L (135-145)
[2025-02-18 07:38] LABS: Glucose, Whole Blood 310 mg/dL (60-115)
--- NOTE | 2025-02-18 09:07 | MHC.CM.PN ---
IMM DELIVERED. LIVES WITH DAUGHTER AND IS FUNCTIONALLY INDEPENDENT. PT DOES HAVE A WALKER BUT DOES NOT USE. + DRIVES. PTHAS C-PAP FOR SLEEP VIA [place] AND UTILIZES VISITING [employer] FOR [facility] HOU[employer]. + HCP, PT HAS COPY AT HOME. PCP SHEEBA TEJEDA DP: HOME WITH RESUMPTION OF [facility]ING [facility] FOR HOUSE[facility]. PT'S DAUGHTER WILL TRANSPORT. CM WILL CONTINUE TO FOLLOW FOR ANY CHANGE TO DC PLAN/NEEDS.
[2025-02-18] MEDS: 0.9 % Sodium Chloride Flush 3 ML SYRINGE IVFLUSH ×3 (09:20→21:10)
[2025-02-18] MEDS: buPROPion HCl XL 150 MG TAB.ER.24H PO (09:26)
--- NOTE | 2025-02-18 10:45 | HO.PM.IMPN ---
Subjective Subjective Date of Service: 02/18/25 Interval History: seen and examined still feels weak/fatigued reports mild nausea without vomiting Review of Systems Negative except HPI/interval history. Physical Exam Exam: Exam: General - no acute distress, appears fatigued Cardiovascular - regular rate and rhythm, S1-S2 Lungs - normal respiratory effort, clear to auscultation bilaterally, no wheezing Abdomen - soft, nontender, no rebound or guarding Extremities - no edema bilaterally Neuro - awake and alert, no focal deficits Vital Signs: Vital Signs: Last Vital Signs Temp 97.0 F 02/18/25 08:00 Pulse 104 H 02/18/25 10:04 Resp 18 02/18/25 10:04 BP 174/90 H 02/18/25 10:04 Pulse Ox 98 02/18/25 10:04 O2 Del Method Room Air 02/18/25 10:04 BMI result Body Mass Index 28.9 Objective Data Active Medications Acetaminophen (Acetaminophen 325 Mg Tablet) 650 mg PO Q6H PRN PRN Reason: Pain, Mild 1-3,fever,headache Last Admin: 02/18/25 09:54 Dose: 650 mg Documented By: EVELIA Anastrozole (Anastrozole 1 Mg Tablet) 1 mg PO DAILY [facility] Last Admin: 02/18/25 09:27 Dose: 1 mg Documented By: EVELIA Atorvastatin Calcium (Atorvastatin Calcium 80 Mg Tablet) 80 mg PO DAILY [facility] Last Admin: 02/18/25 09:25 Dose: 80 mg Documented By: EVELIA Benzonatate (Benzonatate 100 Mg Capsule) 100 mg PO TID [facility] Last Admin: 02/18/25 09:26 Dose: 100 mg Documented By: EVELIA Bupropion HCl (Bupropion Hcl Xl 150 Mg Tab.Er.24h) 150 mg PO DAILY [facility] Last Admin: 02/18/25 09:26 Dose: 150 mg Documented By: EVELIA Calcium Carbonate (Calcium Carbonate 750 Mg Tab.Chew) 750 mg PO Q4H PRN PRN Reason: Heartburn Dextrose (Dextrose 50 % 25 Gm/50 Ml Syringe) 25 gm IVPUSH Q15M PRN; Protocol PRN Reason: per Hypoglycemia Standing Ord. Duloxetine HCl (Duloxetine Hcl 30 Mg Capsule.Dr) 30 mg PO BID [facility] Last Admin: 02/18/25 09:25 Dose: 30 mg Documented By: EVELIA Ezetimibe (Ezetimibe 10 Mg Tablet) 10 mg PO DAILY [facility] Last Admin: 02/18/25 09:25 Dose: 10 mg Documented By: EVELIA Glucose (Glucose Gel 15 Gm Gel..Gram.) 15 gm PO Q15M PRN; Protocol PRN Reason: per Hypoglycemia Standing Ord. Heparin Sodium (Porcine) (Heparin Sodium,Porcine 5,000 Unit/Ml Vial) 5,000 unit SUBCUT Q12H [facility] Last Admin: 02/18/25 04:57 Dose: 5,000 unit Documented By: JOHN Sodium Chloride (Ns) 1,000 mls @ 100 mls/hr IVCONT .Q10H [facility] Last Admin: 02/18/25 02:18 Dose: 100 mls/hr Documented By: JOHN Insulin Human Lispro (Insulin Lispro 100 Unit/Ml 3 Ml Vial) 0 unit SUBCUT QIDACHS [facility]; Protocol Last Admin: 02/18/25 09:19 Dose: 8 unit Documented By: EVELIA Insulin Human Lispro (Insulin Lispro 100 Unit/Ml 3 Ml Vial) 5 unit SUBCUT QIDAS [facility] Last Admin: 02/18/25 09:20 Dose: 5 unit Documented By: EVELIA Magnesium Hydroxide (Milk Of Magnesia 30 Ml Oral.Susp) 30 ml PO DAILY PRN PRN Reason: Constipation Meclizine HCl (Meclizine Hcl 25 Mg Tablet) 25 mg PO TID [facility] Last Admin: 02/18/25 09:26 Dose: 25 mg Documented By: EVELIA Melatonin (Melatonin 3 Mg Tablet) 6 mg PO BEDTIME PRN PRN Reason: Insomnia Metformin HCl (Metformin Hcl Er 500 Mg Tab.Er.24h) 1,000 mg PO BID [facility] Methocarbamol (Methocarbamol 750 Mg Tablet) 750 mg PO BID [facility] Last Admin: 02/18/25 09:25 Dose: 750 mg Documented By: EVELIA Ondansetron HCl (Ondansetron Hcl 4 Mg/2 Ml Vial) 4 mg IVPUSH Q8H PRN PRN Reason: Nausea and Vomiting Last Admin: 02/18/25 09:22 Dose: 4 mg Documented By: EVELIA Sodium Chloride (0.9 % Sodium Chloride Flush 3 Ml Syringe) 3 ml IVFLUSH QSHIFT [facility] Last Admin: 02/18/25 09:20 Dose: 3 ml Documented By: EVELIA Vitamin D (Cholecalciferol (Vitamin D3) 25 Mcg Tablet) 25 mcg PO DAILY [facility] Last Admin: 02/18/25 09:26 Dose: 25 mcg Documented By: EVELIA Labs 02/18/25 06:31 02/18/25 06:31 Labs: Laboratory Results - last 24 hr 02/17/25 02/17/25 02/17/25 12:46 12:56 13:19 MCV 76.6 L MCH 25.2 L MCHC 32.9 RDW 12.3 Plt Count 250 D MPV 11.3 Immature Gran % (Auto) 0.4 Neut % (Auto) 68.6 Lymph % (Auto) 24.8 [place] % (Auto) 4.8 Eos % (Auto) 1.0 Baso % (Auto) 0.4 Lymph # (Auto) 2.3 [place] # (Auto) 0.4 Eos # (Auto) 0.1 Baso # (Auto) 0.0 Abs Immat Gran (auto) 0.04 H Absolute Neuts (auto) 6.2 Absolute Nucleated RBC 0.000 Nucleated RBC % (auto) 0.0 Smear Tech's Comments VERIFIED Hold Purple Top SEE NOTE Anion Gap 19 Estim Creat Clear Calc 45.1 Estimated GFR 38 POC Glucose Random Glucose 665 H* Lactic Acid 1.9 Calcium 9.6 Magnesium Total Bilirubin 0.3 AST 35 H ALT 32 H Alkaline Phosphatase 137 H Troponin I High Sens 3.3 NT-Pro-B Natriuret Pep 86.3 Total Protein 8.3 H Albumin 4.8 Lipase 92 H Urine Color Yellow Urine Appearance Cloudy Urine pH 5.0 Ur Specific [place] >= 1.030 H Urine Protein 100 (2+) H Urine Glucose (UA) >=1000 H Urine Ketones Negative Urine Blood Trace H Urine Nitrite Negative Ur Leukocyte Esterase Small (1+) H Urine RBC 0-2 Urine WBC >50 H Urine WBC Clumps Present Ur Squamous Epith Cells 0-2 Urine Bacteria Trace Hyaline Casts 0-2 02/17/25 02/17/25 02/17/25 15:47 18:08 19:45 MCV MCH MCHC RDW Plt Count MPV Immature Gran % (Auto) Neut % (Auto) Lymph % (Auto) [place] % (Auto) Eos % (Auto) Baso % (Auto) Lymph # (Auto) [place] # (Auto) Eos # (Auto) Baso # (Auto) Abs Immat Gran (auto) Absolute Neuts (auto) Absolute Nucleated RBC Nucleated RBC % (auto) Smear Tech's Comments Hold Purple Top Anion Gap 15 Estim Creat Clear Calc 55.9 Estimated GFR 49 POC Glucose 470 H* 463 H* Random Glucose 442 H* Lactic Acid Calcium 8.7 D Magnesium Total Bilirubin AST ALT Alkaline Phosphatase Troponin I High Sens NT-Pro-B Natriuret Pep Total Protein Albumin Lipase Urine Color Urine Appearance Urine pH Ur Specific [place] Urine Protein Urine Glucose (UA) Urine Ketones Urine Blood Urine Nitrite Ur Leukocyte Esterase Urine RBC Urine WBC Urine WBC Clumps Ur Squamous Epith Cells Urine Bacteria Hyaline Casts 02/17/25 02/17/25 02/18/25 20:27 21:11 01:27 MCV MCH MCHC RDW Plt Count MPV Immature Gran % (Auto) Neut % (Auto) Lymph % (Auto) [place] % (Auto) Eos % (Auto) Baso % (Auto) Lymph # (Auto) [place] # (Auto) Eos # (Auto) Baso # (Auto) Abs Immat Gran (auto) Absolute Neuts (auto) Absolute Nucleated RBC Nucleated RBC % (auto) Smear Tech's Comments Hold Purple Top Anion Gap 15 Estim Creat Clear Calc 51.6 Estimated GFR 43 POC Glucose 541 H* 289 H Random Glucose 528 H* Lactic Acid Calcium 8.7 Magnesium Total Bilirubin AST ALT Alkaline Phosphatase Troponin I High Sens NT-Pro-B Natriuret Pep Total Protein Albumin Lipase Urine Color Urine Appearance Urine pH Ur Specific [place] Urine Protein Urine Glucose (UA) Urine Ketones Urine Blood Urine Nitrite Ur Leukocyte Esterase Urine RBC Urine WBC Urine WBC Clumps Ur Squamous Epith Cells Urine Bacteria Hyaline Casts 02/18/25 02/18/25 02/18/25 03:10 06:31 07:16 MCV 76.8 L MCH 24.9 L MCHC 32.5 RDW 12.2 Plt Count 285 MPV 11.1 Immature Gran % (Auto) Neut % (Auto) Lymph % (Auto) [place] % (Auto) Eos % (Auto) Baso % (Auto) Lymph # (Auto) [place] # (Auto) Eos # (Auto) Baso # (Auto) Abs Immat Gran (auto) Absolute Neuts (auto) Absolute Nucleated RBC 0.000 Nucleated RBC % (auto) 0.0 Smear Tech's Comments Hold Purple Top Anion Gap 14 Estim Creat Clear Calc 65.8 Estimated GFR 57 POC Glucose 340 H 310 H Random Glucose 300 H Lactic Acid Calcium 8.9 Magnesium 1.7 Total Bilirubin AST ALT Alkaline Phosphatase Troponin I High Sens NT-Pro-B Natriuret Pep Total Protein Albumin Lipase Urine Color Urine Appearance Urine pH Ur Specific [place] Urine Protein Urine Glucose (UA) Urine Ketones Urine Blood Urine Nitrite Ur Leukocyte Esterase Urine RBC Urine WBC Urine WBC Clumps Ur Squamous Epith Cells Urine Bacteria Hyaline Casts Assessment and Plan (1) Acute UTI: Status: Acute Plan 64-year-old woman admitted with UTI and hyperglycemia Uncontrolled Diabetes mellitus 2 with hyperglycemia suspect symptoms due to this rather than untreated UTI start lantus, continue sliding scale POC trend overall improving UTI previously treated, UA mildly positive recieved 1 dose rocehpin yesterday, cultures pending continue rocephin for now, will d/c if cultures negative DILCIA on CKD, stage 3 SCr 1.39 on admission, now 0.98 s/p IVF, monitor off fluids psuedoyponatremia resolved ? HTN ? not on meds at home monitor for now; claim history shows midodrine in the past - ? orthostasis DVT prophylaxis with heparin Full code Quality Stroke Does the patient have a stroke diagnosis?: No VTE Prior VTE?: No VTE Risk Level:: Medical - moderate - high VTE Device Contraindication: Treatment Not Indicated VTE Drug Contraindication: N/A - Med Ordered
--- NOTE | 2025-02-18 11:39 | PC.NURSE ---
pt with elevated BP. Pt states she usually runs low and her BP drops about [address] Montes aware. orthostatics taken with significant drop. Dr. Montes again made aware. No new orders due to supine HTN and orthostatic Hypotension. Safety precautions mainained, pt aware to rise slowly and ring for assist as needed.
[2025-02-18 11:59] LABS: Glucose, Whole Blood 301 mg/dL (60-115)
[2025-02-18] MEDS: Insulin Glargine,Hum.rec.anlog 100 UNIT/ML 10 ML VIAL 20 UNIT SUBCUT (12:13)
--- NOTE | 2025-02-18 14:56 | PC.NURSE ---
Timing on sliding scale insulin appears to be ahead of where it should be (1130 dose was given at breakfast time). Pharmacy called and was unable to correct the error. MD contacted and one-time order for 8 units (lunchtime dose) placed.
[2025-02-18 16:48] LABS: Glucose, Whole Blood 280 mg/dL (60-115)
[2025-02-18 20:40] LABS: CDiff Gene PCR NEGATIVE (Negative)
[2025-02-18 20:51] LABS: Glucose, Whole Blood 330 mg/dL (60-115)
[2025-02-19 02:46] VITALS: BP 139/76; PULSE 108; RESP 14; TEMP 36.3; O2SAT 99
--- NOTE | 2025-02-19 03:35 | PC.NURSE ---
Pt seen on bed alert and oriented, denies any pain, BM soft and formed, sample sent to lab, pt claimed having chronic SOB and occasional cough, LSC but dim, O2 sats WNL, c/o nausea, prn ZOfran IV given, c/o SAPP, prn Tylenol po given, both with favorably good effect.
[2025-02-19 07:11] LABS: Glucose, Whole Blood 311 mg/dL (60-115)
[2025-02-19 08:00] VITALS: BP 156/74; PULSE 107; RESP 18; TEMP 36.3; O2SAT 95
[2025-02-19] MEDS: buPROPion HCl XL 150 MG TAB.ER.24H PO (08:09)
[2025-02-19] MEDS: 0.9 % Sodium Chloride Flush 3 ML SYRINGE IVFLUSH ×2 (08:10→21:05)
[2025-02-19] MEDS: Insulin Glargine,Hum.rec.anlog 100 UNIT/ML 10 ML VIAL 20 UNIT SUBCUT (09:30)
[2025-02-19 09:48] LABS: E. coli EAEC Not Detected (Not Detect.); E. coli EPEC Not Detected (Not Detect.); E. coli ETEC Not Detected (Not Detect.); E. coli STEC Not Detected (Not Detect.); Shigella sp./EIEC Not Detected (Not Detect.)
[2025-02-19 10:02] LABS: Hematocrit 29.2 % (37.0-47.0); Hemoglobin 9.3 g/dl (12.0-16.0); Mean Corpuscular HGB Conc 31.8 g/dl (31.0-35.0); Mean Corpuscular Hemoglobin 25.3 pg (27.0-33.0); Mean Corpuscular Volume 79.3 fL (80.0-98.0); NRBC Abs Auto 0.000 X10*3/uL (0.0-0.012); NRBC Pct Auto 0.0 /100WBC (0.0-0.2); Platelet Count 217 X10*3/uL (160-400); Red Blood Count 3.68 X10*6/uL (4.20-5.50); White Blood Count 4.3 X10*3/uL (4.8-10.8)
[2025-02-19 10:16] LABS: Anion Gap 15 (12-20); Blood Urea Nitrogen 28 mg/dL (9-16); Calcium 8.6 mg/dL (8.4-10.2); Carbon Dioxide 26 mmol/L (22-29); Chloride 97 mmol/L (96-108); Creatinine Clr Calc Pharmacy 47.0; Estimated Glomerular Filt Rate 39; Potassium 3.9 mmol/L (3.3-5.1); Sodium 134 mmol/L (135-145)
[2025-02-19] MEDS: Insulin Glargine,Hum.rec.anlog 100 UNIT/ML 10 ML VIAL 10 UNIT SUBCUT (10:51)
[2025-02-19 11:24] LABS: Glucose, Whole Blood 425 mg/dL (60-115)
--- NOTE | 2025-02-19 13:11 | HO.PM.IMPN ---
Subjective Subjective Date of Service: 02/19/25 Interval History: No significant abdominal pain or discomfort The patient has endorsed positional dizziness, as well as muffled hearing and bilateral tinnitus most pronounced on the right side Also endorses feeling very dehydrated Review of Systems Review of Systems: Yes all other systems are reviewed and are negative Physical Exam Exam: Exam: General: A&O x3, oriented to time place person and situation, comfortable, no pain HEENT: +ve Ashely-Hallpike bilaterally Cardiac: S1, S2 auscultated with no S3/4, no MRG. Well perfused. Respiratory: Normal breath sounds auscultated throughout all lung zones, without wheezing, rales. Normal rate. GI/ : No abdominal pain on palpation, no masses or distentions. MSK: Normal ambulation without pain at bony prominences or musculature Neurological: Normal neurological examination on overview, without obvious CN II-XII abnormalities. Vital Signs: Vital Signs: Last Vital Signs Temp 97.3 F 02/19/25 08:00 Pulse 107 H 02/19/25 08:00 Resp 18 02/19/25 08:00 BP 156/74 H 02/19/25 08:00 Pulse Ox 95 02/19/25 08:00 O2 Del Method Room Air 02/19/25 08:00 BMI result Body Mass Index 28.9 Objective Data Active Medications Acetaminophen (Acetaminophen 325 Mg Tablet) 650 mg PO Q6H PRN PRN Reason: Pain, Mild 1-3,fever,headache Last Admin: 02/19/25 01:45 Dose: 650 mg Documented By: SHANI Anastrozole (Anastrozole 1 Mg Tablet) 1 mg PO DAILY [facility] Last Admin: 02/19/25 08:10 Dose: 1 mg Documented By: CONI Atorvastatin Calcium (Atorvastatin Calcium 80 Mg Tablet) 80 mg PO DAILY [facility] Last Admin: 02/19/25 08:09 Dose: 80 mg Documented By: CONI Benzonatate (Benzonatate 100 Mg Capsule) 100 mg PO TID [facility] Last Admin: 02/19/25 08:09 Dose: 100 mg Documented By: CONI Bupropion HCl (Bupropion Hcl Xl 150 Mg Tab.Er.24h) 150 mg PO DAILY [facility] Last Admin: 02/19/25 08:09 Dose: 150 mg Documented By: CONI Calcium Carbonate (Calcium Carbonate 750 Mg Tab.Chew) 750 mg PO Q4H PRN PRN Reason: Heartburn Dextrose (Dextrose 50 % 25 Gm/50 Ml Syringe) 25 gm IVPUSH Q15M PRN; Protocol PRN Reason: per Hypoglycemia Standing Ord. Duloxetine HCl (Duloxetine Hcl 30 Mg Capsule.Dr) 30 mg PO BID [facility] Last Admin: 02/19/25 08:10 Dose: 30 mg Documented By: CONI Ezetimibe (Ezetimibe 10 Mg Tablet) 10 mg PO DAILY [facility] Last Admin: 02/19/25 08:10 Dose: 10 mg Documented By: CONI Glucose (Glucose Gel 15 Gm Gel..Gram.) 15 gm PO Q15M PRN; Protocol PRN Reason: per Hypoglycemia Standing Ord. Heparin Sodium (Porcine) (Heparin Sodium,Porcine 5,000 Unit/Ml Vial) 5,000 unit SUBCUT Q12H [facility] Last Admin: 02/19/25 04:57 Dose: 5,000 unit Documented By: SUSANILRaiza Ceftriaxone Sodium 1 gm/ (Sodium Chloride) 50 mls @ 100 mls/hr IV Q24H [facility] Last Infusion: 02/18/25 14:32 Dose: Infused Documented By: SOLISPE Sodium Chloride (Ns) 1,000 mls @ 100 mls/hr IVCONT .Q10H [facility] Stop: 02/19/25 20:44 Last Admin: 02/19/25 10:52 Dose: 100 mls/hr Documented By: CONI Insulin Glargine (Insulin Glargine,Hum.Rec.Anlog 100 Unit/Ml 10 Ml Vial) 30 unit SUBCUT DAILY [facility] Insulin Human Lispro (Insulin Lispro 100 Unit/Ml 3 Ml Vial) 0 unit SUBCUT QIDACHS [facility]; Protocol Last Admin: 02/19/25 11:47 Dose: 10 unit Documented By: CONI Insulin Human Lispro (Insulin Lispro 100 Unit/Ml 3 Ml Vial) 5 unit SUBCUT QIDAS [facility] Last Admin: 02/19/25 11:48 Dose: 5 unit Documented By: CONI Magnesium Hydroxide (Milk Of Magnesia 30 Ml Oral.Susp) 30 ml PO DAILY PRN PRN Reason: Constipation Meclizine HCl (Meclizine Hcl 25 Mg Tablet) 25 mg PO TID [facility] Last Admin: 02/19/25 08:09 Dose: 25 mg Documented By: CONI Melatonin (Melatonin 3 Mg Tablet) 6 mg PO BEDTIME PRN PRN Reason: Insomnia Metformin HCl (Metformin Hcl Er 500 Mg Tab.Er.24h) 1,000 mg PO BID [facility] Methocarbamol (Methocarbamol 750 Mg Tablet) 750 mg PO BID [facility] Last Admin: 02/19/25 08:10 Dose: 750 mg Documented By: CONI Ondansetron HCl (Ondansetron Hcl 4 Mg/2 Ml Vial) 4 mg IVPUSH Q8H PRN PRN Reason: Nausea and Vomiting Last Admin: 02/19/25 01:43 Dose: 4 mg Documented By: CASTILRaiza Sodium Chloride (0.9 % Sodium Chloride Flush 3 Ml Syringe) 3 ml IVFLUSH QSHIFT [facility] Last Admin: 02/19/25 08:10 Dose: 3 ml Documented By: CONI Vitamin D (Cholecalciferol (Vitamin D3) 25 Mcg Tablet) 25 mcg PO DAILY [facility] Last Admin: 02/19/25 08:09 Dose: 25 mcg Documented By: CONI Labs 02/19/25 09:50 02/19/25 09:50 Labs: Laboratory Results - last 24 hr 02/18/25 02/18/25 02/18/25 16:42 19:27 20:40 MCV MCH MCHC RDW Plt Count MPV Absolute Nucleated RBC Nucleated RBC % (auto) Anion Gap Estim Creat Clear Calc Estimated GFR POC Glucose 280 H 330 H Random Glucose Calcium Stl C. cayetanensis PCR Not Detected Stool Rotavirus A PCR Not Detected Stl Adenov F 40/41 PCR Not Detected Stool Astrovirus (PCR) Not Detected Stool Campylobacter PCR Not Detected Stool Cryptosporidium PCR Not Detected Stl Sh Tox Pr E STEC PCR Not Detected Stool E coli O157 PCR Not applicable Stl Enterotoxigenic E PCR Not Detected Stool EPEC (PCR) Not Detected Stool EAEC (PCR) Not Detected Stl E. histolytica PCR Not Detected Stool Giardia Lamblia PCR Not Detected Stl P. shigelloides PCR Not Detected Stool Salmonella PCR Not Detected Stool Sapovirus (PCR) Not Detected Stl Shigella/EIEC PCR Not Detected St Y.enterocolitica PCR Not Detected Stool Vibrio (PCR) Not Detected Stl Vibrio cholerae PCR Not Detected Stl Norovirus GI/GII PCR Not Detected C. difficile Tox B Gene NEGATIVE 02/19/25 02/19/25 02/19/25 07:06 09:50 11:20 MCV 79.3 L MCH 25.3 L MCHC 31.8 RDW 12.1 Plt Count 217 MPV 11.1 Absolute Nucleated RBC 0.000 Nucleated RBC % (auto) 0.0 Anion Gap 15 Estim Creat Clear Calc 47.0 Estimated GFR 39 POC Glucose 311 H 425 H* Random Glucose 519 H* Calcium 8.6 Stl C. cayetanensis PCR Stool Rotavirus A PCR Stl Adenov F 40/41 PCR Stool Astrovirus (PCR) Stool Campylobacter PCR Stool Cryptosporidium PCR Stl Sh Tox Pr E STEC PCR Stool E coli O157 PCR Stl Enterotoxigenic E PCR Stool EPEC (PCR) Stool EAEC (PCR) Stl E. histolytica PCR Stool Giardia Lamblia PCR Stl P. shigelloides PCR Stool Salmonella PCR Stool Sapovirus (PCR) Stl Shigella/EIEC PCR St Y.enterocolitica PCR Stool Vibrio (PCR) Stl Vibrio cholerae PCR Stl Norovirus GI/GII PCR C. difficile Tox B Gene Microbiology Microbiology Results: Microbiology 02/17/25 13:19 Urine Culture - Preliminary Urine clean catch - Clean Catch Midstream Gram negative jaleel 02/17/25 12:45 Blood Culture - Preliminary Blood - Venous No growth after 24 hours. 02/17/25 12:56 Blood Culture - Preliminary Blood - Venous No growth after 24 hours. Assessment and Plan (1) PAD (peripheral artery disease): Status: Acute (2) Acute hyperglycemia: Status: Acute (3) Vertigo: Status: Acute (4) Acute hyperkalemia: Status: Acute (5) Acute UTI: Status: Acute (6) Peripheral neuropathy: Status: Acute (7) Diabetic neuropathy: Status: Acute (8) Type 2 diabetes mellitus with hyperosmolar hyperglycemic state (HHS): Status: Acute (9) Type II diabetes mellitus: Status: Acute (10) Glucosuria: Status: Acute (11) Diabetic nephropathy: Status: Acute (12) Dehydration: Status: Acute (13) BPPV (benign paroxysmal positional vertigo): Status: Acute (14) Autonomic dysfunction with type 2 diabetes mellitus: Status: Acute Plan 64-year-old female, with a background history of uncontrolled T2 DM (A1c 11.8%), autonomic dysfunction, peripheral neuropathy, HTN, HLD, diabetic nephropathy, peripheral arterial disease, gastroparesis, presents with complaints nausea, vomiting, abdominal pain and diarrhea, recently treated for Klebsiella pneumoniae UTI, admitted with HHS 2/2 uncontrolled T2 DM, with superimposed UTI and electrolyte abnormalities. HHS Uncontrolled T2 DM on home insulin Pseudohyponatremia Patient presents with hyperglycemic hyperosmolar state, in the setting of uncontrolled T2 DM, and noncompliance. Presented with glucose level in the 600s, improved to 300s, currently 530mg/dL this a.m. Sodium 135, corrected returns at 145 mmol/L consistent with dehydration PLAN - increase glargine from 20 units daily to 30 units once a day - preprandial lispro 5 units - insulin sliding scale - monitor POC glucose closely - 100 cc per hour NaCl 0.9% for 1 L total and reassess - repeat BMP in 4 hours Uncomplicated UTI Continue ceftriaxone 1 g for 3-5 days Diabetic nephropathy HTN Optimize medication regimen by consideration of SGLT2i such as empagliflozin/dapagliflozin Losartan 25 mg OD p.o. start Diabetic neuropathy Consider addition of gabapentin Consider alpha lipoic acid Autonomic dysfunction likely 2/2 T2 DM Exercise Control glucose Consider outpatient Neurology BPPV, bilateral Meclizine 25 mg t.i.d. p.o. Avoid dehydration Avoid high salt diet [employer] - VTE: Heparin 5000 t.i.d. - CODE STATUS: Full code - DIET: Diabetic - DISPOSITION: Requires 2 midnights for correction of glucose Total time managing care of this patient today: 45 minutes. Quality Stroke Does the patient have a stroke diagnosis?: No VTE Prior VTE?: No VTE Risk Level:: Medical - moderate - high VTE Device Contraindication: Treatment Not Indicated VTE Drug Contraindication: N/A - Med Ordered
--- NOTE | 2025-02-19 14:22 | MHC.CM.PN ---
PER PN, PT NOT MEDICALLY CLEARED, STILL RECEIVING IV ABX DCP REMAINS HOME VIA FAMILY TRANSPORT
[2025-02-19 15:00] VITALS: BP 154/74; PULSE 98; RESP 18; TEMP 36.3; O2SAT 98
[2025-02-19 15:48] LABS: Anion Gap 12 (12-20); Blood Urea Nitrogen 28 mg/dL (9-16); Calcium 8.7 mg/dL (8.4-10.2); Carbon Dioxide 29 mmol/L (22-29); Chloride 98 mmol/L (96-108); Creatinine Clr Calc Pharmacy 54.7; Estimated Glomerular Filt Rate 46; Potassium 4.2 mmol/L (3.3-5.1); Sodium 135 mmol/L (135-145)
[2025-02-19 16:36] LABS: Glucose, Whole Blood 270 mg/dL (60-115)
[2025-02-19 19:45] VITALS: BP 183/80; PULSE 108; RESP 18; TEMP 36.3; O2SAT 98
[2025-02-19 20:20] VITALS: BP 159/74; PULSE 99
[2025-02-19 20:23] LABS: Glucose, Whole Blood 296 mg/dL (60-115)
[2025-02-20 03:01] VITALS: BP 148/71; PULSE 100; RESP 18; TEMP 36.7; O2SAT 96
[2025-02-20 07:41] LABS: Glucose, Whole Blood 239 mg/dL (60-115)
[2025-02-20] MEDS: Insulin Glargine,Hum.rec.anlog 100 UNIT/ML 10 ML VIAL 30 UNIT SUBCUT (07:51)
[2025-02-20] MEDS: buPROPion HCl XL 150 MG TAB.ER.24H PO (07:53)
[2025-02-20] MEDS: 0.9 % Sodium Chloride Flush 3 ML SYRINGE IVFLUSH ×3 (07:54→21:58)
[2025-02-20 08:04] VITALS: BP 122/58; PULSE 119; RESP 18; TEMP 36.1; O2SAT 99
[2025-02-20 11:42] LABS: Glucose, Whole Blood 366 mg/dL (60-115)
[2025-02-20 12:23] LABS: Hematocrit 31.7 % (37.0-47.0); Hemoglobin 10.1 g/dl (12.0-16.0); Mean Corpuscular HGB Conc 31.9 g/dl (31.0-35.0); Mean Corpuscular Hemoglobin 25.5 pg (27.0-33.0); Mean Corpuscular Volume 80.1 fL (80.0-98.0); NRBC Abs Auto 0.000 X10*3/uL (0.0-0.012); NRBC Pct Auto 0.0 /100WBC (0.0-0.2); Platelet Count 259 X10*3/uL (160-400); Red Blood Count 3.96 X10*6/uL (4.20-5.50); White Blood Count 4.9 X10*3/uL (4.8-10.8)
[2025-02-20 12:26] LABS: Anion Gap 10 (12-20); Blood Urea Nitrogen 27 mg/dL (9-16); Calcium 9.3 mg/dL (8.4-10.2); Carbon Dioxide 31 mmol/L (22-29); Chloride 97 mmol/L (96-108); Creatinine Clr Calc Pharmacy 60.3; Estimated Glomerular Filt Rate 51; Potassium 5.1 mmol/L (3.3-5.1); Sodium 133 mmol/L (135-145)
--- NOTE | 2025-02-20 13:24 | P.PNIM_ITS ---
Subjective Subjective Date of Service: 02/20/25 Interval History: Feels better today. No new complaints Still suffering with some dysuria improved from yesterday Dizziness still present, however improved. Glucose much better controlled Review of Systems Review of Systems: Yes all other systems are reviewed and are negative Physical Exam 2 Exam: Exam: General: A&O x3, oriented to time place person and situation, comfortable, no pain HEENT: +ve Pavo-Hallpike bilaterally 02/20 Cardiac: S1, S2 auscultated with no S3/4, no MRG. Well perfused. Respiratory: Normal breath sounds auscultated throughout all lung zones, without wheezing, rales. Normal rate. GI/ : No abdominal pain on palpation, no masses or distentions. MSK: Normal ambulation without pain at bony prominences or musculature Neurological: Normal neurological examination on overview, without obvious CN II-XII abnormalities. Vital Signs: Vital Signs: Last Vital Signs Temp 97.0 F 02/20/25 08:04 Pulse 119 H 02/20/25 08:04 Resp 18 02/20/25 08:04 BP 122/58 L 02/20/25 08:04 Pulse Ox 99 02/20/25 08:04 O2 Del Method Room Air 02/20/25 08:04 BMI result Body Mass Index 28.9 Objective Data Active Medications Acetaminophen (Acetaminophen 325 Mg Tablet) 650 mg PO Q6H PRN PRN Reason: Pain, Mild 1-3,fever,headache Last Admin: 02/19/25 01:45 Dose: 650 mg Documented By: SHANI Anastrozole (Anastrozole 1 Mg Tablet) 1 mg PO DAILY [facility] Last Admin: 02/20/25 07:53 Dose: 1 mg Documented By: CONI Atorvastatin Calcium (Atorvastatin Calcium 80 Mg Tablet) 80 mg PO DAILY [facility] Last Admin: 02/20/25 07:53 Dose: 80 mg Documented By: CONI Benzonatate (Benzonatate 100 Mg Capsule) 100 mg PO TID [facility] Last Admin: 02/20/25 07:53 Dose: 100 mg Documented By: CONI Bupropion HCl (Bupropion Hcl Xl 150 Mg Tab.Er.24h) 150 mg PO DAILY [facility] Last Admin: 02/20/25 07:53 Dose: 150 mg Documented By: CONI Calcium Carbonate (Calcium Carbonate 750 Mg Tab.Chew) 750 mg PO Q4H PRN PRN Reason: Heartburn Dextrose (Dextrose 50 % 25 Gm/50 Ml Syringe) 25 gm IVPUSH Q15M PRN; Protocol PRN Reason: per Hypoglycemia Standing Ord. Duloxetine HCl (Duloxetine Hcl 30 Mg Capsule.Dr) 30 mg PO BID [facility] Last Admin: 02/20/25 07:53 Dose: 30 mg Documented By: CONI Ezetimibe (Ezetimibe 10 Mg Tablet) 10 mg PO DAILY [facility] Last Admin: 02/20/25 07:53 Dose: 10 mg Documented By: CONI Glucose (Glucose Gel 15 Gm Gel..Gram.) 15 gm PO Q15M PRN; Protocol PRN Reason: per Hypoglycemia Standing Ord. Heparin Sodium (Porcine) (Heparin Sodium,Porcine 5,000 Unit/Ml Vial) 5,000 unit SUBCUT Q12H [facility] Last Admin: 02/20/25 05:18 Dose: 5,000 unit Documented By: JUVENTINO Ceftriaxone Sodium 1 gm/ (Sodium Chloride) 50 mls @ 100 mls/hr IV Q24H [facility] Last Infusion: 02/19/25 13:58 Dose: Infused Documented By: CONI Insulin Glargine (Insulin Glargine,Hum.Rec.Anlog 100 Unit/Ml 10 Ml Vial) 30 unit SUBCUT DAILY [facility] Last Admin: 02/20/25 07:51 Dose: 30 unit Documented By: CONI Insulin Human Lispro (Insulin Lispro 100 Unit/Ml 3 Ml Vial) 0 unit SUBCUT QIDAS [facility]; Protocol Last Admin: 02/20/25 11:46 Dose: 10 unit Documented By: CONI Insulin Human Lispro (Insulin Lispro 100 Unit/Ml 3 Ml Vial) 5 unit SUBCUT QIDAS [facility] Last Admin: 02/20/25 11:47 Dose: 5 unit Documented By: CONI Magnesium Hydroxide (Milk Of Magnesia 30 Ml Oral.Susp) 30 ml PO DAILY PRN PRN Reason: Constipation Meclizine HCl (Meclizine Hcl 25 Mg Tablet) 25 mg PO TID [facility] Last Admin: 02/20/25 07:53 Dose: 25 mg Documented By: CONI Melatonin (Melatonin 3 Mg Tablet) 6 mg PO BEDTIME PRN PRN Reason: Insomnia Metformin HCl (Metformin Hcl Er 500 Mg Tab.Er.24h) 1,000 mg PO BID [facility] On Hold: 02/19/25 21:00 Methocarbamol (Methocarbamol 750 Mg Tablet) 750 mg PO BID [facility] Last Admin: 02/20/25 07:53 Dose: 750 mg Documented By: CONI Ondansetron HCl (Ondansetron Hcl 4 Mg/2 Ml Vial) 4 mg IVPUSH Q8H PRN PRN Reason: Nausea and Vomiting Last Admin: 02/19/25 01:43 Dose: 4 mg Documented By: SHANI Sodium Chloride (0.9 % Sodium Chloride Flush 3 Ml Syringe) 3 ml IVFLUSH QSHIFT [facility] Last Admin: 02/20/25 07:54 Dose: 3 ml Documented By: CONI Vitamin D (Cholecalciferol (Vitamin D3) 25 Mcg Tablet) 25 mcg PO DAILY [facility] Last Admin: 02/20/25 07:53 Dose: 25 mcg Documented By: CONI Labs 02/20/25 11:33 02/20/25 11:33 Labs: Laboratory Results - last 24 hr 02/19/25 02/19/25 02/19/25 15:18 16:28 20:18 MCV MCH MCHC RDW Plt Count MPV Absolute Nucleated RBC Nucleated RBC % (auto) Anion Gap 12 Estim Creat Clear Calc 54.7 Estimated GFR 46 POC Glucose 270 H 296 H Random Glucose 293 H Calcium 8.7 02/20/25 02/20/25 02/20/25 07:28 11:33 11:35 MCV 80.1 MCH 25.5 L MCHC 31.9 RDW 12.0 Plt Count 259 MPV 11.2 Absolute Nucleated RBC 0.000 Nucleated RBC % (auto) 0.0 Anion Gap 10 L Estim Creat Clear Calc 60.3 Estimated GFR 51 POC Glucose 239 H 366 H* Random Glucose 404 H* Calcium 9.3 D Microbiology Microbiology Results: Microbiology 02/17/25 13:19 Urine Culture - Final Urine clean catch - Clean Catch Midstream Klebsiella pneumoniae 02/17/25 12:45 Blood Culture - Preliminary Blood - Venous No growth after 48 hours. 02/17/25 12:56 Blood Culture - Preliminary Blood - Venous No growth after 48 hours. Assessment and Plan (1) Acute hyperglycemia: Status: Acute (2) Type 2 diabetes mellitus with hyperosmolar hyperglycemic state (HHS): Status: Acute (3) Glucosuria: Status: Acute (4) Autonomic dysfunction with type 2 diabetes mellitus: Status: Acute (5) PAD (peripheral artery disease): Status: Acute (6) Diabetic nephropathy: Status: Acute (7) Acute hyperkalemia: Status: Acute (8) BPPV (benign paroxysmal positional vertigo): Status: Acute (9) Vertigo: Status: Acute (10) Dehydration: Status: Acute (11) Acute UTI: Status: Acute (12) Peripheral neuropathy: Status: Acute (13) Diabetic neuropathy: Status: Acute Plan 64-year-old female, with a background history of uncontrolled T2 DM (A1c 11.8%), autonomic dysfunction, peripheral neuropathy, HTN, HLD, diabetic nephropathy, peripheral arterial disease, gastroparesis, presents with complaints nausea, vomiting, abdominal pain and diarrhea, recently treated for Klebsiella pneumoniae UTI, admitted with HHS 2/2 uncontrolled T2 DM, with superimposed UTI and electrolyte abnormalities. HHS Uncontrolled T2 DM on home insulin Pseudohyponatremia Patient presents with hyperglycemic hyperosmolar state, in the setting of uncontrolled T2 DM, and noncompliance. Presented with glucose level in the 600s, improved to 300s, currently 530mg/dL this a.m. Sodium 135, corrected returns at 145 mmol/L consistent with dehydration Patient was diagnosed with T2 DM in 1998, however suspect it has been going on for much longer. She has a daughter who was diagnosed with T2 DM at a very young age This raises the possibility of maturity onset diabetes of the young (FATEMEH) as possible diagnosis PLAN - restart metformin 1000mg BID PO - increase glargine from 30 units daily to 40 units once a day - preprandial lispro 5 units - insulin sliding scale - monitor POC glucose closely - 100 cc per hour NaCl 0.9% for 1 L total and reassess - repeat BMP in 4 hours Uncomplicated UTI Continue ceftriaxone 1 g for 3-5 days Diabetic nephropathy HTN Optimize medication regimen by consideration of SGLT2i such as empagliflozin/dapagliflozin Consider start Losartan 25 mg OD p.o. Diabetic neuropathy Consider addition of gabapentin Consider alpha lipoic acid Autonomic dysfunction likely 2/2 T2 DM Exercise Control glucose Consider outpatient Neurology BPPV, bilateral Meclizine 25 mg t.i.d. p.o. Avoid dehydration Avoid high salt diet [employer] - VTE: Heparin 5000 t.i.d. - CODE STATUS: Full code - DIET: Diabetic - DISPOSITION: Likely discharge tomorrow Total time managing care of this patient today: 45 minutes. Quality Stroke Does the patient have a stroke diagnosis?: No VTE Prior VTE?: No VTE Risk Level:: Medical - moderate - high VTE Device Contraindication: Treatment Not Indicated VTE Drug Contraindication: N/A - Med Ordered
[2025-02-20 16:45] LABS: Glucose, Whole Blood 240 mg/dL (60-115)
[2025-02-20 16:53] VITALS: BP 177/89; PULSE 103; RESP 18; TEMP 36.9; O2SAT 96
[2025-02-20 19:25] VITALS: BP 158/70; PULSE 104; RESP 18; TEMP 37.1; O2SAT 97
[2025-02-20 21:17] LABS: Glucose, Whole Blood 369 mg/dL (60-115)
[2025-02-21 04:00] VITALS: BP 111/64; PULSE 98; RESP 18; TEMP 36.7; O2SAT 95
[2025-02-21 06:54] VITALS: BP 116/56; PULSE 98; RESP 16; TEMP 36.6; O2SAT 97
[2025-02-21] MEDS: 0.9 % Sodium Chloride Flush 3 ML SYRINGE IVFLUSH (07:03)
[2025-02-21 07:21] LABS: Glucose, Whole Blood 229 mg/dL (60-115)
[2025-02-21] MEDS: Insulin Glargine,Hum.rec.anlog 100 UNIT/ML 10 ML VIAL 30 UNIT SUBCUT (07:48)
[2025-02-21] MEDS: buPROPion HCl XL 150 MG TAB.ER.24H PO (07:49)
--- NOTE | 2025-02-21 10:50 | P.DS_ITS ---
DS: Providers Provider Date of Service: 02/21/25 Date of admission: 02/17/25 16:47 Date of discharge: 02/21/25 Primary care physician: Massiel Jung MD DS: Diagnosis Discharge Diagnosis (1) Acute hyperglycemia: Status: Acute (2) Type 2 diabetes mellitus with hyperosmolar hyperglycemic state (HHS): Status: Acute (3) Glucosuria: Status: Acute (4) Autonomic dysfunction with type 2 diabetes mellitus: Status: Acute (5) PAD (peripheral artery disease): Status: Acute (6) Diabetic nephropathy: Status: Acute (7) Acute hyperkalemia: Status: Acute (8) BPPV (benign paroxysmal positional vertigo): Status: Acute (9) Vertigo: Status: Acute (10) Dehydration: Status: Acute (11) Acute UTI: Status: Acute (12) Peripheral neuropathy: Status: Acute (13) Diabetic neuropathy: Status: Acute DS: Summary Hospital Course Hospital Course: 64-year-old female, with a background history of uncontrolled T2 DM (A1c 11.8%), autonomic dysfunction, peripheral neuropathy, HTN, HLD, diabetic nephropathy, peripheral arterial disease, gastroparesis, presents with complaints nausea, vomiting, abdominal pain and diarrhea, recently treated for Klebsiella pneumoniae UTI, admitted with HHS 2/2 uncontrolled T2 DM, with superimposed UTI and electrolyte abnormalities. HHS Uncontrolled T2 DM on home insulin Pseudohyponatremia Patient presents with hyperglycemic hyperosmolar state, in the setting of uncontrolled T2 DM, and noncompliance. Presented with glucose level in the 600s, improved to 300s, currently 530mg/dL this a.m. Sodium 135, corrected returns at 145 mmol/L consistent with dehydration Patient was diagnosed with T2 DM in 1998, however suspect it has been going on for much longer. She has a daughter who was diagnosed with T2 DM at a very young age This raises the possibility of maturity onset diabetes of the young (FATEMEH) as possible diagnosis. PLAN - restart metformin 1000mg BID PO - Started SGLT2i; Jardiance today - Prescribed Fluconazole 150mg once (to be taken if symptomatic) - Continue glargine 30 units daily on discharge - preprandial lispro 5 units - insulin sliding scale - monitor POC glucose closely Uncomplicated UTI Completed ceftriaxone for 5 doses total Diabetic nephropathy HTN Optimize medication regimen by consideration of SGLT2i such as empagliflozin/dapagliflozin Consider start Losartan 25 mg OD p.o. Diabetic neuropathy Consider addition of gabapentin Consider alpha lipoic acid Autonomic dysfunction likely 2/2 T2 DM Exercise Control glucose Consider outpatient Neurology BPPV, bilateral Meclizine 25 mg t.i.d. p.o. Avoid dehydration Avoid high salt diet Status at Discharge Functional status at discharge: independent ambulation Overall status at discharge: patient is back to baseline Time Attestation Total time managing care of this patient today: 35 mintues. Discharge Coordination Time (in mins): 35 Quality: Safe Use of Opioids Does Pt have an Active Cancer Diagnosis on the Problem List?: No Quality: Stroke Does the patient have a stroke diagnosis?: No Physical Exam Exam: Exam: General: A&O x3, oriented to time place person and situation, comfortable, no pain Cardiac: S1, S2 auscultated with no S3/4, no MRG. Well perfused. Respiratory: Normal breath sounds auscultated throughout all lung zones, without wheezing, rales. Normal rate. GI/ : No abdominal pain on palpation, no masses or distentions. MSK: Normal ambulation without pain at bony prominences or musculature Neurological: Normal neurological examination on overview, without obvious CN II-XII abnormalities. Vital Signs: Vital Signs: Last Vital Signs Temp 98 F 02/21/25 06:54 Pulse 98 02/21/25 06:54 Resp 16 02/21/25 06:54 BP 116/56 L 02/21/25 06:54 Pulse Ox 97 02/21/25 06:54 O2 Del Method Room Air 02/21/25 06:54 BMI result Body Mass Index 28.9 DS: Data Data Completed and Pending Labs on day of discharge: Laboratory Results - last 24 hr 02/20/25 02/20/25 02/20/25 11:33 11:35 16:38 WBC 4.9 RBC 3.96 L Hgb 10.1 L Hct 31.7 L MCV 80.1 MCH 25.5 L MCHC 31.9 RDW 12.0 Plt Count 259 MPV 11.2 Absolute Nucleated RBC 0.000 Nucleated RBC % (auto) 0.0 Sodium 133 L Potassium 5.1 D Chloride 97 Carbon Dioxide 31 H Anion Gap 10 L BUN 27 H Creatinine 1.07 Estim Creat Clear Calc 60.3 Estimated GFR 51 POC Glucose 366 H* 240 H Random Glucose 404 H* Calcium 9.3 D 02/20/25 02/21/25 21:13 07:10 WBC RBC Hgb Hct MCV MCH MCHC RDW Plt Count MPV Absolute Nucleated RBC Nucleated RBC % (auto) Sodium Potassium Chloride Carbon Dioxide Anion Gap BUN Creatinine Estim Creat Clear Calc Estimated GFR POC Glucose 369 H* 229 H Random Glucose Calcium Preliminary micro results at discharge 02/17/25 12:45 Blood Culture - Preliminary Blood - Venous No growth after 48 hours. 02/17/25 12:56 Blood Culture - Preliminary Blood - Venous No growth after 48 hours. Discharge Plan Discharge Anticipated Discharge Date/Time: 02/21/25 11:21 Patient Disposition: Home, Self-Care Discharge Diagnosis: HHS in setting of uncontrolled T2 DM, with uncomplicated UTI Referrals: Massiel Jung MD [Primary Care Provider, Internal Medicine] - 1 Week Discharge Medications: New Jardiance 10 mg tablet 10 mg PO DAILY Qty: 30 0RF fluconazole 150 mg tablet 150 mg PO ONCE 1 Days Qty: 1 0RF Continued ondansetron 4 mg tablet,disintegrating 4 mg PO Q8H PRN (Reason: nausea and vomiting) Qty: 10 0RF benzonatate 100 mg capsule 100 mg PO TID anastrozole 1 mg tablet 1 mg PO DAILY acetaminophen 500 mg Tablet 1,000 mg PO Q6H PRN (Reason: Pain) cholecalciferol (vitamin D3) [Vitamin D3] 25 mcg (1,000 unit) Tablet 25 mcg PO DAILY melatonin 5 mg Tablet 5 mg PO BEDTIME PRN (Reason: Sleep) Women's Multivitamin 18 mg iron-400 mcg-500 mg Tablet 1 tab PO BEDTIME bupropion HCl 150 mg tablet extended release 24 hr 150 mg PO DAILY duloxetine 30 mg capsule,delayed release(DR/EC) 30 mg PO BID rosuvastatin 40 mg tablet 40 mg PO DAILY ezetimibe 10 mg tablet 10 mg PO DAILY metformin 500 mg tablet extended release 24 hr 1,000 mg PO BID meclizine 25 mg tablet 25 mg PO TID (DME) Omnipod 5 G6-G7 Pods (Gen 5) Cartridge See Rx Instructions subcut .MEDSUPPLY Qty: 5 Rx Instructions: As directed methocarbamol 750 mg tablet 750 mg PO BID insulin lispro [Humalog U-100 Insulin] 100 unit/mL solution 1 sliding scale dose subcut BID Changed insulin glargine [Lantus Solostar U-100 Insulin] 100 unit/mL (3 mL) insulin pen 20 unit subcut DAILY 30 Days Qty: 9 0RF Discharge Orders: Discharge Order (Routine); Ordered 02/21/25 Ordered By: Fransisca Lawrence Diet: Advance to usual diet Activity on Discharge: As tolerated Stand Alone Forms: Patient Portal Discharge page Print Language: Mohawk Care Plan Goals: as above Health Concerns: as above Plan of Treatment: FU with PCP in 1 week FU with endocrinology within 1 week of discharge Assessment: Medically stable on discharge with resolution of HHS
[2025-02-21 11:18] LABS: Glucose, Whole Blood 336 mg/dL (60-115)
[2025-02-21 12:41] VITALS: BP 133/73; PULSE 110; RESP 16; TEMP 36.6; O2SAT 98
== END 2025-02-21 12:52 | disposition home or self-care (01) | DRG 638 ==
LOC: HO.ED 16:29 → HO.EDOVER 16:59 → HO.S3 19:19
PROVIDERS: Family Medicine; Physician Assistant; Physician Assistant Medical; Admitting Provider Nurse Practitioner Acute Care; Emergency Provider Emergency Medicine Emergency Medical Services; PCP Internal Medicine; Visit Provider Hospitalist
DX: E11.00 Type 2 diabetes mellitus with hyperosmolarity without nonketotic hyperglycemic-hyperosmolar coma (NKHHC) (principal); N17.9 Acute kidney failure, unspecified; N39.0 Urinary tract infection, site not specified; N18.30 Chronic kidney disease, stage 3 unspecified; E11.22 Type 2 diabetes mellitus with diabetic chronic kidney disease; E11.42 Type 2 diabetes mellitus with diabetic polyneuropathy; Z87.440 Personal history of urinary (tract) infections; E86.0 Dehydration; E11.43 Type 2 diabetes mellitus with diabetic autonomic (poly)neuropathy; E87.6 Hypokalemia; H81.13 Benign paroxysmal vertigo, bilateral; I95.1 Orthostatic hypotension; Z91.148 Patient's other noncompliance with medication regimen for other reason; Z79.4 Long term (current) use of insulin; Z79.84 Long term (current) use of oral hypoglycemic drugs; Z79.899 Other long term (current) drug therapy
CPT/HCPCS: 36415; 74177; 80048; 80053; 81001; 82947; 83605; 83690; 83735; 83880; 84484; 85025; 85027; 87040; 87086; 87088; 87186; 87493; 87507; 93005; 99285; J0696; J1171; J1200; J1644; J2405; J2765; J7120; Q9967

== ENCOUNTER → 2025-02-17 12:40 | Outpatient (BNV) | payer MEDICARE, SELFPAY | PROVIDERS: Emergency Provider Emergency Medicine Emergency Medical Services; PCP Internal Medicine; Visit Provider Radiology Diagnostic Radiology | DX: R10.9 Unspecified abdominal pain (principal) | CPT/HCPCS: 74177 ==

== ENCOUNTER → 2025-02-17 13:13 | Outpatient (BNV) | payer MEDICARE, SELFPAY | PROVIDERS: Admitting Provider Nurse Practitioner Acute Care; Emergency Provider Emergency Medicine Emergency Medical Services; PCP Internal Medicine; Visit Provider Internal Medicine | DX: R00.0 Tachycardia, unspecified (principal) | CPT/HCPCS: 93010 ==

== ENCOUNTER → 2025-02-17 16:47 | Outpatient (BNV) | payer MEDICARE, SELFPAY | PROVIDERS: Admitting Provider Nurse Practitioner Acute Care; Emergency Provider Emergency Medicine Emergency Medical Services; PCP Internal Medicine; Visit Provider Nurse Practitioner Acute Care | DX: N39.0 Urinary tract infection, site not specified (principal) | CPT/HCPCS: 99232 ==